=== PATIENT | female | born 1945 | race Caucasian/White ===

== ENCOUNTER 2020-07-31 14:07 | Outpatient (REF) | payer MEDICARE, SELFPAY ==
--- NOTE | ~2020-07-31 | MM_ITS ---
EXAMINATION: MM SCREENING DIGITAL BREAST TOMOSYNTHESIS, BILATERAL CLINICAL INFORMATION: Screening. Asymptomatic. Status post bilateral DCIS COMPARISON: Mammography: July 26, 2019 and studies dating back to March 09, 2012 TECHNIQUE: Digital breast tomosynthesis is performed in both the craniocaudal and mediolateral oblique views along with computer-aided detection (CAD). Synthesized 2D images are generated from the tomosynthesis. FINDINGS: There are scattered areas of fibroglandular density (ACR BI-RADS breast composition Category b). Patient status post bilateral lumpectomy and probable right breast radiation therapy with skin thickening noted. No new abnormal dominant mass or suspicious grouping of microcalcifications identified. MM/MM tomosynthesis screening BI IMPRESSION: There are no significant changes from prior study. ASSESSMENT: BI-RADS 2: Benign RECOMMENDATION: Routine annual mammography screening. This patient's information was entered into a reminder system with a target due date for their next mammogram.
== END 2020-07-31 14:08 | disposition home or self-care (01) ==
LOC: HO.MAMMO 14:07
PROVIDERS: PCP Internal Medicine Medical Oncology; Visit Provider Internal Medicine Medical Oncology
DX: Z12.31 Encounter for screening mammogram for malignant neoplasm of breast (principal)
CPT/HCPCS: 77063; 77067

== ENCOUNTER 2021-01-20 07:52 | Outpatient (REF) | payer MEDICARE, SELFPAY ==
[2021-01-20 08:29] LABS: MANUAL DIFF FLAG NO
[2021-01-20 08:34] LABS: Basophils Absolute Auto 0.1 X10*3/uL (0.0-0.2); Basophils Percent Auto 0.8 % (0-2); Eosinophils Absolute Auto 0.1 X10*3/uL (0.0-0.4); Eosinophils Percent Auto 1.5 % (0-4); Hematocrit 49.7 % (37-47); Hemoglobin 16.1 g/dl (12.0-16.0); Imm Gran Abs Auto 0.02 X10*3/uL (0.00-0.03); Imm Gran Pct Auto 0.3 % (0.0-0.4); Lymphocytes Absolute Auto 1.6 X10*3/uL (1.2-4.9); Lymphocytes Percent Auto 25.3 % (20-40); Mean Corpuscular HGB Conc 32.4 g/dl (31.0-35.0); Mean Corpuscular Hemoglobin 29.2 pg (27.0-33.0); Mean Corpuscular Volume 90.2 fL (80-98); Mean Platelet Volume 11.4 fL (9.4-12.3); Monocytes Absolute Auto 0.5 X10*3/uL (0.1-1.2); Monocytes Percent Auto 8.3 % (2-11); Neutrophils Absolute Auto 3.9 X10*3/uL (2.0-8.3); Neutrophils Percent Auto 63.8 % (45-73); Platelet Count 259 X10*3/uL (160-400); Red Blood Count 5.51 X10*6/uL (4.20-5.50); Red Cell Distribution Width 13.6 % (11.0-16.0); White Blood Count 6.2 X10*3/uL (4.8-10.8)
[2021-01-20 08:57] LABS: Alanine Aminotransferase 13 U/L (0-31); Albumin Level 4.1 g/dL (3.5-5.0); Alkaline Phosphatase 90 U/L (39-117); Anion Gap 12 (12-20); Aspartate Amino Transferase 17 U/L (5-31); Bilirubin Total 0.6 mg/dL (0.0-1.0); Blood Urea Nitrogen 12 mg/dL (9-16); Calcium 9.8 mg/dL (8.4-10.2); Carbon Dioxide 23 mmol/L (22-29); Chloride 110 mmol/L (96-108); Cholesterol 249 mg/dL; Estimated Glomerular Filt Rate > 60; Glucose Fasting 97 mg/dL (60-99); HDL Cholesterol 59 mg/dL; LDL Cholesterol Calculated 153 mg/dl; Potassium 4.7 mmol/L (3.3-5.1); Sodium 140 mmol/L (135-145); Total Protein 6.9 g/dL (6.5-8.0); Triglycerides 188 mg/dL
[2021-01-20 09:20] LABS: Vitamin D 25-OH Total 28.4 ng/mL (>30)
== END 2021-01-20 07:53 | disposition home or self-care (01) ==
LOC: HO.LAB 07:52
PROVIDERS: PCP Internal Medicine Medical Oncology; Visit Provider Internal Medicine Medical Oncology
DX: E78.5 Hyperlipidemia, unspecified (principal); E66.9 Obesity, unspecified
CPT/HCPCS: 36415; 80053; 80061; 82306; 85025

== ENCOUNTER 2021-02-12 12:57 | Outpatient (REF) | payer MEDICARE, SELFPAY ==
[2021-02-14 16:22] LABS: HPV mRNA E6/E7 rflx Not Detected (Not Detected)
== END 2021-02-12 12:58 | disposition home or self-care (01) ==
LOC: HO.LAB 12:57
PROVIDERS: PCP Internal Medicine Medical Oncology; Visit Provider Obstetrics & Gynecology
DX: Z01.419 Encounter for gynecological examination (general) (routine) without abnormal findings (principal); Z11.51 Encounter for screening for human papillomavirus (HPV); N89.0 Mild vaginal dysplasia; Z78.0 Asymptomatic menopausal state
CPT/HCPCS: 87624; 88142

== ENCOUNTER 2021-03-04 09:28 | Outpatient (REF) | payer MEDICARE, SELFPAY ==
--- NOTE | ~2021-03-04 | MM_ITS ---
EXAMINATION: BONE DENSITOMETRY CLINICAL INDICATION: Asymptomatic menopausal state. COMPARISON: Previous BD dated 05/05/2016 and baseline BD dated 01/18/2008. TECHNIQUE: Using a [employer] DXA System (software version: 13.1) manufactured by [employer], dual-energy x-ray absorptiometry was performed of the lumbar spine and left hip. The images are of good technical quality. Summary results are attached. FINDINGS: AP SPINE L1-L3 (excluding L4): The data of L1-L4 has been changed to exclude the L4 vertebral body, because degenerative changes at this level may cause overestimation of lumbar spine density. Current: BMD 0.985 g/cm2, Z-score -0.7, T-score -1.5, osteopenia, 3.4% increase from previous, 3.9% increase from baseline (<5% change is not significant). Prior: BMD 0.953 g/cm2. Baseline: BMD 0.948 g/cm2. LEFT FEMUR, NECK: Current: BMD 0.687 g/cm2, Z-score -1.2, T-score -2.5, osteoporosis. Prior: BMD 0.837 g/cm2. Baseline: BMD 0.916 g/cm2. LEFT FEMUR, TOTAL: Current: BMD 0.839 g/cm2, Z-score -0.3, T-score -1.3, osteopenia, 9.8% decrease from previous, 20.9% decrease from baseline (<5% change is not significant). Prior: BMD 0.930 g/cm2. Baseline: BMD 1.061 g/cm2. IDENTIFIED RISK FACTORS: Early menopause, secondary osteoporosis, hysterectomy, bilateral oophorectomy. HISTORY OF FRACTURE: None listed. MEDICATIONS: None listed. MM/XR DEXA axial skeleton IMPRESSION: 1. DIAGNOSIS: Osteoporosis based on the lowest T-score value of -2.5 in the femoral neck applying World Health Organization criteria. 2. 10-YEAR FRACTURE RISK PREDICTION, FRAX: Major osteoporotic fracture (clinical spine, forearm, hip or shoulder) 15.0%. Hip fracture 4.3%. 3. Treatment Recommendations: NOF guidelines recommend consideration for treatment in postmenopausal women and men age 50 and older presenting with the following: -A hip or vertebral (clinical or morphometric) fracture. -T-score less than or equal to -2.5 at the femoral neck or spine after appropriate evaluation to exclude secondary causes. -Low bone mass at the hip or spine and a 10-year fracture probability by FRAX of greater than or equal to 3% for hip fracture or greater than or equal to 20% for major osteoporotic fracture based on the [place] adapted WHO algorithm. 4. Other Recommendations: All treatment decisions require clinical judgment and consideration of individual patient factors, including patient preferences, comorbidities, previous drug use, risk factors not captured in the FRAX model (e.g. frailty, falls, vitamin D deficiency, increased bone turnover, interval significant decline in bone density) and possible under or overestimation of fracture risk by FRAX. Additional medical evaluation for secondary cause of low bone mineral density may be appropriate. FUTURE SCAN RECOMMENDATION: People with diagnosed cases of osteoporosis or at high risk for fracture should have regular bone mineral density tests. For patients eligible for Medicare, routine testing is allowed once every 2 years. The testing frequency can be increased to one year for patients who have rapidly progressing disease, those who are receiving or discontinuing medical therapy to restore bone mass, or have additional risk factors.
== END 2021-03-04 09:29 | disposition home or self-care (01) ==
LOC: HO.MAMMO 09:28
PROVIDERS: Visit Provider Obstetrics & Gynecology
DX: Z13.820 Encounter for screening for osteoporosis (principal); Z78.0 Asymptomatic menopausal state; Z90.722 Acquired absence of ovaries, bilateral; Z90.710 Acquired absence of both cervix and uterus
CPT/HCPCS: 77080

== ENCOUNTER → 2021-03-11 15:48 | Outpatient (BNVA) | payer MEDICARE, SELFPAY | PROVIDERS: PCP Internal Medicine Medical Oncology; Visit Provider Obstetrics & Gynecology | DX: M81.0 Age-related osteoporosis without current pathological fracture (principal) | CPT/HCPCS: 99212; Q3014 ==

== ENCOUNTER 2021-06-05 12:03 | Outpatient (REF) | payer MEDICARE, SELFPAY ==
[2021-06-05 12:22] LABS: MANUAL DIFF FLAG NO
[2021-06-05 12:29] LABS: Basophils Absolute Auto 0.1 X10*3/uL (0.0-0.2); Basophils Percent Auto 0.7 % (0-2); Eosinophils Absolute Auto 0.1 X10*3/uL (0.0-0.4); Eosinophils Percent Auto 1.2 % (0-4); Hematocrit 48.7 % (37.0-47.0); Hemoglobin 16.2 g/dl (12.0-16.0); Imm Gran Abs Auto 0.01 X10*3/uL (0.00-0.03); Imm Gran Pct Auto 0.1 % (0.0-0.4); Lymphocytes Absolute Auto 1.8 X10*3/uL (1.2-4.9); Lymphocytes Percent Auto 24.8 % (20-40); Mean Corpuscular HGB Conc 33.3 g/dl (31.0-35.0); Mean Corpuscular Hemoglobin 29.9 pg (27.0-33.0); Mean Corpuscular Volume 89.9 fL (80.0-98.0); Mean Platelet Volume 10.7 fL (9.4-12.3); Monocytes Absolute Auto 0.7 X10*3/uL (0.1-1.2); Monocytes Percent Auto 9.5 % (2-11); Neutrophils Absolute Auto 4.6 x10*3/uL (2.0-8.3); Neutrophils Percent Auto 63.7 % (45-73); Platelet Count 247 X10*3/uL (160-400); Red Blood Count 5.42 X10*6/uL (4.20-5.50); Red Cell Distribution Width 13.2 % (11.0-16.0); White Blood Count 7.3 X10*3/uL (4.8-10.8)
== END 2021-06-05 12:04 | disposition home or self-care (01) ==
LOC: HO.LAB 12:03
PROVIDERS: PCP Internal Medicine Medical Oncology; Visit Provider Internal Medicine Medical Oncology
DX: E78.5 Hyperlipidemia, unspecified (principal)
CPT/HCPCS: 36415; 85025

== ENCOUNTER 2021-08-15 07:21 | Outpatient (REF) | payer MEDICARE, SELFPAY ==
[2021-08-15 07:50] LABS: MANUAL DIFF FLAG NO
[2021-08-15 08:04] LABS: Basophils Percent Auto 0.8 % (0-2); Eosinophils Absolute Auto 0.1 X10*3/uL (0.0-0.4); Eosinophils Percent Auto 2.3 % (0-4); Hematocrit 44.5 % (37.0-47.0); Hemoglobin 14.6 g/dl (12.0-16.0); Imm Gran Abs Auto 0.01 X10*3/uL (0.00-0.03); Imm Gran Pct Auto 0.2 % (0.0-0.4); Lymphocytes Absolute Auto 1.4 X10*3/uL (1.2-4.9); Lymphocytes Percent Auto 29.1 % (20-40); Mean Corpuscular HGB Conc 32.8 g/dl (31.0-35.0); Mean Corpuscular Hemoglobin 29.2 pg (27.0-33.0); Mean Platelet Volume 11.4 fL (9.4-12.3); Monocytes Absolute Auto 0.5 X10*3/uL (0.1-1.2); Monocytes Percent Auto 10.5 % (2-11); Neutrophils Absolute Auto 2.7 x10*3/uL (2.0-8.3); Neutrophils Percent Auto 57.1 % (45-73); Platelet Count 233 X10*3/uL (160-400); Red Cell Distribution Width 13.8 % (11.0-16.0); White Blood Count 4.8 X10*3/uL (4.8-10.8)
[2021-08-15 08:36] LABS: Alanine Aminotransferase 10 U/L (0-31); Albumin Level 3.9 g/dL (3.5-5.0); Alkaline Phosphatase 64 U/L (39-117); Anion Gap 11 (12-20); Aspartate Amino Transferase 15 U/L (5-31); Bilirubin Total 0.8 mg/dL (0.0-1.0); Blood Urea Nitrogen 13 mg/dL (9-16); Calcium 9.7 mg/dL (8.4-10.2); Carbon Dioxide 25 mmol/L (22-29); Chloride 109 mmol/L (96-108); Cholesterol 231 mg/dL; Estimated Glomerular Filt Rate > 60; Glucose Random 90 mg/dL (60-115); HDL Cholesterol 54 mg/dL; LDL Cholesterol Calculated 152 mg/dl; Potassium 4.5 mmol/L (3.3-5.1); Sodium 140 mmol/L (135-145); Total Protein 6.5 g/dL (6.5-8.0); Triglycerides 126 mg/dL
== END 2021-08-15 07:22 | disposition home or self-care (01) ==
LOC: HO.LAB 07:21
PROVIDERS: PCP Internal Medicine Medical Oncology; Visit Provider Internal Medicine Medical Oncology
DX: E78.5 Hyperlipidemia, unspecified (principal); M19.90 Unspecified osteoarthritis, unspecified site; D72.819 Decreased white blood cell count, unspecified
CPT/HCPCS: 36415; 80053; 80061; 85025

== ENCOUNTER 2021-09-17 14:17 | Outpatient (REF) | payer MEDICARE, SELFPAY ==
--- NOTE | ~2021-09-17 | MM_ITS ---
EXAMINATION: MM SCREENING DIGITAL BREAST TOMOSYNTHESIS, BILATERAL CLINICAL INFORMATION: Screening. Asymptomatic. Status post bilateral lumpectomies. Pacemaker power pack in place within the left axilla. COMPARISON: Mammography: July 31, 2020 and studies dating back to March 09, 2012 TECHNIQUE: Digital breast tomosynthesis is performed in both the craniocaudal and mediolateral oblique views along with computer-aided detection (CAD). Synthesized 2D images are generated from the tomosynthesis. FINDINGS: The breasts are almost entirely fatty (ACR BI-RADS breast composition Category a). There are no new significant masses, abnormal calcifications, or other abnormalities. Bilateral postsurgical changes noted. MM/MM tomosynthesis screening BI IMPRESSION: There are no significant changes from prior study. ASSESSMENT: BI-RADS 2: Benign RECOMMENDATION: Routine annual mammography screening. This patient's information was entered into a reminder system with a target due date for their next mammogram.
== END 2021-09-17 14:18 | disposition home or self-care (01) ==
LOC: HO.MAMMO 14:17
PROVIDERS: PCP Internal Medicine Medical Oncology; Visit Provider Internal Medicine Medical Oncology
DX: Z12.31 Encounter for screening mammogram for malignant neoplasm of breast (principal)
CPT/HCPCS: 77063; 77067

== ENCOUNTER 2022-02-16 14:41 | Outpatient (REF) | payer MEDICARE, SELFPAY ==
[2022-02-20 07:27] LABS: HPV mRNA E6/E7 rflx Not Detected (Not Detected)
== END 2022-02-16 14:42 | disposition home or self-care (01) ==
LOC: HO.LAB 14:41
PROVIDERS: Visit Provider Obstetrics & Gynecology
DX: Z01.419 Encounter for gynecological examination (general) (routine) without abnormal findings (principal)
CPT/HCPCS: 87624; 88142

== ENCOUNTER → 2022-05-06 14:21 | Outpatient (BNVA) | payer MEDICARE, SELFPAY | PROVIDERS: PCP Internal Medicine Medical Oncology; Visit Provider Nurse Practitioner Family | DX: Z12.11 Encounter for screening for malignant neoplasm of colon (principal) | CPT/HCPCS: 99202 ==

== ENCOUNTER 2022-09-01 11:49 | Outpatient (REF) | payer MEDICARE, SELFPAY ==
--- NOTE | ~2022-09-01 | XR_ITS ---
EXAMINATION: XR HIP, LEFT CLINICAL INFORMATION: Left hip pain COMPARISON: None TECHNIQUE: Two views of the left hip. FINDINGS: No fracture or dislocation. The hip is well aligned. Superior joint space narrowing with subchondral sclerosis and osteophytes. The left hemipelvis is intact. Normal bowel gas pattern. XR/XR hip LT min 2V IMPRESSION: Moderate degenerative changes of the left hip.
== END 2022-09-01 11:50 | disposition home or self-care (01) ==
LOC: HO.XRAY 11:49
PROVIDERS: PCP Internal Medicine Medical Oncology; Visit Provider Internal Medicine Medical Oncology
DX: M25.552 Pain in left hip (principal); E66.9 Obesity, unspecified
CPT/HCPCS: 73502

== ENCOUNTER 2022-09-25 09:08 | Outpatient (REF) | payer MEDICARE, SELFPAY ==
[2022-09-25 09:23] LABS: MANUAL DIFF FLAG NO
[2022-09-25 09:56] LABS: Basophils Absolute Auto 0.1 X10*3/uL (0.0-0.2); Basophils Percent Auto 1.4 % (0-2); Eosinophils Absolute Auto 0.1 X10*3/uL (0.0-0.4); Eosinophils Percent Auto 2.5 % (0-4); Hematocrit 46.1 % (37.0-47.0); Hemoglobin 14.9 g/dl (12.0-16.0); Imm Gran Abs Auto 0.02 X10*3/uL (0.00-0.03); Imm Gran Pct Auto 0.4 % (0.0-0.4); Lymphocytes Absolute Auto 1.7 X10*3/uL (1.2-4.9); Lymphocytes Percent Auto 34.8 % (20-40); Mean Corpuscular HGB Conc 32.3 g/dl (31.0-35.0); Mean Corpuscular Hemoglobin 28.5 pg (27.0-33.0); Mean Corpuscular Volume 88.1 fL (80.0-98.0); Mean Platelet Volume 10.6 fL (9.4-12.3); Monocytes Absolute Auto 0.6 X10*3/uL (0.1-1.2); Monocytes Percent Auto 12.1 % (2-11); Neutrophils Absolute Auto 2.4 x10*3/uL (2.0-8.3); Neutrophils Percent Auto 48.8 % (45-73); Platelet Count 267 X10*3/uL (160-400); Red Blood Count 5.23 X10*6/uL (4.20-5.50); Red Cell Distribution Width 13.9 % (11.0-16.0); White Blood Count 4.9 X10*3/uL (4.8-10.8)
[2022-09-25 10:33] LABS: Alanine Aminotransferase 10 U/L (0-31); Albumin Level 4.1 g/dL (3.5-5.0); Alkaline Phosphatase 79 U/L (39-117); Anion Gap 13 (12-20); Aspartate Amino Transferase 16 U/L (5-31); Bilirubin Total 0.9 mg/dL (0.0-1.0); Blood Urea Nitrogen 10 mg/dL (9-16); Calcium 9.6 mg/dL (8.4-10.2); Carbon Dioxide 25 mmol/L (22-29); Chloride 110 mmol/L (96-108); Cholesterol 238 mg/dL; Estimated Glomerular Filt Rate > 60; Glucose Fasting 85 mg/dL (60-99); HDL Cholesterol 62 mg/dL; LDL Cholesterol Calculated 157 mg/dl; Potassium 4.6 mmol/L (3.3-5.1); Sodium 143 mmol/L (135-145); Total Protein 6.6 g/dL (6.5-8.0); Triglycerides 95 mg/dL
[2022-09-25 10:41] LABS: Thyroid Stimulating Hormone 1.56 uIU/mL (0.32-4.0)
== END 2022-09-25 09:09 | disposition home or self-care (01) ==
LOC: HO.LAB 09:08
PROVIDERS: PCP Internal Medicine Medical Oncology; Visit Provider Internal Medicine Medical Oncology
DX: Z00.00 Encounter for general adult medical examination without abnormal findings (principal); E66.9 Obesity, unspecified; E78.5 Hyperlipidemia, unspecified
CPT/HCPCS: 36415; 80053; 80061; 84443; 85025

== ENCOUNTER 2022-10-05 11:08 | Outpatient (REF) | payer MEDICARE, SELFPAY ==
--- NOTE | ~2022-10-05 | MM_ITS ---
EXAMINATION: MM SCREENING DIGITAL BREAST TOMOSYNTHESIS, BILATERAL CLINICAL INFORMATION: Due for yearly. Prior history left breast cancer, 2001; right breast cancer, 2006. COMPARISON: Prior mammography exams, most recent 09/17/2021. TECHNIQUE: Digital breast tomosynthesis is performed in both the craniocaudal and mediolateral oblique views along with computer-aided detection (CAD). Synthesized 2D images are generated from the tomosynthesis. FINDINGS: The breasts are almost entirely fatty (ACR BI-RADS breast composition Category a). Background stromal markings are stable and there is no developing density or interval mass or architectural abnormality. The axilla and skin contours are unremarkable. There is a pacemaker generator overlying the posterior left axilla on MLO view. Left breast has scattered benign round and vascular calcifications. There is a pacemaker generator overlying and partly obscuring the posterior left axilla on the MLO view. Left breast has scattered benign round and vascular calcifications. Right breast has scattered benign ductal secretory and benign dystrophic calcifications central and inner right breast. In addition, there are fine calcifications in a linear distribution posterior upper outer right breast representing change from prior studies. Patient will be recalled for additional imaging. MM/MM tomosynthesis screening BI IMPRESSION: Right: -Fine calcifications in linear distribution posterior upper outer right breast representing change from prior studies. Left: -No mammographic evidence of malignancy. ASSESSMENT: BI-RADS 0: Incomplete - Need Additional Imaging Evaluation RECOMMENDATION: 1. Additional views right breast (magnification CC, magnification ML). 2. Radiology department staff will contact the patient for additional imaging. This patient's information was entered into a reminder system with a target due date for their next mammogram.
== END 2022-10-05 11:09 | disposition home or self-care (01) ==
LOC: HO.MAMMO 11:08
PROVIDERS: PCP Internal Medicine Medical Oncology; Visit Provider Internal Medicine Medical Oncology
DX: Z12.31 Encounter for screening mammogram for malignant neoplasm of breast (principal)
CPT/HCPCS: 77063; 77067

== ENCOUNTER 2022-10-12 08:59 | Outpatient (REF) | payer MEDICARE, SELFPAY ==
--- NOTE | ~2022-10-12 | MM_ITS ---
EXAMINATION: MM DIAGNOSTIC DIGITAL MAMMOGRAPHY, RIGHT CLINICAL INFORMATION: Additional views of the right breast for calcifications in the upper outer quadrant. COMPARISON: Mammography: 10/05/2022 and studies dating back to 05/05/2016. TECHNIQUE: Digital mammography is performed in the following views: Spot magnification views of the right breast in craniocaudal and 90-degree mediolateral views. FINDINGS: There are scattered areas of fibroglandular density (ACR BI-RADS breast composition Category b). The calcifications may represent vascular calcifications and are more present to a large degree dating back to study of 07/26/2019. Low linear or branching forms are identified. Results are provided to the patient at time of visit by the technologist. MM/MM added views RT IMPRESSION: Right breast calcifications for 6-month followup examination to include spot magnification views in craniocaudal and 90-degree mediolateral views. ASSESSMENT: BI-RADS 3: Probably benign. RECOMMENDATION: Diagnostic mammography in 6 months. This patient's information was entered into a reminder system with a target due date for their next mammogram.
== END 2022-10-12 09:00 | disposition home or self-care (01) ==
LOC: HO.MAMMO 08:59
PROVIDERS: PCP Internal Medicine Medical Oncology; Visit Provider Internal Medicine Medical Oncology
DX: R92.1 Mammographic calcification found on diagnostic imaging of breast (principal)
CPT/HCPCS: 77065

== ENCOUNTER 2023-03-31 12:57 | Outpatient (AMB) | payer MEDICARE, SELFPAY ==
--- NOTE | 2023-03-31 12:58 | MHC.OFFVIS ---
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 No complaints. Last Pap/HPV was in 02/16 was negative, preceded by co testing on 02/15 was negative, the patient had VAUN 1 in 2015 Last Mammogram was BI-RADS 3 in 10/18, another mammogram scheduled in few weeks Last Colonoscopy was in 11/11, the recommendation was to repeat colonoscopy in 5 years, colonoscopy scheduled soon Last DEXA scan was 2 years ago, the patient had osteoporosis and was started on alendronate [facility] Medical History VAIN I (vaginal intraepithelial neoplasia grade I) History of bilateral breast cancer Heart problem Surgical History History of lumpectomy of both breasts Hx of abdominal hysterectomy H/O heart surgery Family History Mother Breast CA Social History (Updated 03/31/23 @ 13:10 by Carine Galeas CMA) Household Members: None Housing: House Alcohol intake: current Alcohol intake frequency: a few times a month Patient Tobacco Use Status: Never used Tobacco Sexual orientation: Straight/Heterosexual Gender identity: Female Female Reproductive History Menstrual Age of Menarche: 15 Total pregnancies: 1 Full term: 1 Number of Living Children: 1 Date of Mammogram: 10/12/22 Review of Systems Const All systems reviewed & are unremarkable except as noted in HPI and below Card Reports as per HPI and Reports no additional complaints Resp Reports as per HPI and Reports no additional complaints GI Reports as per HPI and Reports no additional complaints Reports as per HPI Physical Exam Vital Signs: BMI result Body Mass Index 33.5 Const General: cooperative, healthy appearing and comfortable General: Yes bladder normal to palpation External Female Exam: No lesion Speculum Exam - Vagina: normal appearance of the vagina, normal vaginal discharge and not erythematous Speculum Exam - Cervix: Cervix absent Bimanual exam- vagina & uterus: bladder normal to palpation and uterus absent Bimanual Exam- Adnexa, other: Other (No masses detected) Assessment & Plan Assessment & Plan (1) Well woman exam: Comment: History of VAIN 1 in 2015, last co testing in Code(s): Z01.419 - Encounter for gynecological examination (general) (routine) without abnormal findings Plan: No indication for vaginal Co testing this year. Counseled the patient about the recommended dietary allowance of 1200 mg of Calcium & 800 IU of vitamin D. Mammogram scheduled in 04/21. Referred for screening colonoscopy done. Will order DEXA scan . The patient was instructed to perform monthly self-breast exams and to schedule a 2 week DEXA scan follow-up appointment and an annual exam in a year; All questions answered and the patient verbalized understanding. Orders: Orders XR DEXA axial skeleton Today Z78.0 - Asymptomatic menopausal state Coding Level of Care Code Est Pt Prev Care >65y(73125) Diagnoses Well woman exam Z01.419
[2023-03-31 12:59] VITALS: BMI 33.5
== END 2023-03-31 13:38 | disposition home or self-care (01) ==
PROVIDERS: PCP Internal Medicine Medical Oncology; Visit Provider Obstetrics & Gynecology
DX: Z01.419 Encounter for gynecological examination (general) (routine) without abnormal findings (principal)
CPT/HCPCS: G0101

== ENCOUNTER → 2023-03-31 12:57 | Outpatient (BNVA) | payer MEDICARE, SELFPAY | PROVIDERS: Visit Provider Obstetrics & Gynecology | DX: Z01.419 Encounter for gynecological examination (general) (routine) without abnormal findings (principal) | CPT/HCPCS: G0101 ==

== ENCOUNTER 2023-04-12 08:46 | Outpatient (REF) | payer MEDICARE, SELFPAY ==
--- NOTE | ~2023-04-12 | MM_ITS ---
EXAMINATION: MM DIAGNOSTIC DIGITAL BREAST TOMOSYNTHESIS, RIGHT CLINICAL INFORMATION: Six-month follow-up right breast calcifications. COMPARISON: Mammography: 10/12/2022,, 10/05/2022 and studies dating back to 05/05/2016. TECHNIQUE: Digital breast tomosynthesis is performed in the following views: 2-D spot magnification right CC x2, right ML x1, full-field 3-D digital right CC x2, and full field 3-D digital right MLO x1. FINDINGS: There are scattered areas of fibroglandular density (ACR BI-RADS breast composition Category b). There is redemonstration of linear grouped calcifications in the upper outer right breast, mid to posterior depth, located in the lateral right breast, away from the medial surgical site. These are arranged in a linear distribution, have both somewhat coarse and fine linear forms, with one possible branching form. They are unchanged in morphology, distribution, and number when compared with 10/12/2022, and 09/17/2021. They are indeterminant. Otherwise, the upper slightly medial right breast, there are dystrophic calcifications from prior lumpectomy, as well as skin thickening. No developing masses or new foci of focal asymmetry identified. Otherwise, there are no additional suspicious abnormalities in the right breast. Discussion was held with the patient at length. There are both mildly suspicious characteristics and somewhat benign characteristics to these calcifications. The patient is anticoagulated on on a platelet inhibitor for atrial fibrillation, and it was felt the risks of stopping the anticoagulation for biopsy outweighed the risks of biopsy, which even if DCIS, would not change long-term prognosis with a 6 month interval observational period. It was thus decided to pursue a 6 month follow-up of these right breast calcifications, in lieu of stereotactic biopsy, which I felt was a reasonable course of action at this time. MM/MM tomosynthesis diagnostic RT IMPRESSION: Probably benign calcifications right breast upper outer and outer right breast as discussed above. Six-month interval follow-up mammography with standard magnification views was decided as the best course of action. ASSESSMENT: BI-RADS BI-RADS 3 - Probably benign finding(s) - 6 month follow-up suggested RECOMMENDATION: 6 Month F/U Results were discussed with the patient at time of visit. This patient's information was entered into a reminder system with a target due date for their next mammogram.
== END 2023-04-12 08:47 | disposition home or self-care (01) ==
LOC: HO.MAMMO 08:46
PROVIDERS: PCP Internal Medicine Medical Oncology; Visit Provider Internal Medicine Medical Oncology
DX: R92.1 Mammographic calcification found on diagnostic imaging of breast (principal)
CPT/HCPCS: 77061; 77065

== ENCOUNTER → 2023-04-12 09:00 | Outpatient (BNV) | payer MEDICARE, SELFPAY | PROVIDERS: PCP Internal Medicine Medical Oncology; Visit Provider Radiology Diagnostic Radiology | DX: R92.1 Mammographic calcification found on diagnostic imaging of breast (principal) | CPT/HCPCS: 77061; 77065; G0279 ==

== ENCOUNTER 2023-04-14 09:13 | Day surgery (SDC) | payer MEDICARE, SELFPAY ==
--- NOTE | 2023-04-12 15:02 | P.CONAN_ITS ---
Documented by User: Josefa Chong NP 04/13/23 08:14 HPI - Anesthesia Eval Consult details Narrative: 77yo F for Colonoscopy Eliquis for afib Pacer in situ, [address] Rajan at [facility] cardiology. Awaiting info. REPLACED BY [facility] Active Problems Active Problems: All Active Problems (Updated 03/31/23 @ 13:13 by Klever Christiansen MD) VAIN I (vaginal intraepithelial neoplasia grade I) (Acute) Osteoporosis (Acute) Menopause (Acute) Well woman exam (Acute) Past Medical History Medical History Age related osteoporosis Hx of myocardial infarction CHB (complete heart block) Pacemaker Afib VAIN I (vaginal intraepithelial neoplasia grade I) History of bilateral breast cancer Family History Family History Mother Breast CA Surgical History Surgical History History of cataract surgery S/P hip replacement History of lumpectomy of both breasts Hx of abdominal hysterectomy H/O heart surgery Social History Social History Household Members: None Housing: House Alcohol intake: current Alcohol intake frequency: a few times a month Patient Tobacco Use Status: Never used Tobacco Sexual orientation: Straight/Heterosexual Gender identity: Female Meds Allergies Allergy/AdvReac Type Severity Reaction Status Date / Time Sulfa (Sulfonamide Allergy Unknown HIVES,ITCH Verified 03/31/23 13:05 Antibiotics) marijuan AdvReac Unknown Uncoded 04/14/23 09:45 Home Medications Medication Instructions Recorded Confirmed Last Taken Type apixaban 5 mg (74 tabs) tablets in See Rx Instructions PO PER PKG DIR 02/12/21 04/09/23 History a dose pack (Eliquis DVT-PE Treat 30D Start) metoprolol succinate 25 mg 25 mg PO DAILY 02/12/21 Unknown History tablet,extended release 24 hr gabapentin 300 mg capsule 300 mg PO TID 03/31/23 Unknown History Exam Exam Date and Time: April 12, 2023 1502 Pertinent Lab Results Pertinent Lab Results: Laboratory Tests 09/25/22 09:22 WBC 4.9 Hgb 14.9 Hct 46.1 Plt Count 267 Sodium 143 Potassium 4.6 Chloride 110 H Carbon Dioxide 25 BUN 10 Creatinine 0.73 Narrative Narrative: Pacer Interr 02/2023 [facility] Nml lead and device function. Chronic AF Mode switched to VVIR Low rate 60, Upper rate 130 Assessment and Plan Assessment Anesthesia Assessment: Chart Reviewed Documented by User: Rosalia Wayne MD 04/14/23 13:18 HPI - Anesthesia Eval Consult details Narrative: 77yo F for Colonoscopy Eliquis for afib Pacer in situ, [address] Rajan at [facility] cardiology. Awaiting info. 04/14/23 Patient supposedly seen by cardiology in last couple of months. No information available. No EKG in system. Patient had hip surgery in November but done at [facility]. Will obtain 12 lead ekg for baseline. 12 lead ekg obtained. Reviewed by student here and noted to be abnormal but unable to comment any further as not patient's student. Suggested contacting patient's regular student. Unable to get student but office note finally sent from office with ekg report: Vent rate 66. Afib with frequent Ventricular-paced complexes ST &T wave abnormality, consider inferior ischemia, sonsider cece-lateral ischemia. Ekg today 04/14/23: Atrial fibrillation with frequent ventricular-paced complexes ST & Marked T wave abnormality, consider anterolateral ischemia Prolonged QT RSR' or QR pattern in V1 suggests right ventricular conduction delay Abnormal ECG No new changes. Will proceed with Colonoscopy REPLACED BY [facility] Active Problems Active Problems: All Active Problems (Updated 04/14/23 @ 10:13 by Rosalia Wayne MD) VAIN I (vaginal intraepithelial neoplasia grade I) (Acute) Osteoporosis (Acute) Menopause (Acute) Well woman exam (Acute) Hypertensive urgency, ? NC, Vtach, Torsades, Heart block 09/2018 - Transferred from [facility] ICU to [facility] for Pacemaker insertion Pacemaker last checked remotely in February. Patient states was ok Past Medical History Medical History Age related osteoporosis Hx of myocardial infarction CHB (complete heart block) Pacemaker Afib VAIN I (vaginal intraepithelial neoplasia grade I) History of bilateral breast cancer Family History Family History Mother Breast CA Family history of problems with anesthesia: No Surgical History Surgical History History of cataract surgery S/P hip replacement History of lumpectomy of both breasts Hx of abdominal hysterectomy H/O heart surgery History of Problems with Anesthesia: No Social History Social History Household Members: None Housing: House Alcohol intake: current Alcohol intake frequency: a few times a month Patient Tobacco Use Status: Never used Tobacco Sexual orientation: Straight/Heterosexual Gender identity: Female Meds Allergies Allergy/AdvReac Type Severity Reaction Status Date / Time Sulfa (Sulfonamide Allergy Unknown HIVES,ITCH Verified 03/31/23 13:05 Antibiotics) marijuan AdvReac Unknown Uncoded 04/14/23 09:45 Home Medications Medication Instructions Recorded Confirmed Last Taken Type apixaban 5 mg (74 tabs) tablets in See Rx Instructions PO PER PKG DIR 02/12/21 04/09/23 History a dose pack (MoveinBlue DVT-PE Treat 30D Start) metoprolol succinate 25 mg 25 mg PO DAILY 02/12/21 Unknown History tablet,extended release 24 hr gabapentin 300 mg capsule 300 mg PO TID 03/31/23 Unknown History Exam Height,Weight and Vital Signs: Height 5 ft 2 in Weight 81.647 kg Vital Signs Temp Pulse Resp BP Pulse Ox O2 Del Method 04/14/23 09:51 97.7 F 68 8 L 155/69 H 97 Room Air Airway Mallampati Class: II TM Dist: >3cm Neck ROM: Full Loose/Missing/Broken Teeth: No (Denies broken, loose, missing teeth) Heart: RRR Lungs: CTAB Assessment and Plan Assessment Anesthesia Assessment: Anesthesia Plan Discussed Final Anesthetic Review Family History of Problems with Anesthesia: No History of Problems with Anesthesia: No NPO: Yes ASA Class: IV Final Preanesthetic Review: No Changes in Pt Med Stat, Meds/Allgs Chart Reviewed, Consent Obtained/Reviewed and Anes Risks/Benef Reviewed Patient Risk: Intermediate Procedure Risk: Low Assessment/Block/Sedation in SS: Assess/Block/Sedation-SS Anesthetic Plan Anesthetic Plan: MAC: Disposition: Standard PACU
--- NOTE | 2023-04-14 | ECG_ITS ---
Test Reason : pacer, preop Blood Pressure : / mmHG Vent. Rate : 065 BPM Atrial Rate : 000 BPM P-R Int : 000 ms QRS Dur : 080 ms QT Int : 494 ms P-R-T Axes : 000 -16 -89 degrees QTc Int : 513 ms Atrial fibrillation with frequent ventricular-paced complexes ST & Marked T wave abnormality, consider anterolateral ischemia Prolonged QT RSR' or QR pattern in V1 suggests right ventricular conduction delay Abnormal ECG When compared with ECG of 22-OCT-2018 18:09, Electronic ventricular pacemaker has replaced Junctional rhythm Vent. rate has increased BY 23 BPM Referred By: Rosalia Wayne Electronically Signed By:TEE MCKEON MD
--- OUTSIDE RECORDS SUMMARY | 2023-04-14 09:16 | XMS_ITS | Continuity of Care Document ---
Author Name Unknown Organization [facility] Address [address] [place] [id number] Care Team Providers Care Byproducts Supervisor Name Role Phone Baldev Victoria MD Primary Care Physician Encounter [facility] ACCT R [id number] Date(s): 07/28/19 - 09/02/19 [facility] [address] [place] [id number]- [facility] Attending Physician: Linus Griffith Admitting Physician: Linus Griffith Referring Physician: Baldev Victoria MD Allergies, Adverse Reactions, Alerts Substance Reaction Severity Status sulfa drugs Active amLODIPine Active Medications amLODIPine 5 mg oral tablet 5 mg, By Mouth, Daily, # 30 tablet, Refills 3, Tot. Refills 3, Maintenance, 10/25/18 11:59:50 EDT, Route to Pharmacy Electronically, [id number], [facility] Start Date: 10/25/18 Status: Ordered Toprol XL 25 mg oral tablet, extended release 25 mg, 1, tablet, By Mouth, Daily, # 30 tablet, Refills 3, Tot. Refills 3, Maintenance, 12/09/18 12:50:58 EDT, Route to Pharmacy Electronically, [id number], [id number] - [place] Start Date: 12/09/18 Status: Ordered Xarelto 20 mg oral tablet 1 tablet = 20 mg, By Mouth, Daily at supper, # 30 tablet, 3 Refills, Maintenance, 07/28/19 11:54:00EST, Tablet, [facility] - [place], New onset Afib, 157, cm, 03/30/19 8:37:00 EDT, Height, 89.5, kg, 10/23/18 7:14:00 EDT, Dry Weight Start Date: 07/28/19 Status: Ordered Social History Social History Type Response Smoking Status Never (less than 100 in lifetime) entered on: 10/23/18 Sex Female
--- OUTSIDE RECORDS SUMMARY | 2023-04-14 09:16 | XMS_ITS | Continuity of Care Document ---
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 Name Role Phone Esme GREENFIELD, Baldev Vela Primary Care Physician Encounter [facility] Date(s): 11/23/22 - 11/24/[address] [address] Discharge Disposition: Disch/Trans to IP Rehab or unit w/in Hos Attending Physician: Francisco Javier Rioajs MD Admitting Physician: Francisco Javier Riojas MD Referring Physician: Francisco Javier Riojas MD Allergies, Adverse Reactions, Alerts Substance Reaction Severity Status sulfa drugs Active amLODIPine Active Medications acetaminophen 325 mg oral tablet 650 mg, By Mouth, Every 6 hours, May take OTC not to exceed 3000 mg/day, Refills 0, Maintenance, 11/21/22 8:41:00 EDT, Partial fill upon patient request if the prescription is for a schedule II opioid drug. Start Date: 11/21/22 Status: Ordered Acetaminophen Tablet 650 mg, Tablet, By Mouth, 11/24/22 9:00:00 EDT Start Date: 11/24/22 Stop Date: 11/24/22 Status: Completed calcium (as carbonate)-vitamin D 600 mg-800 intl units oral tablet, chewable 1 tablet, Chew, 2 times a day, # 60 tablet, 0 Refills, Maintenance, 11/19/22 11:44:00 EDT, Chew Tablet, Partial fill upon patient request if the prescription is for a schedule II opioid drug. Start Date: 11/19/22 Status: Ordered Colace Capsule 100 mg, 1, capsule, By Mouth, 2 times a day, Refills 0, Maintenance, 11/21/22 8:41:00 EDT, Partial fill upon patient request if the prescription is for a schedule II opioid drug. Start Date: 11/21/22 Status: Ordered Eliquis 5 mg oral tablet 1 tablet = 5 mg, By Mouth, 2 times a day, # 60 tablet, 0 Refills, Maintenance, 04/03/21 14:24:00 EDT, Tablet, Partial fill upon patient request if the prescription is for a schedule II opioid drug. Start Date: 04/03/21 Status: Ordered gabapentin 300 mg oral capsule 300 mg, Capsule, By Mouth, 11/24/22 8:00:00 EDT Start Date: 11/24/22 Stop Date: 11/24/22 Status: Completed gabapentin 300 mg oral capsule TAKE 1 CAPSULE BY MOUTH THREE TIMES DAILY Start Date: 11/11/22 Status: Ordered metoprolol 25 mg oral tablet, extended release 25 mg, XL Tablet, By Mouth, 11/24/22 8:00:00 EDT Start Date: 11/24/22 Stop Date: 11/24/22 Status: Completed MiraLax Powder 1 pack/packet = 17 Gm, By Mouth, Daily, PRN Constipation, 0 Refills, Maintenance, 11/21/22 8:41:00 EDT, Powder, Partial fill upon patient request if the prescription is for a schedule II opioid drug. Start Date: 11/21/22 Status: Ordered oxyCODONE 5 mg oral tablet See Instructions, PRN, Take 1-2 tablets every 4 hours as needed for moderate to severe pain., # 84 tablet, Refills 0, Tot. Refills 0, Acute 12/01/22 8:00:00 EDT, Pain , Mild, 11/24/22 9:23:00 EDT, Instructions Replace Required Details, Print Requisiti... Start Date: 11/24/22 Stop Date: 12/01/22 Status: Ordered senna 187 mg oral tablet 1 tablet = 8.6 mg, By Mouth, Daily at bedtime, PRN as needed for constipation, 0 Refills, Maintenance, 11/21/22 8:41:00 EDT, Tablet, Partial fill upon patient request if the prescription is for a schedule II opioid drug. Start Date: 11/21/22 Status: Ordered Toprol XL 25 mg oral tablet, extended release 25 mg, 1, tablet, By Mouth, Daily, # 30 tablet, Refills 3, Tot. Refills 3, Maintenance, 12/09/18 12:50:58 EDT, Route to Pharmacy Electronically, [id number], [id number] - [facility] Start Date: 12/09/18 Status: Ordered traMADol 50 mg oral tablet See Instructions, PRN Pain , Mild, Take 1-2 tablets every 6 hours as needed for mild pain. not to exceed 400 mg/day, # 56 tablet, 0 Refills, Acute 12/01/22 8:00:00 EDT, 11/24/22 9:24:00 EDT, Tablet, Partial fill upon patient request if the prescript... Start Date: 11/24/22 Stop Date: 12/01/22 Status: Ordered Problem List Condition Confirmation Course Effective Dates Status Health St atus Informant Afib Confirmed Active Pacemaker Confirmed Active CHB (complete heart block) Confirmed Active Breast CA Confirmed Active Obese class I Confirmed Active Results Radiology Reports * Exam Date Time Procedure Performing Provider Status 11/20/22 10:04 AM Pelvis 1 or 2 Views Yennifer Berg; Wu (Verified) Notes: (Pelvis 1 or 2 Views) Reason For Exam: Postop Prosthesis RESULT: Pelvis 1 or 2 Views Pelvis 1 or 2 Views Reason: Postop Prosthesis; Clinical Question(s): Status of Hip Prosthesis; Special Instructions: LEFT Hip - To be done in PACU COMPARISON: None. FINDINGS: Expected postoperative appearance following left hip arthroplasty without evidence of hardware complication. Small amount of adjacent subcutaneous emphysema is noted. Mild sacroiliac and pubic symphysis degenerative changes. Unremarkable right hip arthroplasty, with stent outside the [id number]. IMPRESSION: Expected appearance following left hip arthroplasty without evidence of complication. WSN: [id number] Ordering Physician: Adarsh Raymond Dictated By: Jan Moody MD Dictated Date/Time: 11/20/22 10:10 a Reviewed By: Jan Moody MD Signed By: Jan Moody MD Signed Date/Time: 11/20/22 10:10 am Transcribed By: JASMYN Transcribed Date/Time: 11/20/22 10:09 am Vital Signs Most recent to oldest [Reference Range]: 1 2 3 Height 158 cm (11/24/22 6:44 AM) 158 cm (11/23/22 3:01 PM) 158 cm (11/23/22 11:24 AM) Weight 85.4 kg (11/20/22 11:01 AM) Oxygen Saturation [94-100 %] 98 % (11/24/22 6:44 AM) 100 % (11/24/22 3:00 AM) 100 % (11/23/22 7:00 PM) Pulse Rate [55-90 bpm] 60 bpm (11/24/22 7:50 AM) 60 bpm (11/24/22 6:44 AM) 62 bpm (11/24/22 3:00 AM) Body Mass Index [18.5-24.99 kg/m2] 34.21 kg/m2 *>HHI* (11/20/22 11:01 AM) Blood Pressure [90-138/55-84 mm Hg] 129/59mm Hg (11/24/22 7:50 AM) 129/59mm Hg (11/24/22 6:44 AM) 109/58mm Hg (11/24/22 3:00 AM) Respiratory Rate [16-30 br/min] 18 br/min (11/24/22 8:50 AM) 18 br/min (11/24/22 8:50 AM) 18 br/min (11/24/22 7:50 AM) Temperature [96.8-100.4 DegF] 97.8 DegF (11/24/22 6:44 AM) 97.9 DegF (11/24/22 3:00 AM) 98.4 DegF (11/23/22 7:00 PM) Liters per Minute 3 L/min (11/20/22 9:30 AM) 3 L/min (11/20/22 9:15 AM) Mode of Delivery (Oxygen) Room air (11/24/22 6:44 AM) Room air (11/24/22 3:00 AM) Room air (11/23/22 7:00 PM) Blood pressure sites Arm, right (11/24/22 6:44 AM) Arm, right (11/24/22 3:00 AM) Arm, right (11/23/22 7:00 PM) Temperature Route Oral (11/24/22 6:44 AM) Oral (11/24/22 3:00 AM) Oral (11/23/22 7:00 PM) Dry Weight 85.4 kg (11/20/22 11:01 AM) 85.4 kg (11/20/22 5:38 AM) Weight Obtained Via Standing scale (11/20/22 11:01 AM) Dry Weight Obtained Via Standing scale (11/20/22 11:01 AM) Social History Social History Type Response Smoking Status Never (less than 100 in lifetime) entered on: 11/11/22 Sex Female Surgical pathology study * Event Display: Surgical Pathology Authored Date: Patient Name: MELISA ADAME Lab Patient : 1945 (Age: 77) Collection Date: 11/20/2022 Accession Date: 11/20/2022 Sign Out Date: 11/20/2022 Tissue Source: 1:LEFT FEMORAL HEAD Final Diagnosis: Femoral head, left, replacement: - Femoral head with degenerative changes of articular cartilaginous surface and eburnation consistent with severe osteoarthritis (gross examination). Primary Pathologist:Steve Salazar MD electronically signed out by: Steve Salazar MD / [facility] Clinical History: Osteoarthritis left hip Gross Description: Labeled left femoral head . Received in formalin is a 5.0 x 4.8 x 4.2 cm femoral head with up to 1.4 cm of attached femoral neck. The margin of transection is smooth. The articular surface ranges from pink-sherman, glistening to pink-red, granular. Eburnation and pitting are present. Osteophytes are i dentified. Sectioning reveals yellow-red, trabecular cut surfaces. No sections are submitted. Grossexamination only. (KM)* Phone #: [phone], On-Call Pathologist: [id number] History and physical note * Event Display: History and Physical Hospital Authored Date: Note * Yennifer Szymanski RN: PERFORM Event Display: Discharge/Transfer Note Hospital Authored Date: [id number] Nursing Discharge Note Entered On: 11/24/2022 12:58 EDT Performed On: 11/24/2022 12:57 EDT by Yennifer Szymanski RN Nursing Discharge Note 2 Discharge Time : 11/24/2022 12:57 EDT Discharge Level of Care at Discharge : Inpatient Rehab Facility/Unit Discharge Nursing Homes/Rehab Facilities : [facility] Patient Left Unit Via : Chair Van Patient Accompanied Off Unit with : Ambulance/Chair Van Personnel Handover Given to Transport Personnel : Yes DC Instructions Provided & Signed by Pt : Yes Patient Understands D/C Instructions : Yes Patient Instructions Discharge Signed : Yes Did Pt have Specialty Bed or Wound Vac : No Yennifer Szymanski RN - 11/24/2022 12:57 EDT * Piper Foley RN: PERFORM, SIGN, VERIFY Event Display: Case Management Discharge Plan Authored Date: [id number] Patient: MELISA ADAME Age: 77 years Sex: Female : 1945 Associated Diagnoses: None Author: Piper Foley RN Discharge Plan Case Management Discharge Plan : Case Management Discharge Plan Data 11/20/2022 12:29 EDT Discharge Level of Care at Discharge Inpatient Rehab Facility/Unit (Modified) Discharge Nursing Homes/Rehab Facilities [facility] Discharge Transportation Arranged [facility] [address] [place] [address] Discharge Arranged Transport Date/Time 11/24/2022 13:00 Mode of Transportation Arranged Chair Van Agency [employer] #1 adm[facility]isons Service Categories #1 Occupational Therapy, Physical Therapy, Fpc (Modified) Service Start Date and Time #1 11/24/2022 14:00 Service Comments #1 You are going to rehab today. (Modified) * Yennifer Szymanski RN: PERFORM Event Display: Patient Education/Instruction Authored Date: Inpatient Adult Discharge Instructions [address] [address] Name: MELISA ADAME : 1945 Visit: 11/23/2022 08:15:00 Current Date: 11/24/2022 11:25 Account: [id number] Inpatient Adult Discharge Instructions We would like to thank you for allowing us to assist you with your healthcare needs. The following includes patient education materials and information regarding your injury/illness. Our entire staffstrives to provide an excellent experience for our patients and their families. PLEASE ENSURE YOU FOLLOW-UP PER THE INSTRUCTIONS BELOW! ?? YOUR OPINION IS IMPORTANT TO US! Please complete the survey you may receive by mail or email. Your feedback will be used to make improvements to the healthcare experiences of our patients and their families. Surveys are administered by [employer] ?? If further treatment with your primary care physician or another doctor is recommended, it is important for you to keep the appointment. Call your primary care physician or return to the Emergency Department immediately if your condition worsens, fails to improve, or new symptoms develop. If you need to find a doctor, you can call [facility] [employer] for a referral at [phone] or toll free at [phone] or log in to [email or web address] ?? You can view and manage your care through the patient portal or by using a health care chito of your choosing. [employer] is a website that allows you to securely view your medical information including your hospital discharge summary, office visit summaries, medications and follow-up visits. You can also request appointments, renew medications, and request access to your medical information using a health care chito of your choosing, or just ask a question. You can enroll at [email or web address] or register during your next office visit. You have been discharged from [facility], Patient Care Unit: SW7. If you have any questions regarding these instructions after you leave, please call us and we will be happy to assist you. [facility] Your Care Team Attending Physician Shine GREENFIELD, Francisco Javier Israel Consulting Providers Francisco Javier Riojas MD Discharging Providers Valeria Kovacs NP Reason for Your Visit OA LEFT HIP RICKY Your Diagnosis Arthritis of hip Osteoarthritis of left hip Tests Performed Below is a partial list of the tests performed during your hospitalization. You may have had other tests and procedures not included in this list. Please discuss all test results with your provider. [id number] BUN CBC Creatinine Electrolytes XR Pelvis 1 or 2 Views Primary Care Provider Esme GREENFIELD, Baldev Vela Advance Directive . Discharge Vitals Temperature: 97.8 DegF Height: 158 cm Pulse Rate: 60 bpm Weight: 85.4 kg Respiratory Rate: 18 br/min Body Mass Index:??34.21 kg/m2??Critical Respiratory Rate: 18 br/min Body surface area: 1.94 Systolic Blood Pressure: 129 mm Hg ?? Diastolic Blood Pressure: 59 mm Hg ?? Oxygen Saturation: 98 % ?? Studies Pending All tests and labs ordered during this hospital stay have been completed unless listed below. Please discuss all pending results with your provider listed above in these instructions. ?? BUN CBC Creatinine Electrolytes What to do next Instructions From Your Doctor Discharge Orders You Need to Schedule the Following Appointments Follow Up with??[facility] When:??Within 1 to 2 weeks Where: [address] [place] [address] [address] [place] [address]- Discharge Medications MELISA ADAME :1945 Visit Date:11/23/2022 Medications: Please continue your medications until treatment is completed or stopped by your provider. Medications not listed below should be discontinued. Discuss any questions related to medications with your provider. What How Much When Instructions Next Dose Changed Oxycodone (oxyCODONE 5 mg oral tablet) See instructions Take 1-2 tablets every 4 hours as needed for moderate to severe pain., As needed for Pain , Mild ?? Printed Prescription ? Changed Tramadol (traMADol 50 mg oral tablet) See instructions Take 1-2 tablets every 6 hours as needed for mild pain. not to exceed 400 mg/ day, As needed for Pain , Mild ?? Printed Prescription Changed apixaban (Eliquis 5 mg oral tablet) 1 tab(s) Oral Twice a day Next dose due tonight at 8pm Unchanged Acetaminophen (acetaminophen 325 mg oral tablet) 650 Milligram Oral Every 6 hours May take OTC not to exceed 3000 mg/ day ?? You took this morning at 5:30am ? Unchanged Calcium And Vitamin D Combination (calcium (as carbonate)-vitamin D 600 mg-800 intl unitsoral tablet, chewable) 1 tab(s) Chew Twice a day Next dose due tonight at 8pm Unchanged Docusate (Colace Capsule) 100 Milligram Oral Twice a day Next dose due tonight 8pm Unchanged Gabapentin (gabapentin 300 mg oral capsule) TAKE 1 CAPSULE BY MOUTH THREE TIMES DAILY ?? Next dose due today at 2pm. Unchanged Metoprolol (Toprol XL 25 mg oral tablet, extended release) 1 tab(s) Oral Daily Next dose due tomorrow morning. Unchanged Polyethylene Glycol 3350 (MiraLax Powder) 17 gram Oral Daily as needed for Constipation As needed for constipation. Unchanged Senna (senna 187 mg oral tablet) 1 tab(s) Oral Daily at Bedtime as needed for as needed for constipation As needed for constipation.?? LBM 11/23 Test Results Below is a partial list of the most recent Laboratory test results done prior to this discharge. You may have had other tests and procedures not included in this list. Please discuss all test resultswith your provider. Est Creatinine Clearance - 64.68 mL/min (11/24/2022) [address] (11/20/2022) ? ?Surgical Pathology - Patient Name: MELISA ADAME
Lab
Patient : 1945 (Age: 77)
Collection Date: 11/20/2022
Accession Date: 11/20/2022
Sign Out Date: 11/20/2022

<br/& gt;Tissue Source:
1:LEFT FEMORAL HEAD

Final Diagnosis:< br/>Femoral head, left, replacement:
- Femoral head with degenerative changes of articular cartilaginous surface and eburnation consistent with severe osteoarthritis (gross examination).

Primary Pathologist:Steve Salazar MD
electronically signed out by: Steve Salazar MD / [facility]

Clinical History:
Osteoarthritis left hip

Gross Description:
Labeled left femoral head . Received in formalin is a 5.0 x 4.8 x 4.2 cm femoral head with up to 1.4 cm of attached femoral neck. Themargin of transection is smooth. The articular surface ranges from pink-sherman, glistening to pink-red, granular. Eburnation and pitting are present. Osteophytes are identified. Sectioning reveals yellow-red, trabecular cut surfaces. No sections are submitted. Gross examination only. (KM)*

<br/&g t;Phone #: [phone], On-Call Pathologist: [id number] BUN (11/24/2022) ???BUN - 10 mg/dL CBC (11/24/2022) ???WBC - 6.8 k/mm3???RBC - 4.26 m/mm3???Hgb - 12.1 Gm/dL???Hct - 37.6 %???MCV - 88.3 femtoliters???MCH - 28.4 pg???MCHC - 32.2 g/dL???Platelet Count - 221 k/mm3???RDW-SD - 43.9 femtoliters???MPV - 10.7 femtoliters???Nucleated RBC (Automated) - 0.0 #/100 WBC'S???Abs. NRBC - 0.0 k/mm3 Creatinine (11/24/2022) ???Creatinine-Blood - 0.6 mg/dL???Estimated GFR Creatinine - 96 ML/MIN/1.73 M2 Electrolytes (11/24/2022) ???Sodium - 140 mmol/L???Potassium - 4.0 mmol/L???Chloride - 105 mmol/L???Bicarbonate Level - 24 mmol/L???Anion Gap - 11 Allergies (NKA means No Known Allergies) amLODIPine sulfa drugs Problems Active Problems??(5) Afib?? Breast CA?? CHB (complete heart block)?? Obese class I?? Pacemaker?? Education Materials Below is the list of Educational Leaflet Providered with your Discharge Instructions. Hip Precautions?? Total Hip Replacement Discharge Instructions?? Valuables and Belongings I fully understand and agree that [facility] accepts no responsibility for all my personal property including clothing, toilet articles, radios, jewelry, dentures, hearing aids, rings, money, or any other property that is in my possession or is brought to me after admission. I understand certain valuables may be placed in a hospital safe for a short period of time. I understand that the hospital is not liable for loss or damage due to accident, fire, or other natural occurrence while said property is in the safe. I accept full responsibility for any personal property that I keep with me, and will not hold the hospital responsible in case of loss or disappearance. I acknowledge that i have been encouraged to send valuables and belongings home. ?? Review of Valuable and Belonging List: With patient Date for Pt to Sign Valuables/Belongings: 11/21/22 10:33:00 ?? Other Discharge Information ? Case Management Discharge Plan?? Discharge Plan?? Discharge Agency Information?? Discharge Level of Care at Discharge: Inpatient Rehab Facility/Unit Agency [employer] #1: adm[facility]isons Discharge Transportation Arranged: [facility] [address] ??[phone] Service Start Date and Time #1: 11/24/22 14:00:00 Mode of Transportation Arranged: Chair Van Service Categories #1: Occupational Therapy, Physical Therapy, Fpc Discharge Arranged Transport Date/Time: 11/24/22 13:00:00 Service Comments #1: You are going to rehab today. Discharge Nursing Homes/Rehab Facilities: [facility] ? Pulmonary Rehab Status?? Pulmonary Rehab Discharge Status?? Respiratory Rate: 18 br/min Respiratory Rate: 18 br/min ? Common Emergency Awareness Tips IS IT A STROKE? Act FAST and Check for these signs: FACE Does the face look uneven? ARM Does one arm drift down? SPEECH Does their speech sound strange? TIME Call at any sign of stroke ?? Heart Attack Signs Chest discomfort: Most heart attacks involve discomfort in the center of the chest and lasts more than a few minutes, or goes away and comes back. It can feel like uncomfortable pressure, squeezing, fullness or pain. Discomfort in upper body: Symptoms can include pain or discomfort in one or both arms, back, neck, jaw or stomach. Shortness of breath: With or without discomfort. Other signs: Breaking out in a cold sweat, nausea, or lightheaded. Remember, MINUTES DO MATTER. If you experience any of these heart attack warning signs, call to get immediate medical attention! ?? Smoking can increase your chances of developing chronic health problems and can cause harmful effects to other family members in your house. If you smoke, you are strongly encouraged to quit. Please call [facility] at [phone] or [phone] ([phone]) or log in to [email or web address] for referrals to smoking cessation programs. ?? 602 Suicide & Crisis Lifeline is available 18/01 if you or someone you know needs to find a reason to keep living. By calling 886 you'll be connected to a skilled, trained counselor at a crisis center in your area. INPATIENT DISCHARGE INSTRUCTIONS SIGNATURE PAGE MELISA ADAME Location:[facility] Registration Date and Time:11/23/2022 08:15 EDT Primary Care Physician: Esme GREENFIELD, Baldev Vela, Attending Physician: Shine GREENFIELD, Francisco Javier Israel, I MELISA ADAME, have received the above patient education materials/instructions and have verbalized understanding. If ambulance or transport services are being used I further acknowledge being given a choice of service. ?? If you need to contact me, please call me at this number: . Patient/Preschool Associate Teacher Name: Patient/Preschool Associate Teacher Signature: Relationship to Patient: Witness Name/Signature: Date: * Event Display: Adult Preadmission Health Questionnaire Authored Date: * Valeria Kovacs NP: MODIFY, SIGN [place] REST ROOM MATRON, Anabell: PERFORM, SIGN Jorge Alberto REST ROOM MATRON, Dannaulfnedya: SIGN, VERIFY [place] REST ROOM MATRON, Dannaulfnedya: VERIFY, SIGN [place] REST ROOM MATRON, Dannaulfiya: SIGN, MODIFY Jorge Alberto REST ROOM MATRON, Dannaulfiya: MODIFY, SIGN Jorge Alberto REST ROOM MATRON, Dannaulfiya: SIGN, MODIFY Jorge Alberto REST ROOM MATRON, Dannaulfiya: MODIFY Cés[place] PA, Emilie Muhammad: MODIFY, SIGN [place] PA, Emilie Sabina: SIGN, MODIFY Césarello PA, Emilie Sabina: MODIFY, SIGN [place] PA, Emilie Sabina: SIGN, MODIFY [place] PA, Emilie Sabina: MODIFY, SIGN Césarello PA, Emilie Sabina: SIGN Event Display: Discharge/Transfer Note Hospital Authored Date: [id number] Patient: MELISA ADAME Age: 77 years Sex: Female : 1945 Associated Diagnoses: None Author: Anabell Azul NP Discharge Summary Admission Date: 11/20/2022 Discharge Date: 11/24/2022 Admitting Diagnosis: Left hip osteoarthritis Discharge Diagnosis: Left hip osteoarthritis Final Diagnosis: Left hip osteoarthritis Procedure: Left total hip arthroplasty Surgeon: Dr. Francisco Javier Riojas Past Medical History: 1. Osteoarthritis of bilateral hips, status post right hip replacement, 2011. 2. Breast cancer treatment twice. She has been in remission now since 2001. 3. Complete heart block. She has some polymorphic ventricular tachycardia. She is now status post transvenous pacemaker placement. She has not had any issues since that time. She follows with Dr. Rajanregarding this. 4. Atrial fibrillation. She had a device interrogation in 07/2022. She had a battery longevity at that point of 6 years with RV pacing 83% and atrial fibrillation burden at 100%. She is on Eliquis for chronic anticoagulation for AFib. 5. Osteoporosis. She is on Fosamax for this. 6. Hypertension. Orthopedics: The patient is status post left hip arthroplasty. It is anticipated that she will be discharged to rehab today pending PT, OT clearance. The patient is doing well from a surgical standpoint. Her incision is healing well. Neurovascular status is intact. Calves are supple and nontender. The patient is weight bearing as tolerated. Making good progress with Physical Therapy and Occupational therapy. Supervision with ambulation walking 10 feet, ambulating with a walker. Pain is well controlled on her current regimen, Acetaminophen 650 mg every 6 hours, tramadol and oxycodone 5-10 mg every 4 hours as needed. Patient is tolerating this well. She will be sent to rehab with a prescription for this medication. Prescription: Tramadol 50 mg tablets, take 1 to 2 tablets every 6 hours as needed for mild pain, 7 days, #56 Oxycodone 5 mg tablet, 1-2 tablets every 4 hours as needed for severe pain, 7 days # 84 Hospital course: Relatively uneventful medically. Telemetry remained stable throughout the hospital stay. Patient isvoiding spontaneously. + bowel sounds. The patient was able to have a bowel movement. No other issues. No calf tenderness. Current Medication List: Acetaminophen (acetaminophen 325 mg oral tablet) 650 Milligram By Mouth Every 6 hours May take OTC not to exceed 3000 mg/day apixaban (Eliquis 5 mg oral tablet) 1 tab(s) 5 Milligram By Mouth 2 times a day Calcium And Vitamin D Combination (calcium (as carbonate)-vitamin D 600 mg-800 intl units oral tablet, chewable) 1 tab(s) Chew 2 times a day Docusate (Colace Capsule) 100 Milligram 1 capsule By Mouth 2 times a day Gabapentin (gabapentin 300 mg oral capsule) TAKE 1 CAPSULE BY MOUTH THREE TIMES DAILY Metoprolol (Toprol XL 25 mg oral tablet, extended release) 25 Milligram 1 tablet By Mouth Daily Oxycodone (oxyCODONE 5 mg oral capsule) See Instructions as needed as needed for pain 1-2 capsule By Mouth Every 4-6 hours for severe pain Polyethylene Glycol 3350 (MiraLax Powder) 1 pack/packet 17 gram By Mouth Daily as needed Constipation Senna (senna 187 mg oral tablet) 1 tab(s) 8.6 Milligram By Mouth Daily at bedtime as needed as needed for constipation Tramadol (traMADol 50 mg oral tablet) See Instructions as needed as needed for pain 1-2 tablet By Mouth Every 6 hours for moderate painnot to exceed 400 mg/day Allergies (Active and Proposed Allergies Only) amLODIPine (Severity: Unknown severity, Onset: Unknown) sulfa drugs (Severity: Unknown severity, Onset: Unknown) Current Labs: Last 24 Hours Basic Metabolic Panel: Hematology: Sodium: 140 mmol/L (11/24/22) Hgb: 12.1 Gm/dL (11/24/22) Potassium (POC): 4.0 mmol/L (11/24/22) Hemoglobin A1C (Monitoring): ------ Phosphorus: ------ WBC: 6.8 k/mm3 (11/24/22) Magnesium: ------ Platelets: 221 k/mm3 (11/24/22) BUN (POC) POC Cartridge: 10 mg/dL (11/24/22) INR Level: ------ Creatinine-Blood: 0.6 mg/dL (11/24/22) Creatinine Clearance: ------ Additional - Last 24 Hours Abs. NRBC: 0.0 k/mm3 (11/24/22) Anion Gap: 11 (11/24/22) Bicarbonate Level: 24 mmol/L (11/24/22) BUN: BUN (11/24/22) Chloride: 105 mmol/L (11/24/22) Creatinine, Blood: Creatinine, Blood (11/24/22) Est Creatinine Clearance: 64.68 (11/24/22) Estimated GFR Creatinine: 96 ML/MIN/1.73 M2 (11/24/22) Hct: 37.6 % (11/24/22) MCH: 28.4 pg (11/24/22) MCHC: 32.2 g/dL (11/24/22) MCV: 88.3 femtoliters (11/24/22) MPV: 10.7 femtoliters (11/24/22) Nucleated RBC (Automated): 0.0 #/100 WBC'S (11/24/22) RBC: 4.26 m/mm3 (11/24/22) RDW-SD: 43.9 femtoliters (11/24/22) DVT prophylaxis Apixaban 2.5 mg po bid x 7 days, then resume home dose Disposition: Anticipates being discharged today to rehab services due to struggles with PT. Follow up at [facility] in2 weeks, patient is aware of this. The patient has a Silverlon dressing in place. She may shower with it and the dressing can be discontinued on POD 14. Stay at rehab is anticipated to be less than 30 days. Discharge Information Principal Discharge Diagnosis Discharge Disposition [facility] facility. Discharge Plan Discharge Disposition Discharge: . * Demario FLORES, Suzi: PERFORM Event Display: Patient Education/Instruction Authored Date: [id number] Inpatient Adult Discharge Instructions [address] [address] Name: MELISA ADAME : 1945 Visit: 11/20/2022 12:49:00 Current Date: 11/21/2022 12:19 Account: [id number] Inpatient Adult Discharge Instructions We would like to thank you for allowing us to assist you with your healthcare needs. The following includes patient education materials and information regarding your injury/illness. Our entire staffstrives to provide an excellent experience for our patients and their families. PLEASE ENSURE YOU FOLLOW-UP PER THE INSTRUCTIONS BELOW! ?? YOUR OPINION IS IMPORTANT TO US! Please complete the survey you may receive by mail or email. Your feedback will be used to make improvements to the healthcare experiences of our patients and their families. Surveys are administered by [employer] ?? If further treatment with your primary care physician or another doctor is recommended, it is important for you to keep the appointment. Call your primary care physician or return to the Emergency Department immediately if your condition worsens, fails to improve, or new symptoms develop. If you need to find a doctor, you can call [facility] for a referral at [phone] or toll free at [phone] or log in to [email or web address].. ?? You can view and manage your care through the patient portal or by using a health care chito of your choosing. [employer] is a website that allows you to securely view your medical information including your hospital discharge summary, office visit summaries, medications and follow-up visits. You can also request appointments, renew medications, and request access to your medical information using a health care chito of your choosing, or just ask a question. You can enroll at [email or web address] or register during your next office visit. You have been discharged from [facility], Patient Care Unit: SW7. If you have any questions regarding these instructions after you leave, please call us and we will be happy to assist you. [facility] Your Care Team Attending Physician Shine GREENFIELD, Francisco Javier Israel Consulting Providers Shine GREENFIELD, Francisco Javier Israel Discharging Providers Jorge Alberto ANNE, Anabell Reason for Your Visit OA LEFT HIP RICKY Your Diagnosis Arthritis of hip Osteoarthritis of left hip Tests Performed Below is a partial list of the tests performed during your hospitalization. You may have had other tests and procedures not included in this list. Please discuss all test results with your provider. BUN CBC Creatinine Electrolytes XR Pelvis 1 or 2 Views Primary Care Provider Esme GREENFIELD, Baldev Vela Advance Directive . Discharge Vitals Temperature: 97.3 DegF Height: 158 cm Pulse Rate: 61 bpm Weight: 85.4 kg Respiratory Rate: 18 br/min Body Mass Index:??34.21 kg/m2??Critical Systolic Blood Pressure: 104 mm Hg Body surface area: 1.94 Diastolic Blood Pressure: 63 mm Hg ?? Oxygen Saturation: 99 % ?? Studies Pending All tests and labs ordered during this hospital stay have been completed unless listed below. Please discuss all pending results with your provider listed above in these instructions. ?? BUN CBC Creatinine Electrolytes What to do next Instructions From Your Doctor Discharge Orders Scheduled Follow-Up Appointments Wednesday. 2022 7:40 AM EDT ?? Where: [facility] [address] [place] [address]- Status: Pending You Need to Schedule the Following Appointments Follow Up with??[facility] When:??Within 1 to 2 weeks Where: [address] [place] [address] [address] [place] [id number]- Discharge Medications MELISA ADAME :1945 Visit Date:11/20/2022 Medications: Please continue your medications until treatment is completed or stopped by your provider. Medications not listed below should be discontinued. Discuss any questions related to medications with your provider. What How Much When Instructions Next Dose New Acetaminophen (acetaminophen 325 mg oral tablet) 650 Milligram Oral Every 6 hours May take OTC not to exceed 3000 mg/ day ?? New Docusate (Colace Capsule) 100 Milligram Oral Twice a day 8pm New Oxycodone (oxyCODONE 5 mg oral tablet) See instructions 1-2 tablet By Mouth Every 4 hours, As needed for Pain , Severe ?? Pickup at [place] [address] New Polyethylene Glycol 3350 (MiraLax Powder) 17 gram Oral Daily as needed for Constipation As needed New Senna (senna 187 mg oral tablet) 1 tab(s) Oral Daily at Bedtime as needed for as needed for constipation As needed New Tramadol (traMADol 50 mg oral tablet) See instructions 1-2 tablet By Mouth Every 6 hours not to exceed 400 mg/ day, As needed for Pain , Mild ?? Pickup at [place] [address] As needed, do not take while taking oxycodone Changed apixaban (apixaban 2.5 mg oral tablet) 1 tab(s) Oral Twice a day Duration: 7 Days take for the first 7 days post-op ?? Pickup at [place] [address] 8pm Changed apixaban (Eliquis 5 mg oral tablet) 1 tab(s) Oral Twice a day See instructions Unchanged Calcium And Vitamin D Combination (calcium (as carbonate)-vitamin D 600 mg-800 intl unitsoral tablet, chewable) 1 tab(s) Chew Twice a day 8pm Unchanged Gabapentin (gabapentin 300 mg oral capsule) TAKE 1 CAPSULE BY MOUTH THREE TIMES DAILY ?? 8pm Unchanged Metoprolol (Toprol XL 25 mg oral tablet, extended release) 1 tab(s) Oral Daily 8am 11/22 Pharmacy Information [facility] 3: [address] [place] [address] [phone] ?? What How Much When Comments Stop Taking Alendronate (alendronate 70 mg oral tablet) 1 tab(s) Oral pt stated she did not start med she wanted to see what Dr. Rajan thought. ?? Stop Taking Meloxicam (meloxicam 15 mg oral tablet) TAKE 1 TABLET BY MOUTH DAILY ?? Stop Taking Naproxen (naproxen 250 mg oral tablet) 1 tab(s) Oral Twice a day as needed for for pain Test Results Below is a partial list of the most recent Laboratory test results done prior to this discharge. You may have had other tests and procedures not included in this list. Please discuss all test resultswith your provider. Est Creatinine Clearance - 64.68 mL/min (11/21/2022) 82420 (11/20/2022) ? ?Surgical Pathology - Patient Name: MELISA ADAME
Lab
Patient : 1945 (Age: 77)
Collection Date: 11/20/2022
Accession Date: 11/20/2022
Sign Out Date: 11/20/2022

<br/& gt;Tissue Source:
1:LEFT FEMORAL HEAD

Final Diagnosis:< br/>Femoral head, left, replacement:
- Femoral head with degenerative changes of articular cartilaginous surface and eburnation consistent with severe osteoarthritis (gross examination).

Primary Pathologist:Steve Salazar MD
electronically signed out by: Steve Salazar MD / Pam

Clinical History:
Osteoarthritis left hip

Gross Description:
Labeled left femoral head . Received in formalin is a 5.0 x 4.8 x 4.2 cm femoral head with up to 1.4 cm of attached femoral neck. Themargin of transection is smooth. The articular surface ranges from pink-sherman, glistening to pink-red, granular. Eburnation and pitting are present. Osteophytes are identified. Sectioning reveals yellow-red, trabecular cut surfaces. No sections are submitted. Gross examination only. ()*

<br/&g t;Phone #: [phone], On-Call Pathologist: [id number] BUN (11/21/2022) ???BUN - 13 mg/dL CBC (11/21/2022) ???WBC - 13.2 k/mm3???RBC - 4.85 m/mm3???Hgb - 13.8 Gm/dL???Hct - 42.9 %???MCV - 88.5 femtoliters???MCH - 28.5 pg???MCHC - 32.2 g/dL???Platelet Count - 265 k/mm3???RDW-SD - 44.5 femtoliters???MPV - 11.5 femtoliters???Nucleated RBC (Automated) - 0.0 #/100 WBC'S???Abs. NRBC - 0.0 k/mm3 Creatinine (11/21/2022) ???Creatinine-Blood - 0.6 mg/dL???Estimated GFR Creatinine - 92 ML/MIN/1.73 M2 Electrolytes (11/21/2022) ???Sodium - 140 mmol/L???Potassium - 4.6 mmol/L???Chloride - 107 mmol/L???Bicarbonate Level - 21 mmol/L???Anion Gap - 12 Allergies (NKA means No Known Allergies) amLODIPine sulfa drugs Problems Active Problems??(5) Afib?? Breast CA?? CHB (complete heart block)?? Obese class I?? Pacemaker?? Education Materials Below is the list of Educational Leaflet Providered with your Discharge Instructions. Hip Precautions?? Total Hip Replacement Discharge Instructions?? Valuables and Belongings I fully understand and agree that [facility] accepts no responsibility for all my personal property including clothing, toilet articles, radios, jewelry, dentures, hearing aids, rings, money, or any other property that is in my possession or is brought to me after admission. I understand certain valuables may be placed in a hospital safe for a short period of time. I understand that the hospital is not liable for loss or damage due to accident, fire, or other natural occurrence while said property is in the safe. I accept full responsibility for any personal property that I keep with me, and will not hold the hospital responsible in case of loss or disappearance. I acknowledge that i have been encouraged to send valuables and belongings home. ?? Review of Valuable and Belonging List: With patient Date for Pt to Sign Valuables/Belongings: 11/21/22 10:33:00 ?? Other Discharge Information ? Case Management Discharge Plan?? Discharge Plan?? Discharge Agency Information?? Discharge Level of Care at Discharge: Homehealth/VNA [facility] [phone] Service Categories #1: Occupational Therapy, Physical Therapy ?? Service Comments #1: [facility] will call you to coordinate home PT and OT visit times ?? Pulmonary Rehab Status?? Pulmonary Rehab Discharge Status?? Respiratory Rate: 18 br/min ? Common Emergency Awareness Tips IS IT A STROKE? Act FAST and Check for these signs: FACE Does the face look uneven? ARM Does one arm drift down? SPEECH Does their speech sound strange? TIME Call at any sign of stroke ?? Heart Attack Signs Chest discomfort: Most heart attacks involve discomfort in the center of the chest and lasts more than a few minutes, or goes away and comes back. It can feel like uncomfortable pressure, squeezing, fullness or pain. Discomfort in upper body: Symptoms can include pain or discomfort in one or both arms, back, neck, jaw or stomach. Shortness of breath: With or without discomfort. Other signs: Breaking out in a cold sweat, nausea, or lightheaded. Remember, MINUTES DO MATTER. If you experience any of these heart attack warning signs, call to get immediate medical attention! ?? Smoking can increase your chances of developing chronic health problems and can cause harmful effects to other family members in your house. If you smoke, you are strongly encouraged to quit. Please call [facility] at [phone] or [phone] ([phone]) or log in to [email or web address] for referrals to smoking cessation programs. ?? 221 Suicide & Crisis Lifeline is available 18/01 if you or someone you know needs to find a reason to keep living. By calling 050 you'll be connected to a skilled, trained counselor at a crisis center in your area. INPATIENT DISCHARGE INSTRUCTIONS SIGNATURE PAGE DEEP MELISA Location:[facility] Registration Date and Time:11/20/2022 12:49 EDT Primary Care Physician: Esme GREENFIELD, Baldev Vela, Attending Physician: Shine GREENFIELD, Francisco Javier Israel, I MELISA ADAME, have received the above patient education materials/instructions and have verbalized understanding. If ambulance or transport services are being used I further acknowledge being given a choice of service. ?? If you need to contact me, please call me at this number: . Patient/Preschool Associate Teacher Name: Patient/Preschool Associate Teacher Signature: Relationship to Patient: Witness Name/Signature: Date: * Suzi Hanks RN: PERFORM Event Display: Patient Education Leaflets Authored Date: [id number] Hip Precautions ?? 41935 Hip Precautions Your new hip has a limited safe range of motion. This means it can???t bend and turn as much as a natural hip. So you???ll need to move differently now than you did before surgery. This will help prevent your new hip from popping out of place (dislocating). Precautions may vary depending on the surgical technique, your surgeon's preferences, and your specific needs. Ask your surgeon if these measures apply to you. Sitting safely Your new hip has a limited range of motion. Always sit with your knees lower than or level with your hips. To protect your new hip, you must sit with your knees lower than or level with your hips. To do this, sit in chairs with high seats, preferably chairs with armrests. Placing a firm pillow on the seatof a chair can also help. ?? Following precautions You must protect your new hip by avoiding certain positions and movements. This will let your hip heal. It will also help keep it from dislocating. You may also be told to limit how much weight you put on your operated leg. You will learn how to follow precautions when lying, sitting, and standing. Flexion precaution Don???t bend over at the waist. And don???t sit with your hips lower than your knees. Adduction precaution Don???t cross your operated leg over your other leg. ALWAYS keep your thighs apart. Internal rotation precaution Don't turn your operated leg inward (pigeon toe). rotor casting machine setup operator your feet when stepping around or turning. ?? Last Reviewed Date: 2021 ?? [id number] [employer]. All rights reserved. This information is not intended as a substitute for professional medical care. Always follow your healthcare professional's instructions. ?? * Suzi Hanks RN: PERFORM Event Display: Patient Education Leaflets Authored Date: [id number] Total Hip Replacement Discharge Instructions ?? 666 Total Hip Replacement Discharge Instructions ? Please read and review your Total Hip Replacement Book for detailed information ??? Your appetite may be decreased but try to maintain a good balanced diet Incision ?Your incision is closed with absorbable stitches and surgical glue. ?The dressing is waterproof. You may shower the next day. ??? Your dressing will stay on for 1-2 weeks ?You cannot go in a bath, pool, ocean, pond, brock or jacuzzi for 6 weeks. This is to reduce your risk of infection ? You may have some numbness around the incision. This is normal and will improve with time. Some patients have numbness that does not completely go away. ??? You may have skin discoloration (yellowish or bruising) around your incision which may develop. ??? Ice and elevation ? Ice is important to help keep swelling down. ?Keep your leg elevated as much as possible. ?Ice your hip 4 times a day for 20 minutes each time. Be sure not to put the ice/ice pack directly on your skin. Use a dishtowel or something similar between your skin and the ice. ??? Drs. Krause, Shine, and Elayne???Bazzi patients: The blue wedge is to be used between your knees when sleeping and sitting in a chair for the first few weeks. This keeps your hip in the proper position ? Moving ? Moving is especially important. This helps to prevent blood clots. Take short frequent walks. ? Exercises as per physical therapy ??? No driving until approved by your surgeon ??? Continue to move your foot up and down, these exercises help to prevent blood clots and help to decrease swelling in your hip. ?? When to call the Surgeon?CALL [phone] ? If you have shortness of breath or chestpain, call 911 or go to the nearest emergency department. ??? If you have drainage and/or redness around your wound. ??? If you have a fever greater than 101.5 (38.5 degrees Celsius). ??? If you havepersistent calf pain or swelling (This could be a blood clot). ??? If your pain is worsening. ? If you have any difficulty with urination or burning with urination. ?? Cardiology * Event Display: Cardiac Rhythm Strips Authored Date: Hospital Progress note * Yennifer Szymanski RN: VERIFY, PERFORM, SIGN Event Display: Progress Note Hospital Authored Date: Patient: MELISA ADAME Age: 77 years Sex: Female : 1945 Associated Diagnoses: None Author: Yennifer Szymanski RN Findings Problem Related to Alteration in Musculoskeletal : Alteration in Musculoskeletal Func/new 11/24/2022 8:00 EDT Alteration in Musculoskeletal Related to Mobility, Orthopedic Procedure, Total joint replacement, Other: L THR 11/20-POD #3 Goals & Outcomes, Musculoskeletal Affected extremity will maintain color/motion/sensation, Pt able to perform ADL's to best of ability, Pt demonstrates precautions/exercise/ transfers per protocol, Pt will ambulate safely with assistive device, Pt will be free from complications of immobility, Pt will report acceptable level of comfort/pain relief Interventions, Musculoskeletal Assist pt out of bed keeping legs abducted at all times, Avoid extreme internal and/or external rotation, Have pt view Total Hip Replacement video every day, Maintain hip in abduction/neutral/slight ext. rotation, [place] Pt/caregiver to Total Hip Replacement protocol Goals/Interventions, Musculoskeletal Yes Musculoskeletal, Problem Start 11/20/2022 10:49 Reviewed Plan with, Musculoskeletal Patient Patient Progression, Musculoskeletal Pt progressing according to plan . Evaluation P-as per musculoskeletal plan of care I-as per updated plan of care E-Patient is alert and oriented x4, POD #4 left hip replacement. Silverlon dressing is clean, dry and intact. She is motivated to get up and resume activities. She feels her pain is well controlled with scheduled APAP q 6hours. Trial tramadol yesterday, she prefers just taking Tylenol. She is remembering her hip precautions well, ambulating with a walker, steady slow gait noted. She has a hard time picking up her left leg she states it feels very heavy , but she is able to do so. She is voiding, has a BM this morning. Plan for [facility] today at 1pm, chairvan scheduled for transport. Vitlas stable. . * Valeria Kovacs NP: PERFORM, SIGN, VERIFY Event Display: Progress Note Hospital Authored Date: [id number] Patient: MELISA ADAME Age: 77 years Sex: Female : 1945 Associated Diagnoses: None Author: Valeria Kovacs NP Ortho POD 4 s/p left ALFONZO S: The patient denies any SOB/CP, N/V. Voiding spontaneously. Pain well controlled on current regimen. Rehab is recommended per physical therapy notes, Pt demo good tolerance to therex and transfers, fatigued this afternoon so ambulated < distance. Pt would benefit from continued PT to promote increased strength and increased tolerance to all functional activities including ambulation > distances. [facility] booked for 1 PM today. O: Vitals Temperature 97.8 (06:45) Systolic Blood Pressure 129 (06:45) Diastolic Blood Pressure 59 (06:45) Pulse 60 (06:45) SpO2 98 (06:45) Respiratory Rate 18 (06:45) Last 24 Hours Basic Metabolic Panel: Hematology: Sodium: 140 mmol/L (11/24/22) Hgb: 12.1 Gm/dL (11/24/22) Potassium (POC): 4.0 mmol/L (11/24/22) Hemoglobin A1C (Monitoring): ------ Phosphorus: ------ WBC: 6.8 k/mm3 (11/24/22) Magnesium: ------ Platelets: 221 k/mm3 (11/24/22) BUN (POC) POC Cartridge: 10 mg/dL (11/24/22) INR Level: ------ Creatinine-Blood: 0.6 mg/dL (11/24/22) Creatinine Clearance: ------ Additional - Last 24 Hours Abs. NRBC: 0.0 k/mm3 (11/24/22) Anion Gap: 11 (11/24/22) Bicarbonate Level: 24 mmol/L (11/24/22) BUN: BUN (11/24/22) Chloride: 105 mmol/L (11/24/22) Creatinine, Blood: Creatinine, Blood (11/24/22) Est Creatinine Clearance: 64.68 (11/24/22) Estimated GFR Creatinine: 96 ML/MIN/1.73 M2 (11/24/22) Hct: 37.6 % (11/24/22) MCH: 28.4 pg (11/24/22) MCHC: 32.2 g/dL (11/24/22) MCV: 88.3 femtoliters (11/24/22) MPV: 10.7 femtoliters (11/24/22) Nucleated RBC (Automated): 0.0 #/100 WBC'S (11/24/22) RBC: 4.26 m/mm3 (11/24/22) RDW-SD: 43.9 femtoliters (11/24/22) General: alert, lucid, in NAD Abdomen: soft NT BS active Neurovascular: calves soft NT, +DF/+PF Dressing: CDI A/P: 77 year old female with history of complete heart block status post pacemaker, A-fib, hypertension now s/p left ALFONZO POD 5 HTN: Currently well controlled, continue metoprolol. Complete heart block: Patient status post pacemaker. GERD: Continue pantoprazole Pain: Acetaminophen 650 mg every 6 hours, tramadol as needed for mild pain and oxycodone as needed for severe pain. DVT prophylaxis: Eliquis 2.5 mg twice a day for 7 days and then resume home dose of 5 mg twice a day WBAT/ PT/OT/HIP PRECAUTIONS Discharge today to rehab. Case discussed with Dr. Riojas * Earlene Elaine: PERFORM, SIGN, VERIFY Event Display: Progress Note Hospital Authored Date: [id number] Patient: MELISA ADAME Age: 77 years Sex: Female : 1945 Associated Diagnoses: None Author: Earlene Elaine Findings Problem Related to Alteration in Comfort : Alteration in Comfort/new 11/24/2022 2:00 EDT Alteration in Comfort Related to Surgery Goals & Outcomes: Comfort Pt will report acceptable level of comfort & pain control, Pt will state importance of adhering to pain strategy regime, Pt will demonstrate necessary skills to manage pain, Non-verbal indicators will indicate comfort/pain control Interventions Implemented: Comfort Assess pain using appropriate pain scale/tools, Assess aggravating factors & prevent them accordingly, Assess alleviating factors & promote them accordingly Goals/Interventions, Comfort Yes Comfort, Problem Start 11/21/2022 10:35 Reviewed plan with, Comfort Patient Patient Progression, Comfort Pt progressing according to plan Comfort, Problem Ongoing Yes . Alteration in Musculoskeletal : Alteration in Musculoskeletal Func/new 11/24/2022 2:00 EDT Alteration in Musculoskeletal Related to Mobility, Orthopedic Procedure, Total joint replacement, Other: L THR 11/20-POD #3 Goals & Outcomes, Musculoskeletal Affected extremity will maintain color/motion/sensation, Pt able to perform ADL's to best of ability, Pt demonstrates precautions/exercise/ transfers per protocol, Pt will ambulate safely with assistive device, Pt will be free from complications of immobility, Pt will report acceptable level of comfort/pain relief Interventions, Musculoskeletal Monitor patients ambulation status, monitor Color/Motion/Sensation, Assist with repositioning, Encourage deep breathing & coughing exercises, Notify MD immediately if tissue perfusion deteriorates, Obtain assistive devices as needed, Teach & Encourage use of Incentive spirometer, Teach Pt/caregiver on ADL's & adaptive equipment, Teach Pt/caregiver on exercises, Teach pt/caregiver on use of pain scale, Teach Pt/caregiver complications of immobility, Teach Pt/caregiver techniques to increase mobility, Teach Pt/caregiver on safety precautions Goals/Interventions, Musculoskeletal Yes Musculoskeletal, Problem Start 11/20/2022 10:49 Reviewed Plan with, Musculoskeletal Patient Patient Progression, Musculoskeletal Pt progressing according to plan . Nursing Data Vital Signs : VITAL SIGNS SECTION 11/23/2022 19:00 EDT Temperature 98.4 DegF Temperature Route Oral Pulse Rate 62 bpm Respiratory Rate 18 br/min Systolic Blood Pressure 127 mm Hg Diastolic Blood Pressure 56 mm Hg Blood pressure sites Arm, right Oxygen Saturation 100 % Mode of Delivery (Oxygen) Room air . Evaluation P: Alteration in musculoskeletal/comfort I:See listed interventions in care plan above E: A 77 year old female pt s/p L THR with on 11/20. Cooperative. A/O x3; denies cp, sob. LS cta; encouraged use of IS, reaching 1200 ml. Tolerating PO reg diet, no n/v. +bs, +flatus, abd soft/nontender.LBM on 11/23. Voiding CYU, walking with one assistance to BR. Unsteady, weak. Using walker. Silverlon to L hip c/d/i. +d/f, +p/f, +cms, +pp, sensation intact. Denies any pain at this time.Tylenol 650 mg given for comfort.Refused to get any other pain reliever meds. Patient resting in recliner chair at this time. C boots on.On Eliquis for DVT prophylaxis. Call hu in reach.Cont monitor for pain and mobility.. Discharge Information Case Management Discharge Plan : Case Management Discharge Plan Data 11/23/2022 12:14 EDT Discharge Level of Care at Discharge Not Done: Order Discontinued (Not Done) 11/20/2022 12:29 EDT Discharge Level of Care at Discharge Homehealth/VNA Discharge VNA/Hospice/Home Care [facility] [phone] [facility]ategories #1 Occupational Therapy, Physical Therapy Service Comments #1 [facility] will call you to coordinate home PT and OT visit times Rehabilitation Discharge : Rehab Discharge Index 11/23/2022 13:31 EDT Walker: distance 10-20 11/23/2022 8:28 EDT Walker: distance 20-50 11/22/2022 14:26 EDT Walker: distance 20-50 11/22/2022 8:33 EDT Walker: distance >50 11/21/2022 13:33 EDT Walker: distance >50 11/21/2022 8:56 EDT Walker: distance >50 11/20/2022 15:41 EDT Comments on treatment indicated functional mobility, safety, ADLs Full chart review completed Yes Hospital course 77 F s/p left total hip arthroplasty with Dr. Riojas on 11/20/2022. WBAT. THPs. 11/20/2022 14:21 EDT Comments on treatment indicated 77 yo F s/p L ALFONZO on 11/[address] Riojas. WBATL LE +THPs. Skilled PT for therex, transfers, amb c RW, stairs. Rec home with services. Distance pt will ambulate 100 ft with RW Full chart review completed Yes Hospital course Hospital course Other findings see comment Plan of care PT Gait training, Transfer training, Therapeutic exercise, Functional Activities, Balance training XR Pelvis 1 or 2 Views * SPowerscribe , AMY S: TRANSCRIJan Junior MD: VERIFY Event Display: Result: Authored Date: [id number] Pelvis 1 or 2 Views Reason: Postop Prosthesis; Clinical Question(s): Status of Hip Prosthesis; Special Instructions: LEFT Hip - To be done in PACU COMPARISON: None. FINDINGS: Expected postoperative appearance following left hip arthroplasty without evidence of hardware complication. Small amount of adjacent subcutaneous emphysema is noted. Mild sacroiliac and pubic symphysis degenerative changes. Unremarkable right hip arthroplasty, with stent outside the [id number]. IMPRESSION: Expected appearance following left hip arthroplasty without evidence of complication. WSN: [id number] Ordering Physician: Adarsh Raymond Dictated By: Jan Moody MD Dictated Date/Time: 11/20/22 10:10 a Reviewed By: Jan Moody MD Signed By: Jan Moody MD Signed Date/Time: 11/20/22 10:10 am Transcribed By: JASMYN Transcribed Date/Time: 11/20/22 10:09 am Patient Care team information Care Team Personnel Name: Baldev Victoria MD Position: [facility] Oncology MD Member Role: PCP Address: Address: [address] [place] [address] #[facility] Baldev Victoria III, [place], [place] [address] Name: Yennifer Szymanski RN Position: S RN Member Role: Primary Care Nurse Name: Mandy Ayon RN Position: S RN Member Role: Primary Care Nurse Name: Debora Medrano RN Position: [facility] SN RN Member Role: Primary Care Nurse Name: Ngoc Day RN Position: S RN Member Role: Primary Care Nurse Care Team Related Persons Name: DAPHNE ADAME Address: [facility]
--- OUTSIDE RECORDS SUMMARY | 2023-04-14 09:16 | XMS_ITS | Continuity of Care Document ---
Author Name Unknown Organization [facility] Address [address] [place] [address]- Care Team Providers Care Sports Official Name Role Phone Baldev Victoria MD Primary Care Physician En[place] [facility] [place] [id number] Date(s): 12/02/21 - 01/03/22 [facility] [address] [place] [address]- Attending Physician: Perez Rajan MD Admitting Physician: Perez Rajan MD Referring Physician: Baldev Victoria MD Allergies, Adverse Reactions, Alerts Substance Reaction Severity Status sulfa drugs Active amLODIPine Active Medications alendronate 70 mg oral tablet 1 tablet = 70 mg, By Mouth, pt stated she did not start med she wanted to see what Dr. Rajan thought., 0 Refills, Maintenance, 04/03/21 14:24:00 EDT, Partial fill upon patient request if the prescription is for a schedule II opioid drug. Start Date: 04/03/21 Status: Ordered amLODIPine 5 mg oral tablet 5 mg, By Mouth, Daily, # 30 tablet, Refills 3, Tot. Refills 3, Maintenance, 10/25/18 11:59:50 EDT, Route to Pharmacy Electronically, [id number], [facility] Start Date: 10/25/18 Status: Ordered Eliquis 5 mg oral tablet 1 tablet = 5 mg, By Mouth, 2 times a day, # 60 tablet, 0 Refills, Maintenance, 04/03/21 14:24:00 EDT, Tablet, Partial fill upon patient request if the prescription is for a schedule II opioid drug. Start Date: 04/03/21 Status: Ordered Toprol XL 25 mg oral tablet, extended release 25 mg, 1, tablet, By Mouth, Daily, # 30 tablet, Refills 3, Tot. Refills 3, Maintenance, 12/09/18 12:50:58 EDT, Route to Pharmacy Electronically, [id number], [facility] Start Date: 12/09/18 Status: Ordered Xarelto 20 mg oral tablet 1 tablet = 20 mg, By Mouth, Daily at supper, # 30 tablet, 3 Refills, Maintenance, 07/28/19 11:54:00EST, Tablet, [facility], New onset Afib, 157, cm, 03/30/19 8:37:00 EDT, Height, 89.5, kg, 10/23/18 7:14:00 EDT, Dry Weight Start Date: 07/28/19 Status: Ordered Social History Social History Type Response Smoking Status Never (less than 100 in lifetime) entered on: 10/23/18 Sex Female
--- OUTSIDE RECORDS SUMMARY | 2023-04-14 09:16 | XMS_ITS | Continuity of Care Document ---
Author Name Unknown Organization [facility] Address [address] [place] [address]- Care Team Providers Care Commercial Loan Collection Officer Name Role Phone Baldev Victoria MD Primary Care Physician Encounter [facility] [place] [place]CT R [id number] Date(s): 12/04/21 - 01/03/22 [facility] [address] [place] [address]- Attending Physician: Lacy Sotomayor Admitting Physician: Lacy Sotomayor Referring Physician: Lacy Sotomayor Allergies, Adverse Reactions, Alerts Substance Reaction Severity [...] 10/25/18 11:59:50 EDT, Route to Pharmacy Electronically, [id number], [facility] Start Date: 10/25/18 Status: Ordered [...] 12/09/18 12:50:58 EDT, Route to Pharmacy Electronically, [id number], [facility] [...]
--- OUTSIDE RECORDS SUMMARY | 2023-04-14 09:16 | XMS_ITS | Continuity of Care Document ---
Author Name Unknown Organization [facility] Address [address] [place] [address]- Care Team Providers Care Supervisor Pig Machine Name Role Phone Baldev Victoria MD Primary Care Physician En[place] [facility] [place] ACCT R [id number] Date(s): 07/28/19 - 10/04/19 [facility] [address] [place] [address]- [facility] Attending Physician: Linus Griffith Admitting Physician: Linus Griffith Referring Physician: Baldev Victoria MD Allergies, Adverse Reactions, Alerts Substance Reaction Severity Status sulfa drugs Active amLODIPine Active Medications amLODIPine 5 mg oral tablet 5 mg, By Mouth, Daily, # 30 tablet, Refills 3, Tot. Refills 3, Maintenance, 10/25/18 11:59:50 EDT, Route to Pharmacy Electronically, [id number], [facility] Start Date: 10/25/18 Status: Ordered Toprol XL 25 mg oral tablet, extended release 25 mg, 1, tablet, By Mouth, Daily, # 30 tablet, Refills 3, Tot. Refills 3, Maintenance, 12/09/18 12:50:58 EDT, Route to Pharmacy Electronically, [id number], [facility] Start Date: 12/09/18 Status: Ordered Xarelto 20 mg oral tablet 1 tablet = 20 mg, By Mouth, Daily at supper, # 30 tablet, 3 Refills, Maintenance, 07/28/19 11:54:00EST, Tablet, [facility], New onset Afib, 157, cm, 03/30/19 8:37:00 EDT, Height, 89.5, kg, 10/23/18 7:14:00 EDT, Dry Weight Start Date: 07/28/19 Status: Ordered Social History Social History Type Response Smoking Status Never (less than 100 in lifetime) entered on: 10/23/18 Sex Female
--- OUTSIDE RECORDS SUMMARY | 2023-04-14 09:16 | XMS_ITS | Continuity of Care Document ---
Author Name Unknown Organization [facility] Address [address] [place] [address]- Care Team Providers Care Notched Blade Loader Name Role Phone Baldev Victoria MD Primary Care Physician [phone] Encounter [facility] Date(s): 06/16/19 - 06/26/19 [facility] [address] [place] [address]- [facility] Attending Physician: Admtr, Agustín8 Admitting Physician: Admtr, Ar8 Referring Physician: Admtr, Ar8 Allergies, Adverse Reactions, Alerts Substance Reaction Severity Status sulfa drugs Active amLODIPine Active Medications amLODIPine 5 mg oral tablet 5 mg, By Mouth, Daily, # 30 tablet, Refills 3, Tot. Refills 3, Maintenance, 10/25/18 11:59:50 EDT, Route to Pharmacy Electronically, [id number], [facility] Start Date: 10/25/18 Status: Ordered Toprol XL 25 mg oral tablet, extended release 25 mg, 1, tablet, By Mouth, Daily, # 30 tablet, Refills 3, Tot. Refills 3, Maintenance, 12/09/18 12:50:58 EDT, Route to Pharmacy Electronically, [id number], [facility] Start Date: 12/09/18 Status: Ordered Social History Social History Type Response Smoking Status Never (less than 100 in lifetime) entered on: 10/23/18 Sex Female
--- OUTSIDE RECORDS SUMMARY | 2023-04-14 09:16 | XMS_ITS | Continuity of Care Document ---
Author Name Unknown Organization [facility] Address [address] [place] [address]- Care Team Providers Care Singer And Unloader Name Role Phone Baldev Victoria MD Primary Care Physician Encounter [facility] [place] Date(s): 03/27/20 - 04/26/20 [facility] [address] [place] [address]- [facility] Allergies, Adverse Reactions, Alerts Substance Reaction Severity Status sulfa drugs Active amLODIPine Active Medications amLODIPine 5 mg oral tablet 5 mg, By Mouth, Daily, # 30 tablet, Refills 3, Tot. Refills 3, Maintenance, 10/25/18 11:59:50 EDT, Route to Pharmacy Electronically, [id number], [facility] Start Date: 10/25/18 Status: Ordered Toprol XL 25 mg oral tablet, extended release 25 mg, 1, tablet, By Mouth, Daily, # 30 tablet, Refills 3, Tot. Refills 3, Maintenance, 12/09/18 12:50:58 EDT, Route to Pharmacy Electronically, [id number], [facility] Start Date: 12/09/18 Status: Ordered Xarelto 20 mg oral tablet 1 tablet = 20 mg, By Mouth, Daily at supper, # 30 tablet, 3 Refills, Maintenance, 07/28/19 11:54:00EST, Tablet, [facility], New onset Afib, 157, cm, 03/30/19 8:37:00 EDT, Height, 89.5, kg, 10/23/18 7:14:00 EDT, Dry Weight Start Date: 07/28/19 Status: Ordered Social History Social History Type Response Smoking Status Never (less than 100 in lifetime) entered on: 10/23/18 Sex Female
--- OUTSIDE RECORDS SUMMARY | 2023-04-14 09:16 | XMS_ITS | Continuity of Care Document ---
Author Name Unknown Organization [facility] Address [address] [place] [address]- Care Team Providers Care Revising Clerk Name Role Phone Baldev Victoria MD Primary Care Physician En[place] [facility] [place] [id number] Date(s): 04/03/21 - 05/03/21 [facility] [address] [place] [address]- Attending Physician: Lacy Sotomayor Admitting Physician: Lacy [...] 10/25/18 11:59:50 EDT, Route to Pharmacy Electronically, [id number], [facility] Start Date: 10/25/18 Status: [...] 12/09/18 12:50:58 EDT, Route to Pharmacy Electronically, [id number], [facility] [...]
--- OUTSIDE RECORDS SUMMARY | 2023-04-14 09:16 | XMS_ITS | Continuity of Care Document ---
Author Name Unknown Organization [facility] Address [address] [place] [address]- Care Team Providers Care Traffic Control Technician Name Role Phone Esme GREENFIELD, Baldev Vela Primary Care Physician Encounter [facility] Date(s): 11/18/22 - 12/18/[address] [address] Attending Physician: Lacy Sotomayor Admitting Physician: Admtr, Lacy Referring Physician: Admtr, Ar8 Allergies, Adverse Reactions, [...] opioid drug. Start Date: 11/21/22 Status: Ordered calcium (as carbonate)-vitamin D 600 mg-800 intl [...] Status: Ordered gabapentin 300 mg oral capsule TAKE 1 CAPSULE BY MOUTH THREE TIMES DAILY Start Date: 11/11/22 Status: Ordered MiraLax Powder 1 pack/packet = 17 Gm, By Mouth, Daily, PRN Constipation, 0 Refills, Maintenance, 11/21/22 8:41:00 EDT, Powder, Partial fill upon patient request if the prescription is for a schedule II opioid drug. Start Date: 11/21/22 Status: Ordered senna 187 mg oral tablet [...] 12/09/18 12:50:58 EDT, Route to Pharmacy Electronically, [id number], [facility] Start Date: 12/09/18 Status: Ordered Problem List Condition Confirmation Course Effective Dates Status Health St atus Informant Afib Confirmed Active Pacemaker Confirmed Active CHB (complete heart block) Confirmed Active Breast CA Confirmed Active Obese class I Confirmed Active Social History Social History Type Response Smoking Status Never (less than 100 in lifetime) entered on: 11/11/22 Sex Female Patient Care team information Care Team Personnel Name: Baldev Victoria MD Position: [facility] Physician - Oncology Member Role: PCP Address: Address: [address] [place] [address] [address] Baldev Victoria III, MD [place], [place] [address] Name: Yennifer Szymanski RN Position: [facility] RN Member Role: Primary Care Nurse Name: Mandy Ayon RN Position: [facility] RN Member Role: Primary Care Nurse Name: Debora Medrano RN Position: [facility] RN Member Role: Primary Care Nurse Name: Ngoc Dya RN Position: [facility] RN Member Role: Primary Care Nurse Care Team Related Persons Name: JOSEMELISSALEYLADAPHNE Address: [facility]
--- OUTSIDE RECORDS SUMMARY | 2023-04-14 09:16 | XMS_ITS | Patient Health Record ---
Author Name Unknown Organization Baldev Victoria III, MD Address [address] 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 Role Phone Baldev Victoria Primary Care Provider ALLERGIES Allergen (clinical drug ingredient) Drug/Non Drug Allergy documented on EMR Reaction Allergy Type Onset Date Status sulfacetamide Sulfacetamide Unknown Drug Allergy Active RESULTS Component Value Reference Range Notes XR hip LT min 2V Reviewed date:09/25/2022 10:00:44 AM Interpretation: Performing Lab: Notes/Report: [address] [address] XRay Report Signed Patient: Rosetta Adame MR#: [id number] : 1945 Acct:[id number] Age/Sex: 77 / F ADM Date: 09/01/22 Loc: HO.XRAY Attending Dr: Baldev Victoria MD Ordering Physician: Baldev Victoria MD Date of Service: 09/01/22 Procedure(s): XR hip LT min 2V Accession Number(s): [id number] cc: Baldev Victoria MD EXAMINATION: XR HIP, LEFT CLINICAL INFORMATION: Left hip pain COMPARISON: None TECHNIQUE: Two views of the left hip. FINDINGS: No fracture or dislocation. The hip is well aligned. Superior joint space narrowing with subchondral sclerosis and osteophytes. The left hemipelvis is intact. Normal bowel gas pattern. XR/XR hip LT min 2V IMPRESSION: Moderate degenerative changes of the left hip. Dictated By: Vamshi Rya MD Signed By: <Electronically signed by Vamshi Ray MD in OV> 09/01/22 1305 DD/ 1230 TD/TT: Junior Business Analyst: PAL URINE DIP STICK Reviewed date:09/23/2022 04:30:39 PM Interpretation: Performing Lab: Notes/Report: SG 1.020 1.005 - 1.025 pH 7.0 5.0 - 9.0 AYESHA Neg Negative - NIT Neg Negative - PRO 15 Negative - Trace GLU Neg Negative - KET Neg Negative - UBG 0.2 0.1 - 1.8 ROMARIO Neg 0.2 - 1.3 BLD Neg Negative - Menstrating No Complete Blood Count Auto Di ff Reviewed date:09/25/2022 10:00:44 AM Interpretation: Performing Lab:[facility], [address] [place] [phone] Notes/Report: White Blood Count 4.9 4.8-10.8 X10*3/uL Red Blood Count 5.23 4.20-5.50 X10*6/uL Hemoglobin 14.9 12.0-16.0 g/dl Hematocrit 46.1 37.0-47.0 % Mean Corpuscular Volume 88.1 80.0-98.0 fL Mean Corpuscular Hemoglobin 28.5 27.0-33.0 pg Mean Corpuscular HGB Conc 32.3 31.0-35.0 g/dl Red Cell Distribution Width 13.9 11.0-16.0 % Platelet Count 267 160-400 X10*3/uL Mean Platelet Volume 10.6 9.4-12.3 fL Neutrophils Percent Auto 48.8 45-73 % Imm Gran Pct Auto 0.4 0.0-0.4 % Lymphocytes Percent Auto 34.8 20-40 % Monocytes Percent Auto 12.1 2-11 % Eosinophils Percent Auto 2.5 0-4 % Basophils Percent Auto 1.4 0-2 % NRBC Pct Auto 0.0 0.0-0.2 /100WBC Neutrophils Absolute Auto 2.4 2.0-8.3 x10*3/u L Imm Gran Abs Auto 0.02 0.00-0.03 X10*3/uL Lymphocytes Absolute Auto 1.7 1.2-4.9 X10*3/u L Monocytes Absolute Auto 0.6 0.1-1.2 X10*3/uL Eosinophils Absolute Auto 0.1 0.0-0.4 X10*3/u L Basophils Absolute Auto 0.1 0.0-0.2 X10*3/uL NRBC Abs Auto 0.000 0.0-0.012 X10*3/uL Comprehensive [place]. Panel Fa st Reviewed date:10/08/2022 04:42:52 PM Interpretation: Performing Lab:[facility], [address] [place] [phone] Notes/Report: Sodium 143 135-145 mmol/L Potassium 4.6 3.3-5.1 mmol/L Chloride 110 96-108 mmol/L Carbon Dioxide 25 22-29 mmol/L Anion Gap 13 12-20 Blood Urea Nitrogen 10 9-16 mg/dL Creatinine 0.73 0.5-1.4 mg/dL Estimated Glomerular Filt Rate > 60 NOTE: For -Swiss individuals, multiply the result by 1.210. Chronic Kidney Disease: Estimated GFR < 60 mL/min/1.73m2 Severe Kidney Disease: Estimated GFR < 15 mL/min/1.73m2 Glucose Fasting 85 60-99 mg/dL Calcium 9.6 8.4-10.2 mg/dL Bilirubin Total 0.9 0.0-1.0 mg/dL Aspartate Amino Transferase 16 5-31 U/L Alanine Aminotransferase 10 0-31 U/L Total Protein 6.6 6.5-8.0 g/dL Albumin Level 4.1 3.5-5.0 g/dL Alkaline Phosphatase 79 39-117 U/L Lipid Panel Reviewed date:10/08/2022 04:42:52 PM Interpretation: Performing Lab:[facility], [address] [place] [phone] Notes/Report: Triglycerides 95 Desirable Triglyceride: less than 150 mg/dL Borderline High Triglyceride 150-199 mg/dL High Triglyceride: 200-499 mg/dL Very High Triglyceride: greater than or equal to 5OO mg/dL Cholesterol 238 Desirable Cholesterol: less than 200 mg/dL Borderline High Cholesterol: 200-239 mg/dL High Cholesterol: greater than 239 mg/dL LDL Cholesterol Calculated 157 Desirable LDL: less than 100 mg/dL Near Optimal/Above Optimal LDL: 110-129 mg/dL Borderline High LDL: 130-159 mg/dL High LDL: 160-189 mg/dL Very High LDL: greater than or equal to 190 mg/dL HDL Cholesterol 62 Desirable HDL: greater than 40 mg/dL Note: This HDL assay may give artificially low results in patients with liver disease. Thyroid Stimulating Hormone Reviewed date:10/08/2022 04:42:52 PM Interpretation: Performing Lab:[facility], [address] [place] [phone] Notes/Report: Thyroid Stimulating Hormone 1.56 0.32-4.0 uIU/ mL TSH 3rd Generation ([facility]) MM tomosynthesis screening B I Reviewed date:10/08/2022 04:42:52 PM Interpretation: Performing Lab: Notes/Report: [facility] [address] [place] [address] Mammography Report Signed Patient: Rosetta Adame MR#: [id number] : 1945 Acct:[id number] Age/Sex: 77 / F ADM Date: 10/05/22 Loc: HO.MAMMO Attending Dr: Baldev Victoria MD Ordering Physician: Baldev Victoria MD Results: 0Incompl ete: Needs Additional Imaging Evaluation Date of Service: 10/05/22 Follow Up: Additional Imagi ng Procedure(s): MM tomosynthesis screening BI Accession Number(s): [id number] cc: Baldev Victroia MD EXAMINATION: MM SCREENING DIGITAL BREAST TOMOSYNTHESIS, BILATERAL CLINICAL INFORMATION: Due for yearly. Prior history left breast cancer, 2001; right breast cancer, 2005. COMPARISON: Prior mammography exams, most recent 09/17/2021. TECHNIQUE: Digital breast tomosynthesis is performed in both the craniocaudal and mediolateral oblique views along with computer-aided detection (CAD). Synthesized 2D images are generated from the tomosynthesis. FINDINGS: The breasts are almost entirely fatty (ACR BI-RADS breast composition Category a). Background stromal markings are stable and there is no developing density or interval mass or architectural abnormality. The axilla and skin contours are unremarkable. There is a pacemaker generator overlying the posterior left axilla on MLO view. Left breast has scattered benign round and vascular calcifications. There is a pacemaker generator overlying and partly obscuring the posterior left axilla on the MLO view. Left breast has scattered benign round and vascular calcifications. Right breast has scattered benign ductal secretory and benign dystrophic calcifications central and inner right breast. In addition, there are fine calcifications in a linear distribution posterior upper outer right breast representing change from prior studies. Patient will be recalled for additional imaging. MM/MM tomosynthesis screening BI IMPRESSION: Right: -Fine calcifications in linear distribution posterior upper outer right breast representing change from prior studies. Left: -No mammographic evidence of malignancy. ASSESSMENT: BI-RADS 0: Incomplete - Need Additional Imaging Evaluation RECOMMENDATION: 1. Additional views right breast (magnification CC, magnification ML). 2. Radiology department staff will contact the patient for additional imaging. This patient's information was entered into a reminder system with a target due date for their next mammogram. Dictated By: Sami Arias MD Signed By: <Electronically signed by Sami Arias MD in OV> 10/06/22 1601 DD/ 1140 TD/TT: Junior Business Analyst: ASHLEY MM added views RT Reviewed date:10/13/2022 06:02:23 AM Interpretation: Performing Lab: Notes/Report: [facility] [address] [place] [address] Mammography Report Signed Patient: Rosetta Adame MR#: [id number] : 1945 Acct:[id number] Age/Sex: 77 / F ADM Date: 10/12/22 Loc: HO.MAMMO Attending Dr: Baldev Victoria MD Ordering Physician: Baldev Victoria MD Results: 3.6MProb ably Benign Finding - Short 6 M F/U Suggested Date of Service: 10/12/22 Follow Up: 6 Month F/U Procedure(s): MM added views RT Accession Number(s): [id number] cc: Baldev Victoria MD EXAMINATION: MM DIAGNOSTIC DIGITAL MAMMOGRAPHY, RIGHT CLINICAL INFORMATION: Additional views of the right breast for calcifications in the upper outer quadrant. COMPARISON: Mammography: 10/05/2022 and studies dating back to 05/05/2016. TECHNIQUE: Digital mammography is performed in the following views: Spot magnification views of the right breast in craniocaudal and 90-degree mediolateral views. FINDINGS: There are scattered areas of fibroglandular density (ACR BI-RADS breast composition Category b). The calcifications may represent vascular calcifications and are more present to a large degree dating back to study of 07/26/2019. Low linear or branching forms are identified. Results are provided to the patient at time of visit by the technologist. MM/MM added views RT IMPRESSION: Right breast calcifications for 6-month followup examination to include spot magnification views in craniocaudal and 90-degree mediolateral views. ASSESSMENT: BI-RADS 3: Probably benign. RECOMMENDATION: Diagnostic mammography in 6 months. This patient's information was entered into a reminder system with a target due date for their next mammogram. Dictated By: Wilbert Aranda MD Signed By: <Electronically signed by Wilbert Aranda MD in OV> 10/12/22 1021 DD/ 0950 TD/TT: Junior Business Analyst: TAY MM tomosynthesis diagnostic RT (Not yet reviewed by provider) Interpretation: Performing Lab: Notes/Report: [address] [place] [address] Mammography Report Signed Patient: Rosetta Adame MR#: [id number] : 1945 Acct:[id number] Age/Sex: 77 / F ADM Date: 04/12/23 Loc: HO.MAMMO Attending Dr: Baldev Victoria MD Ordering Physician: Baldev Victoria MD Results: 3.6MProb ably Benign Finding - Short 6 M F/U Suggested Date of Service: 04/12/23 Follow Up: 6 Month F/U Procedure(s): MM tomosynthesis diagnostic RT Accession Number(s): [id number] cc: Baldev Victoria MD EXAMINATION: MM DIAGNOSTIC DIGITAL BREAST TOMOSYNTHESIS, RIGHT CLINICAL INFORMATION: Six-month follow-up right breast calcifications. COMPARISON: Mammography: 10/12/2022,, 10/05/2022 and studies dating back to 05/05/2016. TECHNIQUE: Digital breast tomosynthesis is performed in the following views: 2-D spot magnification right CC x2, right ML x1, full-field 3-D digital right CC x2, and full field 3-D digital right MLO x1. FINDINGS: There are scattered areas of fibroglandular density (ACR BI-RADS breast composition Category b). There is redemonstration of linear grouped calcifications in the upper outer right breast, mid to posterior depth, located in the lateral right breast, away from the medial surgical site. These are arranged in a linear distribution, have both somewhat coarse and fine linear forms, with one possible branching form. They are unchanged in morphology, distribution, and number when compared with 10/12/2022, and 09/17/2021. They are indeterminant. Otherwise, the upper slightly medial right breast, there are dystrophic calcifications from prior lumpectomy, as well as skin thickening. No developing masses or new foci of focal asymmetry identified. Otherwise, there are no additional suspicious abnormalities in the right breast. Discussion was held with the patient at length. There are both mildly suspicious characteristics and somewhat benign characteristics to these calcifications. The patient is anticoagulated on on a platelet inhibitor for atrial fibrillation, and it was felt the risks of stopping the anticoagulation for biopsy outweighed the risks of biopsy, which even if DCIS, would not change long-term prognosis with a 6 month interval observational period. It was thus decided to pursue a 6 month follow-up of these right breast calcifications, in lieu of stereotactic biopsy, which I felt was a reasonable course of action at this time. MM/MM tomosynthesis diagnostic RT IMPRESSION: Probably benign calcifications right breast upper outer and outer right breast as discussed above. Six-month interval follow-up mammography with standard magnification views was decided as the best course of action. ASSESSMENT: BI-RADS BI-RADS 3 - Probably benign finding(s) - 6 month follow-up suggested RECOMMENDATION: 6 Month F/U Results were discussed with the patient at time of visit. This patient's information was entered into a reminder system with a target due date for their next mammogram. Dictated By: James Perez MD Signed By: <Electronically signed by James Perez MD in OV> 04/12/23 1522 DD/ 1032 TD/TT: Junior Business Analyst: REASON FOR REFERRAL Reason left hip pain Diagnosis 1 Obesity (E66.9) Diagnosis 2 Hip pain (M25.559) Referral Organization Baldev Victoria III, MD Referring Provider First Name Baldev Referring Provider Last Name Esme Referring Provider Speciality Internal M edicine Referred Provider Shreyas Woodard [facility] Referred Provider Specialty Orthopedic S urgery General Notes [facility],Cate [facility] 01/2023 09:30:00 AM EST > Called [facility] made patient appt with Leila Sanchez for 10/20/2022 at 10:15am arrival with appt at 10:30am pt called and mailed this appt information 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 left 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 x ray from and bring with her for this appt , Cate Austin BELT TENDER 09/11/2022 01:07:05 PM EDT > ref/demo/progress note and xrays faxed Referral Priority Routine Referral Appointment Date 10/20/2022 Reason screening colonoscop y Diagnosis 1 Obesity (E66.9) Diagnosis 2 Encounter for screen ing colonoscopy (Z12.11) Referral Organization Baldev Victoria III, MD Referring Provider First Name Baldev Referring Provider Last Name Esme Referring Provider Speciality Internal M edicine Referred Provider Baldev Hook Referred Provider Specialty Gastroentero logy General Notes Cate Austin BELT TENDER 12/2022 01:47:21 PM EST > appointment information mailed to patient , Cate Austin BELT TENDER 09/04/2022 02:20:05 PM EST > ref/demo progress note faxed Referral Priority Routine Referral Appointment Date 01/26/2023 MEDICATIONS Medication SIG (Take, Route, Frequency, Duration) Notes Start Date End Date Status Gabapentin 300 mg TAKE 1 CAPSULE BY MO [facility] THREE TIMES DAILY for 15 Active Alendronate Sodium 70 MG 1 tablet 30 min utes before the first food, beverage or medicine of the day with plain water Orally Active Metoprolol Succinate ER 25 mg TAKE 1 TABLET BY MOUTH ONCE DAILY for 90 Active Eliquis 5 mg TAKE 1 TABLET BY RUBÉN TWICE DAILY for 30 Active IMMUNIZATIONS Vaccine Route Administration Date Status Comme nts COVID PFIZER Unknown 04/16/2021 Administered COVID PFIZER Unknown 09/08/2020 Administered COVID PFIZER Unknown 09/30/2020 Administered SOCIAL HISTORY Tobacco Use: Social History Observation Description Date Details (start date - stop date) Never Smoker NA - NA Sex Assigned At : Social History Observation Description Sex Assigned At Female Tobacco Use/Smoking Question Answer Notes Patient is a nonsmoker Additional Findings: Tobacco Non-User Aggressive non-smoker Alcohol Screen Question Answer Notes Did you have a drink containing alcohol in the p ast year? No Points 0 Interpretation Negative PROBLEMS Problem Type ICD Code Onset Dates Problem Status W/U Status Risk SNOMED Code Notes Problem Hyperlipidemia (E78.5) Active confirmed 77339701 Her lipids in August 2022 showed mild elevation of cholesterol. The total cholesterol was 238. A repeat evaluation has been requested. I have recommended aggressive weight loss and a diet reduced in calories sodium and animal fat. Problem Obesity (E66.9) Active confirmed 723040 001 She has lost2 pounds during surgery since her last visit. We have discussed diet and nutrition in a weight loss strategy today. Her body mass index remains in the obese range. I have recommended aggressive weight loss. Problem Chronic anticoagulation (Z79.01) Active confirmed [id number] She is complia nt with the medication. Has had no bleeding. Problem Osteoarthritis (M19.90) Active confirmed 429826333 The left ankle and foot are now free of pain. She has had a left hip arthroplasty and is ambulating without difficulty. She continues to have mild discomfort in her hands and shoulders. Her knees are free of pain. Problem History of breast cancer (Z85.3) Active confirmed Personal histor y of primary malignant neoplasm of breast (860266910) Her most recent mammogram was benign and there is no sign of recurrent disease today. Observation will continue. Her mammograms will be done on schedule. She will continue breast self examination. There was no sign of a new primary or recurrent disease today. Problem Pedal edema (R60.0) Active confirmed 350564440 There is no peripheral edema noted today. Problem Atrial fibrillation, unspecified type (I48.91) Active confirmed 73388685 She is in a ve ry regular atrial fibrillation. No murmur was heard. She seems hemodynamically stable. Problem Leucopenia (D72.819) Active confirmed 31892644 A CBC has been ordered to evaluate the white blood cell count. She has had no infections. Problem Ankle bone spur (M77.9) Active confirmed [id number] Problem Third degree heart block (I44.2) Active confirmed 11944083 Her pacemaker appears to be functioning normally. A recent device check was unremarkable. Her vital signs were stable. Encounters Encounter Location Date Provider Diagnosis Baldev Victoria III, MD [address] [place] [address] DR [place]RAYA [phone] 09/23/2022 Baldev Victoria Obesity E66.9 ; Juliet al physical exam Z00.00 ; Encounter for screening mammogram for breast cancer Z12.31 ; Hyperlipidemia E78.5 ; History of breast cancer Z85.3 ; Third degree heart block I44.2 ; Atrial fibrillation, unspecified type I48.91 ; Chronic anticoagulation Z79.01 ; Leucopenia D72.819 and Pedal edema R60.0 Baldev Victoria III, MD [address] [place] [address] [address] [place] [address] 12/18/2022 Baldev Victoria Obesity E66.9 ; Osteoarthritis M19.90 ; Hyperlipidemia E78.5 ; History of breast cancer Z85.3 ; Atrial fibrillation, unspecified type I48.91 ; Chronic anticoagulation Z79.01 and Third degree heart block I44.2 Baldev Victoria III, MD [address] [place] [address] [place] [phone] 09/01/2022 Baldev Victoria Obesity E66.9 ; Hip pain M25.559 ; Hyperlipidemia E78.5 ; Leucopenia D72.819 ; Pedal edema R60.0 ; History of breast cancer Z85.3 ; Atrial fibrillation, unspecified type I48.91 ; Third degree heart block I44.2 and Chronic anticoagulation Z79.01 Bladev Victoria III, MD [address] [place] [address] [place] [address] 12/30/2022 Baldev Victoria III, MD [address] [place] [address] [place] [address] 01/13/2023 Baldev Victoria Osteoarthritis M19.9 0 ; Obesity E66.9 ; Hyperlipidemia E78.5 ; Leucopenia D72.819 ; History of breast cancer Z85.3 ; Third degree heart block I44.2 ; Atrial fibrillation, unspecified type I48.91 and Chronic anticoagulation Z79.01 Baldev Victoria III, MD [address] [place] [address] [place] [address] 04/14/2023 Baldev Victoria ASSESSMENTS Encounter Date Diagnosis Assessment Notes Treatment Notes Treatment Clinical Notes 09/23/2022 Obesity (ICD-10 - E66.9) She remains in the obese range and has gained several pounds. We reviewed her weight loss strategy and detail today. 09/23/2022 Annual physical exam (ICD-10 - Z00.00) She likely will have the recommendation for left hip replacement when she sees her orthopedist in the near future. 12/18/2022 Obesity (ICD-10 - E66.9) She has lost 7 pounds during surgery. Since her last visit. We have discussed diet and nutrition in a weight loss strategy today. 12/18/2022 Osteoarthritis (ICD-10 - M19.90) She continues to have pain in her ankle and foot but is able to conduct all of the activities of daily life without impairment. Her symptoms are stable. She recently had arthroplasty on the left hip because of arthritis which was successfully done. She is ambulating without difficulty. 09/01/2022 Obesity (ICD-10 - E66.9) She has lost 8 pounds voluntarily. Her body mass index is 33.8. We discussed her weight loss strategy at length. We discussed diet and nutrition. Learning About Obesity, Hip Pain: Care Instructions material was printed 09/01/2022 Hip pain (ICD-10 - M25.559) This appears to be osteoarthritis and degenerative changes of the left hip. She is referred to orthopedics. 01/13/2023 Obesity (ICD-10 - E66.9) She has lost2 pounds during surgery since her last visit. We have discussed diet and nutrition in a weight loss strategy today. Her body mass index remains in the obese range. I have recommended aggressive weight loss. 01/13/2023 Osteoarthritis (ICD-10 - M19.90) The left ankle and foot are now free of pain. She has had a left hip arthroplasty and is ambulating without difficulty. She continues to have mild discomfort in her hands and shoulders. Her knees are free of pain. 09/23/2022 Encounter for screening mammogram for breast cancer (ICD-10 - Z12.31) Her annual mammogram has been scheduled. She is conducting breast self-examinations with no findings. 12/18/2022 Hyperlipidemia (ICD-10 - E78.5) Her lipids in August 2022 showed mild elevation of cholesterol. A repeat evaluation has been requested. 09/01/2022 Hyperlipidemia (ICD-10 - E78.5) Comprehensive blood work with a fasting lipid profile will be done prior to her next visit. No change in her medications was made. 01/13/2023 Hyperlipidemia (ICD-10 - E78.5) Her lipids in August 2022 showed mild elevation of cholesterol. The total cholesterol was 238. A repeat evaluation has been requested. I have recommended aggressive weight loss and a diet reduced in calories sodium and animal fat. 09/23/2022 Hyperlipidemia (ICD-10 - E78.5) Comprehensive blood work with a fasting lipid profile has been ordered for the near future. 12/18/2022 History of breast cancer (ICD-10 - Z85.3) Her most recent mammogram was benign and there is no sign of recurrent disease today. Observation will continue. Her mammograms will be done on schedule. She will continue breast self examination. There was no sign of a new primary or recurrent disease today. 09/01/2022 Leucopenia (ICD-10 - D72.819) A CBC has been ordered to evaluate the white blood cell count. She has had no infections. 01/13/2023 Leucopenia (ICD-10 - D72.819) A CBC has been ordered to evaluate the white blood cell count. She has had no infections. 09/23/2022 History of breast cancer (ICD-10 - Z85.3) Her most recent mammogram was benign and there is no sign of recurrent disease today. Observation will continue. Her mammograms will be done on schedule. She will continue breast self examination. There was no sign of a new primary or recurrent disease today. 12/18/2022 Atrial fibrillation, unspecified type (ICD-10 - I48.91) She is in a very regular atrial fibrillation. No murmur was heard. She seems hemodynamically stable. 09/01/2022 Pedal edema (ICD-10 - R60.0) There is no peripheral edema noted today. 01/13/2023 History of breast cancer (ICD-10 - Z85.3) Her most recent mammogram was benign and there is no sign of recurrent disease today. Observation will continue. Her mammograms will be done on schedule. She will continue breast self examination. There was no sign of a new primary or recurrent disease today. 09/23/2022 Third degree heart block (ICD-10 - I44.2) Her pacemaker appears to be functioning normally. A recent device check was unremarkable. Her vital signs were stable. 12/18/2022 Chronic anticoagulation (ICD-10 - Z79.01) She is compliant with the medication. Has had no bleeding. 09/01/2022 History of breast cancer (ICD-10 - Z85.3) Her most recent mammogram was benign and there is no sign of recurrent disease today. Observation will continue. Her mammograms will be done on schedule. She will continue breast self examination. There was no sign of a new primary or recurrent disease today. 01/13/2023 Third degree heart block (ICD-10 - I44.2) Her pacemaker appears to be functioning normally. A recent device check was unremarkable. Her vital signs were stable. 09/23/2022 Atrial fibrillation, unspecified type (ICD-10 - I48.91) She is in a very regular atrial fibrillation. No murmur was heard. She seems hemodynamically stable. 12/18/2022 Third degree heart block (ICD-10 - I44.2) Her pacemaker appears to be functioning normally. A recent device check was unremarkable. Her vital signs were stable. 09/01/2022 Atrial fibrillation, unspecified type (ICD-10 - I48.91) She is in a very regular atrial fibrillation. No murmur was heard. She seems hemodynamically stable. 01/13/2023 Atrial fibrillation, unspecified type (ICD-10 - I48.91) She is in a very regular atrial fibrillation. No murmur was heard. She seems hemodynamically stable. 09/23/2022 Chronic anticoagulation (ICD-10 - Z79.01) She is compliant with the medication. Has had no bleeding. 09/01/2022 Third degree heart block (ICD-10 - I44.2) Her pacemaker appears to be functioning normally. A recent device check was unremarkable. Her vital signs were stable. 01/13/2023 Chronic anticoagulation (ICD-10 - Z79.01) She is compliant with the medication. Has had no bleeding. 09/23/2022 Leucopenia (ICD-10 - D72.819) A CBC has been ordered to evaluate the white blood cell count. She has had no infections. 09/01/2022 Chronic anticoagulation (ICD-10 - Z79.01) She is compliant with the medication. Has had no bleeding. 09/23/2022 Pedal edema (ICD-10 - R60.0) There is no peripheral edema noted today. PLAN OF TREATMENT Pending Test Test Name Order Date PROFILE, FASTING (COMPREHENSIVE METABOLI C) 03/25/2022 PROFILE, FASTING (COMPREHENSIVE METABOLI C) 05/18/2018 PROFILE, FASTING (COMPREHENSIVE METABOLI C) 07/24/2020 PROFILE, FASTING (COMPREHENSIVE METABOLI C) 02/03/2017 PROFILE, FASTING (COMPREHENSIVE METABOLI C) 02/16/2018 PROFILE, FASTING (COMPREHENSIVE METABOLI C) 09/23/2022 PROFILE, FASTING (COMPREHENSIVE METABOLI C) 11/17/2017 PROFILE, RANDOM (COMPREHENSIVE METABOLIC ) 08/30/2019 PROFILE, RANDOM (COMPREHENSIVE METABOLIC ) 05/14/2021 LIPID PANEL 09/23/2022 LIPID PANEL 11/17/2017 LIPID PANEL 05/14/2021 LIPID PANEL 03/25/2022 LIPID PANEL 05/18/2018 LIPID PANEL 07/24/2020 LIPID PANEL 02/03/2017 LIPID PANEL 08/30/2019 LIPID PANEL 02/16/2018 TSH (THYROID STIMULATING HORMONE) 2022 CBC w DIFF 11/17/2017 CBC w DIFF 05/14/2021 CBC w DIFF 09/23/2022 CBC w DIFF 03/25/2022 CBC w DIFF 05/18/2018 CBC w DIFF 06/04/2021 CBC w DIFF 07/24/2020 CBC w DIFF 02/03/2017 CBC w DIFF 08/30/2019 CBC w DIFF 02/16/2018 CA 27.29 11/17/2017 CA 27.29 05/18/2018 XR CHEST 2 VIEW PA & LAT 02/06/2019 XR HIP LT 09/01/2022 MAMMOGRAM DIGITAL BILATERAL SCREEN 03/06 MAMMOGRAM DIGITAL BILATERAL SCREEN 09/23 MAMMOGRAM DIGITAL BILATERAL SCREEN 08/20 MAMMOGRAM DIGITAL BILATERAL SCREEN 09/17 Echocardiogram 09/14/2018 VITAMIN D 25-OH TOTAL 07/24/2020 PFT with DLCO 09/14/2018 MM tomosynthesis diagnostic RT 3 Next Appt Details Provider Name:Baldev Victoria, 04/28/2023 03:00:00 PM, [address] [facility] [place] [place], [place], [phone], Provider Name:Baldev Victoria, 09/29/2023 02:30:00 PM, 10 [facility] [place] [place], [place], [phone], Insurance Providers Payer Name Payer Address Payer Phone Subscriber Number Group Number Insured Name Patient Relationship to Insured Coverage Start Date Coverage End Date MEDICARE NGS [address] [place] [address] [phone] [id number] Rosetta Adame Self - patient is the insured [employer] [address] [place], [place] [id number] [phone] [id number] Rosetta Adame Self - patient is the insured MEDICAID [address] [place], [place] [id number] [phone] [id number] Rosetta Adame Self - patient is the insured MEDICAL (GENERAL) HISTORY Medical History History ICD Code bone spurs both feet obesity [id number] mild anemia invasive right breast cancer 2005 osteoporosis hyperlipidemia last bilateral mammogram 02/2012 @ third-degree heart block Sep, septal infarct, pacemaker insertion, [facility], Dr. Rajan Persistent atrial fibrillation Chronic anticoagulation Dual-chamber [place] pacemaker September 2018, Dr. Rajan Early cognitive decline, November 2022 Surgical History Surgery Date(Month/Year) D&C 1992 laparotomy right hip replacement 07/2011 lumpectomy with sentinel nod e excision for invasive right breast cancer 2005 pacemaker insertion, Dr. Rajan, [facility] 09/2018 cataract surgery 05/2021 Left hip arthroplasty, [facility] 10/2022 Hospitalization History Reason Date(Month/Year) right hip replacement
--- OUTSIDE RECORDS SUMMARY | 2023-04-14 09:16 | XMS_ITS | Continuity of Care Document ---
Author Name Unknown Organization [facility] Address [address] [place] [address]- Care Team Providers Care Car Shifter Name Role Phone Baldev Victoria MD Primary Care Physician [phone] Encounter [facility] [place]CT R [id number] Date(s): 09/04/19 - 09/14/19 [facility] [address] [place] [address]- [facility] Attending Physician: Lacy Sotomayor Admitting Physician: AdmtrLacy Referring Physician: Admtr, Ar8 Allergies, Adverse Reactions, Alerts Substance Reaction Severity Status sulfa drugs Active amLODIPine Active Medications amLODIPine 5 mg oral tablet 5 mg, By Mouth, Daily, # 30 tablet, Refills 3, Tot. Refills 3, Maintenance, 10/25/18 11:59:50 EDT, Route to Pharmacy Electronically, [id number], [facility] Start Date: 10/25/18 Status: Ordered Toprol XL 25 mg oral tablet, extended release 25 mg, 1, tablet, By Mouth, Daily, # 30 tablet, Refills 3, Tot. Refills 3, Maintenance, 12/09/18 12:50:58 EDT, Route to Pharmacy Electronically, [id number], [facility] - [facility] Start Date: 12/09/18 Status: Ordered Xarelto 20 mg oral tablet 1 tablet = 20 mg, By Mouth, Daily at supper, # 30 tablet, 3 Refills, Maintenance, 07/28/19 11:54:00EST, Tablet, [facility] - [facility], New onset Afib, 157, cm, 03/30/19 8:37:00 EDT, Height, 89.5, kg, 10/23/18 7:14:00 EDT, Dry Weight Start Date: 07/28/19 Status: Ordered Social History Social History Type Response Smoking Status Never (less than 100 in lifetime) entered on: 10/23/18 Sex Female
--- OUTSIDE RECORDS SUMMARY | 2023-04-14 09:16 | XMS_ITS | Continuity of Care Document ---
Author Name Unknown Organization [facility] Address [address] [place] [address]- Care Team Providers Care Silk Spreader Name Role Phone Baldev Victoria MD Primary Care Physician Encounter [facility] ACCT R [id number] Date(s): 10/15/22 - 11/14/22 [facility] [address] [place] [address]- Attending Physician: Lacy Sotomayor Admitting Physician: Lacy [...] opioid drug. Start Date: 04/03/21 Status: Ordered Eliquis 5 mg oral tablet [...] TIMES DAILY Start Date: 11/11/22 Status: Ordered meloxicam 15 mg oral tablet TAKE 1 TABLET BY MOUTH DAILY Start Date: 11/11/22 Status: Ordered naproxen 250 mg oral tablet 250 mg, 1, tablet, By Mouth, 2 times a day, PRN, # 20 tablet, Refills 0, Maintenance, for pain, 11/11/22 13:37:00 EDT, Partial fill upon patient request if the prescription is for a schedule II opioid drug. Start Date: 11/11/22 Status: Ordered Toprol XL 25 mg oral tablet, extended release 25 mg, 1, tablet, By Mouth, Daily, # 30 tablet, Refills 3, Tot. Refills 3, Maintenance, 12/09/18 12:50:58 EDT, Route to Pharmacy Electronically, [id number], [facility] [...] Team Personnel Name: Baldev Victoria MD Position: [facility] Oncology MD Member Role: PCP Address: Address: [address] [place] [address] #[facility] Baldev Vela. Esme BARRON [place], [place] [address] Name: Mandy Ayon RN Position: S RN Member Role: Primary Care Nurse Name: Debora Medrano RN Position: [facility] RN Member Role: Primary Care Nurse Name: Ngoc Day RN Position: S RN Member Role: Primary Care Nurse Care Team Related Persons Name: DAPHNE ADAME
--- OUTSIDE RECORDS SUMMARY | 2023-04-14 09:16 | XMS_ITS | Continuity of Care Document ---
Author Name Unknown Organization [facility] Address [address] [place] [address]- Care Team Providers Care Export Freight Clerk Name Role Phone Baldev Victoria MD Primary Care Physician Encounter [facility] ACCT R [id number] Date(s): 08/26/22 - 12/24/22 [facility] [address] [place] [address]- Attending Physician: Perez Rajan MD Admitting Physician: [...] 12/09/18 12:50:58 EDT, Route to Pharmacy Electronically, [id number], [facility] - [place] Start [...] Team Personnel Name: Baldev Victoria MD Position: [facility] Physician - Oncology Member Role: PCP Address: Address: [address] [place] [address] [address] [place] [address] Name: Yennifer Szymanski RN Position: [facility] RN Member Role: Primary Care Nurse Name: Mandy Ayon RN Position: [facility] RN Member Role: Primary Care Nurse Name: Debora Medrano RN Position: [facility] RN Member Role: Primary Care Nurse Name: Ngoc Day RN Position: [facility] RN Member Role: Primary Care Nurse Care Team Related Persons Name: JOSEMELISSADAPHNE Address: [facility]
--- OUTSIDE RECORDS SUMMARY | 2023-04-14 09:16 | XMS_ITS | Continuity of Care Document ---
Author Name Unknown Organization [facility] Address [address] [place] [address]- Care Team Providers Care Cash Applications Manager Name Role Phone Baldev Victoria MD Primary Care Physician [phone] [place] [facility] [place] [id number] Date(s): 01/26/23 - 02/25/23 [facility] [address] [place] [address]- [place] Allergies, Adverse Reactions, Alerts Substance Reaction Severity [...] 12/09/18 12:50:58 EDT, Route to Pharmacy Electronically, [id number], [facility] [...] in lifetime) entered on: 11/11/22 Sex Female Cardiology Outpatient Note * Geetha Baum RN: PERFORM, SIGN, VERIFY Event Display: Cardiology Note Office Authored Date: Patient: MELISA ADAME Age: 77 years Sex: Female : 1945 Associated Diagnoses: None Author: Geetha Baum RN To Whom It May Concern, Melisa is under my cardiac care at [facility]. You can d/c the anticoagulation prior to procedure if necessary but there will be a slightly increased risk for stroke. I would restart as soon as possible afterwards. Thank You, Perez Rajan M.D. Patient Care team information Care Team Personnel Name: Baldev Victoria MD Position: S Physician - Oncology Member Role: PCP Address: Address: [address] [place] [address] [address] Baldev [place], [place] [id number] Name: Yennifer Szymanski RN Position: [facility] RN Member Role: Primary Care Nurse Name: Mandy Ayon RN Position: [facility] RN Member Role: Primary Care Nurse Name: Debora Medrano RN Position: [facility] RN Member Role: Primary Care Nurse Name: Ngoc Day RN Position: [facility] RN Member Role: Primary Care Nurse Care Team Related Persons Name: DAPHNE ADAME Address: home [place]
[2023-04-14 09:45] VITALS: BMI 32.9
[2023-04-14 09:51] VITALS: BP 155/69; PULSE 68; RESP 8; TEMP 36.5; O2SAT 97
[2023-04-14 10:10] VITALS: BMI 32.9
[2023-04-14] MEDS: Lactated Ringers 1,000 ML 100 ML IVCONT (10:11)
--- NOTE | 2023-04-14 11:56 | PC.NURSE ---
EKG ordered by Dr Dunn, awaiting Silk Screen Printer Machine reply. Pt asymptomatic
--- NOTE | 2023-04-14 13:17 | PM.OP ---
Brief Operative Note Date of Service: 04/14/23 Pre-op diagnosis: Screening Post-op diagnosis: other (Colon polyps) Procedure: Colonoscopy to the cecum and TI with bx removal of polyps, and hot snare polypectomy x 1 of rectal polyp with placement of 2 Resolution clips Surgeon: Baldev Hook MD Anesthesia: MAC Was an Cardiac Rehabilitation Program Director used for this Procedure?: No Estimated blood loss (mL): 2.00 Pathology: other (A. Ascending colon polyps B. Transverse colon polyp C. Rectal polyps) Condition: stable Disposition: PACU
[2023-04-14 13:22] VITALS: BP 91/36; PULSE 63; RESP 16; TEMP 36.1; O2SAT 97
[2023-04-14 13:37] VITALS: BP 128/62; PULSE 63; RESP 18; TEMP 36.3; O2SAT 97
--- NOTE | 2023-04-14 19:32 | OP_ITS ---
DATE OF SERVICE: 04/14/2023 SURGEON: Baldev Hook MD INDICATIONS: The patient presents for evaluation of colorectal cancer screening. Full consent has been obtained from her for this, including risks of bleeding and perforation. PREOPERATIVE DIAGNOSIS: Colorectal cancer screening. POSTOPERATIVE DIAGNOSIS: PROCEDURE PERFORMED: Colonoscopy to the cecum and terminal ileum with biopsy and removal of polyps, and hot snare polypectomy of rectal polyp with placement of 2 Resolution clips. ESTIMATED BLOOD LOSS: COMPLICATIONS: ANESTHESIA: Monitored anesthesia care. ASSISTANTS: SPECIMENS: POSTOPERATIVE DIAGNOSES: Colorectal cancer screening. Colon polyps, diverticulosis, and internal hemorrhoids. DESCRIPTION OF PROCEDURE: The patient was placed in the left lateral decubitus position. The digital rectal exam revealed no abnormalities. The Olympus video pediatric colonoscope was entered into the rectum and advanced easily to the cecum. Once in the cecum, I did identify normal-appearing cecal pouch with appendiceal orifice and a normal-appearing ileocecal valve. The terminal ileum was cannulated and appeared normal. Scope was withdrawn back in the colon. The entire cecum and ileocecal valve appeared normal. The scope was slowly withdrawn assessing all mucosal surfaces carefully. Preparation was excellent. In the ascending colon were 2 polyps. Both of these were less than 10 mm in size and were both biopsied and completely removed with cold biopsy forceps. In the transverse colon was a less than 10 mm polyp, which was biopsied and completely removed with cold biopsy forceps. In the rectum was an approximately 5 mm polyp, which was removed by cold snare polypectomy and then recovered by suction. The polypectomy site appeared clean, without any sign of residual polyp nor significant bleeding. Also in the rectum was approximately a 10 mm grossly adenomatous polyp, which was removed by hot snare polypectomy and recovered by suction. The polypectomy site appeared clean, without any sign of residual polyp nor bleeding. I did place 2 Resolution clips onto the polypectomy site with good deployment and good hemostasis. I did not visualize any other polyps, colitis, nor angiodysplasia. There was a mild amount of sigmoid diverticulosis. In the rectum, scope was retroflexed visualizing internal hemorrhoids, but no other pathology. The rectal mucosa appeared normal. Scope was straightened and withdrawn from the patient. She tolerated procedure well and was returned to recovery area in stable condition. IMPRESSION: 1. Colon polyps. 2. Diverticulosis. 3. Internal hemorrhoids. PLAN: The results of the pathology will be checked. Even if these are tubular adenomas, I do not think she would need any further screening colonoscopies given her age and today's relatively minimal findings. She was advised to resume her Eliquis in 48 hours and to continue to stay off all aspirin and NSAIDs on a long-term basis, while on Eliquis. She will otherwise see me as needed. MD JAZMINE Abdullahi/ANDER / [phone]
== END 2023-04-14 14:26 | disposition home or self-care (01) ==
PROVIDERS: PCP Internal Medicine Medical Oncology; Visit Provider Internal Medicine
PROC: 0DJD8ZZ Inspection of Lower Intestinal Tract, Via Natural or Artificial Opening Endoscopic (ICD-10-PCS; CPT 45378; principal; 2023-04-14 10:40)
DX: Z12.11 Encounter for screening for malignant neoplasm of colon (principal); D12.2 Benign neoplasm of ascending colon; D12.3 Benign neoplasm of transverse colon; D12.8 Benign neoplasm of rectum; K57.30 Diverticulosis of large intestine without perforation or abscess without bleeding; K64.8 Other hemorrhoids; E78.5 Hyperlipidemia, unspecified; Z85.3 Personal history of malignant neoplasm of breast; Z95.0 Presence of cardiac pacemaker; Z79.01 Long term (current) use of anticoagulants; Z79.899 Other long term (current) drug therapy
CPT/HCPCS: 45380; 45385; 88305; 93005

== ENCOUNTER 2023-04-16 14:39 | Outpatient (REF) | payer MEDICARE, SELFPAY ==
--- NOTE | ~2023-04-16 | MM_ITS ---
EXAMINATION: BONE DENSITOMETRY CLINICAL INDICATION: Asymptomatic menopausal state. COMPARISON: Previous BD dated 03/04/2021 and baseline BD dated 01/18/2008, spine. TECHNIQUE: Using a [employer] DXA System (software version: 13.1) manufactured by [employer], dual-energy x-ray absorptiometry was performed of the lumbar spine and left forearm radius 33%. Patient had bilateral hip replacements. The images are of good technical quality. Summary results are attached. FINDINGS: AP SPINE L1-L3 (excluding L4): The data of L1-L4 has been changed to exclude the L4 vertebral body, because degenerative sclerosis at this level may cause overestimation of lumbar spine density. Current: BMD 1.095 g/cm2, Z-score 0.3, T-score -0.6, normal, 11.2% increase from previous, 15.5% increase from baseline (<5% change is not significant). Prior: BMD 0.985 g/cm2. Baseline: BMD 0.948 g/cm2. LEFT FOREARM RADIUS 33%: BMD 0.811 g/cm2, Z-score 1.6, T-score -0.7, normal. IDENTIFIED RISK FACTORS: Menopause, bilateral oophorectomy, hysterectomy, anticonvulsant. HISTORY OF FRACTURE: None listed. MEDICATIONS: None listed. MM/XR DEXA axial skeleton IMPRESSION: 1. DIAGNOSIS: Normal bone density based on the lowest T-score value of -0.7 in the forearm radius 33% applying World Health Organization criteria. 2. 10-YEAR FRACTURE RISK PREDICTION, FRAX: Not performed in this patient without a femoral neck BMD measurement. 3. Treatment Recommendations: NOF guidelines recommend consideration for treatment in postmenopausal women and men age 50 and older presenting with the following: -A hip or vertebral (clinical or morphometric) fracture. -T-score less than or equal to -2.5 at the femoral neck or spine after appropriate evaluation to exclude secondary causes. -Low bone mass at the hip or spine and a 10-year fracture probability by FRAX of greater than or equal to 3% for hip fracture or greater than or equal to 20% for major osteoporotic fracture based on the [place] adapted WHO algorithm. 4. Other Recommendations: All treatment decisions require clinical judgment and consideration of individual patient factors, including patient preferences, comorbidities, previous drug use, risk factors not captured in the FRAX model (e.g. frailty, falls, vitamin D deficiency, increased bone turnover, interval significant decline in bone density) and possible under or overestimation of fracture risk by FRAX. FUTURE SCAN RECOMMENDATION: People with diagnosed cases of osteoporosis or at high risk for fracture should have regular bone mineral density tests. For patients eligible for Medicare, routine testing is allowed once every 2 years. The testing frequency can be increased to one year for patients who have rapidly progressing disease, those who are receiving or discontinuing medical therapy to restore bone mass, or have additional risk factors.
== END 2023-04-16 14:40 | disposition home or self-care (01) ==
LOC: HO.MAMMO 14:39
PROVIDERS: PCP Internal Medicine Medical Oncology; Visit Provider Obstetrics & Gynecology
DX: Z13.820 Encounter for screening for osteoporosis (principal); Z78.0 Asymptomatic menopausal state
CPT/HCPCS: 77080

== ENCOUNTER 2023-05-10 14:52 | Outpatient (AMB) | payer MEDICARE, SELFPAY ==
[2023-05-10 14:56] VITALS: BP 114/72; BMI 33.7
--- NOTE | 2023-05-10 14:56 | A.OFFVIS_ITS ---
Intake Vital Signs 05/10/23 14:56 Height 5 ft 2 in Weight 184 lb BMI 33.7 BP 114/72 Intake Visit Reasons: Dexa results Appliance Adjuster Required: No Information Interpreted: non-clinical & clinical Accompanied by: Self / Same As Patient Allergies Sulfa (Sulfonamide Antibiotics) Allergy (Unknown, Verified 05/10/23 14:57) HIVES,ITCH marijuan Adverse Reaction (Uncoded 05/10/23 14:57) Unknown Post menopausal: Yes HPI HPI Comments History of Present Illness Details The patient is presenting for follow up regarding DEXA scan results. T score @ spine was -0.6 and femoral Neck was not calculated since the patient had bilateral hip replacement and 10 year FRAX risk was not computed. Bone mineral density at the spine level increase by 11.2% since 2019 PFSH Medical History Age related osteoporosis Hx of myocardial infarction CHB (complete heart block) Pacemaker Afib VAIN I (vaginal intraepithelial neoplasia grade I) History of bilateral breast cancer Surgical History History of cataract surgery S/P hip replacement History of lumpectomy of both breasts Hx of abdominal hysterectomy H/O heart surgery Family History Mother Breast CA Social History Household Members: None Housing: House Alcohol intake: current Alcohol intake frequency: a few times a month Patient Tobacco Use Status: Never used Tobacco Sexual orientation: Straight/Heterosexual Gender identity: Female Female Reproductive History Menstrual Age of Menarche: 15 Review of Systems Const All systems reviewed & are unremarkable except as noted in HPI and below Reports as per HPI and Reports no additional complaints GI Reports no additional complaints Reports no additional complaints Physical Exam Vital Signs: Last Vital Signs BP 114/72 05/10/23 14:56 BMI result Body Mass Index 33.7 Assessment & Plan Assessment & Plan (1) Osteoporosis: Code(s): M81.0 - Age-related osteoporosis without current pathological fracture Plan: Discussed with the patient the results of her bone density, inability to calculate T-score at bilateral hip since her bilateral hip replacement, and no FRAX risk computer. BMD has increased significantly from previous exam in 2020 by 11.2 %, recommended to stay on alendronate 70 mg p.o. q.week with calcium/vitamin-D 1200 mg/800 international units p.o. q.d.. All questions answered, the patient verbalized understand Medications: Refilled alendronate 70 mg PO QWEEK 12 tabs 3RF Coding Level of Care Code Est Pt Level 3 (08835) Diagnoses Osteoporosis M81.0
== END 2023-05-10 15:20 | disposition home or self-care (01) ==
LOC: HO.HWS 14:52
PROVIDERS: PCP Internal Medicine Medical Oncology; Visit Provider Obstetrics & Gynecology
DX: M81.0 Age-related osteoporosis without current pathological fracture (principal)
CPT/HCPCS: 99213

== ENCOUNTER → 2023-05-10 14:52 | Outpatient (BNVA) | payer MEDICARE, SELFPAY | PROVIDERS: PCP Internal Medicine Medical Oncology; Visit Provider Obstetrics & Gynecology | DX: M81.0 Age-related osteoporosis without current pathological fracture (principal) | CPT/HCPCS: 99212 ==

== ENCOUNTER 2023-10-20 12:43 | Outpatient (REF) | payer MEDICARE, SELFPAY ==
--- NOTE | ~2023-10-20 | MM_ITS ---
EXAMINATION: MM DIAGNOSTIC DIGITAL BREAST TOMOSYNTHESIS, BILATERAL CLINICAL INFORMATION: 6 month follow-up for right breast calcifications. Patient due for bilateral screening. Prior history left breast cancer in 2001, right breast cancer in 2005, both status post conservation therapy. Patient has pacemaker. Previously, biopsy of calcifications was deferred due to anticoagulation issues, and the patient preferred a 6 month follow-up, which I felt was a reasonable given the appearance. This will result in a 1 year follow-up of right breast calcifications upper outer quadrant. COMPARISON: Mammography: 04/12/2023, 10/12/2022, 10/05/2022 (BI-RADS 0) and studies dating back to 05/05/2016. TECHNIQUE: Digital breast tomosynthesis is performed in both the craniocaudal and mediolateral oblique views along with computer-aided detection (CAD). Synthesized 2D images are generated from the tomosynthesis. In addition to standard views, 2-D spot magnification right CC and right ML views were also obtained. FINDINGS: There are scattered areas of fibroglandular density (ACR BI-RADS breast composition Category b). Diagnostic views demonstrate essentially stable and unchanged linearly oriented subtle calcifications in the upper outer right breast, relatively far from the surgery scar marker, with suggestion of some tram tracking noted on the CC magnification view. This would indicate a vascular etiology. Mild indistinctness of the right MLO view from motion precluded observing similar findings in this view. There are no definite no new calcifications, or aggressive changes identified. These again are most likely benign in etiology. Six-month follow-up again recommended given patient history. Otherwise, pacemaker obscures a portion of the left posterior axilla on the MLO projection. There are bilateral regions of scarring in the medial aspects of both breasts, with dystrophic calcifications on the right, bilateral vascular, and bilateral subtle secretory calcifications present. There is persistent and unchanged skin thickening of the right breast. No axillary abnormalities. Otherwise, no developing masses, developing regions of architectural distortion, or other developing suspicious calcifications. Parenchymal pattern is unchanged from prior exams. MM/MM tomosynthesis diagnostic BI IMPRESSION: -No mammographic evidence of malignancy. -Probably benign calcifications right breast upper outer quadrant as discussed above, most likely vascular given subtle findings of tram-tracking on the spot CC magnification view. Six-month interval follow-up mammography with standard magnification views is again recommended to assess for stability due to the patient's high risk history. -Otherwise, stable benign findings both breasts. ASSESSMENT: BI-RADS BI-RADS 3 - Probably benign finding(s) - 6 month follow-up suggested RECOMMENDATION: 6 Month F/U Results were provided to the patient at time of visit by the technologist. This patient's information was entered into a reminder system with a target due date for their next mammogram.
== END 2023-10-20 12:44 | disposition home or self-care (01) ==
LOC: HO.MAMMO 12:43
PROVIDERS: PCP Internal Medicine Medical Oncology; Visit Provider Internal Medicine Medical Oncology
DX: R92.1 Mammographic calcification found on diagnostic imaging of breast (principal)
CPT/HCPCS: 77062; 77066

== ENCOUNTER → 2023-10-20 13:00 | Outpatient (BNV) | payer MEDICARE, SELFPAY | PROVIDERS: PCP Internal Medicine Medical Oncology; Visit Provider Radiology Diagnostic Radiology | DX: R92.1 Mammographic calcification found on diagnostic imaging of breast (principal); Z85.3 Personal history of malignant neoplasm of breast | CPT/HCPCS: 77066; G0279 ==

== ENCOUNTER 2024-03-29 12:41 | Outpatient (REF) | payer MEDICARE, SELFPAY ==
[2024-03-29 13:11] LABS: MANUAL DIFF FLAG NO
[2024-03-29 14:02] LABS: Basophils Absolute Auto 0.1 X10*3/uL (0.0-0.2); Basophils Percent Auto 1.3 % (0-2); Eosinophils Absolute Auto 0.1 X10*3/uL (0.0-0.4); Eosinophils Percent Auto 2.2 % (0-4); Hematocrit 41.9 % (37.0-47.0); Hemoglobin 13.9 g/dl (12.0-16.0); Imm Gran Abs Auto 0.01 X10*3/uL (0.00-0.03); Imm Gran Pct Auto 0.2 % (0.0-0.4); Lymphocytes Absolute Auto 1.4 X10*3/uL (1.2-4.9); Lymphocytes Percent Auto 30.3 % (20-40); Mean Corpuscular HGB Conc 33.2 g/dl (31.0-35.0); Mean Corpuscular Hemoglobin 29.1 pg (27.0-33.0); Mean Corpuscular Volume 87.8 fL (80.0-98.0); Mean Platelet Volume 11.1 fL (9.4-12.3); Monocytes Absolute Auto 0.4 X10*3/uL (0.1-1.2); Monocytes Percent Auto 8.9 % (2-11); Neutrophils Absolute Auto 2.6 x10*3/uL (2.0-8.3); Neutrophils Percent Auto 57.1 % (45-73); Platelet Count 220 X10*3/uL (160-400); Red Blood Count 4.77 X10*6/uL (4.20-5.50); Red Cell Distribution Width 13.3 % (11.0-16.0); White Blood Count 4.6 X10*3/uL (4.8-10.8)
[2024-03-29 14:33] LABS: Alanine Aminotransferase 9 U/L (0-31); Albumin Level 3.8 g/dL (3.5-5.0); Alkaline Phosphatase 66 U/L (39-117); Anion Gap 12 (12-20); Aspartate Amino Transferase 14 U/L (5-31); Blood Urea Nitrogen 10 mg/dL (9-16); Calcium 9.6 mg/dL (8.4-10.2); Carbon Dioxide 23 mmol/L (22-29); Chloride 110 mmol/L (96-108); Cholesterol 199 mg/dL (<200); Estimated Glomerular Filt Rate > 60; Glucose Fasting 87 mg/dL (60-99); HDL Cholesterol 51 mg/dL (>40); LDL Cholesterol Calculated 131 mg/dL (<100); Potassium 4.1 mmol/L (3.3-5.1); Sodium 141 mmol/L (135-145); Total Protein 6.5 g/dL (6.5-8.0); Triglycerides 89 mg/dL (<150)
== END 2024-03-29 12:42 | disposition home or self-care (01) ==
LOC: HO.LAB 12:41
PROVIDERS: PCP Internal Medicine Medical Oncology; Visit Provider Internal Medicine Medical Oncology
DX: E66.9 Obesity, unspecified (principal); E78.5 Hyperlipidemia, unspecified
CPT/HCPCS: 36415; 80053; 80061; 85025

== ENCOUNTER 2024-04-03 12:49 | Outpatient (AMB) | payer MEDICARE, SELFPAY ==
[2024-04-03 12:50] VITALS: BP 120/70; BMI 32.4
--- NOTE | 2024-04-03 12:50 | A.OFFVIS_ITS ---
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 No complaints. Last Pap/HPV was negative in 02/16 Last Mammogram was BI-RADS 2 in 10/19, the recommendation was to repeat in six- months, scheduled on 04/26/2024 Last Colonoscopy was done in 04/19 Last DEXA scan was in 04/19 [facility] Medical History Age related osteoporosis Hx of myocardial infarction CHB (complete heart block) Pacemaker Afib VAIN I (vaginal intraepithelial neoplasia grade I) History of bilateral breast cancer Surgical History History of cataract surgery S/P hip replacement History of lumpectomy of both breasts Hx of abdominal hysterectomy H/O heart surgery Family History Mother Breast CA Social History Household Members: None Housing: House Alcohol intake: current Alcohol intake frequency: a few times a month Patient Tobacco Use Status: Never used Tobacco Sexual orientation: Straight/Heterosexual Gender identity: Female Female Reproductive History Menstrual Age of Menarche: 15 Menopause type: surgical Date of Mammogram: 10/20/23 Review of Systems Const All systems reviewed & are unremarkable except as noted in HPI and below Card Reports as per HPI Resp Reports as per HPI GI Reports as per HPI and Reports no additional complaints Reports as per HPI Physical Exam Vital Signs: Last Vital Signs BP 120/70 04/03/24 12:50 BMI result Body Mass Index 32.4 Const General: cooperative, healthy appearing and comfortable Chest Chest palpation & inspection: normal inspection of the chest and normal palpation of entire chest wall Breast/axilla inspection: normal inspection of the breasts and normal inspection of the axillae Breast/axilla palpation: normal palpation of the breasts, normal palpation of the axillae and no axillary lymphadenopathy Resp Effort & Inspection: normal respiratory effort Auscultation: clear to auscultation bilaterally Percussion: percussion normal Cardio Palpation: normal PMI Rate: regular rate Rhythm: regular rhythm Heart sounds: no murmurs and no rubs Peripheral pulses: Peripheral pulses 2+ throughout GI Inspection: Yes normal to inspection Palpation (GI): Soft to palpation, nontender, no guarding, not rigid and No hepatosplenomegaly present Percussion: Yes normal to percussion Auscultation: normal bowel sounds Rectal Exam - Female: deferred General: Yes bladder normal to palpation External Female Exam: No lesion Speculum Exam - Vagina: normal appearance of the vagina, normal palpation, normal vaginal discharge and not erythematous Bimanual exam- vagina & uterus: normal bimanual exam, normal palpation, bladder normal to palpation and uterus absent Bimanual Exam- Adnexa, other: Other (No masses identified) Assessment & Plan Assessment & Plan (1) Well woman exam: Comment: History of VAIN 1 in 2015, last co testing in Code(s): Z01.419 - Encounter for gynecological examination (general) (routine) without abnormal findings Category: Medical Plan: Vaginal Co testing not indicated since the patient 's age had 2 consecutive negative co testing annually for 2 years Counseled the patient about the recommended dietary allowance of 1200 mg of Calcium & 800 IU of vitamin D. Mammogram scheduled in 04/26/2024 The patient was instructed to perform monthly self-breast exams and to schedule an annual exam in a year; All questions answered and the patient verbalized understanding. Coding Level of Care Code Est Pt Prev Care >65y(18229) Diagnoses Well woman exam Z01.419
--- OUTSIDE RECORDS SUMMARY | 2024-04-03 12:50 | XMS_ITS | Continuity of Care Document ---
Author Organization [facility] Address [address] [place] [phone]- Care Team Providers Care Supervisor Covering And Lining Name Role Phone Baldev Victoria MD Primary Care Physician Encounter [facility] [place] Date(s): 04/12/23 - 05/12/23 [facility] [address] [place] [id number]- [place] Allergies, Adverse Reactions, Alerts Substance Reaction [...] 12/09/18 12:50:58 EDT, Route to Pharmacy Electronically, [id number], [facility] - Jose Daniel [...] Team Personnel Name: Baldev Victoria MD Position: [facility] Physician - Oncology Member Role: PCP Address: Address: [address] [place] [address] [address] Baldev Victoria III, [place], [place] [address] Name: Yennifer Szymanski RN Position: S RN Member Role: Primary Care Nurse Name: Mandy Ayon RN Position: S RN Member Role: Primary Care Nurse Name: Debora Medrano RN Position: [facility] RN Member Role: Primary Care Nurse Name: Ngoc Day RN Position: [facility] RN Member Role: Primary Care Nurse Care Team Related Persons Name: DAPHNE ADAME Address: [facility]
--- OUTSIDE RECORDS SUMMARY | 2024-04-03 12:51 | XMS_ITS | Continuity of Care Document ---
Author Organization [facility] Address [address] [place] [id number]- Care Team Providers Care Aviation Safety Technician Name Role Phone Baldev Victoria MD Primary Care Physician [facility] [facility] [place] [facility] [place] [id number] Date(s): 01/10/24 - 02/09/24 [facility] [address] [place] [phone]- Attending Physician: Lacy Sotomayor Admitting Physician: Lacy [...] 12/09/18 12:50:58 EDT, Route to Pharmacy Electronically, [id number], [facility] - Jose Daniel [...] Team Personnel Name: Baldev Victoria MD Position: [facility] Physician - Oncology Member Role: PCP Address: Address: [address] [place] [address] [address] Baldev Victoria III, [place], [place] [address] Name: Yennifer Szymanski RN Position: [facility] RN Member Role: Primary Care Nurse Name: Mandy Ayon RN Position: [facility] RN Member Role: Primary Care Nurse Name: Debora Medrano RN Position: [facility] RN Member Role: Primary Care Nurse Name: Ngoc Day RN Position: [facility] RN Member Role: Primary Care Nurse Care Team Related Persons Name: DAPHNE ADAME Address: [facility]
--- OUTSIDE RECORDS SUMMARY | 2024-04-03 12:51 | XMS_ITS ---
Author Organization Baldev Victoria III, MD Address [address] [place] [address] Care Team Providers Care Movie Stunt Performer Name Role Phone Baldev Victoria Primary Care Provider Allergies Allergen (clinical drug ingredient) Drug/Non Drug Allergy documented on EMR Reaction Allergy Type Onset Date Status sulfacetamide Sulfacetamide Unknown Drug Allergy Active Results Component Value Reference Range Notes URINE DIP STICK Reviewed date:09/29/2023 03:04:50 PM Interpretation: Performing Lab: Notes/Report: SG 1.015 1.005 - 1.025 pH 6.0 5.0 - 9.0 AYESHA Negative Negative - NIT Negative Negative - PRO 15 Negative - Trace GLU Negative Negative - KET Negative Negative - UBG 0.2 0.1 - 1.8 ROMARIO Negative 0.2 - 1.3 BLD Negative Negative - REASON FOR VISIT Annual Exam Medications Medication SIG (Take, Route, Frequency, Duration) Notes Start Date End Date Status Alendronate Sodium 70 MG 1 tablet 30 min utes before the first food, beverage or medicine of the day with plain water Orally Active Gabapentin 300 mg 1 capsule Orally thr ee times a day Active Eliquis 5 mg TAKE 1 TABLET BY TWICE DAILY Active Metoprolol Succinate ER 25 mg TAKE 1 TABLET BY MOUTH ONCE DAILY Active Social History Tobacco Use: Social History Observation Description Date [...] ast year? No Points 0 Interpretation Negative Vital Signs Temperature 98.0 degrees Fahrenheit 09/29/19 24 Blood pressure systolic 138 mm Hg 09/29/19 24 Blood pressure diastolic 82 mm Hg 024 Heart Rate 60 /min 09/29/2023 Height 62 in 09/29/2023 Weight 188 lbs 09/29/2023 BMI 34.38 kg/m2 09/29/2023 Encounters Encounter Location Date Provider Diagnosis Baldev Victoria III, MD [address] [place] [address] [place], [place] [id number] 09/29/2023 Baldev Victoria Osteoarthritis M19.9 0 ; Obesity E66.9 ; Hyperlipidemia E78.5 and Leucopenia D72.819 Assessments Encounter Date Diagnosis (ICD Code) Assessment Notes Treat ment Notes Treatment Clinical Notes 09/29/2023 Osteoarthritis (ICD-10 - M19.90) The left ankle and foot are now free of pain. She has had a left hip arthroplasty and is ambulating without difficulty. She continues to have mild discomfort in her hands and shoulders. Her knees are free of pain. 09/29/2023 Obesity (ICD-10 - E66.9) She has lost 1 pound. We discussed her diet and nutrition today. We discussed weight loss strategies. We made a plan to lose weight at a rate of one half of a pound per week to a diet restricted in fat calories and sodium combined with regular physical activity. 09/29/2023 Hyperlipidemia (ICD-10 - E78.5) She is currently declining to have blood work done. I will revisit this issue at her next visit. 09/29/2023 Leucopenia (ICD-10 - D72.819) A CBC has been ordered to evaluate the white blood cell count. She has had no infections. Plan Of Treatment Medication Medication Name Sig Start Date Stop Date Notes Alendronate Sodium 70 MG 1 tablet 30 min utes before the first food, beverage or medicine of the day with plain water Orally Gabapentin 300 mg 1 capsule Orally thr ee times a day Eliquis 5 mg TAKE 1 TABLET BY TWICE DAILY Metoprolol Succinate ER 25 mg TAKE 1 TAB LET BY MOUTH ONCE DAILY Pending Test Test Name Order Date PROFILE, FASTING (COMPREHENSIVE METABOLI C) 09/29/2023 CBC WITH AUTO DIFF 09/29/2023 Lipid Panel 09/29/2023 Next Appt Details Follow Up: 6 Months, Reason: OV Provider Name:Baldev Victoria, 04/05/2024 02:00:00 PM, [address], [place], [address], Provider Name:Baldev Victoria, 09/29/2024 02:30:00 PM, [address], [place], [address], Progress Notes * Rosetta ADAMEDOB: [birth year] (78 yo F)Acc No.[id number]:09/29/2023 Progress Notes Patient:?Rosetta Adame Provider:?Baldev Victoria MD :1945???Age:78 Y???Sex:Female D ate:09/29/2023 [facility] [place] [place] [id number] Subjective: * Chief Complaints: * ???Annual Exam * HPI: ???Depression Screening:? She returns to the office at the age of 78 for her annual physical examination. She did not have blood work done. She declines to have blood work done. She says this is because they have to take her arms with a needle so many timmes to gett blood. Since her last visit she has been well. She was in a slow atrial fibrillation today. She has been compliant with all of her medications. She has no new complaints. She denies any recent peripheral edema. She has had no chest pain or shortness of breath. She denies any tachycardia. She is anticoagulated and has had no bleeding. She continues her efforts at weight loss. ?PHQ-9?Little interest or pleasure in doing things?Not at all ?Feeling down, depressed, or hopeless?Several days ?Trouble falling or staying asleep, or sleeping too much?Several days ?Feeling tired or having little energy?Not at all ?Poor appetite or overeating?Not at all ?Feeling bad about yourself or that you are a failure, or have let yourself or your family down?Not at all ?Trouble concentrating on things, such as reading the newspaper or watching television?Not at all ?Moving or speaking so slowly that other people could have noticed; or the opposite, being so fidgety or restless that you have been moving around a lot more than usual?Not at all ?Thoughts that you would be better off or of hurting yourself in some way?Not at all ?Total Score?2 ?Interpretation?Minimal Depression ???COVID-19 Screening:?Questions?Have you experienced fever, chills, cough, sore throat, shortness of breath, difficulty breathing, muscle aches, loss of taste or smell??No ?Have you been exposed to the virus within the last 10 days??No ?Have you travelled internationally in the last 10 days??No ?Have you been exposed to COVID-19 in the past??No ???SDOH Questions:?SDOH Questions?In the past year have you been worried about losing your housing??No ?In the past year have you or any family members you live with been unable to get any of the following when it was really needed? Check all that apply:?None * ROS:?General/Constitutional:?pain?only normal aches and pains.?Chills?denies.?Fatigue?admits.?Fever?denies.?ENT:?Decreased hearing?mild.?Respiratory:?Cough?denies.?Cardiovascular:?Chest pain with exertion?denies.?Dyspnea on exertion?denies.?Shortness of breath?denies.?Gastrointestinal:?Constipation?occasional.?Decreased appetite?denies.?Diarrhea?denies.?Heartburn?denies.?Nausea?denies.?Rectal bleeding?denies.?Vomiting?denies.?Hematology:?bruising?denies.?petechiae?denies.?Swollen glands?none have been noted.?Genitourinary:?Frequent urination?at night.?Musculoskeletal:?Muscle aches?denies.?Painful joints?denies.?Sciatica?denies.?Weakness?denies.?Skin:?Itching?denies.?Rash?denies.?Skin lesion(s)?denies.?Neurologic:?Difficulty speaking?denies.?Dizziness?denies.?Headache?denies.?Low back pain?denies.?Psychiatric:?Depressed mood?denies.? * Medical History:? * Surgical History:?D&C 1992la parotomy right hip replacement 07/2011lumpectomy with sentinel node excision for invasive right breast cancer 2006pacemaker insertion, Dr. Rajan, [facility] 09/2018cataract surgery eft hip arthroplasty, [facility] 10/2022 * Hospitalization/Major Diagno stic Procedure:?right hip replacement * Family History:?Father: dece ased, unkown.?Mother: 88 yrs, spinal stenosis, hip repalcement, pacemaker, artial fibrillation, breast cancer currently in remission 20 years,, diagnosed with Cancer. Maternal Grand Mother: , cancer.?2 brother(s) . 1 son(s) - healthy. .? A brother diagnosed with bladder cancer. * Social History:?Tobacco Use:?Tobacco Use/Smoking?Patient is a?nonsmoker ?Additional Findings: Tobacco Non-User?Aggressive non-smoker ???Drugs/Alcohol:?Drugs?Have you used drugs other than those for medical reasons in the past 12 months??No ?Alcohol Screen?Did you have a drink containing alcohol in the past year??No ?Points?0 ?Interpretation?Negative ???She is not working now. 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 She was born in [place]. She has been for 37 years. A son Daphne, aged 43, is working for [employer]. * Medications:?TakingAlendrona te Sodium 70 MG Tablet 1 tablet 30 minutes before the first food, beverage or medicine of the day with plain water Orally Gabapentin 300 mg Capsule 1 capsule Orally three times a dayEliquis 5 mg Tablet TAKE 1 TABLET BY MOUTH TWICE DAILY Metoprolol Succinate ER 25 mg Tablet Extended Release 24 Hour TAKE 1 TABLET BY MOUTH ONCE DAILY Medication List reviewed and reconciled with the patientTaking Alendronate Sodium 70 MG Tablet 1 tablet 30 minutes before the first food, beverage or medicine of the day with plain water Orally Taking Gabapentin 300 mg Capsule 1 capsule Orally three times a dayTaking Eliquis 5 mg Tablet TAKE 1 TABLET BY MOUTH TWICE DAILY Taking Metoprolol Succinate ER 25 mg Tablet Extended Release 24 Hour TAKE 1 TABLET BY MOUTH ONCE DAILY Medication List reviewed and reconciled with the patient * Allergies:?Sulfacetamideno[A llergies Verified] Objective: * Vitals:?Ht: 62, Wt:188, BMI: 34.38, BP:138/82, HR:60, Temp:98.0, Wt-k.28. * Examination: ???General Examination: ?GENERAL APPEARANCE:?pleasant, well nourished, well developed, in no acute distress, calm and relaxed , obese , woman.?HEAD:?atraumatic, normocephalic.?EYES:?eomi, perrla, anicteric, conjugate.?EARS:?normal.?NOSE:?septum intact.?ORAL CAVITY:?normal, unremarkable.?NECK/THYROID:?no jugular venous distention, no carotid bruit, thyroid normal.?LYMPH NODES:?no enlarged lymph nodes,spleen normal.?SKIN:?no suspicious lesions, anicteric.?HEART:?no clicks, gallops, murmurs, or rubs, regular rhythm, S1, S2 normal, no s3, or vascular bruits.?LUNGS:?clear to auscultation .?BREASTS:?no masses palpable bilaterally , no dimpling , no discharge , no drainage , symmetrical.?ABDOMEN:?bowel sounds normal, no ascites, no organomegaly, no mass.?RECTAL EXAM:?Declined.?MUSCULOSKELETAL:?extremities unremarkable, no clubbing, cyanosis or edema.?PERIPHERAL PULSES:?normal.?NEUROLOGIC:?alert and oriented, cranial nerves 2-12 grossly intact, deep tendon reflexes 2+ symmetrical, motor strength normal upper and lower extremities, sensory exam intact.?PSYCH:?alert, oriented , speech clear , good eye contact , cooperative with exam , cognitive function intact.? Assessment: * Assessment: 1.?Osteoarthritis - M19.90 ( Primary), The left ankle and foot are now free of pain. She has had a left hip arthroplasty and is ambulating without difficulty. She continues to have mild discomfort in her hands and shoulders. Her knees are free of pain.?2.?Obesity - E66.9, She has lost 1 pound. We discussed her diet and nutrition today. We discussed weight loss strategies. We made a plan to lose weight at a rate of one half of a pound per week to a diet restricted in fat calories and sodium combined with regular physical activity.?3.?Hyperlipidemia - E78.5, She is currently declining to have blood work done. I will revisit this issue at her next visit.?4.?Leucopenia - D72.819, A CBC has been ordered to evaluate the white blood cell count. She has had no infections.? Plan: * Treatment: 2.?Obesity?LAB: PROFILE, FASTING (COMPREHENSIVE METABOLIC) ?LAB: CBC WITH AUTO DIFF ?LAB: Lipid Panel 3.?Hyperlipidemia?LAB: PROFILE, FASTING (COMPREHENSIVE METABOLIC) ?LAB: CBC WITH AUTO DIFF ?LAB: Lipid Panel 4.?Others? Continue Gabapentin Capsule, 300 mg, 1 capsule, Orally, three times a day;?Continue Eliquis Tablet, 5 mg, TAKE 1 TABLET BY MOUTH TWICE DAILY;?Continue Metoprolol Succinate ER Tablet Extended Release 24 Hour, 25 mg, TAKE 1 TABLET BY MOUTH ONCE DAILY.?? * Labs:? * ?Lab: URINE DIP STICK ? Value Reference Range ?SG 1.015 1.005 - 1.025 * ?pH 6.0 5.0 - 9.0 * ?AYESHA Negative Negative - * ?NIT Negative Negative - * ?PRO 15 Negative - Trac e * ?GLU Negative Negative - * ?KET Negative Negative - * ?UBG 0.2 0.1 - 1.8 * ?ROAMRIO Negative 0.2 - 1.3 * ?BLD Negative Negative - * Procedure Codes:?96379 URINE -NO MICRO * Preventive Medicine:? ??Counseling:?Care goal follow-up plan:?Counseling for abnormal BMI given?Yes ?Above Normal BMI Follow-up?Dietary management education, guidance, and counseling, Dietary needs education, Exercise promotion: strength training, Exercise promotion: stretching, Feeding regime, Giving encouragement to exercise, Lifestyle education regarding diet, Nutrition / feeding management, Nutrition therapy, Prescribed activity/exercise education, Prescribed diet education, Prescribed dietary intake, Special diet education, Weight monitoring , Intervention, Order not done: Medical or Other reason not done * Follow Up:?6 Months (Reason: OV) * Images: * Sign off status: Completed true * Provider:?Baldev Victoria MD Date:?08/2023 Generated for Margiei amber/Mayra/eTcandissmitting on:?04/03/2024 12:51 PM EDT History and Physical Notes * HPI (History of Present Illness) Category Sub-Category Detail Notes Depression Screening PHQ-9 Little inte rest or pleasure in doing things: Not at all Feeling down, depressed, or hopeless: Se veral days Trouble falling or staying asleep, or sl eeping too much: Several days Feeling tired or having little energy: N ot at all Poor appetite or overeating: Not at all Feeling bad about yourself o r that you are a failure, or have let yourself or your family down: Not at all Trouble concentrating on thi ngs, such as reading the newspaper or watching television: Not at all Moving or speaking so slowly that other people could have noticed; or the opposite, being so fidgety or restless that you have been moving around a lot more than usual: Not at all Thoughts that you would be b thalia off or of hurting yourself in some way: Not at all Total Score: 2 Interpretation: Minimal Depression COVID-19 Screening Questions Have you expe rienced fever, chills, cough, sore throat, shortness of breath, difficulty breathing, muscle aches, loss of taste or smell?: No Have you been exposed to the virus withi n the last 10 days?: No Have you travelled internationally in [facility] last 10 days?: No Have you been exposed to COVID-19 in the past?: No SDOH Questions SDOH Questions In the past year have you been worried about losing your housing?: No In the past year have you or any family members you live with been unable to get any of the following when it was really needed? Check all that apply:: None Examination Category Sub-Category Detail Notes General Examination GENERAL APPEARANCE: pleasant , well nourished, well developed, in no acute distress, calm and relaxed , obese , woman HEAD: atraumatic, normocep halic EYES: eomi, perrla, anicte manuel, conjugate EARS: normal NOSE: septum intact NECK/THYROID: no jugular venous di stention, no carotid bruit, thyroid normal HEART: no clicks, gallops, murmurs, or rubs, regular rhythm, S1, S2 normal, no s3, or vascular bruits LUNGS: clear to auscultatio n ABDOMEN: bowel sounds normal, no ascites, no organomegaly, no mass NEUROLOGIC: alert and oriented, cranial nerves 2-12 grossly intact, deep tendon reflexes 2+ symmetrical, motor strength normal upper and lower extremities, sensory exam intact SKIN: no suspicious lesion s, anicteric PERIPHERAL PULSES: normal BREASTS: no masses palpable b ilaterally , no dimpling , no discharge , no drainage , symmetrical MUSCULOSKELETAL: extremities unremark able, no clubbing, cyanosis or edema LYMPH NODES: no enlarged lymph no kodi,spleen normal RECTAL EXAM: Declined PSYCH: alert, oriented , sp eech clear , good eye contact , cooperative with exam , cognitive function intact ORAL CAVITY: normal, unremarkable
--- OUTSIDE RECORDS SUMMARY | 2024-04-03 12:51 | XMS_ITS | Continuity of Care Document ---
Author Organization [facility] Address [address] [place] [address]- Care Team Providers Care Freelance Translator Name Role Phone Baldev Victoria MD Primary Care Physician [phone] Encounter [facility] Date(s): 03/18/23 - 04/17/23 [facility] [address] [place] [id number] [place] Allergies, Adverse Reactions, Alerts Substance Reaction [...] 12/09/18 12:50:58 EDT, Route to Pharmacy Electronically, [id number], [facility] - Jose Daniel Start [...] Team Personnel Name: Baldev Victoria MD Position: [facility] Physician - Oncology Member Role: PCP Address: Address: [address] [place] [address] [address] Baldev Victoria III, [place], [place] [address] Name: Yennifer Szymanski RN Position: S RN Member Role: Primary Care Nurse Name: Mandy Ayon RN Position: S RN Member Role: Primary Care Nurse Name: Debora Medrano RN Position: [facility] RN Member Role: Primary Care Nurse Name: Ngoc Day RN Position: [facility] RN Member Role: Primary Care Nurse Care Team Related Persons Name: DAPHNE ADAME Address: [facility]
--- OUTSIDE RECORDS SUMMARY | 2024-04-03 12:52 | XMS_ITS ---
Author Organization Baldev Victoria III, MD Address [address] [place] [address] Care Team Providers Care Keyboard Action Assembler Name Role Phone Baldev Victoria Primary Care Provider Allergies Allergen (clinical drug ingredient) Drug/Non Drug Allergy documented on EMR Reaction Allergy Type Onset Date Status sulfacetamide Sulfacetamide Unknown Drug Allergy Active REASON FOR VISIT follow up Medications Medication SIG (Take, Route, Frequency, Duration) Notes Start Date End Date Status Metoprolol Succinate ER 25 mg TAKE 1 TABLET BY MOUTH ONCE DAILY Active Alendronate Sodium 70 MG 1 tablet 30 min utes before the first food, beverage or medicine of the day with plain water Orally Active Eliquis 5 mg TAKE 1 TABLET BY RUBÉN TWICE DAILY Active Gabapentin 300 mg 1 capsule Orally thr ee times a day for 90 days Active Social History Tobacco Use: Social History Observation Description Date Details (start date - stop date) Never Smoker NA - NA Sex Assigned At : Social History Observation Description Sex Assigned At Female Tobacco Use/Smoking Question Answer Notes Patient is a nonsmoker Additional Findings: Tobacco Non-User Aggressive non-smoker Vital Signs Temperature 98.6 degrees Fahrenheit 04/28/20 23 Blood pressure systolic 140 mm Hg 04/28/20 23 Blood pressure diastolic 80 mm Hg 023 Heart Rate 92 /min 04/28/2023 Height 62 in 04/28/2023 Weight 189 lbs 04/28/2023 BMI 34.56 kg/m2 04/28/2023 Encounters Encounter Location Date Provider Diagnosis Baldev Victoria III, MD [address] [place] [address] [place] [address] 04/28/2023 Baldev Victoria Osteoarthritis M19.9 0 ; Obesity E66.9 ; Hyperlipidemia E78.5 ; History of breast cancer Z85.3 ; Third degree heart block I44.2 ; Atrial fibrillation, unspecified type I48.91 and Chronic anticoagulation Z79.01 Assessments Encounter Date Diagnosis (ICD Code) Assessment Notes Treat ment Notes Treatment Clinical Notes 04/28/2023 Osteoarthritis (ICD-10 - M19.90) The left ankle and foot are now free of pain. She has had a left hip arthroplasty and is ambulating without difficulty. She continues to have mild discomfort in her hands and shoulders. Her knees are free of pain. 04/28/2023 Obesity (ICD-10 - E66.9) She has gained 7 pounds and now weighs 189. Her body mass index is 34.56. We discussed her diet and nutrition today. We discussed weight loss strategies. We made a plan to lose weight at a rate of one half of a pound per week to a diet restricted in fat calories and sodium combined with regular physical activity. 04/28/2023 Hyperlipidemia (ICD-10 - E78.5) Comprehensive fasting lipids will be done periodically. No change in her regimen was made today. 04/28/2023 History of breast cancer (ICD-10 - Z85.3) Her most recent mammogram was benign and there is no sign of recurrent disease today. Observation will continue. Her mammograms will be done on schedule. She will continue breast self examination. There was no sign of a new primary or recurrent disease today. 04/28/2023 Third degree heart block (ICD-10 - I44.2) Her pacemaker appears to be functioning normally. A recent device check was unremarkable. Her vital signs were stable. 04/28/2023 Atrial fibrillation, unspecified type (ICD-10 - I48.91) She was in a normal sinus rhythm today with a controlled rate. No change in her therapy was needed. 04/28/2023 Chronic anticoagulation (ICD-10 - Z79.01) She is compliant with the medication. Has had no bleeding. Plan Of Treatment Medication Medication Name Sig Start Date Stop Date Notes Metoprolol Succinate ER 25 mg TAKE 1 TAB LET BY MOUTH ONCE DAILY Alendronate Sodium 70 MG 1 tablet 30 min utes before the first food, beverage or medicine of the day with plain water Orally Eliquis 5 mg TAKE 1 TABLET BY TWICE DAILY Gabapentin 300 mg 1 capsule Orally thr ee times a day for 90 days Pending Test Test Name Order Date PROFILE, FASTING (COMPREHENSIVE METABOLI C) 04/28/2023 CBC WITH AUTO DIFF 04/28/2023 Lipid Panel 04/28/2023 Next Appt Details Follow Up: 2 Months, Reason: OV Provider Name:Baldev Catalanne, 04/05/2024 02:00:00 PM, [address] [place] [address] [address], [place], [address], Provider Name:Baldev Neelyrne, 09/29/2024 02:30:00 PM, [address] [place] [address] [address], [place], [phone], Progress Notes * JOSEBeatriz TORRESalvertoDOB: [birth year] (77 yo F)Acc No.[id number]:04/28/2023 Progress Notes Patient:?Rosetta Adame Provider:?Baldev Victoria MD :1945???Age:77 Y???Sex:Female D ate:04/28/2023 Address: [address] [place] [place], [id number] Subjective: * Chief Complaints: * ???Follow up * HPI: ???COVID-19 Screening:?Questions?Have you experienced fever, chills, cough, sore throat, shortness of breath, difficulty breathing, muscle aches, loss of taste or smell??No ?Have you been exposed to the virus within the last 10 days??No ?Have you travelled internationally in the last 10 days??No ?Have you been exposed to COVID-19 in the past??No ? She returns for a scheduled visit to manage numerous medical issues. She had a colonoscopy April 14, 2023 that showed several tubular adenomas. She had a hip arthroplasty in October of this year. She was in normal sinus rhythm today. She has had some diarrhea lately, but is able toConduct activities of daily living. She has had cataract surgery. * ROS:?General/Constitutional:?pain?Hips.?Chills?denies.?Fatigue?admits.?Fever?denies.?ENT:?Decreased hearing?denies.?Respiratory:?Cough?denies.?Cardiovascular:?Chest pain with exertion?denies.?Dyspnea on exertion?denies.?Shortness of breath?denies.?Gastrointestinal:?Constipation?occasional.?Decreased appetite?denies.?Diarrhea?denies.?Heartburn?occasional.?Nausea?denies.?Rectal bleeding?denies.?Vomiting?denies.?Hematology:?bruising?denies.?petechiae?denies.?Swollen glands?none have been noted.?Genitourinary:?Frequent urination?a small amount.?Musculoskeletal:?Muscle aches?denies.?Painful joints?denies.?Sciatica?denies.?Weakness?denies.?Skin:?Itching?denies.?Rash?denies.?Skin lesion(s)?denies.?Neurologic:?Difficulty speaking?denies.?Dizziness?denies.?Headache?denies.?Low back pain?denies.?Psychiatric:?Depressed mood?denies.? * Medical History:? * Surgical History:?D&C 1992la parotomy right hip replacement 07/2011lumpectomy with sentinel node excision for invasive right breast cancer [address] Dr. Satinder anderson, [facility] 09/2018cataract surgery eft hip arthroplasty, [facility] 10/2022 * Hospitalization/Major Diagno stic Procedure:?right hip replacement * Family History:?Father: dece ased, unkown.?Mother: 88 yrs, spinal stenosis, hip repalcement, pacemaker, artial fibrillation, breast cancer currently in remission 20 years,, diagnosed with Cancer. Maternal Grand Mother: , cancer.?2 brother(s) . 1 son(s) - healthy. .? A brother diagnosed with bladder cancer. * Social History:?Tobacco Use:?Tobacco Use/Smoking?Patient is a?nonsmoker ?Additional Findings: Tobacco Non-User?Aggressive non-smoker ???She is not working now. 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 She was born in [place]. She has been for 37 years. A son Daphne, aged 43, is working for [employer]. * Medications:?TakingAlendrona te Sodium 70 MG Tablet 1 tablet 30 minutes before the first food, beverage or medicine of the day with plain water Orally Gabapentin 300 mg Capsule TAKE 1 CAPSULE BY MOUTH THREE TIMES DAILY Eliquis 5 mg Tablet TAKE 1 TABLET BY MOUTH TWICE DAILY Metoprolol Succinate ER 25 mg Tablet Extended Release 24 Hour TAKE 1 TABLET BY MOUTH ONCE DAILY Taking Alendronate Sodium 70 MG Tablet 1 tablet 30 minutes before the first food, beverage or medicine of the day with plain water Orally Taking Gabapentin 300 mg Capsule TAKE 1 CAPSULE BY MOUTH THREE TIMES DAILY Taking Eliquis 5 mg Tablet TAKE 1 TABLET BY MOUTH TWICE DAILY Taking Metoprolol Succinate ER 25 mg Tablet Extended Release 24 Hour TAKE 1 TABLET BY MOUTH ONCE DAILY DiscontinuedGabapentin 300 MG Capsule Oral Medication List reviewed and reconciled with the patientDiscontinued Gabapentin 300 MG Capsule Oral Medication List reviewed and reconciled with the patient * Allergies:?Sulfacetamideno[A llergies Verified] Objective: * Vitals:?Ht: 62, Wt:189, BMI: 34.56, BP:140/80, HR:92, Temp:98.6, Wt-k.73. * ???Past Orders: ???Lab:Pathology (Order Date - 04/14/2023) (Collection Date - 04/14/2023) * Examination: ???General Examination: ?GENERAL APPEARANCE:?pleasant, well nourished, well developed, in no acute distress, calm and relaxed , obese , woman.?HEAD:?atraumatic, normocephalic.?EYES:?eomi, perrla, anicteric, conjugate.?EARS:?normal.?NOSE:?septum intact.?ORAL CAVITY:?normal, unremarkable.?NECK/THYROID:?no jugular venous distention, no carotid bruit, thyroid normal.?LYMPH NODES:?no enlarged lymph nodes,spleen normal.?SKIN:?no suspicious lesions, anicteric.?HEART:?no clicks, gallops, murmurs, or rubs, regular rhythm, S1, S2 normal, no s3, or vascular bruits.?LUNGS:?clear to auscultation .?BREASTS:?not examined.?ABDOMEN:?bowel sounds normal, no ascites, no organomegaly, no mass , centripital obesity.?RECTAL EXAM:?not examined.?MUSCULOSKELETAL:?extremities unremarkable, no clubbing, cyanosis or edema.?PERIPHERAL PULSES:?normal.?NEUROLOGIC:?alert and oriented, cranial nerves 2-12 grossly intact, deep tendon reflexes 2+ symmetrical, motor strength normal upper and lower extremities, sensory exam intact.?PSYCH:?alert, oriented , good eye contact , cooperative with exam , cognitive function intact , mood/affect full range , speech clear.? Assessment: * Assessment: 1.?Osteoarthritis - M19.90 ( Primary), The left ankle and foot are now free of pain. She has had a left hip arthroplasty and is ambulating without difficulty. She continues to have mild discomfort in her hands and shoulders. Her knees are free of pain.?2.?Obesity - E66.9, She has gained 7 pounds and now weighs 189. Her body mass index is 34.56. We discussed her diet and nutrition today. We discussed weight loss strategies. We made a plan to lose weight at a rate of one half of a pound per week to a diet restricted in fat calories and sodium combined with regular physical activity.?3.?Hyperlipidemia - E78.5, Comprehensive fasting lipids will be done periodically. No change in her regimen was made today.?4.?History of breast cancer - Z85.3, Her most recent mammogram was benign and there is no sign of recurrent disease today. Observation will continue. Her mammograms will be done on schedule. She will continue breast self examination. There was no sign of a new primary or recurrent disease today.?5.?Third degree heart block - I44.2, Her pacemaker appears to be functioning normally. A recent device check was unremarkable. Her vital signs were stable.?6.?Atrial fibrillation, unspecified type - I48.91, She was in a normal sinus rhythm today with a controlled rate. No change in her therapy was needed.?7.?Chronic anticoagulation - Z79.01, She is compliant with the medication. Has had no bleeding.? Plan: * Treatment: 2.?Obesity?LAB: PROFILE, FASTING (COMPREHENSIVE METABOLIC) ?LAB: CBC WITH AUTO DIFF ?LAB: Lipid Panel 3.?Hyperlipidemia?LAB: PROFILE, FASTING (COMPREHENSIVE METABOLIC) ?LAB: CBC WITH AUTO DIFF ?LAB: Lipid Panel 4.?Others? Continue Gabapentin Capsule, 300 mg, 1 capsule, Orally, three times a day, 90 days, 270 Capsule, Refills 3;?Continue Eliquis Tablet, 5 mg, TAKE 1 TABLET BY MOUTH TWICE DAILY;?Continue Metoprolol Succinate ER Tablet Extended Release 24 Hour, 25 mg, TAKE 1 TABLET BY MOUTH ONCE DAILY.?? * Procedure Codes:? * Preventive Medicine:? ??Counseling:?Care goal follow-up plan:?Counseling for abnormal BMI given?Yes ?Above Normal BMI Follow-up?Dietary management education, guidance, and counseling * Follow Up:?2 Months (Reason: OV) * Images: * Sign off status: Completed true * Provider:?Baldev Victoria MD Date:?06/2022 Generated for Printi ng/Faxing/eTransmitting on:?04/03/2024 12:51 PM EDT History and Physical Notes * HPI (History of Present Illness) Category Sub-Category Detail Notes COVID-19 Screening Questions Have you expe rienced fever, chills, cough, sore throat, shortness of breath, difficulty breathing, muscle aches, loss of taste or smell?: No Have you been exposed to the virus withi n the last 10 days?: No Have you travelled internationally in [facility] last 10 days?: No Have you been exposed to COVID-19 in the past?: No Examination Category Sub-Category Detail Notes General Examination [...] normal, no ascites, no organomegaly, no mass , centripital obesity NEUROLOGIC: alert and oriented, cranial nerves 2-12 grossly intact, deep tendon reflexes 2+ symmetrical, motor strength normal upper and lower extremities, sensory exam intact SKIN: no suspicious lesion s, anicteric PERIPHERAL PULSES: normal BREASTS: not examined MUSCULOSKELETAL: extremities unremark able, no clubbing, cyanosis or edema LYMPH NODES: no enlarged lymph no kodi,spleen normal RECTAL EXAM: not examined PSYCH: alert, oriented , go od eye contact , cooperative with exam , cognitive function intact , mood/affect full range , speech clear ORAL CAVITY: normal, unremarkable
--- OUTSIDE RECORDS SUMMARY | 2024-04-03 12:52 | XMS_ITS ---
Author Organization Baldev Victoria III, MD Address [address] [place] [address] [place] [address] Care Team Providers Care Spring Inspector Name Role Phone Baldev Victoria Primary Care Provider [phone] Allergies Allergen (clinical drug ingredient) Drug/Non Drug [...] 1 TABLET BY MOUTH ONCE DAILY Active Gabapentin 300 mg 1 capsule Orally thr ee times a day Active Eliquis 5 mg TAKE 1 TABLET BY RUBÉN TH TWICE DAILY Active Social History Tobacco Use: Social History Observation Description Date Details (start date - stop date) Never Smoker NA - NA Sex Assigned At : Social History Observation Description Sex Assigned At Female Tobacco Use/Smoking Question Answer Notes Patient is a nonsmoker Additional Findings: Tobacco Non-User Aggressive non-smoker Encounters Encounter Location Date Provider Diagnosis Baldev Victoria III, MD [address] [place] [address] [place] [address] 07/28/2023 Baldev Victoria Osteoarthritis M19.9 0 Assessments Encounter Date Diagnosis (ICD Code) Assessment Notes Treat ment Notes Treatment Clinical Notes 07/28/2023 Osteoarthritis (ICD-10 - M19.90) The left ankle and foot are now free of pain. She has had a left hip arthroplasty and is ambulating without difficulty. She continues to have mild discomfort in her hands and shoulders. Her knees are free of pain. Plan Of Treatment Medication Medication Name Sig Start Date Stop Date Notes Alendronate Sodium 70 MG 1 tablet 30 min utes before the first food, beverage or medicine of the day with plain water Orally Metoprolol Succinate ER 25 mg TAKE 1 TAB LET BY MOUTH ONCE DAILY Gabapentin 300 mg 1 capsule Orally thr ee times a day Eliquis 5 mg TAKE 1 TABLET BY RUBÉN TH TWICE DAILY Next Appt Details Provider Name:Baldev Catalanne, 04/05/2024 02:00:00 PM, [address] [place] [address] [address], [place], [address], Provider Name:Baldev Victoria, 09/29/2024 02:30:00 PM, [address] [place] [address] [address], [place], [address], Progress Notes * Rosetta ADAMEDOB: [birth year] (78 yo F)Acc No.[id number]:07/28/2023 Progress Notes Patient:?DEEP Rosetta Provider:?Baldev Victoria MD :1945???Age:77 Y???Sex:Female D ate:07/28/2023 Address: [address], [id number] Subjective: * Chief Complaints: * ???1. Follow up. * HPI: ???COVID-19 Screening:?Questions?Have you experienced fever, chills, cough, sore throat, shortness of breath, difficulty breathing, muscle aches, loss of taste or smell??No ?Have you been exposed to the virus within the last 10 days??No ?Have you travelled internationally in the last 10 days??No ?Have you been exposed to COVID-19 in the past??No * ROS:?General/Constitutional:?pain?only normal aches and pains.?Chills?denies.?Fatigue?admits.?Fever?denies.?ENT:?Decreased hearing?denies.?Respiratory:?Cough?denies.?Cardiovascular:?Chest pain with exertion?denies.?Dyspnea on exertion?denies.?Shortness of breath?denies.?Gastrointestinal:?Constipation?denies.?Decreased appetite?denies.?Diarrhea?denies.?Heartburn?denies.?Nausea?denies.?Rectal bleeding?denies.?Vomiting?denies.?Hematology:?bruising?denies.?petechiae?denies.?Swollen glands?none have been noted.?Genitourinary:?Frequent urination?denies.?Musculoskeletal:?Muscle aches?denies.?Painful joints?denies.?Sciatica?denies.?Weakness?denies.?Skin:?Itching?denies.?Rash?denies.?Skin lesion(s)?denies.?Neurologic:?Difficulty speaking?denies.?Dizziness?denies.?Headache?denies.?Low back pain?denies.?Psychiatric:?Depressed mood?denies.? * Medical History:?Bone spurs both feet, Obesity, [id number], Mild anemia, Invasive right breast cancer 2005, Osteoporosis, Hyperlipidemia, last bilateral mammogram 02/2012 @ [facility], third-degree heart block September 2018, septal infarct, pacemaker insertion, [facility], Dr. Rajan, Persistent atrial fibrillation, Chronic anticoagulation, Dual-chamber [place] [employer] pacemaker September 2018, Dr. Rajan, Early cognitive decline, November 2022. * Surgical History:?D&C 1992, laparotomy , right hip replacement 07/2011, lumpectomy with sentinel node excision for invasive right breast cancer 2005, pacemaker insertion, Dr. Rajan, [facility] 09/2018, cataract surgery 05/2021, Left hip arthroplasty, [facility] 10/2022. * Hospitalization/Major Diagno stic Procedure:?right hip replacement . * Family History:?Father: dece ased, unkown.?Mother: 88 [...] longer climb stairs. She was born in [place]. She has been for 37 years. A son Daphne, aged 43, is working for [employer]. * Medications:?Taking Alendron ate Sodium 70 MG Tablet 1 tablet 30 minutes before the first food, beverage or medicine of the day with plain water Orally , Taking Gabapentin 300 mg Capsule 1 capsule Orally three times a day , Taking Eliquis 5 mg Tablet TAKE 1 TABLET BY MOUTH TWICE DAILY , Taking Metoprolol Succinate ER 25 mg Tablet Extended Release 24 Hour TAKE 1 TABLET BY MOUTH ONCE DAILY , Medication List reviewed and reconciled with the patient * Allergies:?Sulfacetamide. Objective: * Vitals:? * Examination: ???General Examination: ?GENERAL APPEARANCE:?pleasant, well nourished, well developed, in no acute distress, calm and relaxed.?HEAD:?atraumatic, normocephalic.?EYES:?eomi, perrla, anicteric, conjugate.?EARS:?normal.?NOSE:?septum intact.?ORAL CAVITY:?normal, unremarkable.?NECK/THYROID:?no jugular venous distention, no carotid bruit, thyroid normal.?LYMPH NODES:?no enlarged lymph nodes,spleen normal.?SKIN:?no suspicious lesions, anicteric.?HEART:?no clicks, gallops, murmurs, or rubs, regular rhythm, S1, S2 normal, no s3, or vascular bruits.?LUNGS:?clear to auscultation .?BREASTS:??no masses palpable bilaterally.?ABDOMEN:?bowel sounds normal, no ascites, no organomegaly, no mass.?RECTAL EXAM:?not examined.?MUSCULOSKELETAL:?extremities unremarkable, no clubbing, cyanosis or edema.?PERIPHERAL PULSES:?normal.?NEUROLOGIC:?alert and oriented, cranial nerves 2-12 grossly intact, deep tendon reflexes 2+ symmetrical, motor strength normal upper and lower extremities, sensory exam intact.?PSYCH:?alert, oriented.? Assessment: * Assessment: 1.?Osteoarthritis - M19.90?? ?Notes :The left ankle and foot are now free of pain. She has had a left hip arthroplasty and is ambulating without difficulty. She continues to have mild discomfort in her hands and shoulders. Her knees are free of pain.??? Plan: * Treatment: 2.?Others? Continue Gabapentin Capsule, 300 mg, 1 capsule, Orally, three times a day;?Continue Eliquis Tablet, 5 mg, TAKE 1 TABLET BY MOUTH TWICE DAILY;?Continue Metoprolol Succinate ER Tablet Extended Release 24 Hour, 25 mg, TAKE 1 TABLET BY MOUTH ONCE DAILY.?? * Images: * The named appointment provid er may or may not be the originator of this progress note, and it is not deemed complete until electronically signed by the appointment provider. Sign off status: Pending * Provider:?Baldev Victoria MD Date:?06/30 Generated for Ronald clark/Mayra/Bria on:?04/03/2024 12:51 PM EDT History and Physical Notes * HPI (History of Present Illness) Category Sub-Category Detail Notes COVID-19 Screening Questions Have you expe rienced fever, chills, cough, sore throat, shortness of breath, difficulty breathing, muscle aches, loss of taste or smell?: No Have you been exposed to the virus withi n the last 10 days?: No Have you travelled internationally in [facility] last 10 days?: No Have you been exposed to COVID-19 in the past?: No Examination Category Sub-Category Detail Notes General Examination GENERAL APPEARANCE: pleasant , well nourished, well developed, in no acute distress, calm and relaxed HEAD: atraumatic, normocep halic EYES: eomi, perrla, [...] normal BREASTS: no masses palpable b ilaterally MUSCULOSKELETAL: extremities unremark able, no clubbing, cyanosis or edema LYMPH NODES: no enlarged lymph no kodi,spleen normal RECTAL EXAM: not examined PSYCH: alert, oriented ORAL CAVITY: normal, unremarkable
== END 2024-04-03 13:27 | disposition home or self-care (01) ==
LOC: HO.HWS 12:49
PROVIDERS: PCP Internal Medicine Medical Oncology; Visit Provider Obstetrics & Gynecology
DX: Z01.419 Encounter for gynecological examination (general) (routine) without abnormal findings (principal)
CPT/HCPCS: G0101

== ENCOUNTER → 2024-04-03 12:49 | Outpatient (BNVA) | payer MEDICARE, SELFPAY | PROVIDERS: PCP Internal Medicine Medical Oncology; Visit Provider Obstetrics & Gynecology | DX: Z01.419 Encounter for gynecological examination (general) (routine) without abnormal findings (principal); M81.0 Age-related osteoporosis without current pathological fracture | CPT/HCPCS: G0101 ==

== ENCOUNTER 2024-04-26 09:47 | Outpatient (REF) | payer MEDICARE, SELFPAY ==
--- NOTE | ~2024-04-26 | MM_ITS ---
EXAMINATION: MM DIAGNOSTIC DIGITAL MAMMOGRAPHY, right breast CLINICAL INFORMATION: Follow-up for grouped calcifications in the upper outer right breast. History of bilateral breast cancer. COMPARISON: Mammography: Comparison is made with available prior exams. TECHNIQUE: Digital mammography is performed in craniocaudal and mediolateral oblique views along with computer-aided detection (CAD). FINDINGS: There are scattered areas of fibroglandular density (ACR BI-RADS breast composition Category b). Right: There are grouped linear and amorphous calcifications in the upper outer quadrant posterior depth which may be slightly increased from prior. No suspicious masses or other abnormal findings. Results are provided to the patient at time of visit by the technologist. MM/MM diagnostic mammo unilat RT IMPRESSION: Grouped linear amorphous calcifications in the upper outer quadrant posterior depth. Given patient's history of prior breast cancer recommend stereotactic core needle biopsy at this time. The findings and recommendations were discussed with the patient the patient prefers biopsy over follow-up at this time. The procedure will be scheduled. ASSESSMENT: BI-RADS BI-RADS 4 - Suspicious finding RECOMMENDATION: Biopsy recommended This patient's information was entered into a reminder system with a target due date for their next mammogram. Electronically signed by: Alcira Pearson DO 04/26/2024 10:51 AM EDT
== END 2024-04-26 09:48 | disposition home or self-care (01) ==
LOC: HO.MAMMO 09:47
PROVIDERS: PCP Internal Medicine Medical Oncology; Visit Provider Internal Medicine Medical Oncology
DX: R92.1 Mammographic calcification found on diagnostic imaging of breast (principal)
CPT/HCPCS: 77062; 77065

== ENCOUNTER → 2024-04-26 10:00 | Outpatient (BNV) | payer MEDICARE, SELFPAY | PROVIDERS: PCP Internal Medicine Medical Oncology; Visit Provider Internal Medicine | DX: R92.1 Mammographic calcification found on diagnostic imaging of breast (principal) | CPT/HCPCS: 77065 ==

== ENCOUNTER 2024-05-02 08:28 | Outpatient (AMB) | payer MEDICARE, SELFPAY ==
[2024-05-02 08:39] VITALS: BMI 32.0
--- NOTE | 2024-05-02 08:39 | A.OFFVIS_ITS ---
Vital Signs 3 05/02/24 08:39 Height 5 ft 2 in Weight 175 lb BMI 32.0 Intake Visit Reasons: Stereotactic Biopsy Rt breast calcification Intake Note: Patient is seen in office for stereotactic biopsy consult, right breast calcifications. Pt c/o: reports no breast complaints. 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 Accompanied by: Self / Same As Patient Allergies Sulfa (Sulfonamide Antibiotics) Allergy (Unknown, Verified 05/02/24 08:46) HIVES,ITCH marijuan Adverse Reaction (Uncoded 05/02/24 08:46) Unknown Medication List - Last Reconciled 05/02/24 by Sammy Samano MD alendronate 70 mg PO QWEEK apixaban (Eliquis DVT-PE Treat 30D Start) PO PER PKG DIR bisacodyl (Dulcolax (bisacodyl)) 10 mg (2 x 5 mg) PO ONCE 1 day gabapentin 300 mg PO TID metoprolol succinate ER 25 mg PO DAILY polyethylene glycol 3350 (Miralax) 238 grams PO ONCE HPI Comments Details: 78-year-old female patient presenting with a recent mammogram which revealed a cluster of calcifications in the right breast at the upper outer quadrant posterior depth. This was felt to be suspicious for malignancy in biopsy recommended. She is scheduled for a stereotactic guided core biopsy later today at the [facility] (05/02/2024). 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 Leon. 0 of 1 sentinel lymph nodes were positive for metastatic disease. She later underwent a right breast lumpectomy on 10/15/2005 for DCIS. There was evidence of a possible venous invasion therefore she was subsequently underwent a wider excision and axillary sentinel node biopsy on 12/01/2005. The surgery was also performed by Dr. Leon. She denies any current breast symptoms in either breast. She is G 1 P 1, with 1 son living. She did not breastfeed. 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 ? [facility] Medical History Age related osteoporosis Hx of myocardial infarction CHB (complete heart block) Pacemaker Afib VAIN I (vaginal intraepithelial neoplasia grade I) History of bilateral breast cancer Surgical History History of cataract surgery S/P hip replacement History of lumpectomy of both breasts Hx of abdominal hysterectomy H/O heart surgery Family History Mother Breast CA Social History Household Members: None Housing: House Alcohol intake: current Alcohol intake frequency: a few times a month Patient Tobacco Use Status: Never used Tobacco Sexual orientation: Straight/Heterosexual Gender identity: Female Female Reproductive History Menstrual Age of Menarche: 15 Total pregnancies: 1 Full term: 1 Review of Systems Const All systems reviewed & are unremarkable except as noted in HPI and below Denies chills, Denies fever(s), Denies headache(s), Denies poor appetite and Denies weakness ENT Denies headache(s) Card Denies chest pain, Denies irregular heart rhythm, Denies palpitations and Denies dyspnea Resp Denies cough, Denies excessive phlegm production and Denies dyspnea GI Denies abdominal pain, Denies bloating, Denies change in bowel habits, Denies constipation, Denies heartburn, Denies diarrhea, Denies nausea and Denies vomiting Denies urinary frequency Musc Denies back pain, Denies muscle weakness and Denies numbness Skin/Breast Denies changing lesions and Denies unusual bruising Neuro Denies headache(s), Denies numbness, Denies paresthesias and Denies weakness Psych Denies anxiety and Denies depression Endo Denies palpitations Aubrey/Lymph Denies lymphadenopathy Physical Exam Const General: cooperative and no acute distress Nutritional Appearance: well nourished Orientation/consciousness: patient oriented x3 Limitations: no limitations HEENT Head: Yes normocephalic and Yes atraumatic Ears: hearing grossly normal bilaterally Chest Other: Left breast: No skin change, no nipple retraction, no nipple discharge, no palpable mass, no enlarged lymph nodes. Pacemaker left chest. Right breast: No skin change, no nipple retraction, no nipple discharge, no palpable mass, no enlarged lymph nodes, radial scar upper inner quadrant Chest/axillae images: 2 1. 2. Resp Effort & Inspection: normal respiratory effort, no audible wheezes, no cough and no respiratory distress Cardio Jugular venous distension: no JVD GI Inspection: Yes normal to inspection Skin Other: Warm, dry, no rash Neuro General: patient oriented x3 Extrem General: Yes no clubbing, cyanosis or edema Assessment & Plan Assessment & Plan (1) Abnormal mammogram of right breast: Code(s): R92.8 - Other abnormal and inconclusive findings on diagnostic imaging of breast Category: Medical Plan 78-year-old female patient with a prior history of bilateral breast cancer now returning with a new area of calcification in the right breast, upper outer quadrant posterior depth felt to be suspicious for malignancy. She is scheduled for a stereotactic guided core biopsy later today at the [facility]. On examination there are no suspicious findings in either breast. I recommended a follow-up appointment in 1 week to review the pathology results and discuss treatment options. She expressed understanding and agrees with the plan. Orders: Orders 2 MM stereotactic biopsy RT Today R92.8 - Other abnormal and inconclusive findings on diagnostic imaging of breast Coding Level of Care Code New Pt Level 4 (02781) Diagnoses Abnormal mammogram of right breast R92.8
== END 2024-05-02 09:14 | disposition home or self-care (01) ==
LOC: HO.HGS 08:28
PROVIDERS: PCP Internal Medicine Medical Oncology; Visit Provider Surgery
DX: R92.8 Other abnormal and inconclusive findings on diagnostic imaging of breast (principal)
CPT/HCPCS: 99204

== ENCOUNTER 2024-05-02 09:22 | Outpatient (REF) | payer MEDICARE, SELFPAY ==
--- NOTE | ~2024-05-02 | MM_ITS ---
EXAMINATION: STEREOTACTIC TOMOSYNTHESIS-GUIDED VACUUM-ASSISTED BREAST BIOPSY, RIGHT CLINICAL INFORMATION: Biopsy of evolving suspicious upper outer quadrant right breast. Prior history left breast cancer in 2001, right breast cancer in 2005, both status post conservation therapy. Patient has pacemaker. Previously, biopsy of calcifications was deferred due to anticoagulation issues, and the patient preferred a 6 month follow-up, which I felt was a reasonable given the appearance at that time. At the 1.5 years surveillance, recommendation was made for sampling of these calcifications. COMPARISON: Mammography: 10/20/2023, 04/12/2023, 10/12/2022, 10/05/2022 (BI-RADS 0) and studies dating back to 05/05/2016. TECHNIQUE/PROCEDURE: Informed consent was obtained from the patient after discussion of the benefits, risks, and alternatives to biopsy today. Patient appeared to understand. Gave opportunity for questions. Patient signed consent form. Patient right breast was positioned lateral to medial approach, and 3-D tomographic view was obtained of the calcifications. The appearance of the calcifications is consistent with a vascular etiology, as is my review of the recent older imaging. A vessel can be clearly seen tracking to the calcifications, which have tram trak appearance. Due to the risk of bleeding, and benignity of the appearance, stereotactic biopsy was deferred at this time. The patient also had extreme difficulty with the prone positioning required for the procedure. Discussion was held with the patient, who is in understanding and agreement with the above findings. We will continue following these calcifications in 6 months in order to exercise extreme caution, and complete a two-year surveillance. MM/MM stereotactic biopsy RT IMPRESSION: -Digital tomosynthesis-guided core biopsy right breast was deferred, index calcifications in question are almost certainly vascular given appearance, contraindicating biopsy. Review of prior imaging suggested the same. -Recommend final six-month interval follow-up diagnostic magnification views right breast when the patient is due for bilateral screening in September 2024. BI-RADS 3; Probably Benign, short interval follow-up recommended. Electronically signed by: James Perez MD 05/02/2024 10:54 AM [facility]
== END 2024-05-02 09:23 | disposition home or self-care (01) ==
LOC: HO.MAMMO 09:22
PROVIDERS: PCP Internal Medicine Medical Oncology; Visit Provider Surgery
DX: R92.1 Mammographic calcification found on diagnostic imaging of breast (principal); Z53.09 Procedure and treatment not carried out because of other contraindication
CPT/HCPCS: 19081; 99202

== ENCOUNTER → 2024-05-02 10:00 | Outpatient (BNV) | payer MEDICARE, SELFPAY | PROVIDERS: PCP Internal Medicine Medical Oncology; Visit Provider Radiology Diagnostic Radiology | DX: R92.1 Mammographic calcification found on diagnostic imaging of breast (principal) | CPT/HCPCS: 19081 ==

== ENCOUNTER 2024-06-01 09:37 | Outpatient (REF) | payer MEDICARE, SELFPAY ==
--- NOTE | ~2024-06-01 | MM_ITS ---
EXAMINATION: STEREOTACTICALLY-GUIDED RIGHT BREAST BIOPSY CLINICAL INFORMATION: History of bilateral breast cancer status post conservation therapy. Calcifications in the upper outer right breast posterior depth recommended for biopsy. COMPARISON: Comparison is made with available prior examinations. INFORMED CONSENT: After the details of the procedure, as well as the risks (including, but not limited to, bleeding, hematoma formation, and infection), benefits and alternatives (including doing nothing, short-interval follow up, and surgery) to the procedure were explained to the patient in detail and all of her questions were answered, informed written consent was obtained. TECHNIQUE/FINDINGS: A timeout was performed. The lesion intended for biopsy was identified stereotactically and targeted. The skin of the right breast was then cleansed with sterile solution. Using stereotactic guidance, aseptic technique, and 1% lidocaine with and without epinephrine for local anesthesia, a total of 9 cores were obtained through the targeted area with a 9-gauge vacuum-assisted Eviva core biopsy device from a superior approach. Specimen radiography reveals the targeted calcifications in the sampled tissue. At the completion of tissue sampling, a single top hat-shaped metallic clip was deposited at the biopsy site. Specimen radiograph demonstrates multiple calcifications within the specimen. Adequate sampling was achieved. The postprocedure 2-view direct digital mammogram reveals satisfactory positioning of the biopsy clip. The patient tolerated the procedure well and, after assuring adequate hemostasis, was discharged in good condition after reviewing postbiopsy breast care instructions. Final pathology results are pending. MM/MM stereotactic biopsy RT IMPRESSION: 1. Uncomplicated stereotactically-guided core biopsy of the right breast. The 2-view direct digital postprocedure mammogram reveals satisfactory positioning of the biopsy clip. 2. Final pathology results are pending. A separate report with final recommendations will be issued once these results are made available. Electronically signed by: Alcira Pearson DO 06/01/2024 12:12 PM [facility] [place]
[2024-06-01] MEDS: Lidocaine HCl 1 % 20 ML VIAL 4 ML SUBCUT (11:38)
[2024-06-01] MEDS: Lidocaine HCl 1%/Epi 1:100,000 10 ML VIAL 11 ML SUBCUT (11:40)
[2024-06-01] MEDS: Sodium Bicarbonate 8.4% 50 MEQ/50 ML VIAL SUBCUT (11:41)
== END 2024-06-01 09:38 | disposition home or self-care (01) ==
LOC: HO.MAMMO 09:37
PROVIDERS: PCP Internal Medicine Medical Oncology; Visit Provider Surgery
DX: C50.411 Malignant neoplasm of upper-outer quadrant of right female breast (principal); Z17.0 Estrogen receptor positive status [ER+]
CPT/HCPCS: 19081; 88305; 88341; 88342; 88360; A4648; J2003; J2004

== ENCOUNTER → 2024-06-01 10:00 | Outpatient (BNV) | payer MEDICARE, SELFPAY | PROVIDERS: PCP Internal Medicine Medical Oncology; Visit Provider Internal Medicine | DX: R92.1 Mammographic calcification found on diagnostic imaging of breast (principal) | CPT/HCPCS: 19081 ==

== ENCOUNTER 2024-06-08 12:34 | Outpatient (AMB) | payer MEDICARE, SELFPAY ==
--- NOTE | 2024-06-08 12:43 | A.OFFVIS_ITS ---
Vital Signs 06/08/24 12:51 Height 5 ft 2 in Weight 174 lb BMI 31.8 BP 133/61 Blood Pressure Location Lt brachial Position Sitting Pulse 68 Intake Visit Reasons: biopsy results Intake Note: Patient is seen in office for stereotactic biopsy results, right breast calcifications. 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 Required: No Accompanied by: Self / Same As Patient Allergies Sulfa (Sulfonamide Antibiotics) Allergy (Unknown, Verified 06/08/24 12:51) HIVES,ITCH marijuan Adverse Reaction (Uncoded 06/08/24 12:51) Unknown Medication List - Last Reconciled 06/08/24 by Sammy Samano MD alendronate 70 mg PO QWEEK apixaban (Eliquis DVT-PE Treat 30D Start) PO PER PKG DIR bisacodyl (Dulcolax (bisacodyl)) 10 mg (2 x 5 mg) PO ONCE 1 day gabapentin 300 mg PO TID metoprolol succinate ER 25 mg PO DAILY polyethylene glycol 3350 (Miralax) 238 grams PO ONCE HPI Comments Details: 78-year-old female patient presenting with a recent mammogram which revealed a cluster of calcifications in the right breast at the upper outer quadrant posterior depth. This was felt to be suspicious for malignancy in biopsy recommended. She underwent a stereotactic guided core biopsy at the [facility] on 05/02/2024. She returns today to review the pathology results. 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 Leon. 0 of 1 sentinel lymph nodes were positive for metastatic disease. She later underwent a right breast lumpectomy on 10/15/2005 for DCIS. There was evidence of a possible venous invasion therefore she was subsequently underwent a wider excision and axillary sentinel node biopsy on 12/01/2005. The surgery was also performed by Dr. Leon. She denies any current breast symptoms in either breast. She is G 1 P 1, with 1 son living. She did not breastfeed. 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 ? Pathology results: Breast, right, biopsy: - Invasive ductal carcinoma, MSBR grade 3. - Ductal carcinoma in situ, nuclear grade 3. See description. Estrogen receptor: Positive (95% of tumor cells; strong intensity) - DCIS only Progesterone receptor: Low (5% of tumor cells; weak intensity) HER2: Indeterminate (see comment) Proliferation index: Low (5-10% by Ki-67 immunostaining) Comment: A small focus of tumor has increased HER2 immunoreactivity; however, it is uncertain whether this focus is in-situ or invasive carcinoma. Additionally, the invasive component is not definitively identified on the slide used for the ER immunostain. Recommend repeat testing for both ER and HER2 on the excision specimen [facility] Medical History Age related osteoporosis Hx of myocardial infarction CHB (complete heart block) Pacemaker Afib VAIN I (vaginal intraepithelial neoplasia grade I) History of bilateral breast cancer Surgical History History of cataract surgery S/P hip replacement History of lumpectomy of both breasts Hx of abdominal hysterectomy H/O heart surgery Family History Mother Breast CA Social History Household Members: None Housing: House Alcohol intake: current Alcohol intake frequency: a few times a month Patient Tobacco Use Status: Never used Tobacco Sexual orientation: Straight/Heterosexual Gender identity: Female Female Reproductive History Menstrual Age of Menarche: 15 Review of Systems Const All systems reviewed & are unremarkable except as noted in HPI and below Denies chills, Denies fever(s), Denies headache(s), Denies poor appetite and Denies weakness ENT Denies headache(s) Card Denies chest pain, Denies irregular heart rhythm, Denies palpitations and Denies dyspnea Resp Denies cough, Denies excessive phlegm production and Denies dyspnea GI Denies abdominal pain, Denies bloating, Denies change in bowel habits, Denies constipation, Denies heartburn, Denies diarrhea, Denies nausea and Denies vomiting Denies urinary frequency Musc Denies back pain, Denies muscle weakness and Denies numbness Skin/Breast Denies changing lesions and Denies unusual bruising Neuro Denies headache(s), Denies numbness, Denies paresthesias and Denies weakness Psych Denies anxiety and Denies depression Endo Denies palpitations Aubrey/Lymph Denies lymphadenopathy Physical Exam Vital Signs: Last Vital Signs Pulse 68 06/08/24 12:51 BP 133/61 06/08/24 12:51 BMI result Body Mass Index 31.8 Const General: cooperative and no acute distress Nutritional Appearance: well nourished Orientation/consciousness: patient oriented x3 Limitations: no limitations Chest Other: Exam deferred Resp Effort & Inspection: normal respiratory effort, no audible wheezes, no cough and no respiratory distress Skin Other: Warm, dry, no rash Neuro General: patient oriented x3 Extrem General: Yes no clubbing, cyanosis or edema Assessment & Plan Assessment & Plan (1) Recurrent infiltrating ductal carcinoma of right breast: Code(s): C50.911 - Malignant neoplasm of unspecified site of right female breast Category: Medical Plan 78-year-old female patient with a history of bilateral breast cancer now returning following a right breast stereotactic core biopsy performed at the [facility] on 06/01/2024. Pathology revealed an invasive ductal carcinoma with DCIS ER positive, WI low and HER2 indeterminate. The patient had previously undergone lumpectomy, sentinel node biopsy and radiation therapy for right breast DCIS with possible venous invasion. I reviewed the findings in detail with the patient and discussed possible treatment options. As she has previously undergone radiation therapy to the right breast, lumpectomy with radiation therapy for a 2nd cancer is not recommended. We discussed the best option being mastectomy with sentinel node biopsy. I recommended that she discuss the new pathology findings with Dr. Victoria. I informed Dr. Victoria and he was scheduled a follow-up appointment for next week. Further management will be based on her discussion with Dr. Victoria. Coding Level of Care Code Est Pt Level 4 (01047) Diagnoses Recurrent infiltrating ductal carcinoma of right breast C50.911
[2024-06-08 12:51] VITALS: BP 133/61; PULSE 68; BMI 31.8
== END 2024-06-08 13:20 | disposition home or self-care (01) ==
PROVIDERS: PCP Internal Medicine Medical Oncology; Visit Provider Surgery
DX: C50.911 Malignant neoplasm of unspecified site of right female breast (principal)
CPT/HCPCS: 99214

== ENCOUNTER → 2024-06-08 12:34 | Outpatient (BNVA) | payer MEDICARE, SELFPAY | PROVIDERS: PCP Internal Medicine Medical Oncology; Visit Provider Surgery | DX: C50.911 Malignant neoplasm of unspecified site of right female breast (principal) | CPT/HCPCS: 99212 ==

== ENCOUNTER 2024-07-19 09:24 | Outpatient (AMB) | payer MEDICARE, MEDICAID, SELFPAY ==
--- NOTE | 2024-07-19 09:25 | MHC.OFFVIS ---
Vital Signs 07/19/24 09:33 Height 5 ft 2 in Weight 171 lb 15.369 oz BMI 31.4 Pulse 62 Intake Visit Reasons: discuss bilateral mastectomy Intake Note: Patient is seen in office to discuss bilateral mastectomy. Pt c/o: denies any pain in the breast, does have a pacemaker, here to discuss surgery Senior Officer Required: No Accompanied by: Family/Other Allergies Sulfa (Sulfonamide Antibiotics) Allergy (Unknown, Verified 07/19/24 09:31) HIVES,ITCH marijuan Adverse Reaction (Uncoded 07/19/24 09:31) Unknown Medication List - Last Reconciled 07/19/24 by Sammy Samano MD alendronate 70 mg PO QWEEK apixaban (Eliquis DVT-PE Treat 30D Start) PO PER PKG DIR gabapentin 300 mg PO TID metoprolol succinate ER 25 mg PO DAILY HPI Comments Details: 78-year-old female patient presenting with a recent mammogram which revealed a cluster of calcifications in the right breast at the upper outer quadrant posterior depth. This was felt to be suspicious for malignancy in biopsy recommended. She underwent a stereotactic guided core biopsy at the [facility] on 05/02/2024. Pathology reveals a right breast invasive ductal carcinoma, grade 3, with ductal carcinoma in-situ, grade 3, estrogen receptor positive (95%) progesterone receptor low (5%), HER2 Domingo indeterminate, Ki-67 low (5-10%). 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 Leon. 0 of 1 sentinel lymph nodes were positive for metastatic disease. She later underwent a right breast lumpectomy on 10/15/2005 for DCIS. There was evidence of a possible venous invasion therefore she was subsequently underwent a wider excision and axillary sentinel node biopsy on 12/01/2005. The surgery was also performed by Dr. Leon. She underwent radiation therapy to both breasts. She is G 1 P 1, with 1 son living and did not breastfeed. 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 She discussed the pathology findings further with Dr. Victoria earlier this week. She and her daughter have decided she wishes to proceed with a bilateral mastectomy and presents today to discuss the surgery. [facility] Medical History Age related osteoporosis Hx of myocardial infarction CHB (complete heart block) Pacemaker Afib VAIN I (vaginal intraepithelial neoplasia grade I) History of bilateral breast cancer Surgical History History of cataract surgery S/P hip replacement History of lumpectomy of both breasts Hx of abdominal hysterectomy H/O heart surgery Family History Mother Breast CA Social History Household Members: None Housing: House Alcohol intake: current Alcohol intake frequency: a few times a month Patient Tobacco Use Status: Never used Tobacco Sexual orientation: Straight/Heterosexual Gender identity: Female Female Reproductive History Menstrual Age of Menarche: 15 Review of Systems Const All systems reviewed & are unremarkable except as noted in HPI and below Denies chills, Denies fever(s), Denies headache(s), Denies poor appetite and Denies weakness ENT Denies headache(s) Card Denies chest pain, Denies irregular heart rhythm, Denies palpitations and Denies dyspnea Resp Denies cough, Denies excessive phlegm production and Denies dyspnea GI Denies abdominal pain, Denies bloating, Denies change in bowel habits, Denies constipation, Denies heartburn, Denies diarrhea, Denies nausea and Denies vomiting Denies urinary frequency Musc Denies back pain, Denies muscle weakness and Denies numbness Skin/Breast Denies changing lesions and Denies unusual bruising Neuro Denies headache(s), Denies numbness, Denies paresthesias and Denies weakness Psych Denies anxiety and Denies depression Endo Denies palpitations Aubrey/Lymph Denies lymphadenopathy Physical Exam Vital Signs: Last Vital Signs Pulse 62 07/19/24 09:33 BMI result Body Mass Index 31.4 Const General: cooperative and no acute distress Nutritional Appearance: well nourished Orientation/consciousness: patient oriented x3 Limitations: no limitations Chest Other: Exam deferred Resp Effort & Inspection: normal respiratory effort, no audible wheezes, no cough and no respiratory distress Skin Other: Warm, dry, no rash Neuro General: patient oriented x3 Extrem General: Yes no clubbing, cyanosis or edema Assessment & Plan Assessment & Plan (1) Recurrent infiltrating ductal carcinoma of right breast: Code(s): C50.911 - Malignant neoplasm of unspecified site of right female breast Category: Medical Plan 78-year-old female patient with a history of bilateral breast cancer now with a newly diagnosed invasive ductal carcinoma of the right breast found on stereotactic guided core biopsy performed at the [facility] on 06/01/2024. The patient had previously undergone lumpectomy, sentinel node biopsy and radiation therapy for right breast DCIS with possible venous invasion. I previously had reviewed the pathologic findings and she further discuss this with Dr. Victoria on Wednesday. She is now requesting bilateral mastectomies. I reviewed the procedure, risks and alternatives in detail and recommended bilateral simple mastectomies with right axillary sentinel node biopsy. After discussion of the procedure, risks, and alternatives, she consents to the surgery. She will be scheduled as a short-stay admit. Coding Level of Care Code Est Pt Level 4 (37542) Complex EM visit Add On G2211 Diagnoses Recurrent infiltrating ductal carcinoma of right breast C50.911
[2024-07-19 09:33] VITALS: PULSE 62; BMI 31.4
== END 2024-07-19 10:57 | disposition home or self-care (01) ==
PROVIDERS: PCP Internal Medicine Medical Oncology; Visit Provider Surgery
DX: C50.911 Malignant neoplasm of unspecified site of right female breast (principal)
CPT/HCPCS: 99214; G2211

== ENCOUNTER → 2024-07-19 09:24 | Outpatient (BNVA) | payer MEDICARE, SELFPAY | PROVIDERS: PCP Internal Medicine Medical Oncology; Visit Provider Surgery | DX: C50.911 Malignant neoplasm of unspecified site of right female breast (principal) | CPT/HCPCS: 99212 ==

== ENCOUNTER → 2024-07-26 14:37 | Outpatient (BNV) | payer MEDICARE, MEDICAID, SELFPAY | PROVIDERS: Admitting Provider Surgery; PCP Internal Medicine Medical Oncology; Visit Provider Internal Medicine | DX: I48.91 Unspecified atrial fibrillation (principal); Z95.0 Presence of cardiac pacemaker | CPT/HCPCS: 93010 ==

== ENCOUNTER 2024-08-09 07:03 | Outpatient (BNV) | payer MEDICARE, MEDICAID, SELFPAY | END 2024-08-09 07:50 | PROVIDERS: Admitting Provider Surgery; PCP Internal Medicine Medical Oncology; Visit Provider Radiology Diagnostic Radiology | DX: C50.911 Malignant neoplasm of unspecified site of right female breast (principal) | CPT/HCPCS: 78195 ==

== ENCOUNTER 2024-08-09 07:03 | Inpatient (IN) | payer MEDICARE, MEDICAID, SELFPAY ==
--- NOTE | 2024-07-26 | ECG_ITS ---
Test Reason : preop Blood Pressure : */* mmHG Vent. Rate : 67 BPM Atrial Rate : 67 BPM P-R Int : * ms QRS Dur : 144 ms QT Int : 456 ms P-R-T Axes : * -64 134 degrees QTcB Int : 481 ms Ventricular-paced rhythm underlying atrial fibrillation Abnormal ECG When compared with ECG of 14-Apr-2023 10:58, Vent. rate has increased by 2 bpm Referred By: Josefa Chong Electronically Signed By: KATHYA KING
[2024-07-26 12:49] VITALS: BP 168/79; PULSE 60; RESP 16; O2SAT 97; BMI 32.0
--- NOTE | 2024-07-26 13:12 | HO.ANESPROP2 ---
Documented by User: Josefa Chong NP 08/08/24 10:19 HPI - Anesthesia Eval Consult details Narrative: 78yo F for Bilateral Mastectomy Simple, Right Axillary [place] Node Biopsy, 08/09/24 - [facility] protocol Cardiac optimized. 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 (Acute) Abnormal mammogram of right breast (Acute) Osteoporosis (Acute) Menopause (Acute) Well woman exam (Acute) VAIN I (vaginal intraepithelial neoplasia grade I) (Acute) Past Medical History Medical History Hx of radiation therapy Cognitive decline HLD (hyperlipidemia) Osteoporosis Cardiac pacemaker (~2019) Age related osteoporosis Hx of myocardial infarction CHB (complete heart block) Pacemaker Afib VAIN I (vaginal intraepithelial neoplasia grade I) History of bilateral breast cancer Family History Family History Mother Breast CA Family history of problems with anesthesia: No Surgical History Surgical History Hx of colonoscopy History of right hip replacement History of cataract surgery S/P hip replacement History of lumpectomy of both breasts Hx of abdominal hysterectomy H/O heart surgery History of Problems with Anesthesia: No (Wakes up tearful, upset) Social History Social History Household Members: None Housing: House Housing Other:: mobile home Are you a primary health care social worker to a significant other at home: No Do you presently have visiting nurse or other home services: No Alcohol intake: current Alcohol intake frequency: a few times a month Patient Tobacco Use Status: Never used Tobacco Use of substances other than those prescribed or required for medical reasons: No Have you been hit, kicked, punched, or otherwise hurt by someone within the past year? If so, by whom?: No Are you DNR?: No Advance Directives: No Advance Directives Information Provided: Yes Advance Directives on File: No Recently lost weight without trying: No Nutrition Risks: Surgical patient >75years Sexual orientation: Straight/Heterosexual Gender identity: Female Meds Allergies Allergy/AdvReac Type Severity Reaction Status Date / Time marijuana (cannabis) Allergy Intermediate Nausea and Verified 07/26/24 13:06 Vomiting Sulfa (Sulfonamide Allergy Intermediate HIVES,ITCH Verified 07/26/24 13:06 Antibiotics) Home Medications ?Medication ?Instructions ?Recorded ?Confirmed ?Last Taken ?Type metoprolol succinate 25 mg 25 mg PO DAILY 02/12/21 07/25/24 08/08/24 History tablet,extended release 24 hr gabapentin 300 mg capsule 300 mg PO TID 03/31/23 07/25/24 08/08/24 History apixaban 5 mg tablet (Eliquis) 5 mg PO BID 07/25/24 07/25/24 08/04/24 History Exam Height,Weight and Vital Signs: Height 5 ft 2 in Weight 79.379 kg Last Vital Signs Pulse 60 07/26/24 12:49 Resp 16 07/26/24 12:49 BP 168/79 H 07/26/24 12:49 Pulse Ox 97 07/26/24 12:49 O2 Del Method Room Air 07/26/24 12:49 Pertinent Lab Results Pertinent Lab Results: Lab Results 07/26/24 07/26/24 Range/Units 14:12 14:25 WBC 5.5 (4.8-10.8) X10*3/uL RBC 4.97 (4.20-5.50) X10*6/uL Hgb 14.4 (12.0-16.0) g/dl Hct 42.6 (37.0-47.0) % MCV 85.7 (80.0-98.0) fL MCH 29.0 (27.0-33.0) pg MCHC 33.8 (31.0-35.0) g/dl RDW 13.8 (11.0-16.0) % Plt Count 214 (160-400) X10*3/uL MPV 11.3 (9.4-12.3) fL Immature Gran % (Auto) 0.4 (0.0-0.4) % Neut % (Auto) 55.1 (45-73) % Lymph % (Auto) 34.8 (20-40) % [place] % (Auto) 7.0 (2-11) % Eos % (Auto) 1.8 (0-4) % Baso % (Auto) 0.9 (0-2) % Lymph # (Auto) 1.9 (1.2-4.9) X10*3/uL [place] # (Auto) 0.4 (0.1-1.2) X10*3/uL Eos # (Auto) 0.1 (0.0-0.4) X10*3/uL Baso # (Auto) 0.1 (0.0-0.2) X10*3/uL Abs Immat Gran (auto) 0.02 (0.00-0.03) X10*3/uL Absolute Neuts (auto) 3.0 (2.0-8.3) x10*3/uL Absolute Nucleated RBC 0.000 (0.0-0.012) X10*3/uL Nucleated RBC % (auto) 0.0 (0.0-0.2) /100WBC Sodium 141 (135-145) mmol/L Potassium 4.3 (3.3-5.1) mmol/L Chloride 110 H (96-108) mmol/L Carbon Dioxide 24 (22-29) mmol/L Anion Gap 11 L (12-20) BUN 9 (9-16) mg/dL Creatinine 0.68 (0.5-1.4) mg/dL Estim Creat Clear Calc 68.6 Estimated GFR > 60 Random Glucose 82 (60-115) mg/dL Calcium 9.9 (8.4-10.2) mg/dL Magnesium 2.1 (1.6-2.6) mg/dL Total Bilirubin 0.7 (0.0-1.0) mg/dL AST 25 (5-31) U/L ALT 15 (0-31) U/L Alkaline Phosphatase 73 (39-117) U/L B-Natriuretic Peptide 281 H (<100) pg/mL Total Protein 7.2 (6.5-8.0) g/dL Albumin 4.0 (3.5-5.0) g/dL Vitamin B12 215 (200-900) pg/mL TSH 1.04 (0.32-4.0) uIU/mL Blood Type O Negative Antibody Screen NEGATIVE Narrative Narrative: EKG 06/2024 Vent. Rate : 67 BPM Atrial Rate : 67 BPM P-R Int : * ms QRS Dur : 144 ms QT Int : 456 ms P-R-T Axes : * -64 134 degrees QTcB Int : 481 ms Ventricular-paced rhythm underlying atrial fibrillation Abnormal ECG When compared with ECG of 14-Apr-2023 10:58, Vent. rate has increased by 2 bpm EKG 07/2024 Ventricular Rate: 65 BPM Atrial Rate: 357 BPM QRS Duration: 80 ms Q-T Interval: 420 ms QTC Calculation(Bazett): 436 ms R [place]: -7 degrees T [place]: -63 degrees Atrial fibrillation with ventricular-paced complexes ST and T wave abnormality, consider inferior ischemia ST and T wave abnormality, consider anterolateral ischemia Abnormal ECG When compared with ECG of 15-Oct-2022 11:46, No significant change was found Confirmed by Francisco Javier Quezada ([id number]) on 08/03/2024 2:15:26 PM Airway Loose/Missing/Broken Teeth: No (permanent bridge right lower side) Assessment and Plan Assessment Anesthesia Assessment: Anesthesia Plan Discussed and PAT Visit Final Anesthetic Review Family History of Problems with Anesthesia: No History of Problems with Anesthesia: No (Wakes up tearful, upset) Documented by User: Lauryn Petit MD 08/09/24 10:23 [facility] Past Medical History Medical History Hx of radiation therapy Cognitive decline HLD (hyperlipidemia) Osteoporosis Cardiac pacemaker (~2019) Age related osteoporosis Hx of myocardial infarction CHB (complete heart block) Pacemaker Afib VAIN I (vaginal intraepithelial neoplasia grade I) History of bilateral breast cancer Family History Family History Mother Breast CA Surgical History Surgical History Hx of colonoscopy History of right hip replacement History of cataract surgery S/P hip replacement History of lumpectomy of both breasts Hx of abdominal hysterectomy H/O heart surgery Social History Social History Household Members: None Housing: House Housing Other:: mobile home Are you a primary health care social worker to a significant other at home: No Do you presently have visiting nurse or other home services: No Alcohol intake: current Alcohol intake frequency: a few times a month Patient Tobacco Use Status: Never used Tobacco Use of substances other than those prescribed or required for medical reasons: No Have you been hit, kicked, punched, or otherwise hurt by someone within the past year? If so, by whom?: No Are you DNR?: No Advance Directives: No Advance Directives Information Provided: Yes Advance Directives on File: No Recently lost weight without trying: No Nutrition Risks: Surgical patient >75years Sexual orientation: Straight/Heterosexual Gender identity: Female Meds Allergies Allergy/AdvReac Type Severity Reaction Status Date / Time marijuana (cannabis) Allergy Intermediate Nausea and Verified 07/26/24 13:06 Vomiting Sulfa (Sulfonamide Allergy Intermediate HIVES,ITCH Verified 07/26/24 13:06 Antibiotics) Home Medications ?Medication ?Instructions ?Recorded ?Confirmed ?Last Taken ?Type metoprolol succinate 25 mg 25 mg PO DAILY 02/12/21 07/25/24 08/08/24 History tablet,extended release 24 hr gabapentin 300 mg capsule 300 mg PO TID 03/31/23 07/25/24 08/08/24 History apixaban 5 mg tablet (Eliquis) 5 mg PO BID 07/25/24 07/25/24 08/04/24 History Exam Airway Mallampati Class: II TM Dist: >3cm Neck ROM: Limited Heart: paced Lungs: cta Assessment and Plan Assessment Anesthesia Assessment: Chart Reviewed Final Anesthetic Review ASA Class: III Final Preanesthetic Review: No Changes in Pt Med Stat, Meds/Allgs Chart Reviewed, Consent Obtained/Reviewed and Anes Risks/Benef Reviewed Patient Risk: Intermediate Procedure Risk: Intermediate Anesthetic Plan Anesthetic Plan: GA, Regional Block and Agree w/ Assess. and Plan Disposition: Standard PACU
[2024-07-26 14:27] LABS: MANUAL DIFF FLAG NO
[2024-07-26 15:16] LABS: Basophils Absolute Auto 0.1 X10*3/uL (0.0-0.2); Basophils Percent Auto 0.9 % (0-2); Eosinophils Absolute Auto 0.1 X10*3/uL (0.0-0.4); Eosinophils Percent Auto 1.8 % (0-4); Hematocrit 42.6 % (37.0-47.0); Hemoglobin 14.4 g/dl (12.0-16.0); Imm Gran Abs Auto 0.02 X10*3/uL (0.00-0.03); Imm Gran Pct Auto 0.4 % (0.0-0.4); Lymphocytes Absolute Auto 1.9 X10*3/uL (1.2-4.9); Lymphocytes Percent Auto 34.8 % (20-40); Mean Corpuscular HGB Conc 33.8 g/dl (31.0-35.0); Mean Corpuscular Volume 85.7 fL (80.0-98.0); Mean Platelet Volume 11.3 fL (9.4-12.3); Monocytes Absolute Auto 0.4 X10*3/uL (0.1-1.2); Neutrophils Percent Auto 55.1 % (45-73); Platelet Count 214 X10*3/uL (160-400); Red Blood Count 4.97 X10*6/uL (4.20-5.50); Red Cell Distribution Width 13.8 % (11.0-16.0); White Blood Count 5.5 X10*3/uL (4.8-10.8)
[2024-07-26 15:39] LABS: Alanine Aminotransferase 15 U/L (0-31); Anion Gap 11 (12-20); Aspartate Amino Transferase 25 U/L (5-31); Bilirubin Total 0.7 mg/dL (0.0-1.0); Blood Urea Nitrogen 9 mg/dL (9-16); Calcium 9.9 mg/dL (8.4-10.2); Carbon Dioxide 24 mmol/L (22-29); Chloride 110 mmol/L (96-108); Creatinine Clr Calc Pharmacy 68.6; Estimated Glomerular Filt Rate > 60; Glucose Random 82 mg/dL (60-115); Magnesium 2.1 mg/dL (1.6-2.6); Potassium 4.3 mmol/L (3.3-5.1); Sodium 141 mmol/L (135-145); Total Protein 7.2 g/dL (6.5-8.0)
[2024-07-26 15:42] LABS: B Type Natriuretic Peptide 281 pg/mL (<100)
[2024-07-26 16:01] LABS: TSH reflex Free T4 1.04 uIU/mL (0.32-4.0)
[2024-07-26 16:05] LABS: Vitamin B12 215 pg/mL (200-900)
[2024-07-26 16:06] LABS: Alkaline Phosphatase 73 U/L (39-117)
[2024-08-09] VITALS (11 sets, daily range): BP systolic 123–162; BP diastolic 50–99; PULSE 61–75; RESP 15–20; TEMP 36.1–37; O2SAT 94–100; BMI 32.0
--- NOTE | ~2024-08-09 | NM_ITS ---
EXAMINATION: Nuclear medicine sentinel node imaging. CLINICAL INDICATION: Right breast invasive ductal cancer. COMPARISON: Right breast biopsy 06/01/2024. TECHNIQUE: Following explaining right breast sentinel node procedure, benefits and risk, a written consent was obtained. 4% lidocaine was applied on the right breast areola 30 minutes. The area was then cleaned and draped in usual sterile manner. 0.5 mCi of technetium tilmanocept In 4 equal doses was injected in 4 quadrants around the right breast Hoff and imaging obtained 30 minutes later. Patient tolerated procedure extremely well. FINDINGS/ NM/NM sentinel node w imaging IMPRESSION: There is isotope activity seen in the 4 quadrants around the right breast areola. At 30 minutes no extension of activity seen in the right axilla or the intramammary lymph nodes. Electronically signed by: Sukhwinder Molina MD 08/09/2024 02:15 PM ELISEO
--- NOTE | 2024-08-09 07:37 | MHC.SHP ---
Pre-Procedural Eval Section A - 24 Hr Update-Section A only Date of Service: 08/09/24 The patient is an INPATIENT: No Changes since office visit: Yes Patient answered all questions; No Cold of Flu in the past 2 weeks, No New Medical Problems and No Changes in Medication The patient has been examined within 24 hours of the surgical procedure. The History & Physical has been completed within 30 days and I have reviewed it.: Yes Section B - Complete if H&P > 30 days Chief Complaint: S/P Bilateral Mastectomy Allergies: Allergies Allergy/AdvReac Type Severity Reaction Status Date / Time marijuana (cannabis) Allergy Intermediate Nausea and Verified 07/26/24 13:06 Vomiting Sulfa (Sulfonamide Allergy Intermediate HIVES,ITCH Verified 07/26/24 13:06 Antibiotics) Plan Diagnosis/Plan: Unchanged I have reviewed the history and physical and performed a pertinent physical examination on my patient. No changes have occurred unless specified. Time Spent With Patient Time: Total time managing care of this patient today ____ minutes.
--- OUTSIDE RECORDS SUMMARY | 2024-08-09 07:39 | XMS_ITS ---
Author Organization Baldev Victoria III, MD Address [address] [place] [address] [place] [address] Care Team Providers Care Farmworker Rice Name Role Phone Baldev Victoria Primary Care Provider [phone] Allergies Allergen (clinical drug ingredient) Drug/Non Drug Allergy documented on EMR Reaction Allergy Type Onset Date Status sulfacetamide Sulfacetamide Unknown Drug Allergy Active REASON FOR VISIT Invasive carcinoma of the right breast, BRCA testing done, History of bilateral breast cancer, Pacemaker in place, Obesity, Atrial fibrillation, Anticoagulation, Mild dementia Medications Medication SIG (Take, Route, Frequency, Duration) Notes Start Date End Date Status Alendronate Sodium 70 MG 1 tablet 30 min utes before the first food, beverage or medicine of the day with plain water Orally Active Metoprolol Succinate ER 25 mg TAKE 1 TABLET BY MOUTH ONCE DAILY Active Eliquis 5 mg TAKE 1 TABLET BY RUBÉN TH TWICE DAILY Active Gabapentin 300 mg TAKE 1 CAPSULE BY MO UTH THREE TIMES DAILY Active Gabapentin 300 MG 1 capsule Orally Onc e a day Active Social History Tobacco Use: Social History Observation Description Date Details (start date - stop date) Never Smoker NA - NA Sex Assigned At : Social History Observation Description Sex Assigned At Female Tobacco Control (Standard) Question Answer Notes Tobacco use: Nonsmoker Additional Findings: Tobacco non-user Aggressive nonsmoker Vital Signs Temperature 97.5 degrees Fahrenheit 07/17/19 25 Blood pressure systolic 136 mm Hg 07/17/19 25 Blood pressure diastolic 80 mm Hg 025 Heart Rate 66 /min 07/17/2024 Height 62 in 07/17/2024 Weight 179 lbs 07/17/2024 BMI 32.74 kg/m2 07/17/2024 Encounters Encounter Location Date Provider Diagnosis Baldev Victoria III, MD [address] [place] [address] [address] [place], [place] [id number] 07/17/2024 Baldev Victoria History of breast ca ncer Z85.3 ; Obesity E66.9 ; Hyperlipidemia E78.5 ; Leucopenia D72.819 ; Third degree heart block I44.2 ; Atrial fibrillation, unspecified type I48.91 and Pedal edema R60.0 Assessments Encounter Date Diagnosis (ICD Code) Assessment Notes Treat ment Notes Treatment Clinical Notes 07/17/2024 History of breast cancer (ICD-10 - Z85.3) A recent mammogram showed an abnormality in the right breast. A biopsy showed Invasivve breast cancer. After a discussion of the issues she has chosen to have bilateral mastectomies. This wiill go forward. 07/17/2024 Obesity (ICD-10 - E66.9) She has lost 10 pounds through diet and exercise. Her body mass index is 31.46. She weighs 172 pounds. We reviewed her weight loss strategy. She will continue to lose weight at a rate of one half of a pound per week through a diet restricted in calories. 07/17/2024 Hyperlipidemia (ICD-10 - E78.5) Her lipids are currently stable with a cholesterol of 199. Was continued on current therapy and encouraged to continue her weight loss. 07/17/2024 Leucopenia (ICD-10 - D72.819) Her white blood cell count today is slightly low at 4600 with a normal differential. She has had no infections. No change in her regimen was made. 07/17/2024 Third degree heart block (ICD-10 - I44.2) Her pacemaker appears to be functioning normally. A recent device check was unremarkable. Her vital signs were stable. 07/17/2024 Atrial fibrillation, unspecified type (ICD-10 - I48.91) She was in a slightly irregular control rhythm today with no symptoms. No change in her medication was made. 07/17/2024 Pedal edema (ICD-10 - R60.0) There is no peripheral edema noted today. Plan Of Treatment Medication Medication Name Sig Start Date Stop Date Notes Alendronate Sodium 70 MG 1 tablet 30 min utes before the first food, beverage or medicine of the day with plain water Orally Metoprolol Succinate ER 25 mg TAKE 1 TAB LET BY MOUTH ONCE DAILY Eliquis 5 mg TAKE 1 TABLET BY RUBÉN TH TWICE DAILY Gabapentin 300 mg TAKE [address] [facility] THREE TIMES DAILY Gabapentin 300 MG 1 capsule Orally Once a day Pending Test Test Name Order Date PROFILE, FASTING (COMPREHENSIVE METABOLI C) 07/17/2024 TSH (THYROID STIMULATING HORMONE) 2024 BRAIN NATRIURETIC PEPTIDE (BNP) 07/17/19 25 CBC WITH AUTO DIFF 07/17/2024 Magnesium 07/17/2024 Lipid Panel 07/17/2024 Vitamin B12 07/17/2024 Free T4 (Free Thyroxine) 07/17/2024 Next Appt Details Follow Up: 4 Weeks, Reason: OV Provider Name:Baldev Victoria, 08/18/2024 03:00:00 PM, [address] [place] [address] [address]AN, [place], [id number], Provider Name:Baldev Victoria, 09/29/2024 02:30:00 PM, [address] [place] [address] SUKHDEV CAPELLAN, [place], [id number], Progress Notes * Rosetta ADAMEDOB: [birth year] (78 yo F)Acc No.[id number]:07/17/2024 Progress Notes Patient:?Rosetta ADAME Provider:?Baldev Victoria MD :[id number]???Age:78 Y???Sex:Female D ate:07/17/2024 [facility] [id number] Subjective: * Chief Complaints: * ???Invasive carcinoma of the right breastBRCA testing doneHistory of bilateral breast cancerPacemaker in placeObesityAtrial fibrillationAnticoagulationMild dementia * HPI: ???COVID-19 Screening:?Questions?Have you had any new onset fever, chills, cough, congestion, sore throat, shortness of breath, muscle aches??No ???:?The patient, a 78-year-old female, presented with a history of breast cancer. She had a lumpectomy in 2005 and received radiation therapy for the right breast. Recently, she was diagnosed with a second breast cancer in the previously irradiated breast. She reported no pain or discomfort in the breast area. The patient also mentioned a weight loss of 15-20 lbs. She has a pacemaker implanted for an unspecified heart condition. The patient also reported some cognitive memory trouble, occasionally struggling to find the right words during conversations. However, she lives alone and is able to drive without any issues. In 2001 she was found to have an invasive ductal carcinoma of the left breast treated with lumpectomy and sentinel node excision followed by radiation therapy.? In 2005 she was found to have invasive ductal carcinoma of the right breast treated with lumpectomy and sentinel node excision and radiation.? She has now been found to have an invasive ductal and lobular carcinoma of the right breast.? Further radiation is not an option.? She and I discussed her options.? I strongly recommended that she undergo a right mastectomy.? She agreed with this but also wants to undergo a left mastectomy that is a bilateral procedure.? A recent BRCA 1 and 2 analysis was negative for mutations.? She is aware of the significance of this.? Nonetheless she wishes to have bilateral mastectomy.? I have referred her back to Dr. Monica berkowitz with whom I spoke today To give him this information.? Her family was present at this discussion today. * ROS:?General/Constitutional:?Denies?pain,?right breast incision.?Chills?denies.?Fatigue?admits.?Fever?denies.?ENT:?Decreased hearing?mild.?Respiratory:?Cough?denies.?Cardiovascular:?Chest pain with exertion?denies.?Dyspnea on exertion?denies.?Shortness of breath?denies.?Gastrointestinal:?Constipation?occasional.?Decreased appetite?denies.?Diarrhea?denies.?Heartburn?denies.?Nausea?denies.?Rectal bleeding?denies.?Vomiting?denies.?Hematology:?bruising?denies.?petechiae?denies.?Swollen glands?none have been noted.?Genitourinary:?Frequent urination?denies.?Musculoskeletal:?Muscle aches?denies.?Painful joints?denies.?Sciatica?denies.?Weakness?denies.?Skin:?Itching?denies.?Rash?denies.?Skin lesion(s)?denies.?Neurologic:?Difficulty speaking?denies.?Dizziness?denies.?Headache?denies.?Low back pain?denies.?Psychiatric:?Depressed mood?denies.? * Medical History:? * Surgical History:?D&C 1992la parotomy right hip replacement 07/2011lumpectomy with sentinel node excision for invasive right breast cancer, RT 2005pacemaker insertion, Dr. Rajan, [facility] 09/2018cataract surgery eft hip arthroplasty, [facility] 10/2022Hip replacements Lumpectomy left breast positive for infiltrating ductal and lobular carcinoma, RT 2001invasive ductal carcinoma right breast, lumpectomy 2024Lumpectomy in 2005 2005 * Hospitalization/Major Diagno stic Procedure:?right hip replacement No history * Family History:?Father: dece ased, unkown.?Mother: 88 yrs, spinal stenosis, hip repalcement, pacemaker, artial fibrillation, breast cancer currently in remission 20 years,, diagnosed with Cancer. Maternal Grand Mother: , cancer.?2 brother(s) . 1 son(s) - healthy. .? A brother diagnosed with bladder cancer. Mother had breast cancer. * Social History:?Tobacco Use:?Tobacco Control (Standard)?Tobacco use:?Nonsmoker ?Additional Findings: Tobacco non-user?Aggressive nonsmoker ???She is not working now. 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 She was born in [place]. She has been for 37 years. A son Daphne, aged 43, is working for [employer]. * Medications:?TakingGabapenti n 300 MG Capsule 1 capsule Orally Once a day Metoprolol Succinate ER 25 mg Tablet Extended Release 24 Hour TAKE 1 TABLET BY MOUTH ONCE DAILY Eliquis 5 mg Tablet TAKE 1 TABLET BY MOUTH TWICE DAILY Alendronate Sodium 70 MG Tablet 1 tablet 30 minutes before the first food, beverage or medicine of the day with plain water Orally Medication List reviewed and reconciled with the patientTaking Gabapentin 300 MG Capsule 1 capsule Orally Once a day Taking Metoprolol Succinate ER 25 mg Tablet Extended Release 24 Hour TAKE 1 TABLET BY MOUTH ONCE DAILY Taking Eliquis 5 mg Tablet TAKE 1 TABLET BY MOUTH TWICE DAILY Taking Alendronate Sodium 70 MG Tablet 1 tablet 30 minutes before the first food, beverage or medicine of the day with plain water Orally Medication List reviewed and reconciled with the patient * Allergies:?Sulfacetamideno[A llergies Verified] Objective: * Vitals:?Ht: 62, Wt:179, BMI: 32.74, BP:136/80, HR:66, Temp:97.5, Wt-k.19. * Examination: ???General Examination: ?GENERAL APPEARANCE:?pleasant, well nourished, well developed, in no acute distress, calm and relaxed, obese, woman.?HEAD:?atraumatic, normocephalic.?EYES:?eomi, perrla, anicteric, conjugate.?EARS:?normal.?NOSE:?septum intact.?ORAL CAVITY:?normal, unremarkable.?NECK/THYROID:?no jugular venous distention, no carotid bruit, thyroid normal.?LYMPH NODES:?no enlarged lymph nodes,spleen normal.?SKIN:?no suspicious lesions, anicteric.?HEART:?no clicks, gallops, murmurs, or rubs, regular rhythm, S1, S2 normal, no s3, or vascular bruits.?LUNGS:?clear to auscultation .?BREASTS:??no masses palpable bilaterally, right wound healing.?ABDOMEN:?bowel sounds normal, no ascites, no organomegaly, no mass.?RECTAL EXAM:?not examined.?MUSCULOSKELETAL:?extremities unremarkable, no clubbing, cyanosis or edema.?PERIPHERAL PULSES:?normal.?NEUROLOGIC:?alert and oriented, cranial nerves 2-12 grossly intact, deep tendon reflexes 2+ symmetrical, motor strength normal upper and lower extremities, sensory exam intact.?PSYCH:?alert, oriented to person and place.? Assessment: * Assessment: 1.?History of breast cancer - Z85.3 (Primary)???Notes :A recent mammogram showed an abnormality in the right breast. A biopsy showed Invasivve breast cancer.? After a discussion of the issues she has chosen to have bilateral mastectomies.? This wiill go forward.???2.?Obesity - E66.9???Notes :She has lost 10 pounds through diet and exercise. Her body mass index is 31.46. She weighs 172 pounds. We reviewed her weight loss strategy. She will continue to lose weight at a rate of one half of a pound per week through a diet restricted in calories.???3.?Hyperlipidemia - E78.5???Notes :Her lipids are currently stable with a cholesterol of 199. Was continued on current therapy and encouraged to continue her weight loss.???4.?Leucopenia - D72.819???Notes :Her white blood cell count today is slightly low at 4600 with a normal differential. She has had no infections. No change in her regimen was made.???5.?Third degree heart block - I44.2???Notes :Her pacemaker appears to be functioning normally. A recent device check was unremarkable. Her vital signs were stable.???6.?Atrial fibrillation, unspecified type - I48.91???Notes :She was in a slightly irregular control rhythm today with no symptoms. No change in her medication was made.???7.?Pedal edema - R60.0???Notes :There is no peripheral edema noted today.??? Plan: * Treatment: 2.?Obesity?LAB: PROFILE, FASTING (COMPREHENSIVE METABOLIC) ?LAB: TSH (THYROID STIMULATING HORMONE) ?LAB: BRAIN NATRIURETIC PEPTIDE (BNP) ?LAB: CBC WITH AUTO DIFF ?LAB: Magnesium ?LAB: Lipid Panel ?LAB: Vitamin B12 ?LAB: Free T4 (Free Thyroxine) 3.?Hyperlipidemia?LAB: PROFILE, FASTING (COMPREHENSIVE METABOLIC) ?LAB: TSH (THYROID STIMULATING HORMONE) ?LAB: BRAIN NATRIURETIC PEPTIDE (BNP) ?LAB: CBC WITH AUTO DIFF ?LAB: Magnesium ?LAB: Lipid Panel ?LAB: Vitamin B12 ?LAB: Free T4 (Free Thyroxine) 4.?Leucopenia?LAB: PROFILE, FASTING (COMPREHENSIVE METABOLIC) ?LAB: TSH (THYROID STIMULATING HORMONE) ?LAB: BRAIN NATRIURETIC PEPTIDE (BNP) ?LAB: CBC WITH AUTO DIFF ?LAB: Magnesium ?LAB: Lipid Panel ?LAB: Vitamin B12 ?LAB: Free T4 (Free Thyroxine) 5.?Pedal edema?LAB: PROFILE, FASTING (COMPREHENSIVE METABOLIC) ?LAB: TSH (THYROID STIMULATING HORMONE) ?LAB: BRAIN NATRIURETIC PEPTIDE (BNP) ?LAB: CBC WITH AUTO DIFF ?LAB: Magnesium ?LAB: Lipid Panel ?LAB: Vitamin B12 ?LAB: Free T4 (Free Thyroxine) * Procedure Codes:? * Preventive Medicine:? ??Counseling:?Care goal follow-up plan:?Counseling for abnormal BMI given?Yes ?Above Normal BMI Follow-up?Dietary management education, guidance, and counseling, Dietary needs education * Follow Up:?4 Weeks (Reason: OV) * Images: * Sign off status: Completed Addendum: * ? true * Provider:?Baldev Victoria MD Date:?06/29 Generated for Ronald clark/Mayra/Bernardoitting on:?08/09/2024 07:39 AM EST History and Physical Notes * HPI (History of Present Illness) Category Sub-Category Detail Notes COVID-19 Screening Questions Have you had any new onset fever, chills, cough, congestion, sore throat, shortness of breath, muscle aches?: No Examination Category Sub-Category Detail Notes General Examination GENERAL APPEARANCE: pleasant , well nourished, well developed, in no acute distress, calm and relaxed, obese, woman HEAD: atraumatic, normocep halic EYES: eomi, [...] PULSES: normal BREASTS: no masses palpable b ilaterally, right wound healing MUSCULOSKELETAL: extremities unremark able, no clubbing, cyanosis or edema LYMPH NODES: no enlarged lymph no kodi,spleen normal RECTAL EXAM: not examined PSYCH: alert, oriented to p erson and place ORAL CAVITY: normal, unremarkable
--- OUTSIDE RECORDS SUMMARY | 2024-08-09 07:39 | XMS_ITS ---
Author Organization Baldev Victoria III, MD Address [address] [address] Care Team Providers Care Stonemason Name Role Phone Baldev Victoria Primary Care Provider REASON FOR VISIT Progress note / Elquis Instructions Social History Sex Assigned At : Social History Observation Description Sex Assigned At Female Encounters Encounter Location Date Provider Diagnosis Baldev Victoria III, MD [address] [place] [address] [place] [address] 07/19/2024 Baldev Victoria Plan Of Treatment Next Appt Details Provider Name:Baldev Victoria, 08/18/2024 03:00:00 PM, [address] [place] [address] [place], [address], Provider Name:Baldev Victoria, 09/29/2024 02:30:00 PM, [address] [place] [address] [place], [address], Progress Notes * Rosetta ADAMEDOB: [birth year] (78 yo F)Acc No.[id number]:07/19/2024 Patient:?Rosetta ADAME :1945???Age:78 Y???Sex:Female Address:[address] [place] [address] * * Date:?
--- OUTSIDE RECORDS SUMMARY | 2024-08-09 07:40 | XMS_ITS ---
Author Organization Baldev Victoria III, MD Address [address] [place] [address] Care Team Providers Care Science Analyst Name Role Phone Baldev Victoria Primary Care Provider REASON FOR VISIT Follow up Social History Sex Assigned At : Social History Observation Description Sex Assigned At Female Encounters Encounter Location Date Provider Diagnosis Baldev Victoria III, MD [address] [place] [address] [place] [address] 07/14/2024 Baldev Victoria Plan Of Treatment Next Appt Details Provider Name:Baldev Victoria, 08/18/2024 03:00:00 PM, [address] [place] [address] [place], [address], Provider Name:Baldev Victoria, 09/29/2024 02:30:00 PM, [address] [place] [address] [place], [address], Progress Notes * Rosetta ADAMEDOB: [birth year] (78 yo F)Acc No.[id number]:07/14/2024 Progress Notes Patient:?DEEP Rosetta Provider:?Baldev Victoria MD :1945???Age:78 Y???Sex:Female D ate:07/14/2024 Address:[address], [id number] Subjective: * Chief Complaints: * ???1. Follow up. * Medical History:? Objective: * Vitals:? Assessment: Plan: * Treatment: * Images: * The named appointment provid er may or may not be the originator of this progress note, and it is not deemed complete until electronically signed by the appointment provider. Sign off status: Pending * Provider:?Baldev Victoria MD Date:?06/28 Generated for Ronald clark/Mayra/Bernardoitting on:?08/09/2024 07:39 AM EST
--- OUTSIDE RECORDS SUMMARY | 2024-08-09 07:40 | XMS_ITS ---
Author Organization [facility] Address [address] [place] [address] Care Team Providers Care Rolling Down Machine Operator Name Role Phone Baldev Victoria MD Primary Care Provider Unavailab Baldev Souza Unavailable [phone] REASON FOR VISIT screening PROBLEMS Problem Type ICD Code Onset Dates Problem Status W/U Status Risk SNOMED Code Notes Problem Diverticulosis of large intestine without perforation or abscess without bleeding (K57.30) Active confirmed Diverticul ar disease of colon (408765446) Encounters Encounter Location Date Provider Diagnosis [facility] [address] [id number] 04/14/2023 Baldev Hook Encounter for scre ening colonoscopy Z12.11 ; Colon polyp K63.5 ; Rectal polyp K62.1 ; Diverticulosis of large intestine without perforation or abscess without bleeding K57.30 and Other hemorrhoids K64.8 ASSESSMENTS Encounter Date Diagnosis Assessment Notes Treatment Notes Treatment Clinical Notes 04/14/2023 Encounter for screening colonoscopy (ICD-10 - Z12.11) 04/14/2023 Colon polyp (ICD-10 - K63.5) 04/14/2023 Rectal polyp (ICD-10 - K62.1) 04/14/2023 Diverticulosis of large intestine without perforation or abscess without bleeding (ICD-10 - K57.30) 04/14/2023 Other hemorrhoids (ICD-10 - K64.8) PLAN OF TREATMENT No Information
--- OUTSIDE RECORDS SUMMARY | 2024-08-09 07:40 | XMS_ITS | Patient Health Record ---
Author Organization [facility] Address [address] [place] [address] Care Team Providers Care Automotive Starter Repairer Name Role Phone Baldev Victoria MD Primary Care Provider Unavailab Baldev Souza Unavailable [phone] REASON FOR REFERRAL No Information MEDICATIONS Medication SIG (Take, Route, Frequency, Duration) Notes Start Date End Date Status Gabapentin 300 MG TAKE 1 CAPSULE BY MO [facility] THREE TIMES DAILY Diagnosis Unavailable Oral for 15 Active Alendronate Sodium 70 MG Oral for 84 Active Eliquis 5 MG Oral for 30 Activ e traMADol HCl 50 MG TAKE 1 TABLET BY RUBÉN TH every 4 hours NEEDED FOR PAIN (scale 1-10) Oral for 4 Not-Taking Calcium 600 + D 600-5 MG-MCG 1 tablet with a meal Orally Once a day for 30 day(s) Not-Taking Metoprolol Succinate ER 25 MG Oral for 90 Active Aleve 220 MG 1 tablet with food o r milk as needed Orally pm Not-Federico ing Meloxicam 15 MG 1 tablet Orally Once a day for 30 day(s) Not-Taking SOCIAL HISTORY Sex Assigned At : Social History Observation Description Sex Assigned At Unknown PROBLEMS Problem Type ICD Code Onset Dates Problem Status W/U Status Risk SNOMED Code Notes Problem Colon cancer screening (Z12.11) Active confirmed 541131351 Problem Preprocedural examination (Z01.818) Active confirmed 014022617513557 Problem Anticoagulant long-term use (Z79.01) Active confirmed 047654793 Problem Diverticulosis of large intestine without perforation or abscess without bleeding (K57.30) Active confirmed Diverticul ar disease of colon (561437608) PLAN OF TREATMENT Pending Test Test Name Order Date Pathology 04/14/2023 Future Test Test Name Order Date COLONOSCOPY 01/26/2023 Insurance Providers Payer Name Payer Address Payer Phone Subscriber Number Group Number Insured Name Patient Relationship to Insured Coverage Start Date Coverage End Date MEDICARE OF [place] [address] [place] [id number] MELISA ADAME Self - patient is the insured MED[employer] ATTN CLAIMS [address] [place] [address] [id number] MELISA ADAME Self - patient is the insured MEDICAL (GENERAL) HISTORY Medical History History ICD Code Invasive right breast cancer 2005 Osteoporosis Hyperlipidemia Pacemaker insertion for comp lete heart block in 2019. This was associated with a NV Atrial fibrillation Denies DM,CVA,Lung disease,renal disease Surgical History Surgery Date(Month/Year) Exploratory laparotomy D&C 1991 Right hip replacement Lumpectomy with sentinel nod e excision for invasive right breast cancer 2005 Pacemaker insertion, Dr. Rajan, at [facility] e Cataract surgery 05/2021 Left hip replacement 11/2022
--- NOTE | 2024-08-09 07:57 | PHA.MEDREC ---
Pharmacy Consult ? Medication Reconciliation Pharmacy has reviewed the medication reconciliation completed by nursing. Doubled checked, nursing states she is no longer on her alendronate.
[2024-08-09] MEDS: Lactated Ringers 1,000 ML 50 ML IVCONT ×2 (08:04→17:31)
--- NOTE | 2024-08-09 13:38 | HO.ANESPROP2 ---
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 (Acute) Abnormal mammogram of right breast (Acute) Osteoporosis (Acute) Menopause (Acute) Well woman exam (Acute) VAIN I (vaginal intraepithelial neoplasia grade I) (Acute) Past Medical History Medical History Hx of radiation therapy Cognitive decline HLD (hyperlipidemia) Osteoporosis Cardiac pacemaker (~2019) Age related osteoporosis Hx of myocardial infarction CHB (complete heart block) Pacemaker Afib VAIN I (vaginal intraepithelial neoplasia grade I) History of bilateral breast cancer Family History Family History Mother Breast CA Family history of problems with anesthesia: No Surgical History Surgical History Hx of colonoscopy History of right hip replacement History of cataract surgery S/P hip replacement History of lumpectomy of both breasts Hx of abdominal hysterectomy H/O heart surgery History of Problems with Anesthesia: No (Wakes up tearful, upset) Social History Social History Household Members: None Housing: House Housing Other:: mobile home Are you a primary specialist wound care to a significant other at home: No Do you presently have visiting nurse or other home services: No Alcohol intake: current Alcohol intake frequency: a few times a month Patient Tobacco Use Status: Never used Tobacco Use of substances other than those prescribed or required for medical reasons: No Have you been hit, kicked, punched, or otherwise hurt by someone within the past year? If so, by whom?: No Are you DNR?: No Advance Directives: No Advance Directives Information Provided: Yes Advance Directives on File: No Recently lost weight without trying: No Nutrition Risks: Surgical patient >75years Sexual orientation: Straight/Heterosexual Gender identity: Female Meds Allergies Allergy/AdvReac Type Severity Reaction Status Date / Time marijuana (cannabis) Allergy Intermediate Nausea and Verified 07/26/24 13:06 Vomiting Sulfa (Sulfonamide Allergy Intermediate HIVES,ITCH Verified 07/26/24 13:06 Antibiotics) Active Medications: Current Medications Lactated Ringer's (Lr) 1,000 mls @ 50 mls/hr IVCONT .Q20H MOON Last Admin: 08/09/24 08:04 Dose: 50 mls/hr Home Medications ?Medication ?Instructions ?Recorded ?Confirmed ?Last Taken ?Type metoprolol succinate 25 mg 25 mg PO DAILY 02/12/21 07/25/24 08/08/24 History tablet,extended release 24 hr gabapentin 300 mg capsule 300 mg PO TID 03/31/23 07/25/24 08/08/24 History apixaban 5 mg tablet (Eliquis) 5 mg PO BID 07/25/24 07/25/24 08/04/24 History Exam Height,Weight and Vital Signs: Height 5 ft 2 in Weight 79.379 kg Last Vital Signs Temp 98.1 F 08/09/24 07:49 Pulse 62 08/09/24 07:49 Resp 16 08/09/24 07:49 BP 133/50 L 08/09/24 07:49 Pulse Ox 99 08/09/24 07:49 O2 Del Method Room Air 08/09/24 07:49 Pertinent Lab Results Pertinent Lab Results: Laboratory Tests 07/26/24 07/26/24 14:12 14:25 WBC 5.5 RBC 4.97 Hgb 14.4 Hct 42.6 MCV 85.7 MCH 29.0 MCHC 33.8 RDW 13.8 Plt Count 214 MPV 11.3 Immature Gran % (Auto) 0.4 Neut % (Auto) 55.1 Lymph % (Auto) 34.8 Blaine % (Auto) 7.0 Eos % (Auto) 1.8 Baso % (Auto) 0.9 Lymph # (Auto) 1.9 Blaine # (Auto) 0.4 Eos # (Auto) 0.1 Baso # (Auto) 0.1 Abs Immat Gran (auto) 0.02 Absolute Neuts (auto) 3.0 Absolute Nucleated RBC 0.000 Nucleated RBC % (auto) 0.0 Sodium 141 Potassium 4.3 Chloride 110 H Carbon Dioxide 24 Anion Gap 11 L BUN 9 Creatinine 0.68 Estim Creat Clear Calc 68.6 Estimated GFR > 60 Random Glucose 82 Calcium 9.9 Magnesium 2.1 Total Bilirubin 0.7 AST 25 ALT 15 Alkaline Phosphatase 73 B-Natriuretic Peptide 281 H Total Protein 7.2 Albumin 4.0 Vitamin B12 215 TSH 1.04 Blood Type O Negative Antibody Screen NEGATIVE Assessment and Plan Final Anesthetic Review Family History of Problems with Anesthesia: No History of Problems with Anesthesia: No (Wakes up tearful, upset) NPO: Yes Anesthetic Plan Anesthetic Plan: GA
--- NOTE | 2024-08-09 15:08 | W.PM.OPN ---
Operative Note Operative Note Date of Service: 08/09/24 Narrative: Preoperative diagnosis: Recurrent infiltrating ductal carcinoma right breast Postoperative diagnosis: Same Procedure: Bilateral simple mastectomy, right axillary sentinel node biopsy Surgeon: Sammy Samano MD Oil Well Directional Surveyor: Yennifer Muhammad PA-C Anesthesia: General plus pectoralis block Indications for procedure: 78-year-old female patient with a prior history of infiltrating ductal carcinoma of the right breast with previous radiation therapy now presenting with a new infiltrating ductal carcinoma of the right breast. After discussion of options with the patient she wishes for a mastectomy with sentinel node biopsy on the right side as well as a prophylactic left simple mastectomy. Operative findings: No sentinel node could be identified although a palpable node was removed from the right axilla. Specimen: Bilateral simple mastectomy, axillary fat pad, palpable enlarged right axillary lymph node Estimated blood loss: 20 mL Complications: None Procedure details: Patient was brought to the OR and placed in a supine position. After administering general anesthesia a bilateral pectoralis block was performed by anesthesia. Patient's bilateral breasts were prepped with ChloraPrep and draped in a sterile fashion. A surgical time-out was called the consent confirmed. Patient received preoperative antibiotics and Venodyne boots were placed. Beginning in the right breast a elliptical incision was created to encompass the nipple-areolar complex extending from the lateral edge of the sternum to the lower edge of the axilla. Electrocautery was then used to dissect the breast tissue off of the skin and subcutaneous tissue beginning with the upper flap. This was dissected up to the lower margin of the clavicle and down to chest wall. The lower flap was then dissected in a similar fashion down to the lower costal margin down to chest wall. The breast was then dissected off the chest wall from medial to lateral superior to inferior. Hemostasis was assured at all times using electrocautery and free ties of 3-0 Polysorb. The breast was removed and sent to pathology for further examination. Gamma probe was then used to examine the axilla. No radio activity could be identified in the right axilla. The clavipectoral fascia was entered and palpation of the axilla did reveal several palpable enlarged nodes which were excised. One exceptionally large node was removed and a 2nd collection of the axillary fat pad was removed as well. These were sent as separate specimens. No other palpable nodes or radioactive nodes could be identified. Attention was then directed to the left breast where again a elliptical incision was created to include the nipple-areolar complex extending from the lateral edge of the sternum up to the lower margin of the axilla. Superior skin flaps were then created using electrocautery. Care was taken to avoid contact with the pacemaker in the left chest. Dissection was continued below the skin and subcutaneous tissue up to the lower edge of the clavicle medially. Next the inferior flap was dissected again using electrocautery along the skin and subcutaneous tissue over the breast tissue down to lower chest wall. Breast was then dissected off of the chest wall from medial to lateral superior to inferior. No axillary nodes were taken with the specimen. The specimen was then removed and sent to pathology for further examination. Both left and right sides were irrigated with saline solution and suctioned dry. Wounds were again checked for hemostasis. Hemostasis was assured using electrocautery and free ties of 3-0 Polysorb. Two drains were placed in the right breast 1 in the axilla and a 2nd in the lower skin flap. A 3rd drain was placed in the left lower skin flap. All were secured using a 3-0 nylon suture. Drains were connected to a small bulb suctioned. Wounds were again checked for hemostasis. Dermis was then reapproximated using interrupted 3-0 Polysorb sutures. Skin was then closed on both sides using a running 4-0 Polysorb suture. Steri-Strips, 4 x 4 gauze and paper tape were then applied. The patient tolerated the procedure well. Sponge, instrument, and needle counts reported as correct. The patient was transferred to PACU in stable condition. Breast [place] Node Biopsy Substrate(s) used for sentinel node biopsy in the non-neoadjuvant setting: Radiotracer Substrate(s) used for sentinel node biopsy in the neoadjuvant setting: N/A All colored nodes or non-colored nodes present at the end of a dye filled lymphatic channel were removed, if dye was used as the substrate for localization: N/A All significantly radioactive nodes were removed, if radionuclide was used as the substrate for localization: Yes All palpably suspicious nodes were removed, if present: Yes If clips were placed in pathology-involved nodes, those nodes were identified and removed: N/A Procedure performed with curative intent?: Yes General Surg. - Synoptic Notes Breast [place] Node Biopsy Substrate(s) used for sentinel node biopsy in the non-neoadjuvant setting: Radiotracer Substrate(s) used for sentinel node biopsy in the neoadjuvant setting: N/A All colored nodes or non-colored nodes present at the end of a dye filled lymphatic channel were removed, if dye was used as the substrate for localization: N/A All significantly radioactive nodes were removed, if radionuclide was used as the substrate for localization: Yes All palpably suspicious nodes were removed, if present: Yes If clips were placed in pathology-involved nodes, those nodes were identified and removed: N/A Procedure performed with curative intent?: Yes
--- NOTE | 2024-08-09 16:16 | PM.EVENT ---
Event Note Date of Service: 08/09/24 Event Note: I was requested by the anesthesia team to reprogrammed her pacemaker during surgery. Briefly patient has what appears to be chronic atrial fibrillation. She has a [place] pacemaker which was programmed in VVIR at 60 beats per minute prior to surgery. This was reprogrammed during surgery to VOO at 75 beats per minute. Patient tolerated the pacemaker change will during the surgery and had no complications. Postoperatively I reprogrammed her pacemaker to her original setting at VVIR at 60 beats per minute Time Spent With Patient Time: Total time managing care of this patient today ____ minutes.
[2024-08-09] MEDS: Acetaminophen 1,000 MG/100 ML PIGGYBACK 400 MG IV ×2 (17:35→21:49)
--- NOTE | 2024-08-09 18:11 | PC.NURSE ---
Bilateral breast dressings clean dry and intact breast binder in use . right MILAN's A&B to self suction draining sangenous B draining more then A . Left Milan's C to self suction draining sangenous
[2024-08-10] MEDS: Acetaminophen 1,000 MG/100 ML PIGGYBACK 400 MG IV ×4 (03:02→22:55)
[2024-08-10 03:20] VITALS: BP 150/68; PULSE 60; RESP 18; TEMP 36.6; O2SAT 97
[2024-08-10 06:18] LABS: MANUAL DIFF FLAG NO
[2024-08-10 06:28] LABS: Basophils Percent Auto 0.1 % (0-2); Eosinophils Percent Auto 0.1 % (0-4); Hematocrit 34.7 % (37.0-47.0); Hemoglobin 11.8 g/dl (12.0-16.0); Imm Gran Abs Auto 0.05 X10*3/uL (0.00-0.03); Imm Gran Pct Auto 0.4 % (0.0-0.4); Lymphocytes Absolute Auto 0.7 X10*3/uL (1.2-4.9); Lymphocytes Percent Auto 6.4 % (20-40); Mean Corpuscular Hemoglobin 29.2 pg (27.0-33.0); Mean Corpuscular Volume 85.9 fL (80.0-98.0); Mean Platelet Volume 11.3 fL (9.4-12.3); Monocytes Absolute Auto 0.6 X10*3/uL (0.1-1.2); Monocytes Percent Auto 5.3 % (2-11); Neutrophils Absolute Auto 9.8 x10*3/uL (2.0-8.3); Neutrophils Percent Auto 87.7 % (45-73); Platelet Count 224 X10*3/uL (160-400); Red Blood Count 4.04 X10*6/uL (4.20-5.50); Red Cell Distribution Width 13.9 % (11.0-16.0); White Blood Count 11.2 X10*3/uL (4.8-10.8)
[2024-08-10 06:43] LABS: Anion Gap 12 (12-20); Blood Urea Nitrogen 17 mg/dL (9-16); Calcium 8.9 mg/dL (8.4-10.2); Carbon Dioxide 20 mmol/L (22-29); Chloride 111 mmol/L (96-108); Creatinine Clr Calc Pharmacy 67.6; Estimated Glomerular Filt Rate > 60; Glucose Random 125 mg/dL (60-115); Potassium 4.3 mmol/L (3.3-5.1); Sodium 139 mmol/L (135-145)
--- NOTE | 2024-08-10 06:47 | P.PNGS_ITS ---
Subjective Subjective Date of Service: 08/10/24 <[facility] - Last Filed: 08/10/24 07:02> 08/10/24 <Yennifer Muhammad PA-C - Last Filed: 08/10/24 09:03> 08/10/24 <Sammy Samano MD - Last Filed: 08/10/24 14:34> Interval history: Patient seen and examined this morning. States she is not in any pain currently. Has been only eating crackers due to low appetite. OOB to commode only. Urinating without difficulty. No flatus or Bowel movement yet. Denies shortness of breath, abdominal pain, nausea or diarrhea. <[facility] - Last Filed: 08/10/24 07:02> Physical Exam 2 Vital Signs: Vital Signs: Last Vital Signs Temp 98 F 08/10/24 03:20 Pulse 60 08/10/24 03:20 Resp 18 08/10/24 03:20 BP 150/68 H 08/10/24 03:20 Pulse Ox 97 08/10/24 03:20 O2 Del Method Room Air 08/10/24 03:20 O2 Flow Rate 2 08/09/24 20:00 BMI result Body Mass Index 32.0 <[facility] - Last Filed: 08/10/24 07:02> Const: Other: Laying in bed awake, calm, in no acute distress, orientated x3 <[facility] Last Filed: 08/10/24 07:02> Chest: Other: Dressings intact, All MILAN drains with sanguineous fluid intact, no tenderness. Chest binder in place. <[facility] - Last Filed: 08/10/24 07:02> Resp: Effort & Inspection: normal respiratory effort and able to speak in complete sentences <[facility] Last Filed: 08/10/24 07:02> Cardio: Other: Regular rate and rhythm <[facility] Last Filed: 08/10/24 07:02> GI: Other: Abdomen is soft and non tender, bowel sounds appreciated <[facility] - Last Filed: 08/10/24 07:02> Skin: Other: no lesions or rashes noted <[facility] - Last Filed: 08/10/24 07:02> Extrem: Other: Moving all extremities normally. No lower extremity edema noted. Slight tenderness to palpation noted popliteal fossa. No erythema or warmth noted in area. <[facility] - Last Filed: 08/10/24 07:02> Objective Data Active Medications Apixaban (Apixaban 5 Mg Tablet) 5 mg PO BID [facility] Calcium Carbonate (Calcium Carbonate 750 Mg Tab.Chew) 750 mg PO Q4H PRN PRN Reason: Heartburn Gabapentin (Gabapentin 300 Mg Capsule) 300 mg PO TID [facility] Hydromorphone HCl (Hydromorphone Hcl 0.5 Mg/0.5 Ml Syringe) 0.5 mg IVPUSH Q3H PRN; Protocol PRN Reason: Pain, Severe (Pain Scale 7-10) Lactated Ringer's (Lr) 1,000 mls @ 50 mls/hr IVCONT .Q20H [facility] Last Admin: 08/09/24 17:31 Dose: 50 mls/hr Documented By: TEDDY Acetaminophen (Ofirmev) 1,000 mg in 100 mls @ 400 mls/hr IV Q6H [facility] Last Infusion: 08/10/24 03:18 Dose: Infused Documented By: HALLE Magnesium Hydroxide (Milk Of Magnesia 30 Ml Oral.Susp) 30 ml PO DAILY PRN PRN Reason: Constipation Metoprolol Succinate (Metoprolol Succinate Er 25 Mg Tab.Er.24h) 25 mg PO DAILY [facility]; Protocol Ondansetron HCl (Ondansetron Hcl 4 Mg/2 Ml Vial) 4 mg IVPUSH QID PRN PRN Reason: Nausea Oxycodone HCl (Oxycodone Hcl Immed Release 5 Mg Tablet) 5 mg PO Q6H PRN PRN Reason: Pain, Moderate(Pain Scale 4-6) Sodium Chloride (0.9 % Sodium Chloride Flush 3 Ml Syringe) 3 ml IVFLUSH QSHIFT [facility] Last Admin: 08/09/24 22:00 Dose: Not Given Documented By: HALLE Non-Admin Reason: IV Running Zolpidem Tartrate (Zolpidem Tartrate 5 Mg Tablet) 5 mg PO BEDTIME PRN PRN Reason: Insomnia <[facility] - Last Filed: 08/10/24 07:02> Labs CBC & Chem 7: 08/10/24 05:28 08/10/24 05:28 <[facility] - Last Filed: 08/10/24 07:02> Labs: Laboratory Results - last 24 hr 08/10/24 05:28 MCV 85.9 MCH 29.2 MCHC 34.0 RDW 13.9 Plt Count 224 MPV 11.3 Immature Gran % (Auto) 0.4 Neut % (Auto) 87.7 H Lymph % (Auto) 6.4 L [place] % (Auto) 5.3 Eos % (Auto) 0.1 Baso % (Auto) 0.1 Lymph # (Auto) 0.7 L [place] # (Auto) 0.6 Eos # (Auto) 0.0 Baso # (Auto) 0.0 Abs Immat Gran (auto) 0.05 H Absolute Neuts (auto) 9.8 H Absolute Nucleated RBC 0.000 Nucleated RBC % (auto) 0.0 Anion Gap 12 Estim Creat Clear Calc 67.6 Estimated GFR > 60 Random Glucose 125 H Calcium 8.9 D <[facility] - Last Filed: 08/10/24 07:02> Procedures Date of Service Date of Service: 08/10/24 <[facility] - Last Filed: 08/10/24 07:02> 08/10/24 <Yennifer Muhammad PA-C - Last Filed: 08/10/24 09:03> 08/10/24 <Sammy Samano MD - Last Filed: 08/10/24 14:34> Progress Note: A&P Assessment and plan (1) 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 Pain is well controlled, chest exam benign, dressings intact, all MILAN drains with sanguineous fluid intact. Vitals wnl. Labs reviewed. wbc high at 11.2. Most likely reactive, will continue to monitor. Continue current pain regimen. Continue IVF for now. Increase OOB/ambulation. IS encourage. <[facility] - Last Filed: 08/10/24 07:02> Patient is POD #1 s/p bilateral simple mastectomies with sentinel node biopsy of the right. Pain is well controlled, chest exam benign, dressings intact, all MILAN drains with sanguineous fluid intact. Vitals wnl. Labs reviewed. wbc high at 11.2. Most likely reactive, will continue to monitor. Continue current pain regimen. Continue IVF for now. Increase OOB/ambulation. IS encourage. Agree with above assessment and plan. Patient is POD #1 s/p Bilateral simple mastectomy, right axillary sentinel node biopsy for recurrent right breast CA, prophylactic left mastectomy. Overall patient doing well. VSS. MILAN drain A on right with moderate to high sanguineous output, some fullness of right upper flap/axilla. Slight drift in H/H. Will continue to monitor. Repeat labs in AM. Cont to increase activity, OOB/IS use and pain control. <Yennifer Muhammad PA-C - Last Filed: 08/10/24 09:03> Patient is POD #1 s/p bilateral simple mastectomies with sentinel node biopsy of the right. Pain is well controlled, chest exam benign, dressings intact, all MILAN drains with sanguineous fluid intact. Vitals wnl. Labs reviewed. wbc high at 11.2. Most likely reactive, will continue to monitor. Continue current pain regimen. Continue IVF for now. Increase OOB/ambulation. IS encourage. Agree with above assessment and plan. Patient is POD #1 s/p Bilateral simple mastectomy, right axillary sentinel node biopsy for recurrent right breast CA, prophylactic left mastectomy. Overall patient doing well. VSS. MILAN drain A on right with moderate to high sanguineous output, some fullness of right upper flap/axilla. Slight drift in H/H. Will continue to monitor. Repeat labs in AM. Cont to increase activity, OOB/IS use and pain control. Patient seen and examined independently and I concur with the above assessment and plan. <Sammy Samano MD - Last Filed: 08/10/24 14:34> Time Spent With Patient Time: Total time managing care of this patient today ____ minutes. <[facility] - Last Filed: 08/10/24 07:02> Quality Stroke Does the patient have a stroke diagnosis?: No <Yennifer Muhammad PA-C - Last Filed: 08/10/24 09:03> VTE Prior VTE?: No <Yennifer Muhammad PA-C - Last Filed: 08/10/24 09:03> VTE Risk Level:: Surgical - moderate <[facility] - Last Filed: 08/10/24 07:02> VTE Device Contraindication: N/A - Device Ordered <[facility] - Last Filed: 08/10/24 07:02> VTE Drug Contraindication: N/A - Med Ordered <[facility] - Last Filed: 08/10/24 07:02>
[2024-08-10 07:15] VITALS: BP 144/65; PULSE 63; RESP 18; TEMP 36.7; O2SAT 97
[2024-08-10 08:20] VITALS: BP 144/65
[2024-08-10] MEDS: Gabapentin 300 MG CAPSULE PO ×3 (08:20→20:56)
[2024-08-10] MEDS: Metoprolol Succinate ER 25 MG TAB.ER.24H PO (08:20)
--- NOTE | 2024-08-10 08:30 | PC.NURSE ---
Todd A draining moderate amount . Marcelino Muhammad aware and at bedside
--- NOTE | 2024-08-10 10:28 | HO.POSTANES ---
Post Anesthesia Evaluation Post Anesthesia Evaluation Date of Service: 08/10/24 Vital Signs: Vital Signs Temp Pulse Resp BP Pulse Ox O2 Del Method 08/10/24 08:20 144/65 H 08/10/24 07:15 98.1 F 63 18 144/65 H 97 Room Air 08/10/24 03:20 98 F 60 18 150/68 H 97 Room Air Anesthesia: Nerve Block (left Pec 1 and Pec 2) and General Endotracheal-GETA Mental Status: Awake Pain Control: Satisfactory Nausea/Vomiting: None Hydration: Adequate Anesthesia-Related Issues: No Anes. Related Issues
--- NOTE | 2024-08-10 10:46 | MHC.CM.PN ---
IMM DELIVERED PT LIVES ALONE AND IS FUNCTIONALLY INDEPENDENT AT BASELINE. +DRIVES. PT STATES SHE HAS A COPY OF HER HCP WITH HER SON, WILL HAVE HIM BRING THE COPY, DECLINES TO COMPLETE A NEW ONE. PCP DR. BARBOSA. DP: HOME WITH [facility] FOR NURSING, PT DOES NOT HAVE A PREFERENCE BUT WILL ASK HER DIL WHO SHE USED IN THE PAST. CM WILL REAPPROACH FOR CHOICE OF [facility]. FAMILY WILL TRANSPORT HOME. CM WILL CONTINUE TO FOLLOW FOR ANY CHANGE TO DC PLAN/NEEDS
--- NOTE | 2024-08-10 11:22 | P.CONHOSP_ITS ---
History of Present Illness Data of Consult Service Date: 08/10/24 Primary Care Provider: Baldev Victoria MD [facility] Reason for consult: Medical management Pt is a 78-year-old female with a PMH significant for chronic AFib on Eliquis, complete heart block s/p pacemaker in place, hx of breast cancer, and neuropathy who is admitted to the hospital under general surgery services for elective bilateral simple mastectomies with right axillary sentinel node biopsy for recurrent infiltrating ductal carcinoma of right breast. POD1. Hospitalist consult for medical management. During patient's procedure anesthesia noted pt went into AFib and contacted Cardiology who temporarily reprogrammed pt's [place] pacemaker during surgery. Pacemaker was then postoperatively programmed back to baseline. Pt seen and evaluated her room where she is sitting comfortably in the recliner pt reports she was ?emotional? last night and had a difficult time sleeping, otherwise has no acute medical complaints. Pain well- controlled on current analgesic regimen. Denies shortness or breath or difficulty breathing. No chest pain/pressure, palpitations. Denies nausea, vomiting, abdominal pain. No headache, lightheadedness, or dizziness. Pt has not started passing gas or had a bowel movement. Has been up and out of bed ambulating with a walker to the bathroom. Review of Systems 2 Review of Systems: Negative except for that stated in the HPI [facility] Medical History Hx of radiation therapy Cognitive decline HLD (hyperlipidemia) Osteoporosis Cardiac pacemaker (~2019) Age related osteoporosis Hx of myocardial infarction CHB (complete heart block) Pacemaker Afib VAIN I (vaginal intraepithelial neoplasia grade I) History of bilateral breast cancer Family History Mother Breast CA Surgical History Hx of colonoscopy History of right hip replacement History of cataract surgery S/P hip replacement History of lumpectomy of both breasts Hx of abdominal hysterectomy H/O heart surgery Social History Household Members: None Housing: House Housing Other:: mobile home Are you a primary resident care associate to a significant other at home: No Do you presently have visiting nurse or other home services: Yes Alcohol intake: current Alcohol intake frequency: a few times a month Patient Tobacco Use Status: Never used Tobacco Smoked in Last 30 Days: No Patient Interested in Nicotine Replacement: No Patient Given Instructions on How to Stop Smoking: No Second Hand Smoke Exposure: No Use of substances other than those prescribed or required for medical reasons: No Currently Displaying Signs/Symptoms of Drug Intoxication Withdrawal: No Any prior treatment program specific to substance use: No Have you been hit, kicked, punched, or otherwise hurt by someone within the past year? If so, by whom?: No Do you feel safe in your current relationship?: No Current Relationship Is there a partner from a previous relationship who is making you feel unsafe now?: No Are you made to feel afraid or neglected: No Are you DNR?: No Advance Directives: No Advance Directives Information Provided: Yes Advance Directives on File: No Do you have a plan to hurt others: No Plan Recently lost weight without trying: No Eating poorly because of decreased appetite: No Nutrition Risks: No Nutritional Risk Patient : No : No Poor oral hygiene: No service: No Sexual orientation: Straight/Heterosexual Gender identity: Female Meds Allergies Allergy/AdvReac Type Severity Reaction Status Date / Time marijuana (cannabis) Allergy Intermediate Nausea and Verified 07/26/24 13:06 Vomiting Sulfa (Sulfonamide Allergy Intermediate HIVES,ITCH Verified 07/26/24 13:06 Antibiotics) Active Medications: Current Medications Apixaban (Apixaban 5 Mg Tablet) 5 mg PO BID [facility] Calcium Carbonate (Calcium Carbonate 750 Mg Tab.Chew) 750 mg PO Q4H PRN PRN Reason: Heartburn Gabapentin (Gabapentin 300 Mg Capsule) 300 mg PO TID [facility] Last Admin: 08/10/24 08:20 Dose: 300 mg Hydromorphone HCl (Hydromorphone Hcl 0.5 Mg/0.5 Ml Syringe) 0.5 mg IVPUSH Q3H PRN; Protocol PRN Reason: Pain, Severe (Pain Scale 7-10) Lactated Ringer's (Lr) 1,000 mls @ 50 mls/hr IVCONT .Q20H [facility] Last Admin: 08/09/24 17:31 Dose: 50 mls/hr Acetaminophen (Ofirmev) 1,000 mg in 100 mls @ 400 mls/hr IV Q6H [facility] Last Infusion: 08/10/24 03:18 Dose: Infused Magnesium Hydroxide (Milk Of Magnesia 30 Ml Oral.Susp) 30 ml PO DAILY PRN PRN Reason: Constipation Metoprolol Succinate (Metoprolol Succinate Er 25 Mg Tab.Er.24h) 25 mg PO DAILY [facility]; Protocol Last Admin: 08/10/24 08:20 Dose: 25 mg Ondansetron HCl (Ondansetron Hcl 4 Mg/2 Ml Vial) 4 mg IVPUSH QID PRN PRN Reason: Nausea Oxycodone HCl (Oxycodone Hcl Immed Release 5 Mg Tablet) 5 mg PO Q6H PRN PRN Reason: Pain, Moderate(Pain Scale 4-6) Sodium Chloride (0.9 % Sodium Chloride Flush 3 Ml Syringe) 3 ml IVFLUSH QSHIFT [facility] Last Admin: 08/10/24 07:37 Dose: Not Given Zolpidem Tartrate (Zolpidem Tartrate 5 Mg Tablet) 5 mg PO BEDTIME PRN PRN Reason: Insomnia Home Medications ?Medication ?Instructions ?Recorded ?Confirmed ?Last Taken ?Type metoprolol succinate 25 mg 25 mg PO DAILY 02/12/21 07/25/24 08/08/24 History tablet,extended release 24 hr gabapentin 300 mg capsule 300 mg PO TID 03/31/23 07/25/24 08/08/24 History apixaban 5 mg tablet (Eliquis) 5 mg PO BID 07/25/24 07/25/24 08/04/24 History Physical Exam 2 Vital Signs and Narrative: Vital Signs: Last Vital Signs Temp 98.1 F 08/10/24 07:15 Pulse 63 08/10/24 07:15 Resp 18 08/10/24 07:15 BP 144/65 H 08/10/24 08:20 Pulse Ox 97 08/10/24 07:15 O2 Del Method Room Air 08/10/24 07:15 O2 Flow Rate 2 08/09/24 20:00 BMI result Body Mass Index 32.0 General: AOx3, no acute distress Resp: CTA bilaterally CVS: S1, S2, RRR GI: +BS, NT, no distention Chest: Appropriate tenderness at surgical sites. MILAN drains in place with serosanguineous drainage Skin: Warm, dry Neuro: Cranial nerves II-XII grossly intact bilaterally. Motor grossly intact bilaterally Extremities: No edema Psych: Appropriate affect Results Labs 08/10/24 05:28 08/10/24 05:28 Labs: Laboratory Results - last 24 hr 08/10/24 05:28 MCV 85.9 MCH 29.2 MCHC 34.0 RDW 13.9 Plt Count 224 MPV 11.3 Immature Gran % (Auto) 0.4 Neut % (Auto) 87.7 H Lymph % (Auto) 6.4 L [place] % (Auto) 5.3 Eos % (Auto) 0.1 Baso % (Auto) 0.1 Lymph # (Auto) 0.7 L [place] # (Auto) 0.6 Eos # (Auto) 0.0 Baso # (Auto) 0.0 Abs Immat Gran (auto) 0.05 H Absolute Neuts (auto) 9.8 H Absolute Nucleated RBC 0.000 Nucleated RBC % (auto) 0.0 Anion Gap 12 Estim Creat Clear Calc 67.6 Estimated GFR > 60 Random Glucose 125 H Calcium 8.9 D Imaging Radiologist's Impressions: Impressions [facility] 08/09/24 07:50 IMPRESSION: There is isotope activity seen in the 4 quadrants around the right breast areola. At 30 minutes no extension of activity seen in the right axilla or the intramammary lymph nodes. 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 POD1. Hospitalist consult for medical management. Bilateral mastectomies Plan as per General surgery AFib Continue metoprolol Resume Eliquis as per General surgery Hypertension Patient's BP has been elevated postop as high as 168/79 currently 144/65 Likely secondary to pain Continue metoprolol Peripheral neuropathy Continue gabapentin Pt is otherwise clinically stable and without acute medical complaints. Will sign off for now. Thank you for allowing us to participate in the care of this pt. Please re-consult if any acute complaints or issues arise.
[2024-08-10] MEDS: Apixaban 5 MG TABLET PO ×2 (11:43→20:56)
[2024-08-10] MEDS: Lactated Ringers 1,000 ML 50 ML IVCONT (11:58)
[2024-08-10 16:00] VITALS: BP 125/58; PULSE 75; RESP 16; TEMP 36.3; O2SAT 95
[2024-08-10 19:32] VITALS: BP 121/57; PULSE 62; RESP 20; TEMP 37.1; O2SAT 97
[2024-08-10] MEDS: HYDROmorphone HCl 0.5 MG/0.5 ML SYRINGE IVPUSH (20:56)
[2024-08-11 04:00] VITALS: BP 137/60; PULSE 63; RESP 16; TEMP 36.8; O2SAT 100
[2024-08-11] MEDS: Acetaminophen 1,000 MG/100 ML PIGGYBACK 400 MG IV ×3 (05:15→17:41)
[2024-08-11] MEDS: Lactated Ringers 1,000 ML 50 ML IVCONT (06:09)
--- NOTE | 2024-08-11 06:41 | P.PNGS_ITS ---
Subjective Subjective Date of Service: 08/11/24 <[facility] - Last Filed: 08/11/24 06:56> 08/11/24 <Yennifer Muhammad PA-C - Last Filed: 08/11/24 07:55> 08/11/24 <Sammy Samano MD - Last Filed: 08/11/24 08:36> Interval history: Patient seen and examined this morning. Patient states she has a stretching sensation in her armpit region upon moving her arm. States her appetite is still low, but she is tolerating what she has eaten. Urinating without difficulty. Had a bowel movement overnight. Has been OOB to bathroom with walker. Denies chest pain, shortness of breath, abdominal pain, nausea or vomiting. <Ioherw-OZ-Yqyxhix-Ah Esa - Last Filed: 08/11/24 06:56> Patient seen and examined this morning. Patient states she has a stretching sensation in her armpit region upon moving her arm. States her appetite is still low, but she is tolerating what she has eating. Urinating without difficulty. Had a bowel movement overnight. Has been OOB to bathroom with walker. Denies chest pain, shortness of breath, abdominal pain, nausea or vomiting. <Sammy Samano MD - Last Filed: 08/11/24 08:36> Physical Exam 2 Vital Signs: Vital Signs: Last Vital Signs Temp 98.2 F 08/11/24 04:00 Pulse 63 08/11/24 04:00 Resp 16 08/11/24 04:00 BP 137/60 08/11/24 04:00 Pulse Ox 100 08/11/24 04:00 O2 Del Method Room Air 08/11/24 04:00 O2 Flow Rate 2 08/09/24 20:00 BMI result Body Mass Index 32.0 <[facility] - Last Filed: 08/11/24 06:56> Const: Other: Laying in bed, awake, calm but crying. <[facility]qn[facility] - Last Filed: 08/11/24 06:56> Orientation/consciousness: patient oriented x3 <Yennifer Muhammad PA-C - Last Filed: 08/11/24 07:55> Chest: Other: Chest is non tender to palpation, small bruise noted above incision on right side of chest. No erythema or warmth noted. Dressings intact, all MILAN drains with sanguineous fluid intact. <Gxagvo-RS-Fqadrzq-Ah Esa - Last Filed: 08/11/24 06:56> Other: Chest is non tender to palpation, small ecchymosis and fullness noted above incision on right side of chest. No erythema or warmth noted. Dressings intact, all MILAN drains with sanguineous fluid intact. <Yennifer Muhammad PA-C - Last Filed: 08/11/24 07:55> Resp: Effort & Inspection: normal respiratory effort and able to speak in complete sentences <[facility] - Last Filed: 08/11/24 06:56> Cardio: Rate: regular rate <[facility] - Last Filed: 08/11/24 06:56> Rhythm: regular rhythm <[facility] - Last Filed: 08/11/24 06:56> GI: Other: Abdomen is soft and non tender, non distended. <[facility] - Last Filed: 08/11/24 06:56> Skin: Other: No lesions or rashes noted. <[facility] - Last Filed: 08/11/24 06:56> Neuro: General: patient oriented x3 and moves all extremities <Yennifer Muhammad PA-C - Last Filed: 08/11/24 07:55> Extrem: Other: Moving all extremities normally, no lower extremity edema noted <[facility] - Last Filed: 08/11/24 06:56> Objective Data Active Medications Apixaban (Apixaban 5 Mg Tablet) 5 mg PO BID [facility] Last Admin: 08/10/24 20:56 Dose: 5 mg Documented By: HALLE Calcium Carbonate (Calcium Carbonate 750 Mg Tab.Chew) 750 mg PO Q4H PRN PRN Reason: Heartburn Gabapentin (Gabapentin 300 Mg Capsule) 300 mg PO TID [facility] Last Admin: 08/10/24 20:56 Dose: 300 mg Documented By: HALLE Hydromorphone HCl (Hydromorphone Hcl 0.5 Mg/0.5 Ml Syringe) 0.5 mg IVPUSH Q3H PRN; Protocol PRN Reason: Pain, Severe (Pain Scale 7-10) Last Admin: 08/10/24 20:56 Dose: 0.5 mg Documented By: HALLE Lactated Ringer's (Lr) 1,000 mls @ 50 mls/hr IVCONT .Q20H [facility] Last Admin: 08/11/24 06:09 Dose: 50 mls/hr Documented By: HALLE Acetaminophen (Ofirmev) 1,000 mg in 100 mls @ 400 mls/hr IV Q6H [facility] Last Infusion: 08/11/24 06:26 Dose: Infused Documented By: HALLE Magnesium Hydroxide (Milk Of Magnesia 30 Ml Oral.Susp) 30 ml PO DAILY PRN PRN Reason: Constipation Metoprolol Succinate (Metoprolol Succinate Er 25 Mg Tab.Er.24h) 25 mg PO DAILY [facility]; Protocol Last Admin: 08/10/24 08:20 Dose: 25 mg Documented By: TEDDY Ondansetron HCl (Ondansetron Hcl 4 Mg/2 Ml Vial) 4 mg IVPUSH QID PRN PRN Reason: Nausea Oxycodone HCl (Oxycodone Hcl Immed Release 5 Mg Tablet) 5 mg PO Q6H PRN PRN Reason: Pain, Moderate(Pain Scale 4-6) Sodium Chloride (0.9 % Sodium Chloride Flush 3 Ml Syringe) 3 ml IVFLUSH QSHIFT [facility] Last Admin: 08/11/24 02:02 Dose: Not Given Documented By: HALLE Non-Admin Reason: IV Running Zolpidem Tartrate (Zolpidem Tartrate 5 Mg Tablet) 5 mg PO BEDTIME PRN PRN Reason: Insomnia <[facility] Last Filed: 08/11/24 06:56> Labs CBC & Chem 7: 08/11/24 05:33 08/10/24 05:28 <[facility] - Last Filed: 08/11/24 06:56> Labs: Laboratory Results - last 24 hr 08/10/24 05:28 Anion Gap 12 Estim Creat Clear Calc 67.6 Estimated GFR > 60 Random Glucose 125 H Calcium 8.9 D <Hadley Kent - Last Filed: 08/11/24 06:56> Procedures Date of Service Date of Service: 08/11/24 <Hadley Donte - Last Filed: 08/11/24 06:56> 08/11/24 <Yennifer Muhammad PA-C - Last Filed: 08/11/24 07:55> 08/11/24 <Sammy Samano MD - Last Filed: 08/11/24 08:36> Progress Note: A&P Assessment and plan (1) S/P mastectomy, bilateral: Status: Acute <Hadley Kent - Last Filed: 08/11/24 06:56> (2) 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 Patient doing well. Patient required IV diluated last night, otherwise pain is well managed. Chest exam benign with small bruise noted above incision on right side of chest, dressings intact, all MILAN drains with sanguineous fluid intact. Vitals wnl. continue current pain regimen. continue IVF for now. Continue to increase activity, OOB/IS use encouraged. <Hadley Kent - Last Filed: 08/11/24 06:56> Patient is POD #2 s/p Bilateral simple mastectomy, right axillary sentinel node biopsy for recurrent right breast CA, prophylactic left mastectomy. Patient doing well. Patient required IV diluated last night, otherwise pain is well managed. Chest exam benign with small bruise noted above incision on right side of chest, dressings intact, all MILAN drains with sanguineous fluid intact. Vitals wnl. continue current pain regimen. continue IVF for now. Continue to increase activity, OOB/IS use encouraged. Agree with above assessment and plan. Patient doing well post op. Pain remains minimal and only at R axilla. Some fullness of right axilla, MILAN drains with decreasing sanguineous output. H/H stable. Will return later today for dressing change. Increase activity. PT consult. Possibly home later today or tomorrow if continues to do well. Will need VNA services. Dc IVF. <Yennifer Muhammad PA-C - Last Filed: 08/11/24 07:55> Patient is POD #2 s/p Bilateral simple mastectomy, right axillary sentinel node biopsy for recurrent right breast CA, prophylactic left mastectomy. Patient doing well. Patient required IV Dilaudid last night, otherwise pain is well managed. Chest exam benign with small bruise noted above incision on right side of chest, dressings intact, all MILAN drains with sanguineous fluid intact. Vitals wnl. continue current pain regimen. continue IVF for now. Continue to increase activity, OOB/IS use encouraged. Agree with above assessment and plan. Patient doing well post op. Pain remains minimal and only at R axilla. Some fullness of right axilla, MILAN drains with decreasing sanguineous output. H/H stable. Will return later today for dressing change. Increase activity. PT consult. Possibly home later today or tomorrow if continues to do well. Will need VNA services. Dc IVF. Patient seen and examined independently and agree with the above assessment and plan. Output remained serosanguineous but is decreased from yesterday. Agree with PT consultation. Pain in right axilla more related to MILAN drain and waning of the pectoralis block. Patient not ready for discharge to home today. <Sammy Samano MD - Last Filed: 08/11/24 08:36> Time Spent With Patient Time: Total time managing care of this patient today ____ minutes. <Hadley Donte - Last Filed: 08/11/24 06:56> Quality Stroke Does the patient have a stroke diagnosis?: No <Berna-Melinda Donte - Last Filed: 08/11/24 06:56> VTE Prior VTE?: No <Berna-Melinda Donte - Last Filed: 08/11/24 06:56> VTE Risk Level:: Surgical - moderate <Berna-Melinda Donte - Last Filed: 08/11/24 06:56> VTE Device Contraindication: N/A - Device Ordered <Uzymab-KR-Xqdnxzu-Ah Donte - Last Filed: 08/11/24 06:56> VTE Drug Contraindication: N/A - Med Ordered <Ouovsk-PL-Ssjrfxb-Ah Donte - Last Filed: 08/11/24 06:56>
[2024-08-11 07:02] LABS: MANUAL DIFF FLAG NO
[2024-08-11 07:11] LABS: Basophils Absolute Auto 0.1 X10*3/uL (0.0-0.2); Basophils Percent Auto 0.5 % (0-2); Eosinophils Absolute Auto 0.1 X10*3/uL (0.0-0.4); Eosinophils Percent Auto 0.5 % (0-4); Hematocrit 33.4 % (37.0-47.0); Hemoglobin 10.8 g/dl (12.0-16.0); Imm Gran Abs Auto 0.04 X10*3/uL (0.00-0.03); Imm Gran Pct Auto 0.4 % (0.0-0.4); Lymphocytes Absolute Auto 2.3 X10*3/uL (1.2-4.9); Lymphocytes Percent Auto 25.6 % (20-40); Mean Corpuscular HGB Conc 32.3 g/dl (31.0-35.0); Mean Corpuscular Hemoglobin 28.7 pg (27.0-33.0); Mean Corpuscular Volume 88.8 fL (80.0-98.0); Mean Platelet Volume 11.8 fL (9.4-12.3); Monocytes Absolute Auto 0.7 X10*3/uL (0.1-1.2); Monocytes Percent Auto 7.9 % (2-11); Neutrophils Absolute Auto 5.9 x10*3/uL (2.0-8.3); Neutrophils Percent Auto 65.1 % (45-73); Platelet Count 186 X10*3/uL (160-400); Red Blood Count 3.76 X10*6/uL (4.20-5.50); Red Cell Distribution Width 14.4 % (11.0-16.0); White Blood Count 9.1 X10*3/uL (4.8-10.8)
[2024-08-11 07:15] VITALS: BP 123/61; PULSE 71; RESP 16; TEMP 36.2; O2SAT 97
[2024-08-11] MEDS: Metoprolol Succinate ER 25 MG TAB.ER.24H PO (08:50)
[2024-08-11] MEDS: Apixaban 5 MG TABLET PO ×2 (08:50→21:15)
[2024-08-11] MEDS: Gabapentin 300 MG CAPSULE PO ×3 (08:51→21:15)
[2024-08-11 10:54] VITALS: BP 123/61; PULSE 71; O2SAT 97
--- NOTE | 2024-08-11 13:47 | MHC.CM.PN ---
EMR reviewed, pt is not medically cleared for discharge due to management of post-op care.
[2024-08-11 16:00] VITALS: BP 153/70; PULSE 64; RESP 18; TEMP 37.1; O2SAT 98
[2024-08-11] MEDS: 0.9 % Sodium Chloride Flush 3 ML SYRINGE IVFLUSH ×2 (17:40→21:19)
[2024-08-11 20:00] VITALS: BP 124/60; PULSE 62; RESP 18; TEMP 37.1; O2SAT 98
[2024-08-12 03:12] VITALS: BP 124/61; PULSE 63; RESP 16; TEMP 36.1; O2SAT 97
[2024-08-12] MEDS: Acetaminophen 1,000 MG/100 ML PIGGYBACK 400 MG IV (04:54)
[2024-08-12 06:49] VITALS: BP 132/65; PULSE 65; RESP 17; TEMP 36.6; O2SAT 96
[2024-08-12] MEDS: Gabapentin 300 MG CAPSULE PO ×2 (08:17→14:29)
[2024-08-12] MEDS: Apixaban 5 MG TABLET PO (08:17)
[2024-08-12] MEDS: Metoprolol Succinate ER 25 MG TAB.ER.24H PO (08:17)
[2024-08-12] MEDS: Docusate Sodium 100 MG CAPSULE PO (08:18)
[2024-08-12] MEDS: Acetaminophen 325 MG TABLET 650 MG PO (11:13)
--- NOTE | 2024-08-12 14:59 | P.F2F_ITS ---
Service Date Service Date: 08/12/24 Encounter Date of encounter: 08/12/24 Encounter: Status post bilateral mastectomy. VNA services regarding MILAN drain care until seen in follow-up in surgeon's office. Reasons for Services Signs and symptoms assessed: Status post bilateral mastectomy. MILAN drain care. Currently stable. Homebound: Leaving the home is medically contraindicated at this time without the asist of a device and/or another person due th the listed conditions above and below. Reason homebound: poor balance / fall risk and weakness related to hospital stay Certification: Based on the above findings, I certify that this patient is confined to the home and needs intermittent long term care, physical therapy and/or speech therapy, or continues to need occupational therapy. The patient is under my care, and I have initiated the establishment of the plan of care. The patient will be followed by a physician who will periodically review the plan of care. Time Spent With Patient Time: Total time managing care of this patient today ____ minutes.
[2024-08-12 16:00] VITALS: BP 120/64; PULSE 65; RESP 16; TEMP 37.1; O2SAT 99
--- NOTE | 2024-08-12 17:26 | PM.DS ---
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 After discussion of options with the patient she wishes for a mastectomy with sentinel node biopsy on the right side as well as a prophylactic left simple mastectomy. Preoperatively, patient was seen by cardiology at the request of anesthesia for her chronic atrial fibrillation with pacemaker. She has a [place] pacemaker which was programmed in [facility] at 60 beats per minute prior to surgery. This was reprogrammed during surgery to VOO at 75 beats per minute by Dr. Flores. Patient tolerated the pacemaker change well during the surgery and had no complications. Postoperatively she was reprogrammed her pacemaker to her original setting at [facility] at 60 beats per minute by Dr. Flores. HOSPITAL COURSE: On 08/09/24, bilateral simple mastectomy, right axillary sentinel node biopsy was performed by Dr. Samano without immediate complication. The patient tolerated the procedure well and was admitted post operatively for observation. Hospitalist consult was obtained for management of her medical comorbidities. Her eliquis was resumed. She had an uncomplicated recovery course and did well post operatively and remained inpatient for 3 days post operatively for pain control, increasing activity and to monitor MILAN drain output. Her MILAN drain output became less sanguineous and the output was decreasing. H/H remained stable. On the day of discharge, she was tolerating a solid diet without nausea or vomiting, had good pain control on oral analgesics. She was ambulating without difficulty. She was hemodynamically stable. Her incision sites were clean and MILAN output was improving. She was discharged to home with VNA services on 08/12/24 in stable condition. She is to follow up in the office in 1 week. She was discharged on a stool softener as she had not had a BM post operatively. Status at Discharge Functional status at discharge: uses cane/walker Overall status at discharge: patient is progressing back to baseline Time Attestation Discharge Coordination Time (in mins): 40 Quality: Safe Use of Opioids Does Pt have an Active Cancer Diagnosis on the Problem List?: Yes Opioid Measure Date for [facility] Report: 07/16/24 Opioid Measure Time for [facility] Report: 13:42 Quality: Stroke Does the patient have a stroke diagnosis?: No Physical Exam Vital Signs: Vital Signs: Last Vital Signs Temp 98.8 F 08/12/24 16:00 Pulse 65 08/12/24 16:00 Resp 16 08/12/24 16:00 BP 120/64 08/12/24 16:00 Pulse Ox 99 08/12/24 16:00 O2 Del Method Room Air 08/12/24 16:00 O2 Flow Rate 2 08/09/24 20:00 BMI result Body Mass Index 32.0 Const: General: comfortable, no acute distress and alert Orientation/consciousness: patient oriented x3 Chest: Other: mastectomy incision sites clean, steris intact, MILAN drain becoming less sanguineous appropriate post op tenderness b/l flaps viable appearing, ecchymosis of right upper flap Resp: Effort & Inspection: normal respiratory effort Skin: General skin exam: no rashes or lesions noted Neuro: General: patient oriented x3 and moves all extremities DS: Data Data Completed and Pending Pending studies at discharge: Pending at discharge 08/09/24 14:36 Surgical [PTH] Routine Discharge Plan Discharge Anticipated Discharge Date/Time: 08/12/24 12:10 Patient Disposition: Home Health Service Discharge Diagnosis: S/p bilateral mastectomy Referrals: [facility]ns [Other] - 1 Week Baldev Victoria MD [Primary Care Provider] - 1 Week Sammy Samano MD [Physician] - 1 Week Discharge Medications: New docusate sodium [Colace] 100 mg capsule 100 mg PO BID Qty: 30 0RF Rx Instructions: Take twice a day until you have a normal bowel movement. hydrocodone-acetaminophen 5-325 mg tablet 1 tab PO Q4-6H PRN (Reason: pain) Qty: 30 0RF Rx Instructions: Partial Fill upon patient request. Continued Eliquis 5 mg tablet 5 mg PO BID metoprolol succinate 25 mg tablet extended release 24 hr 25 mg PO DAILY gabapentin 300 mg capsule 300 mg PO TID Discharge Orders: Discharge Order (Routine); Ordered 08/12/24 Ordered By: Zachary Warner Diet: Advance to usual diet Activity on Discharge: No heavy lifting Stand Alone Forms: Patient Portal Discharge page Print Language: [place] Activity Restrictions/Additional Instructions: If the incision area is tender, you may apply an ice pack for short intervals (No more than 20 minutes on, followed by at least 20 minutes off). Do not apply heat. Do not use creams, lotions, or topical antibiotics. These can cause infection or allergic reaction. Ok to shower. You have steri strips on your incisions and these will fall off ~1 week. NO HEAVY LIFTING (>10lbs). MILAN drain care- empty drain BID and as needed. Record output. Bring record to follow up appointment. Follow up in office. ([phone]) Call Your Doctor If: ? ? -Your temperature exceeds 101.5? F? ? ? -You experience excessive pain or swelling ? ? -You have an unexpected reaction to medication ? ? -You have excessive bleeding ? ? -You experience continued vomiting/nausea ? ? -Your incision begins to separate ?? ? -Your incision shows signs of infection such as increased redness, swelling, excessive pain, drainage (light blood or clear fluid is normal) or heat Care Plan Goals: Return to baseline health and resume normal activities following recovery period. Health Concerns: recurrent right breast CA pacemaker in place Plan of Treatment: s/p bilateral mastectomy with right axillary sentinel lymph node biopsy home with VNA services for MILAN drain care follow up in office Assessment: Doing well post op. Patient Instructions: [place]-Way Drain Care (DC), Lymphedema (DC), Mastectomy (DC) Discharge Date/Time: 08/12/24 16:54
== END 2024-08-12 16:54 | disposition home health service (06) | DRG 580 ==
LOC: HO.SSSA 11:57 → HO.S3 15:27
PROVIDERS: Nurse Practitioner; Physician Assistant Surgical; Admitting Provider Surgery; PCP Internal Medicine Medical Oncology; Visit Provider Surgery
PROC: 07B50ZX Excision of Right Axillary Lymphatic, Open Approach, Diagnostic (ICD-10-PCS; CPT 19303; principal; 2024-08-09 11:30)
PROC: 07B50ZX Excision of Right Axillary Lymphatic, Open Approach, Diagnostic (ICD-10-PCS; 2024-08-09 11:30)
DX: C50.911 Malignant neoplasm of unspecified site of right female breast (principal); I44.2 Atrioventricular block, complete; I48.20 Chronic atrial fibrillation, unspecified; I10 Essential (primary) hypertension; G62.9 Polyneuropathy, unspecified; Z45.018 Encounter for adjustment and management of other part of cardiac pacemaker; Z79.01 Long term (current) use of anticoagulants; Z79.899 Other long term (current) drug therapy
CPT/HCPCS: 36415; 78195; 80048; 80053; 82607; 83735; 83880; 84443; 85025; 86850; 86900; 86901; 88304; 88305; 88307; 88341; 88342; 93005; 97162; A9520; J0131; J0665; J0690; J1100; J1171; J2003; J2371; J2405; J2704; J2795; J3010; J7120

== ENCOUNTER → 2024-08-09 07:03 | Outpatient (BNV) | payer MEDICARE, MEDICAID, SELFPAY | PROVIDERS: Admitting Provider Surgery; PCP Internal Medicine Medical Oncology; Visit Provider Surgery | DX: Z90.13 Acquired absence of bilateral breasts and nipples (principal); C50.911 Malignant neoplasm of unspecified site of right female breast | CPT/HCPCS: 19303; 38525; 38900; 99024; G0180 ==

== ENCOUNTER → 2024-08-09 07:03 | Outpatient (BNV) | payer MEDICARE, MEDICAID, SELFPAY | PROVIDERS: Admitting Provider Surgery; PCP Internal Medicine Medical Oncology; Visit Provider Student in an Organized Health Care Education/Training Program | DX: Z90.13 Acquired absence of bilateral breasts and nipples (principal); C50.911 Malignant neoplasm of unspecified site of right female breast | CPT/HCPCS: 99222 ==

== ENCOUNTER 2024-08-18 09:56 | Outpatient (AMB) | payer MEDICARE, MEDICAID, SELFPAY ==
--- NOTE | 2024-08-18 10:04 | A.OFFVIS_ITS ---
Vital Signs 08/18/24 10:09 Height 5 ft 2 in Weight 174 lb 9.698 oz BMI 31.9 Respiration 16 Pulse 62 Intake Visit Reasons: S/P bilat. MX w/Rt. SN bx Intake Note: Patient is seen in office for post op assessment post Bilateral simple mastectomy, right axillary sentinel node biopsy. Pt c/o: drain output about 15 to 22 ml, denies any signs of infection surgery:08/09/24 Radio Script Writer Required: No Allergies marijuana (cannabis) Allergy (Intermediate, Verified 07/26/24 13:06) Nausea and Vomiting Sulfa (Sulfonamide Antibiotics) Allergy (Intermediate, Verified 07/26/24 13:06) HIVES,ITCH HPI Comments Details: 78-year-old female patient presenting with a recent mammogram which revealed a cluster of calcifications in the right breast at the upper outer quadrant posterior depth. This was felt to be suspicious for malignancy in biopsy recommended. She underwent a stereotactic guided core biopsy at the [facility] on 05/02/2024. Pathology reveals a right breast invasive ductal carcino ma, grade 3, with ductal carcinoma in-situ, grade 3, estrogen receptor positive (95%) progesterone receptor low (5%), HER2 Domingo indeterminate, Ki-67 low (5-10%). She has a prior history of bilateral breast cancer including left breast infiltrating mammary carcinoma with both ductal and lobular features and DCIS, ER/MD positive, HER2 Domingo negative status post left breast lumpectomy with left axillary sentinel node biopsy on 05/03/[address] Leon. 0 of 1 sentinel lymph nodes were positive for metastatic disease. She later underwent a right breast lumpectomy on 10/15/2005 for DCIS. There was evidence of a possible venous invasion therefore she was subsequently underwent a wider excision and axillary sentinel node biopsy on 12/01/2005. The surgery was also performed by Dr. Leon. She underwent radiation therapy to both breasts. She is G 1 P 1, with 1 son living and did not breastfeed. 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 She discussed the pathology findings further with Dr. Victoria; She and her daughter have decided to proceed with a bilateral mastectomy which was subsequently performed on 08/09/2024. She tolerated the procedure well and was subsequently discharged to home on 08/12/2024 in stable condition. She returns today for a postop visit. Drainage from her JPs have been between 30 and 40 mL per day from each drain. In general she has no pain but does have some itchiness possibly from the drain site. She is due to see her oncologist later today. The final pathology report is not complete but conversation with Dr. Jesus this morning does reveal negative margins in the right breast and negative lymph nodes. Left breast was found to have no cancer. [facility] Medical History Hx of radiation therapy Cognitive decline HLD (hyperlipidemia) Osteoporosis Cardiac pacemaker (~2019) Age related osteoporosis Hx of myocardial infarction CHB (complete heart block) Pacemaker Afib VAIN I (vaginal intraepithelial neoplasia grade I) History of bilateral breast cancer Surgical History History of bilateral mastectomy (08/09/24) Hx of colonoscopy History of right hip replacement History of cataract surgery S/P hip replacement History of lumpectomy of both breasts Hx of abdominal hysterectomy H/O heart surgery Family History Mother Breast CA Social History Household Members: None Housing: House Housing Other:: mobile home Are you a primary spiritual care coordinator to a significant other at home: No Do you presently have visiting nurse or other home services: Yes Alcohol intake: current Alcohol intake frequency: a few times a month Patient Tobacco Use Status: Never used Tobacco Second Hand Smoke Exposure: No service: No Sexual orientation: Straight/Heterosexual Gender identity: Female Female Reproductive History Menstrual Age of Menarche: 15 Physical Exam Vital Signs: Last Vital Signs Pulse 62 08/18/24 10:09 Resp 16 08/18/24 10:09 BMI result Body Mass Index 31.9 Const General: comfortable Nutritional Appearance: well nourished Orientation/consciousness: patient oriented x3 Limitations: no limitations Chest Other: Intact bilateral mastectomy incisions with intact drains with serous and serosanguineous output. No wound infection, hematoma/seroma or skin necrosis is identified. 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 The patient had previously undergone lumpectomy, sentinel node biopsy and radiation therapy for right breast DCIS with possible venous invasion. She returns following bilateral simple mastectomy with right axillary sentinel node biopsy. She tolerated the procedure very well and returns for wound check today. Her MILAN drainage is still too high to consider removal therefore she will return in 1 week for drain removal. She is due to follow-up with her oncologist later today. Preliminary pathology report reveals some residual cancer in the right breast with negative margins and negative sentinel nodes. No cancer noted in the left breast. Final pathology should be completed later today per Dr. Jesus. 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
[2024-08-18 10:09] VITALS: PULSE 62; RESP 16; BMI 31.9
--- OUTSIDE RECORDS SUMMARY | 2024-08-18 10:37 | XMS_ITS ---
Author Organization Baldev Victoria III, MD Address [address] [place] [address] Care Team Providers Care Director Of Payroll Name Role Phone Baldev Victoria Primary Care Provider REASON FOR VISIT Message Social History Sex Assigned At : Social History Observation Description Sex Assigned At Female Encounters Encounter Location Date Provider Diagnosis Baldev Victoria III, MD [address] [place] [address] [place] [id number] 08/17/2024 Baldev Victoria Plan Of Treatment Next Appt Details Provider Name:Baldev Victoria, 08/18/2024 03:00:00 PM, [address] [place] [address] [place], [phone], Provider Name:Baldev Victoria, 09/29/2024 02:30:00 PM, [address] [place] [address] [place], [address], Progress Notes * Rosetta ADAMEDOB: [birth year] (78 yo F)Acc No.[id number]:08/17/2024 Patient:?Rosetta ADAME :1945???Age:78 Y???Sex:Female Address:[address] [place] [address] * true * Date:? Generated for Printi amber/Faaleciag/eTransmitting on:?08/18/2024 10:36 AM EST
--- OUTSIDE RECORDS SUMMARY | 2024-08-18 10:37 | XMS_ITS | Patient Health Record ---
Author Organization [facility] Address [address] [place] [address] Care Team Providers Care Gas Operations Analyst Name Role Phone Baldev Victoria MD Primary Care Provider Unavailab Baldev Souza Unavailable [phone] REASON FOR REFERRAL No Information MEDICATIONS Medication SIG (Take, Route, Frequency, Duration) Notes Start Date End Date Status Gabapentin 300 MG TAKE 1 CAPSULE BY MO [facility] THREE TIMES DAILY Diagnosis Unavailable Oral [...] Problem Colon cancer screening (Z12.11) Active confirmed 247633824 Problem Preprocedural examination (Z01.818) Active confirmed [id number] Problem Anticoagulant long-term use (Z79.01) Active confirmed 716406356 Problem Diverticulosis of large intestine without perforation or abscess without bleeding (K57.30) Active confirmed Diverticul ar disease of colon (230734910) PLAN OF TREATMENT Pending Test Test Name Order Date Pathology 04/14/2023 Future Test Test Name Order Date COLONOSCOPY 01/26/2023 Insurance Providers Payer Name Payer Address Payer Phone Subscriber Number Group Number Insured Name Patient Relationship to Insured Coverage Start Date Coverage End Date MEDICARE OF [place] [address] [place] [id number] MELSIA ADAME Self - patient is the insured MEDEX ATTN CLAIMS [address] [place] [address] [id number] MELISA ADAME Self - patient is the insured MEDICAL (GENERAL) HISTORY Medical History History ICD Code Invasive right breast cancer 2005 Osteoporosis Hyperlipidemia Pacemaker insertion for comp lete heart block in 2019. This was associated with a PA Atrial fibrillation Denies DM,CVA,Lung disease,renal disease Surgical History Surgery Date(Month/Year) Exploratory laparotomy D&C 1991 Right hip replacement Lumpectomy with sentinel nod e excision for invasive right breast cancer 2005 Pacemaker insertion, Dr. Rajan, at [facility] e Cataract surgery 05/2021 Left hip replacement 11/2022
--- OUTSIDE RECORDS SUMMARY | 2024-08-18 10:37 | XMS_ITS ---
Author Organization Baldev Victoria III, MD Address [address] [place] [address] Care Team Providers Care Uptwister Tender Name Role Phone Baldev Victoria Primary Care Provider [phone] Allergies Allergen (clinical drug ingredient) Drug/Non Drug Allergy documented on EMR Reaction Allergy Type Onset Date Status sulfacetamide Sulfacetamide Unknown Drug Allergy Active REASON FOR VISIT Follow up Medications Medication SIG (Take, Route, Frequency, Duration) Notes Start Date End Date Status Eliquis 5 mg TAKE 1 TABLET BY RUBÉN TH TWICE DAILY Active Alendronate Sodium 70 MG 1 tablet 30 min utes before the first food, beverage or medicine of the day with plain water Orally Active Gabapentin 300 MG 1 capsule Orally Onc e a day Active Gabapentin 300 mg TAKE 1 CAPSULE BY MO [facility] THREE TIMES DAILY Active Metoprolol Succinate ER 25 mg TAKE 1 TABLET BY MOUTH ONCE DAILY Active Social History Tobacco Use: Social History Observation Description Date Details (start date - stop date) Never Smoker NA - NA Sex Assigned At : Social History Observation Description Sex Assigned At Female Tobacco Control (Standard) Question Answer Notes Tobacco use: Nonsmoker Additional Findings: Tobacco non-user Aggressive nonsmoker Encounters Encounter Location Date Provider Diagnosis Baldev Victoria III, MD [address] [place] [address] [place] [address] 08/18/2024 Baldev Victoria History of breast cancer Z85.3 Assessments Encounter Date Diagnosis (ICD Code) Assessment Notes Treatment Notes Treatment Clinical Notes 08/18/2024 History of breast cancer (ICD-10 - Z85.3) A recent mammogram showed an abnormality in the right breast. A biopsy showed Invasivve breast cancer. After a discussion of the issues she has chosen to have bilateral mastectomies. This wiill go forward. Plan Of Treatment Medication Medication Name Sig Start Date Stop Date Notes Eliquis 5 mg TAKE 1 TABLET BY RUBÉN TH TWICE DAILY Alendronate Sodium 70 MG 1 tablet 30 min utes before the first food, beverage or medicine of the day with plain water Orally Gabapentin 300 MG 1 capsule Orally Once a day Gabapentin 300 mg TAKE 1 CAPSULE BY MO [facility] THREE TIMES DAILY Metoprolol Succinate ER 25 mg TAKE 1 TAB LET BY MOUTH ONCE DAILY Next Appt Details Provider Name:Baldev Victoria, 08/18/2024 03:00:00 PM, [address] [place] [address] SU[address], [place], [address], Provider Name:Baldev Victoria, 09/29/2024 02:30:00 PM, [address] [place] [address] SUKH[address] CAPELLAN, [place], [address], Progress Notes * Roestta ADAMEDOB: [birth year] (78 yo F)Acc No.[id number]:08/18/2024 Progress Notes Patient:?Rosetta ADAME Provider:?Baldev Victoria MD :1945???Age:78 Y???Sex:Female D ate:08/18/2024 Address: [place], [id number] Subjective: * Chief Complaints: * ???1. Follow up. * HPI: ???COVID-19 Screening:?Questions?Have you had any new onset fever, chills, cough, congestion, sore throat, shortness of breath, muscle aches??No * ROS:?General/Constitutional:?pain?only normal aches and pains.?Chills?denies.?Fatigue?admits.?Fever?denies.?ENT:?Decreased hearing?denies.?Respiratory:?Cough?denies.?Cardiovascular:?Chest pain with exertion?denies.?Dyspnea on exertion?denies.?Shortness of breath?denies.?Gastrointestinal:?Constipation?denies.?Decreased appetite?denies.?Diarrhea?denies.?Heartburn?denies.?Nausea?denies.?Rectal bleeding?denies.?Vomiting?denies.?Hematology:?bruising?denies.?petechiae?denies.?Swollen glands?none have been noted.?Genitourinary:?Frequent urination?denies.?Musculoskeletal:?Muscle aches?denies.?Painful joints?denies.?Sciatica?denies.?Weakness?denies.?Skin:?Itching?denies.?Rash?denies.?Skin lesion(s)?denies.?Neurologic:?Difficulty speaking?denies.?Dizziness?denies.?Headache?denies.?Low back pain?denies.?Psychiatric:?Depressed mood?denies.? * Medical History:?Bone spurs both feet, Obesity, [id number], Mild anemia, invasive right breast cancer 2006: lumpectomy, SN then RT, Osteoporosis, Hyperlipidemia, last bilateral mammogram 02/2012 @ [facility], third-degree heart block September 2018, septal infarct, pacemaker insertion, [facility], Dr. Rajan, Persistent atrial fibrillation, Chronic anticoagulation, Dual-chamber [place] pacemaker September 2018, Dr. Rajan, Early cognitive decline, November 2022. * Surgical History:?D&C 1991, laparotomy , right hip replacement 07/2011, lumpectomy with sentinel node excision for invasive right breast cancer, RT 2005, pacemaker insertion, Dr. Rajan, [facility] 09/2018, cataract surgery 05/2021, Left hip arthroplasty, [facility] 10/2022, Hip replacements , Lumpectomy left breast positive for infiltrating ductal and lobular carcinoma, RT 2001, invasive ductal carcinoma right breast, lumpectomy 2024, Lumpectomy in 2005 2005. * Hospitalization/Major Diagno stic Procedure:?right hip replacement , No history . * Family History:?Father: dece ased, unkown.?Mother: [...] longer climb stairs. She was born in [place]. She has been for 37 years. A son Daphne, aged 43, is working for [employer]. * Medications:?Taking Gabapent in 300 mg Capsule TAKE 1 CAPSULE BY MOUTH THREE TIMES DAILY , Taking Metoprolol Succinate ER 25 mg Tablet Extended Release 24 Hour TAKE 1 TABLET BY MOUTH ONCE DAILY , Taking Eliquis 5 mg Tablet TAKE 1 TABLET BY MOUTH TWICE DAILY , Taking Alendronate Sodium 70 MG Tablet 1 tablet 30 minutes before the first food, beverage or medicine of the day with plain water Orally , Discontinued Gabapentin 300 MG Capsule 1 capsule Orally Once a day , Medication List reviewed and reconciled with [...] sensory exam intact.?PSYCH:?alert, oriented.? Assessment: * Assessment: 1.?History of breast cancer - Z85.3???Notes :A recent mammogram showed an abnormality in the right breast. A biopsy showed Invasivve breast cancer. After a discussion of the issues she has chosen to have bilateral mastectomies. This wiill go forward.??? Plan: * Treatment: * Images: * The named appointment provid er may or may not be the originator of this progress note, and it is not deemed complete until electronically signed by the appointment provider. Sign off status: Pending * Provider:?Baldev Victoria MD Date:?07/30 Generated for Ronald clark/Mayra/eTransmitting on:?08/18/2024 10:36 AM EST History and Physical Notes * [...]
--- OUTSIDE RECORDS SUMMARY | 2024-08-18 10:37 | XMS_ITS ---
Author Organization [facility] Address [address] [place] [address] Care Team Providers Care Machine Operator Hop Worker Name Role Phone Baldev Victoria MD Primary Care Provider Unavailab Baldev Souza Unavailable [phone] REASON FOR VISIT screening PROBLEMS Problem Type ICD Code Onset Dates Problem Status W/U Status Risk SNOMED Code Notes Problem Diverticulosis of large intestine without perforation or abscess without bleeding (K57.30) Active confirmed Diverticul ar disease of colon (654237052) Encounters Encounter Location Date Provider Diagnosis [facility] [address] [place], [place] [id number] 04/14/2023 Baldev Hook Encounter for scre ening [...]
--- OUTSIDE RECORDS SUMMARY | 2024-08-18 10:37 | XMS_ITS ---
Author Organization Baldev Victoria III, MD Address [address] [address] Care Team Providers Care Contract Negotiation Manager Name Role Phone Baldev Victoria Primary Care Provider [phone] REASON FOR VISIT Message Social History Sex Assigned At : Social History Observation Description Sex Assigned At Female Encounters Encounter Location Date Provider Diagnosis Baldev Victoria III, MD [address] [place] [address] [place] [address] 08/16/2024 Baldev Victoria Plan Of Treatment Next Appt Details Provider Name:Baldev Victoria, 08/18/2024 03:00:00 PM, [address] [place] [address] [place], [address], Provider Name:Baldev Victoria, 09/29/2024 02:30:00 PM, [address] [place] [address] [place], [address], Progress Notes * Rosetta ADAMEDOB: [birth year] (78 yo F)Acc No.[id number]:08/16/2024 Patient:?Rosetta ADAME :1945???Age:78 Y???Sex:Female Address:[address] [place] [address] * true * Date:? Generated for Printi amber/Faaleciag/eTransmitting on:?08/18/2024 10:36 AM EST
== END 2024-08-18 10:23 | disposition home or self-care (01) ==
PROVIDERS: PCP Internal Medicine Medical Oncology; Visit Provider Surgery
DX: C50.911 Malignant neoplasm of unspecified site of right female breast (principal); Z90.13 Acquired absence of bilateral breasts and nipples
CPT/HCPCS: 99024

== ENCOUNTER → 2024-08-18 09:56 | Outpatient (BNVA) | payer MEDICARE, MEDICAID, SELFPAY | PROVIDERS: PCP Internal Medicine Medical Oncology; Visit Provider Surgery | DX: C50.911 Malignant neoplasm of unspecified site of right female breast (principal); Z90.13 Acquired absence of bilateral breasts and nipples | CPT/HCPCS: 99212 ==

== ENCOUNTER 2024-08-25 09:16 | Outpatient (AMB) | payer MEDICARE, MEDICAID, SELFPAY ==
--- NOTE | 2024-08-25 09:20 | A.OFFVIS_ITS ---
Intake Visit Reasons: one wk S/P bilat. MX w/Rt. SN bx Intake Note: Patient is seen in office for one week follow up, post Bilateral simple mastectomy, right axillary sentinel node biopsy. Pt c/o: reports minimal drain from sites A and C. About 20mm a day. Site B about 50mm. Patient not feeling too well stomach has been bothersome. Audio Visual Facilities Engineer Required: No Accompanied by: daughter in law Pat Allergies marijuana (cannabis) Allergy (Intermediate, Verified 08/25/24 09:38) Nausea and Vomiting Sulfa (Sulfonamide Antibiotics) Allergy (Intermediate, Verified 08/25/24 09:38) HIVES,ITCH HPI Comments Details: 78-year-old female patient presenting with a recent mammogram which revealed a cluster of calcifications in the right breast at the upper outer quadrant posterior depth. This was felt to be suspicious for malignancy in biopsy recommended. She underwent a stereotactic guided core biopsy at the [facility] on 05/02/2024. Pathology reveals a right breast invasive ductal carcinoma, grade 3, with ductal carcinoma in-situ, grade 3, estrogen receptor positive (95%) progesterone receptor low (5%), HER2 Domingo indeterminate, Ki-67 low (5-10%). She has a prior history of bilateral breast cancer including left breast infiltrating mammary carcinoma with both ductal and lobular features and DCIS, ER/NY positive, HER2 Domingo negative status post left breast lumpectomy with left axillary sentinel node biopsy on 05/03/[address] Leon. 0 of 1 sentinel lymph nodes were positive for metastatic disease. She later underwent a right breast lumpectomy on 10/15/2005 for DCIS. There was evidence of a possible venous invasion therefore she was subsequently underwent a wider excision and axillary sentinel node biopsy on 12/01/2005. The surgery was also performed by Dr. Leon. She underwent radiation therapy to both breasts. She is G 1 P 1, with 1 son living and did not breastfeed. 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 She discussed the pathology findings further with Dr. Victoria; She and her daughter have decided to proceed with a bilateral mastectomy which was subsequently performed on 08/09/2024. She tolerated the procedure well and was subsequently discharged to home on 08/12/2024 in stable condition. She returns today for a postop visit. Drainage from the drains continues to decrease. She denies any pain from the incision or drain sites. [facility] Medical History Hx of radiation therapy Cognitive decline HLD (hyperlipidemia) Osteoporosis Cardiac pacemaker (~2019) Age related osteoporosis Hx of myocardial infarction CHB (complete heart block) Pacemaker Afib VAIN I (vaginal intraepithelial neoplasia grade I) History of bilateral breast cancer Surgical History History of bilateral mastectomy (08/09/24) Hx of colonoscopy History of right hip replacement History of cataract surgery S/P hip replacement History of lumpectomy of both breasts Hx of abdominal hysterectomy H/O heart surgery Family History Mother Breast CA Social History Household Members: None Housing: House Housing Other:: mobile home Are you a primary care process manager to a significant other at home: No Do you presently have visiting nurse or other home services: Yes Alcohol intake: current Alcohol intake frequency: a few times a month Patient Tobacco Use Status: Never used Tobacco Second Hand Smoke Exposure: No service: No Sexual orientation: Straight/Heterosexual Gender identity: Female Female Reproductive History Menstrual Age of Menarche: 15 Physical Exam Const General: comfortable Nutritional Appearance: well nourished Orientation/consciousness: patient oriented x3 Limitations: no limitations Chest Other: Intact bilateral mastectomy incisions with intact drains with serous and serosanguineous output. No wound infection, hematoma/seroma or skin necrosis is identified. The 1 MILAN drain in the left side and 2 drains on the right side were removed today in the entry site covered with dry sterile dressings. The patient tolerated this very well. Skin Other: Warm, dry, no rash Neuro General: patient oriented x3 Extrem General: Yes no pedal edema Assessment & Plan Assessment & Plan (1) Recurrent infiltrating ductal carcinoma of right breast: Code(s): C50.911 - Malignant neoplasm of unspecified site of right female breast Category: Medical (2) S/P mastectomy, bilateral: Code(s): Z90.13 - Acquired absence of bilateral breasts and nipples Category: Surgical Plan 78-year-old female patient with a history of bilateral breast cancer now with a newly diagnosed invasive ductal carcinoma of the right breast found on stereotactic guided core biopsy performed at the [facility] on 06/01/2024. The patient had previously undergone lumpectomy, sentinel node biopsy and radiation therapy for right breast DCIS with possible venous invasion. She returns following bilateral simple mastectomy with right axillary sentinel node biopsy. She tolerated the procedure very well and returns for wound check today. All 3 of the bilateral MILAN drains were removed and the wounds covered with dry sterile dressings. I recommended follow-up examination in 2 weeks, sooner p.r.n.. Coding Level of Care Code Global (52040) Diagnoses Recurrent infiltrating ductal carcinoma of right breast C50.911 S/P mastectomy, bilateral Z90.13
--- OUTSIDE RECORDS SUMMARY | 2024-08-25 09:52 | XMS_ITS ---
Author Organization Baldev Victoria III, MD Address [address] [address] Care Team Providers Care Air Launch Weapons Technician Name Role Phone Baldev Victoria Primary Care Provider REASON FOR VISIT Message Social History Sex Assigned At : Social History Observation Description Sex Assigned At Female Encounters Encounter Location Date Provider Diagnosis Baldev Victoria III, MD [address] [place] [address] [place] [address] 08/16/2024 Baldev Victoria Plan Of Treatment Next Appt Details Provider Name:Baldev Victoria, 09/29/2024 02:30:00 PM, [address] [place] [address] [address] [place] [facility] [place], [address], Progress Notes * Rosetta ADAMEDOB: [birth year] (78 yo F)Acc No.[id number]:08/16/2024 Patient:?Rosetta ADAME :1945???Age:78 Y???Sex:Female Address:[address] [place] [address] * true * Date:? Generated for Printi ng/Faaleciag/eTransmitting on:?08/25/2024 09:52 AM EST
--- OUTSIDE RECORDS SUMMARY | 2024-08-25 09:53 | XMS_ITS ---
Author Organization Baldev Victoria III, MD Address [address] [place] [address] Care Team Providers Care Cast Iron Drain Pipe Layer Name Role Phone Baldev Victoria Primary Care Provider [phone] Allergies Allergen (clinical drug ingredient) Drug/Non Drug Allergy documented on EMR Reaction Allergy Type Onset Date Status sulfacetamide Sulfacetamide Unknown Drug Allergy Active REASON FOR VISIT Breast cancer, Recent bilateral mastectomy, Obesity, Atrial fibrillation, Heart block Medications Medication SIG (Take, Route, Frequency, Duration) [...] Nonsmoker Additional Findings: Tobacco non-user Aggressive nonsmoker Problems Problem Type SNOMED Code ICD Code Onset Dates Problem Status W/U Status Risk Notes Problem 144900083 Status post bilateral mastectomy (Z90.13) Active confirmed Her wounds are healing well. Pain is minimal. All of the lymph nodes were negative.Mar gins were clear. She has a left breast cancer in 2005. This was a right breast cancer. She is doing well. Problem 731003721 Malignant neoplasm of unspecified site of right female breast (C50.911) Active confirmed This was a ductal carcinoma which is node negative. She is receptor positive. The referred to Medical oncology. 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 Vital Signs Temperature 98.3 degrees Fahrenheit 08/18/19 25 Blood pressure systolic 137 mm Hg 08/18/19 25 Blood pressure diastolic 77 mm Hg 025 Heart Rate 60 /min 08/18/2024 Height 62 in 08/18/2024 Weight 167 lbs 08/18/2024 BMI 30.54 kg/m2 08/18/2024 Encounters Encounter Location Date Provider Diagnosis Baldev Victoria III, MD [address] [place] [address] [address] [place], [place] [address] 08/18/2024 Baldev Victoria Status post bilatera l mastectomy Z90.13 ; Obesity E66.9 ; Hyperlipidemia E78.5 ; Atrial fibrillation, unspecified type I48.91 ; Chronic anticoagulation Z79.01 ; Other obesity due to excess calories E66.09 ; Malignant neoplasm of unspecified site of right female breast C50.911 and Estrogen receptor positive status [ER+] Z17.0 Assessments Encounter Date Diagnosis (ICD Code) Assessment Notes Treat ment Notes Treatment Clinical Notes 08/18/2024 Status post bilatera l mastectomy (ICD-10 - Z90.13) Her wounds are healing well. Pain is minimal. All of the lymph nodes were negative.Margins were clear. She has a left breast cancer in 2005. This was a right breast cancer. She is doing well. 08/18/2024 Obesity (ICD-10 - E66.9) She has lost 4 pounds withh the surgery. Her body mass index is 30.. We reviewed her weight loss strategy. She will continue to lose weight at a rate of one half of a pound per week through a diet restricted in calories. 08/18/2024 Hyperlipidemia (ICD- 10 - E78.5) Her lipids are currently stable with a cholesterol of 199. Was continued on current therapy and encouraged to continue her weight loss. 08/18/2024 Atrial fibrillation, unspecified type (ICD-10 - I48.91) She was in a slightly irregular control rhythm today with no symptoms. No change in her medication was made. 08/18/2024 Chronic anticoagulation (ICD-10 - Z79.01) She is compliant with the medication. Has had no bleeding. 08/18/2024 Other obesity due to excess calories (ICD-10 - E66.09) Her body mass index is 31. We discussed her diet and nutrition and made a plan to lose weight at a rate of one half of a pound per week. 08/18/2024 Malignant neoplasm o f unspecified site of right female breast (ICD-10 - C50.911) This was a ductal carcinoma which is node negative. She is receptor positive. The referred to Medical oncology. 08/18/2024 Estrogen receptor positive status [ER+] (ICD-10 - Z17.0) She is a candidate for adjuvant endocrine therapy. Plan Of Treatment Medication Medication Name Sig [...] BY MOUTH ONCE DAILY Next Appt Details Follow Up: 4 Weeks, Reason: ov Provider Name:Baldev Victoria, 09/29/2024 02:30:00 PM, [address] [place] [address] [address] [place] [address], [place], [address], Progress Notes * Rosetta ADAMEDOB: [birth year] (78 yo F)Acc No.[id number]:08/18/2024 Progress Notes Patient:?Rosetta ADAME Provider:?Baldev Victoria MD :1945???Age:78 Y???Sex:Female D ate:08/18/2024 Address: [address], [id number] Subjective: * Chief Complaints: * ???Breast cancerRecent bilat eral mastectomyObesityAtrial fibrillationHeart block * HPI: ???COVID-19 Screening:?Questions?Have you had any new onset fever, chills, cough, congestion, sore throat, shortness of breath, muscle aches??No ???:?The patient, a 78-year-old female, recently underwent surgery. Prior to the surgery, she had already started losing weight for an unknown reason. Since her last visit to the doctor on July 17, she has lost 12 lbs. She reports that her clothes are now too big for her. She has no pain and her drains are still in the breast incisions. She is in regular rhythm and not in Nitro fibrillation. She is back on her anticoagulants, including Eliquis, which she takes twice a day. She also takes Alendronate and Gabapentin. She has some bruising, which is typical of recent surgery, and her steri strips are still on. Pain Scale is 0.She was discharged from [facility] August 12, 2024.? She saw her surgeon this morning.? She still has to surgical drains in place and the wounds are covered with Steri- Strips.? She has very little pain and no fever. The mastectomy specimen showed a small focus of residual disease and 2 negative lymph nodes.? The left breast was unremarkable. * ROS:?General/Constitutional:?Denies?pain,?Mild bilateral mastectomy incision discomfort.?Chills?denies.?Fatigue?admits.?Fever?denies.?ENT:?Decreased hearing?denies.?Respiratory:?Cough?denies.?Cardiovascular:?Chest pain with exertion?denies.?Dyspnea on exertion?denies.?Shortness of breath?denies.?Gastrointestinal:?Constipation?occasional.?Decreased appetite?denies.?Diarrhea?denies.?Heartburn?denies.?Nausea?denies.?Rectal bleeding?denies.?Vomiting?denies.?Hematology:?bruising?denies.?petechiae?denies.?Swollen glands?none have been noted.?Genitourinary:?Frequent urination?a small amount.?Musculoskeletal:?Muscle aches?denies.?Painful joints?denies.?Sciatica?denies.?Weakness?denies.?Skin:?Itching?denies.?Rash?denies.?Skin lesion(s)?denies.?Neurologic:?Difficulty speaking?denies.?Dizziness?denies.?Headache?denies.?Low back pain?denies.?Psychiatric:?Depressed mood?denies.? * Medical History:? * Surgical History:?D&C 1991la parotomy right hip replacement 07/2011lumpectomy with sentinel node excision for invasive right breast cancer, RT 2005pacemaker insertion, Dr. Rajan, [facility] 09/2018cataract surgery eft hip arthroplasty, [facility] 10/2022Hip replacements Lumpectomy left breast positive for infiltrating ductal and lobular carcinoma, RT 2001invasive ductal carcinoma right breast, lumpectomy, Bilateral mastectomy 2024Lumpectomy 2005 * Hospitalization/Major Diagno stic Procedure:?right hip [...] longer climb stairs. She was born in [place]. She has been for 37 years. A son Daphne, aged 43, is working for [employer]. * Medications:?TakingGabapenti n 300 mg Capsule TAKE 1 CAPSULE BY MOUTH THREE TIMES DAILY Metoprolol Succinate ER 25 mg Tablet [...] CAPSULE BY MOUTH THREE TIMES DAILY Taking Metoprolol Succinate ER 25 mg Tablet Extended Release 24 Hour TAKE 1 TABLET BY MOUTH ONCE DAILY Taking Eliquis 5 mg Tablet TAKE 1 TABLET BY MOUTH TWICE DAILY Taking Alendronate Sodium 70 MG Tablet 1 tablet 30 minutes before the first food, beverage or medicine of the day with plain water Orally DiscontinuedGabapentin 300 MG Capsule 1 capsule Orally Once a day Medication List reviewed and reconciled with the patientDiscontinued Gabapentin 300 MG Capsule 1 capsule Orally Once a day Medication List reviewed and reconciled with the patient * Allergies:?Sulfacetamideno[A llergies Verified] Objective: * Vitals:?Ht: 62, Wt:167, BMI: 30.54, BP:137/77, HR:60, Temp:98.3, Wt-k.75. * Examination: ???General Examination: ?GENERAL APPEARANCE:?pleasant, well nourished, well developed, in no acute distress, calm and relaxed, obese, woman.?HEAD:?atraumatic, normocephalic.?EYES:?eomi, perrla, anicteric, conjugate.?EARS:?normal.?NOSE:?septum intact.?ORAL CAVITY:?normal, unremarkable.?NECK/THYROID:?no jugular venous distention, no carotid bruit, thyroid normal.?LYMPH NODES:?no enlarged lymph nodes,spleen normal.?SKIN:?no suspicious lesions, anicteric.?HEART:?no clicks, gallops, murmurs, or rubs, regular rhythm, S1, S2 normal, no s3, or vascular bruits.?LUNGS:?clear to auscultation .?BREASTS:?Recent bilateral mastectomies with 3 drains and Steri-Strips in place.?ABDOMEN:?bowel sounds normal, no ascites, no organomegaly, no mass, centripital obesity.?RECTAL EXAM:?not examined.?MUSCULOSKELETAL:?extremities unremarkable, no clubbing, cyanosis or edema.?PERIPHERAL PULSES:?normal.?NEUROLOGIC:?alert and oriented, cranial nerves 2-12 grossly intact, deep tendon reflexes 2+ symmetrical, motor strength normal upper and lower extremities, sensory exam intact.?PSYCH:?alert, oriented, Mild memory defects.? Assessment: * Assessment: 1.?Status post bilateral mas tectomy - Z90.13 (Primary)???Notes :Her wounds are healing well.? Pain is minimal.? All of the lymph nodes were negative.Margins were clear.? She has a left breast cancer in 2005.? This was a right breast cancer. She is doing well.???2.?Obesity - E66.9???Notes :She has lost 4 pounds withh the surgery. Her body mass index is 30.. We reviewed her weight loss strategy. She will continue to lose weight at a rate of one half of a pound per week through a diet restricted in calories.???3.?Hyperlipidemia - E78.5???Notes :Her lipids are currently stable with a cholesterol of 199. Was continued on current therapy and encouraged to continue her weight loss.???4.?Atrial fibrillation, unspecified type - I48.91???Notes :She was in a slightly irregular control rhythm today with no symptoms. No change in her medication was made.???5.?Chronic anticoagulation - Z79.01???Notes :She is compliant with the medication. Has had no bleeding.???6.?Other obesity due to excess calories - E66.09???Notes :Her body mass index is 31. We discussed her diet and nutrition and made a plan to lose weight at a rate of one half of a pound per week.???7.?Malignant neoplasm of unspecified site of right female breast - C50.911???Notes :This was a ductal carcinoma which is node negative.? She is receptor positive.? The referred to Medical oncology.???8.?Estrogen receptor positive status [ER+] - Z17.0???Notes :She is a candidate for adjuvant endocrine therapy.??? Plan: * Treatment: * Procedure Codes:?51365 TRANS CARE MGMT 7 DAY DISCH * Preventive Medicine:? ??Counseling:?Care goal follow-up plan:?Counseling [...] or Other reason not done * Follow Up:?4 Weeks (Reason: ov) * Images: * Sign off status: Completed true * Provider:?Baldev Victoria MD Date:?07/30 Generated for Ronald clark/Mayra/Bernardoitting on:?08/25/2024 09:52 AM EST History and Physical Notes * [...] sounds normal, no ascites, no organomegaly, no mass, centripital obesity NEUROLOGIC: alert and oriented, cranial nerves 2-12 grossly intact, deep tendon reflexes 2+ symmetrical, motor strength normal upper and lower extremities, sensory exam intact SKIN: no suspicious lesion s, anicteric PERIPHERAL PULSES: normal BREASTS: Recent bilateral mas tectomies with 3 drains and Steri-Strips in place MUSCULOSKELETAL: extremities unremark able, no clubbing, cyanosis or edema LYMPH NODES: no enlarged lymph no kodi,spleen normal RECTAL EXAM: not examined PSYCH: alert, oriented, Mil d memory defects ORAL CAVITY: normal, unremarkable
--- OUTSIDE RECORDS SUMMARY | 2024-08-25 09:53 | XMS_ITS ---
Author Organization Baldev Victoria III, MD Address [address] [address] Care Team Providers Care Independent Insurance Adjuster Name Role Phone Baldev Victoria Primary Care Provider [phone] REASON FOR VISIT Message Social History Sex Assigned At : Social History Observation Description Sex Assigned At Female Encounters Encounter Location Date Provider Diagnosis Baldev Victoria III, MD [address] [place] [address] [place] [address] 08/17/2024 Baldev Victoria Plan Of Treatment Next Appt Details Provider Name:Baldev Victoria, 09/29/2024 02:30:00 PM, [address] [place] [address] [address] [place] [place], [address], Progress Notes * Rosetta ADAMEDOB: [birth year] (78 yo F)Acc No.[id number]:08/17/2024 Patient:?Rosetta ADAME :1945???Age:78 Y???Sex:Female Address:[address] [place] [address] * true * Date:? Generated for Printi ng/Faaleciag/eTransmitting on:?08/25/2024 09:52 AM EST
== END 2024-08-25 09:58 | disposition home or self-care (01) ==
PROVIDERS: PCP Internal Medicine Medical Oncology; Visit Provider Surgery
DX: C50.911 Malignant neoplasm of unspecified site of right female breast (principal); Z90.13 Acquired absence of bilateral breasts and nipples
CPT/HCPCS: 99024

== ENCOUNTER → 2024-08-25 09:16 | Outpatient (BNVA) | payer MEDICARE, MEDICAID, SELFPAY | PROVIDERS: PCP Internal Medicine Medical Oncology; Visit Provider Surgery | DX: C50.911 Malignant neoplasm of unspecified site of right female breast (principal); Z90.13 Acquired absence of bilateral breasts and nipples | CPT/HCPCS: 99212 ==

== ENCOUNTER 2024-08-31 09:46 | Outpatient (AMB) | payer MEDICARE, MEDICAID, SELFPAY ==
--- NOTE | 2024-08-31 09:57 | MHC.OFFVIS ---
Vital Signs 08/31/24 10:05 Height 5 ft 2 in Weight 174 lb 9.698 oz BMI 31.9 BP 122/62 Blood Pressure Location Lt brachial Position Sitting Intake Visit Reasons: breast drainage (tubes removed) Intake Note: Patient is seen in office for wound check post bilateral simple mastectomy. Pt c/o: admits to swelling, near the axilla fluid on both sides, left side is worse Mover Helper Required: No River Transportation Worker: River Transportation Worker Present Accompanied by: Self / Same As Patient Allergies marijuana (cannabis) Allergy (Intermediate, Verified 08/31/24 10:05) Nausea and Vomiting Sulfa (Sulfonamide Antibiotics) Allergy (Intermediate, Verified 08/31/24 10:05) HIVES,ITCH HPI Comments Details: Patient returns complaining of bilateral swelling in her mastectomy incisions. She feels fluid is accumulated. PFSH Medical History Hx of radiation therapy Cognitive decline HLD (hyperlipidemia) Osteoporosis Cardiac pacemaker (~2018) Age related osteoporosis Hx of myocardial infarction CHB (complete heart block) Pacemaker Afib VAIN I (vaginal intraepithelial neoplasia grade I) History of bilateral breast cancer Surgical History History of bilateral mastectomy (08/09/24) Hx of colonoscopy History of right hip replacement History of cataract surgery S/P hip replacement History of lumpectomy of both breasts Hx of abdominal hysterectomy H/O heart surgery Family History Mother Breast CA Social History Household Members: None Housing: House Housing Other:: mobile home Are you a primary physician assistant primary care to a significant other at home: No Do you presently have visiting nurse or other home services: Yes Alcohol intake: current Alcohol intake frequency: a few times a month Patient Tobacco Use Status: Never used Tobacco Second Hand Smoke Exposure: No service: No Sexual orientation: Straight/Heterosexual Gender identity: Female Female Reproductive History Menstrual Age of Menarche: 15 Physical Exam Vital Signs: Last Vital Signs BP 122/62 08/31/24 10:05 BMI result Body Mass Index 31.9 Const General: no acute distress Nutritional Appearance: well nourished Orientation/consciousness: patient oriented x3 Chest Other: Bilateral mastectomy incisions are clean and intact. There is definitely fluid accumulation bilaterally right greater than left. A needle aspiration was performed on both sides after assuring informed consent. Skin was prepped with Betadine and local anesthesia anesthetized the skin using lidocaine 1%. Approximately 200 mL of serosanguineous fluid was aspirated from the right chest wall and 120 mL aspirated from the left side. The patient tolerated the procedure very well. Neuro General: patient oriented x3 Assessment & Plan Assessment & Plan (1) S/P mastectomy, bilateral: Code(s): Z90.13 - Acquired absence of bilateral breasts and nipples Category: Surgical (2) Seroma of breast: Code(s): N64.89 - Other specified disorders of breast Category: Medical Plan Patient tolerated seroma aspiration of bilateral chest wall with no difficulties. She will return in 1 week for probable repeat seroma aspiration. Coding Level of Care Code Global (04331) Diagnoses S/P mastectomy, bilateral Z90.13 Seroma of breast N64.89
[2024-08-31 10:05] VITALS: BP 122/62; BMI 31.9
--- OUTSIDE RECORDS SUMMARY | 2024-08-31 11:11 | XMS_ITS ---
Author Organization Baldev Victoria III, MD Address [address] [place] [address] Care Team Providers Care Enterostomal Therapy Nurse Name Role Phone Baldev Victoria Primary Care Provider [phone] REASON FOR VISIT Message Social History Sex Assigned At : Social History Observation Description Sex Assigned At Female Encounters Encounter Location Date Provider Diagnosis Baldev Victoria III, MD [address] [place] [address] [facility] [place] [address] 08/17/2024 Baldev Victoria Plan Of Treatment Next Appt Details Provider Name:Baldev Victoria, 09/29/2024 02:30:00 PM, [address] [place] [address] [place], [address], Progress Notes * Rosetta ADAMEDOB: [birth year] (78 yo F)Acc No.[id number]:08/17/2024 Patient:?Rosetta ADAME :1945???Age:78 Y???Sex:Female Address:[address] [place] [address] * true * Date:? Generated for Printi amber/Mayra/eTransmitting on:?08/31/2024 11:11 AM EST
--- OUTSIDE RECORDS SUMMARY | 2024-08-31 11:11 | XMS_ITS | Continuity of Care Document ---
Author Organization [facility] Address [address] [place] [address]- Care Team Providers Care Special Warfare Operator Name Role Phone Baldev Victoria MD Primary Care Physician Encounter [facility] Date(s): 07/22/24 - 08/21/24 [facility] [address] [place] [address]- Attending Physician: Lacy Sotomayor Admitting Physician: Lacy Sotomayor Referring Physician: Lacy Sotomayor Encounter Type: Triage Allergies, Adverse Reactions, Alerts Substance Criticality Severity Reaction Reaction Severity Status sulfa drugs Active amLODIPine Active Medications acetaminophen 325 mg oral tablet 650 mg, By Mouth, Every 6 hours, May take OTC not to exceed 3000 mg/day, Refills 0, Maintenance, 11/21/22 8:41:00 AM EDT, Partial fill upon patient request if the prescription is for a schedule II opioid drug. Start Date: 11/21/22 Status: Ordered Repeat number: 1 calcium (as carbonate)-vitamin D 600 mg-800 intl units oral tablet, chewable 1 tablet, Chew, 2 times a day, # 60 tablet, 0 Refills, Maintenance, 11/19/22 11:44:00 AM EDT, Chew Tablet, Partial fill upon patient request if the prescription is for a schedule II opioid drug. Start Date: 11/19/22 Status: Ordered Quantity: 60.0 Unit: tablet Repeat number: 1 Colace Capsule 100 mg, 1, capsule, By Mouth, 2 times a day, Refills 0, Maintenance, 11/21/22 8:41:00 AM EDT, Partial fill upon patient request if the prescription is for a schedule II opioid drug. Start Date: 11/21/22 Status: Ordered Repeat number: 1 Eliquis 5 mg oral tablet 1 tablet = 5 mg, By Mouth, 2 times a day, # 60 tablet, 0 Refills, Maintenance, 04/03/21 2:24:00 PM EDT, Tablet, Partial fill upon patient request if the prescription is for a schedule II opioid drug. Start Date: 04/03/21 Status: Ordered Quantity: 60.0 Unit: tablet Repeat number: 1 gabapentin 300 mg oral capsule TAKE 1 CAPSULE BY MOUTH THREE TIMES DAILY Start Date: 11/11/22 Status: Ordered Repeat number: 1 MiraLax Powder 1 pack/packet = 17 Gm, By Mouth, Daily, PRN Constipation, 0 Refills, Maintenance, 11/21/22 8:41:00 AM EDT, Powder, Partial fill upon patient request if the prescription is for a schedule II opioid drug. Start Date: 11/21/22 Status: Ordered Repeat number: 1 senna 187 mg oral tablet 1 tablet = 8.6 mg, By Mouth, Daily at bedtime, PRN as needed for constipation, 0 Refills, Maintenance, 11/21/22 8:41:00 AM EDT, Tablet, Partial fill upon patient request if the prescription is for a schedule II opioid drug. Start Date: 11/21/22 Status: Ordered Repeat number: 1 Toprol XL 25 mg oral tablet, extended release 25 mg, 1, tablet, By Mouth, Daily, # 30 tablet, Refills 3, Tot. Refills 3, Maintenance, 12/09/18 12:50:58 PM EDT, Route to Pharmacy Electronically, [facility] - [place] Start Date: 12/09/18 Status: Ordered Quantity: 30.0 Unit: tablet Repeat number: 4 Problem List Condition Confirmation Course Effective Dates Status Health St atus Informant Afib Confirmed Active Pacemaker Confirmed Active CHB (complete heart block) Confirmed Active Breast CA Confirmed Active Obese class I Confirmed Active Social History Social History Type Response Smoking Status Never (less than 100 in lifetime) entered on: 11/11/22 Sex Female Sex Representation Female (finding) Patient Care team information Care Team Personnel Name: Baldev Victoria MD Position: [facility] Physician - Oncology Member Role: PCP Address: [address] [place] [address] [address] [place] [address]- Telecom: Name: Yennifer Szymanski RN Position: S RN Member Role: Primary Care Nurse Name: Mandy Ayon RN Position: S RN Member Role: Primary Care Nurse Name: Debora Medrano RN Position: [facility] RN Member Role: Primary Care Nurse Name: Ngoc Day RN Position: [facility] RN Member Role: Primary Care Nurse Care Team Related Persons Name: DAPHNE ADAME Insurance Providers Guarantor name: OMARI Health Plan Information #: 1 Payer: MEDICARE PART B OUTPT Member Number: NA Policy Number: NA Group Number: OMARI Health Plan Information #: 2 Payer: MEDEX Member Number: NA Policy Number: NA Group Number: NA Health Plan Information #: 3 Payer: I10 MEDICARE SUPPL 2NDRY Member Number: NA Policy Number: NA Group Number: NA
--- OUTSIDE RECORDS SUMMARY | 2024-08-31 11:11 | XMS_ITS ---
Author Organization Baldev Victoria III, MD Address [address] [place] [address] Care Team Providers Care Dry Wall Installer Name Role Phone Baldev Victoria Primary Care Provider REASON FOR VISIT Message Social History Sex Assigned At : Social History Observation Description Sex Assigned At Female Encounters Encounter Location Date Provider Diagnosis Baldev Victoria III, MD [address] [place] [address] [place] [address] 08/16/2024 Baldev Victoria Plan Of Treatment Next Appt Details Provider Name:Baldev Victoria, 09/29/2024 02:30:00 PM, [address] [place] [address] [place], [address], Progress Notes * Rosetta ADAMEDOB: [birth year] (78 yo F)Acc No.[id number]:08/16/2024 Patient:?Rosetta ADAME :1945???Age:78 Y???Sex:Female Address:[address] [place] [address] * true * Date:? Generated for Printi amber/Mayra/eTransmitting on:?08/31/2024 11:11 AM EST
--- OUTSIDE RECORDS SUMMARY | 2024-08-31 11:11 | XMS_ITS | Continuity of Care Document ---
Author Organization [facility] Address [address] [place] [address]- Care Team Providers Care Livestock Trader Name Role Phone Baldev Victoria MD Primary Care Physician [phone] Encounter [facility] Date(s): 04/22/24 - 08/20/24 [facility] [address] [place] [address]- Attending Physician: Perez Rajan MD Admitting Physician: Perez Rajan MD Referring Physician: Baldev Victoria MD Encounter Type: Pre-OutPatient One Time Allergies, Adverse Reactions, Alerts Substance Criticality Severity [...] 12:50:58 PM EDT, Route to Pharmacy Electronically, [facility] - [place] [...] Team Personnel Name: Baldev Victoria MD Position: [facility] Physician - Oncology Member Role: PCP Address: [address] [place] [address] [address] [place] [address]- Telecom: Name: Yennifer Szymanski RN Position: S RN Member Role: Primary Care Nurse Name: Mandy Ayon RN Position: [facility] RN Member Role: Primary Care Nurse Name: Debora Medrano RN Position: [facility] RN Member Role: Primary Care Nurse Name: Ngoc Day RN Position: JOSE RN Member Role: Primary Care Nurse Care Team Related Persons Name: DAPHNE ADAME Insurance Providers Guarantor name: OMARI Health Plan Information #: 2 Payer: MEDEX Member Number: [id number] Policy Number: NA Group Number: Health Plan Information #: 1 Payer: MEDICARE PART B OUTPT Member Number: [id number] Policy Number: NA Group Number: OMARI Health Plan Information #: 3 Payer: I10 MEDICARE SUPPL [id number] Member Number: [id number] Policy Number: Group Number: NA
--- OUTSIDE RECORDS SUMMARY | 2024-08-31 11:12 | XMS_ITS ---
Author Organization Baldev Victoria III, MD Address [address] [place] [address] Care Team Providers Care Window Unit Air Conditioning Mechanic Name Role Phone Baldev Victoria Primary Care Provider [phone] Allergies Allergen (clinical drug ingredient) Drug/Non Drug [...] Problem Status W/U Status Risk Notes Problem 400604923 Status post bilateral mastectomy (Z90.13) Active confirmed Her wounds are healing well. Pain is minimal. All of the lymph nodes were negative.Mar gins were clear. She has a left breast cancer in 2005. This was a right breast cancer. She is doing well. Problem 293905419 Malignant neoplasm of unspecified site of right female breast (C50.911) Active confirmed This was a ductal carcinoma which is node negative. She is receptor positive. The referred to Medical oncology. Problem 415389750 Estrogen receptor positive status [ER+] (Z17.0) Active [...] Date Provider Diagnosis Baldev Victoria III, MD [address] [place] [address] [address] [place], [place] [address] 08/18/2024 Baldev Victoria Status post bilatera l [...] ov Provider Name:Baldev Victoria, 09/29/2024 02:30:00 PM, [address] [place] [address] [address] [address] [address], [place], [address], Progress Notes * Rosetta ADAMEDOB: [birth year] (78 yo F)Acc No.[id number]:08/18/2024 Progress Notes Patient:?Rosetta ADAME Provider:?Baldev Victoria MD :1945???Age:78 Y???Sex:Female D ate:08/18/2024 Address: [address], [id number] Subjective: * Chief Complaints: * ???Breast cancerRecent [...] Pain Scale is 0.She was discharged from [facility] August 12, 2024.? She saw her [...] breast cancer, RT 2005pacemaker insertion, Dr. Rajan, [facility] 09/2018cataract surgery eft hip arthroplasty, [facility] 10/2022Hip replacements Lumpectomy left breast positive [...] longer climb stairs. She was born in [place]. She has been for 37 years. A son Daphne, aged 43, is working for [employer]. * Medications:?TakingGabapenti n 300 mg Capsule TAKE [...] endocrine therapy.??? Plan: * Treatment: * Procedure Codes:?36445 TRANS CARE MGMT 7 DAY DISCH * [...] Victoria MD Date:?07/30 Generated for Ronald clark/Mayra/Bernardoitting on:?08/31/2024 11:11 AM EST History and Physical Notes * [...]
--- OUTSIDE RECORDS SUMMARY | 2024-08-31 11:12 | XMS_ITS | Patient Health Record ---
Author Organization [facility] Address [address] [place] [address] Care Team Providers Care Folder Taper Operator Name Role Phone Baldev Victoria MD Primary Care Provider Unavailab Baldev Souza Unavailable [phone] Reason For Referral No Information Medications Medication SIG (Take, Route, Frequency, Duration) Notes Start Date End Date Status Gabapentin 300 MG TAKE 1 CAPSULE BY MO [facility] THREE TIMES DAILY Diagnosis Unavailable Oral for [...] Once a day for 30 day(s) Not-Taking Problems Problem Type SNOMED Code ICD Code Onset Dates Problem Status W/U Status Risk Notes Problem 789666190 Colon cancer screening (Z12.11) Active confirmed Problem Diverticular disease of colon (615182111) Diverticulosis of large intestine without perforation or abscess without bleeding (K57.30) Active confirmed Problem 701359923681145 Preprocedural examination (Z01.818) Active confirmed Problem 540586979 Anticoagulant long-term use (Z79.01) Active confirmed Plan Of Treatment Pending Test Test Name Order Date Pathology 04/14/2023 Future Test Test Name Order Date COLONOSCOPY 01/26/2023 Insurance Providers Payer Name Payer Address Payer Phone Subscriber Number Group Number Insured Name Patient Relationship to Insured Coverage Start Date Coverage End Date MEDICARE OF [place] [address] [place] [id number] MELISA ADAME Self - patient is the insured MEDEX ATTN CLAIMS [address] [place] [address] [phone] [id number] 1 MELISA ADAME Self - patient is the insured Medical (General) History Medical History History ICD Code Invasive right breast cancer 2005 Osteoporosis Hyperlipidemia Pacemaker insertion for comp lete heart block in 2019. This was associated with a [place] Atrial fibrillation Denies DM,CVA,Lung disease,renal disease Surgical History Surgery Date(Month/Year) Exploratory laparotomy D&C 1991 Right hip replacement Lumpectomy with sentinel nod e excision for invasive right breast cancer 2005 Pacemaker insertion, Dr. Rajan, at [facility] Cataract surgery 05/2021 Left hip replacement 11/2022
--- OUTSIDE RECORDS SUMMARY | 2024-08-31 11:12 | XMS_ITS ---
Author Organization [facility] Address [address] [place] [address] Care Team Providers Care Technology Sales Representative Name Role Phone Baldev Victoria MD Primary Care Provider Unavailab Baldev Souza Unavailable [phone] REASON FOR VISIT screening Problems Problem Type SNOMED Code ICD Code Onset Dates Problem Status W/U Status Risk Notes Problem Diverticular disease of colon (050344020) Diverticulosis of large intestine without perforation or abscess without bleeding (K57.30) Active confirmed Encounters Encounter Location Date Provider Diagnosis [facility] [place] [address] [place] [phone] 04/14/2023 Baldev Hook Encounter for scre ening colonoscopy Z12.11 ; Colon polyp K63.5 ; Rectal polyp K62.1 ; Diverticulosis of large intestine without perforation or abscess without bleeding K57.30 and Other hemorrhoids K64.8 Assessments Encounter Date Diagnosis (ICD Code) Assessment Notes Treatment Notes Treatment Clinical Notes Section Notes 04/14/2023 Encounter for screening colonoscopy (ICD-10 - Z12.11) 04/14/2023 Colon polyp (ICD-10 - K63.5) 04/14/2023 Rectal polyp (ICD-10 - K62.1) 04/14/2023 Diverticulosis of large intestine without perforation or abscess without bleeding (ICD-10 - K57.30) 04/14/2023 Other hemorrhoids (ICD-10 - K64.8) Plan Of Treatment No Information Progress Notes * MELISA ADAMEDOB: [birth year] (79 yo F)Acc No.[id number]:04/14/2023 COLON WITH MAC Patient:?MELISA ADAME Provider:?Baldev Hook MD :1945???Age:77 Y???Sex:Female D ate:04/14/2023 Address:[address] [place] [address] , [facility] Pcp:Baldev Victoria MD Subjective: * Chief Complaints: * ???1. Screening. * Medical History:? Objective: * Vitals:? Assessment: * Assessment: 1.?Encounter for screening c olonoscopy - Z12.11 (Primary)???2.?Colon polyp - K63.5???3.?Rectal polyp - K62.1???4.?Diverticulosis of large intestine without perforation or abscess without bleeding - K57.30???5.?Other hemorrhoids - K64.8??? Plan: * Treatment: * Procedure Codes:?83177 LESIO N REMOVAL COLONOSCOPY, Modifiers: [place] , [address] COLONOSCOPY AND BIOPSY, Modifiers: 59 , PT, 0529F INTRVL 3+YRS PTS CLNSCP DOCD, 0528F RCMND FLW-UP 10 YRS DOCD, Modifiers: 1P * * The named appointment provid er may or may not be the originator of this progress note, and it is not deemed complete until electronically signed by the appointment provider. Sign off status: Pending * Provider:?Baldev Hook MD Date:? 023 Generated for Ronald clark/Mayra/Victor Manuelsmitting on:?08/31/2024 11:12 AM EST
== END 2024-08-31 10:32 | disposition home or self-care (01) ==
PROVIDERS: PCP Internal Medicine Medical Oncology; Visit Provider Surgery
DX: Z90.13 Acquired absence of bilateral breasts and nipples (principal); N64.89 Other specified disorders of breast
CPT/HCPCS: 99024

== ENCOUNTER → 2024-08-31 09:46 | Outpatient (BNVA) | payer MEDICARE, MEDICAID, SELFPAY | PROVIDERS: PCP Internal Medicine Medical Oncology; Visit Provider Surgery | DX: N64.89 Other specified disorders of breast (principal); Z90.13 Acquired absence of bilateral breasts and nipples | CPT/HCPCS: 99212 ==

== ENCOUNTER 2024-09-12 08:58 | Outpatient (AMB) | payer MEDICARE, MEDICAID, SELFPAY ==
--- NOTE | 2024-09-12 09:04 | A.OFFVIS_ITS ---
Vital Signs 09/12/24 09:17 Height 5 ft 2 in Weight 174 lb 2.643 oz BMI 31.9 Respiration 18 Pulse 64 Intake Visit Reasons: 2 wk S/P bilat. MX w/Rt. SN bx Intake Note: Patient is seen in office for wound check post bilateral simple mastectomy. Pt c/o: states both side have filled up with fluid, right side is worse and hot to the touch Printing Press Machine Operator Required: No Cardiology Technologist: Cardiology Technologist Present Accompanied by: Self / Same As Patient Allergies marijuana (cannabis) Allergy (Intermediate, Verified 09/12/24 09:17) Nausea and Vomiting Sulfa (Sulfonamide Antibiotics) Allergy (Intermediate, Verified 09/12/24 09:17) HIVES,ITCH HPI Comments Details: Patient returns with some swelling in both mastectomy sites, right greater than left. She feels some burning in the right side as well. [facility] Medical History Hx of radiation therapy Cognitive decline HLD (hyperlipidemia) Osteoporosis Cardiac pacemaker (~2018) Age related osteoporosis Hx of myocardial infarction CHB (complete heart block) Pacemaker Afib VAIN I (vaginal intraepithelial neoplasia grade I) History of bilateral breast cancer Surgical History History of bilateral mastectomy (08/09/24) Hx of colonoscopy History of right hip replacement History of cataract surgery S/P hip replacement History of lumpectomy of both breasts Hx of abdominal hysterectomy H/O heart surgery Family History Mother Breast CA Social History Household Members: None Housing: House Housing Other:: mobile home Are you a primary animal daycare provider to a significant other at home: No Do you presently have visiting nurse or other home services: Yes Alcohol intake: current Alcohol intake frequency: a few times a month Patient Tobacco Use Status: Never used Tobacco Second Hand Smoke Exposure: No service: No Sexual orientation: Straight/Heterosexual Gender identity: Female Female Reproductive History Menstrual Age of Menarche: 15 Physical Exam Vital Signs: Last Vital Signs Pulse 64 09/12/24 09:17 Resp 18 09/12/24 09:17 BMI result Body Mass Index 31.9 Chest Other: Bilateral fluid collections following bilateral mastectomy. Minimal erythema noted in the right breast skin thickening. Assessment & Plan Assessment & Plan (1) S/P mastectomy, bilateral: Code(s): Z90.13 - Acquired absence of bilateral breasts and nipples Category: Surgical Plan Bilateral chest aspirations performed today in the office. Approximately 200 mL aspirated from the right side and 120 mL from the left side. The patient tolerated this well. She will return in 2 weeks for repeat examination. We will start on doxycycline for 1 week for the slight redness in the right chest. Patient should call sooner for any new concerns. Medications: New doxycycline hyclate 100 mg PO BID 14 tabs 0RF Coding Level of Care Code Global (08685) Diagnoses S/P mastectomy, bilateral Z90.13
[2024-09-12 09:17] VITALS: PULSE 64; RESP 18; BMI 31.9
--- OUTSIDE RECORDS SUMMARY | 2024-09-12 09:31 | XMS_ITS ---
Author Organization Baldev Victoria III, MD Address [address] [place] [address] Care Team Providers Care Career Placement Services Counselor Name Role Phone Baldev Victoria Primary Care Provider [phone] REASON FOR VISIT Message Social History Sex Assigned At : Social History Observation Description Sex Assigned At Female Encounters Encounter Location Date Provider Diagnosis Baldev Victoria III, MD [address] [place] [address] [place] [address] 08/16/2024 Baldev Victoria Plan Of Treatment Next Appt Details Provider Name:Baldev iVctoria, 09/29/2024 02:30:00 PM, [address] [place] [address] SU[place] [facility] [place], [address], Progress Notes * Rosetta ADAMEDOB: [birth year] (78 yo F)Acc No.[id number]:08/16/2024 Patient:?Rosetta ADAME :1945???Age:78 Y???Sex:Female Address:[address] [place] [address] * true * Date:? Generated for Printi ng/Faaleciag/eTransmitting on:?09/12/2024 09:31 AM EDT
--- OUTSIDE RECORDS SUMMARY | 2024-09-12 09:32 | XMS_ITS ---
Author Organization [facility] Address [address] [place] [address] Care Team Providers Care Residential Builder Name Role Phone Baldev Victoria MD Primary Care Provider Unavailab Baldev Souza Unavailable [phone] REASON FOR VISIT screening Problems Problem Type SNOMED Code ICD Code Onset Dates Problem Status W/U Status Risk Notes Problem Diverticular disease of colon (129733660) Diverticulosis of large intestine without perforation or abscess without bleeding (K57.30) Active confirmed Encounters Encounter Location Date Provider Diagnosis [facility] [place] [address] [place] [phone] 04/14/2023 Baldev Hook Encounter for scre ening [...] * MELISA ADAMEDOB: [birth year] (79 yo F)Acc No.[id number]:04/14/2023 COLON WITH MAC Patient:?MELISA ADAME Provider:?Baldev Hook MD :1945???Age:77 Y???Sex:Female D ate:04/14/2023 Address:[address] [place] [address] , [facility] Pcp:Baldev Victoria MD Subjective: * Chief Complaints: * ???1. Screening. * Medical History:? Objective: * Vitals:? Assessment: * Assessment: 1.?Encounter for screening c olonoscopy - Z12.11 (Primary)???2.?Colon polyp - K63.5???3.?Rectal polyp - K62.1???4.?Diverticulosis of large intestine without perforation or abscess without bleeding - K57.30???5.?Other hemorrhoids - K64.8??? Plan: * Treatment: * Procedure Codes:?91706 LESIO N REMOVAL COLONOSCOPY, Modifiers: [place] , [address] COLONOSCOPY AND BIOPSY, Modifiers: 59 , PT, [...] Date:? 023 Generated for Ronald clark/Mayra/[place] Manuelsmitting on:?09/12/2024 09:31 AM EDT
--- OUTSIDE RECORDS SUMMARY | 2024-09-12 09:32 | XMS_ITS | Continuity of Care Document ---
Author Organization [facility] Address [address] [place] [address]- Care Team Providers Care Bruise Trimmer Name Role Phone Esme GREENFIELD, Baldev Vela Primary Care Physician [phone] [place] [facility] - 09/02/24 [facility] [address] [place] [address]- Attending Physician: Lacy Sotomayor Admitting Physician: Lacy Sotomayor Referring Physician: Admtr Ar8 Encounter Type: Triage Allergies, Adverse Reactions, Alerts [...] 12:50:58 PM EDT, Route to Pharmacy Electronically, [facility] - Jose Daniel Start [...] Team Personnel Name: Baldev Victoria MD Position: [facility] Physician - Oncology Member Role: PCP Address: [address] [place] [address] [address] [place] [address]- Telecom: Name: Yennifer Szymanski RN Position: S RN Member Role: Primary Care Nurse Name: Mandy Ayon RN Position: [facility] RN Member Role: Primary Care Nurse Name: Debora Medrano RN Position: [facility] RN Member Role: Primary Care Nurse Name: Ngoc Day RN Position: [facility] RN Member Role: Primary Care Nurse Care Team Related Persons Name: DAPHNE DAAME Insurance Providers Guarantor name: OMARI Health Plan Information #: 1 Payer: MEDICARE PART B OUTPT Member Number: NA Policy Number: NA Group Number: NA Health Plan Information #: 2 Payer: MEDEX Member Number: NA Policy Number: NA Group Number: NA Health Plan Information #: 3 Payer: I10 MEDICARE SUPPL 2NDRY Member Number: NA Policy Number: NA Group Number: NA
--- OUTSIDE RECORDS SUMMARY | 2024-09-12 09:32 | XMS_ITS ---
Author Organization Baldev Victoria III, MD Address [address] [place] [address] Care Team Providers Care Airline Security Representative Name Role Phone Baldev Victoria Primary Care [...] Problem Status W/U Status Risk Notes Problem 519660204 Status post bilateral mastectomy (Z90.13) Active confirmed Her wounds are healing well. Pain is minimal. All of the lymph nodes were negative.Mar gins were clear. She has a left breast cancer in 2005. This was a right breast cancer. She is doing well. Problem 531637809 Malignant neoplasm of unspecified site of right female breast (C50.911) Active confirmed This was a ductal carcinoma which is node negative. She is receptor positive. The referred to Medical oncology. Problem 737225404 Estrogen receptor positive status [ER+] (Z17.0) Active [...] Date Provider Diagnosis Baldev Victoria III, MD [address] [place] [address] [address] [place], [place] [address] 08/18/2024 Baldev Victoria Status post bilatera l [...] ov Provider Name:Baldev Victoria, 09/29/2024 02:30:00 PM, [address] [place] [address] [address] [address], [place], [address], Progress Notes * Rosetta ADAMEDOB: [birth year] (78 yo F)Acc No.[id number]:08/18/2024 Progress Notes Patient:?Rosetta ADAME Provider:?Baldev Victoria MD :1945???Age:78 Y???Sex:Female D ate:08/18/2024 Address: [address] [place], [place] Subjective: * Chief Complaints: * ???Breast cancerRecent [...] Pain Scale is 0.She was discharged from [facility] August 12, 2024.? She saw her [...] breast cancer, RT 2005pacemaker insertion, Dr. Rajan, [facility] 09/2018cataract surgery eft hip arthroplasty, [facility] 10/2022Hip replacements Lumpectomy left breast positive for [...] longer climb stairs. She was born in [place]. She has been for 37 years. A son Daphne, aged 43, is working for [employer]. * Medications:?TakingGabapenti n 300 mg Capsule TAKE [...] endocrine therapy.??? Plan: * Treatment: * Procedure Codes:?77523 TRANS CARE MGMT 7 DAY DISCH * [...] Provider:?Baldev Victoria MD Date:?07/30 Generated for Ronald clark/Mayra/eTcandissmitting on:?09/12/2024 09:32 AM EDT History and Physical Notes * HPI [...]
--- OUTSIDE RECORDS SUMMARY | 2024-09-12 09:32 | XMS_ITS ---
Author Organization Baldev Victoria III, MD Address [address] [place] [address] Care Team Providers Care Financial Accountant Name Role Phone Baldev Victoria Primary Care Provider REASON FOR VISIT Message Social History Sex Assigned At : Social History Observation Description Sex Assigned At Female Encounters Encounter Location Date Provider Diagnosis Baldev Victoria III, MD [address] [place] [address] [place] [address] 08/17/2024 Baldev Victoria Plan Of Treatment Next Appt Details Provider Name:Baldev Victoria, 09/29/2024 02:30:00 PM, [address] [place] [address] [place], [address], Progress Notes * Rosetta ADAMEDOB: [birth year] (78 yo F)Acc No.[id number]:08/17/2024 Patient:?Rosetta ADAME :1945???Age:78 Y???Sex:Female Address:[address] [place] [address] * true * Date:? Generated for Printi ng/Faaleciag/eTransmitting on:?09/12/2024 09:31 AM EDT
--- OUTSIDE RECORDS SUMMARY | 2024-09-12 09:32 | XMS_ITS | Continuity of Care Document ---
Author Organization [facility] Address [address] [place] [address]- Care Team Providers Care Pin Drafter Operator Name Role Phone Esme GREENFIELD, Baldev Vela Primary Care Physician [phone] Encounter [facility] [place](s): 08/07/24 - 09/06/24 [facility] [address] [place] [address]- Encounter Type: Triage Allergies, Adverse Reactions, Alerts [...] Team Personnel Name: Baldev Victoria MD Position: [facility] Physician - Oncology Member Role: PCP Address: [address] [place] [address] [address] Baldev Victoria III, [place] [address]- Telecom: Name: Yennifer Szymanski RN Position: S RN Member Role: Primary Care Nurse Name: Mandy Ayon RN Position: S RN Member Role: Primary Care Nurse Name: Debora Medrano RN Position: [facility] RN Member Role: Primary Care Nurse Name: Ngoc Day RN Position: S RN Member Role: Primary Care Nurse Care Team Related Persons Name: DAPHNE ADAME Insurance Providers Guarantor name: OMARI Health Plan Information #: 1 Payer: MEDICARE PART B OUTPT Member Number: OMARI Policy Number: OMARI Group Number: OMARI Health Plan Information #: 2 Payer: MEDEX Member Number: NA Policy Number: NA Group Number: NA Health Plan Information #: 3 Payer: I10 MEDICARE SUPPL 2NDRY Member Number: OMARI Policy Number: OMARI Group Number: NA
--- OUTSIDE RECORDS SUMMARY | 2024-09-12 09:32 | XMS_ITS | Patient Health Record ---
Author Organization [facility] Address [address] [place] [address] Care Team Providers Care Filling Separator Name Role Phone Baldev Victoria MD Primary Care Provider Unavailab Baldev Souza Unavailable [phone] Reason For Referral No Information Medications Medication SIG (Take, Route, Frequency, Duration) Notes Start Date End Date Status Gabapentin 300 MG TAKE 1 CAPSULE BY MO [facility] THREE TIMES DAILY Diagnosis Unavailable [...] Problem Status W/U Status Risk Notes Problem 770854366 Colon cancer screening (Z12.11) Active confirmed Problem Diverticular disease of colon (869263239) Diverticulosis of large intestine without perforation or abscess without bleeding (K57.30) Active confirmed Problem 247314765583720 Preprocedural examination (Z01.818) Active confirmed Problem 466370931 Anticoagulant long-term use (Z79.01) Active confirmed Plan Of Treatment Pending Test Test Name Order Date Pathology 04/14/2023 Future Test Test Name Order Date COLONOSCOPY 01/26/2023 Insurance Providers Payer Name Payer Address Payer Phone Subscriber Number Group Number Insured Name Patient Relationship to Insured Coverage Start Date Coverage End Date MED[place]ARE OF [place] [address] [place] [address] [id number] MELISA ADAME Self - patient is the insured MEDEX ATTN CLAIMS [address] [place] [address] [id number] 1 MELISA ADAME Self - patient is the insured Medical (General) History Medical History History ICD Code Invasive right breast cancer 2005 Osteoporosis Hyperlipidemia Pacemaker insertion for comp lete heart block in 2019. This was associated with a [place] Atrial fibrillation Denies DM,CVA,Lung disease,renal disease Surgical History Surgery Date(Month/Year) Exploratory laparotomy D&C 1991 Right hip replacement Lumpectomy with sentinel nod e excision for invasive right breast cancer 2005 Pacemaker insertion, Dr. Rajan, at [facility] Cataract surgery 05/2021 Left hip replacement 11/2022
== END 2024-09-12 09:47 | disposition home or self-care (01) ==
LOC: HO.HGS 08:58
PROVIDERS: PCP Internal Medicine Medical Oncology; Visit Provider Surgery
DX: Z90.13 Acquired absence of bilateral breasts and nipples (principal)
CPT/HCPCS: 99024

== ENCOUNTER → 2024-09-12 08:58 | Outpatient (BNVA) | payer MEDICARE, MEDICAID, SELFPAY | PROVIDERS: PCP Internal Medicine Medical Oncology; Visit Provider Surgery | DX: L76.82 Other postprocedural complications of skin and subcutaneous tissue (principal); Y83.8 Other surgical procedures as the cause of abnormal reaction of the patient, or of later complication, without mention of misadventure at the time of the procedure; Z90.13 Acquired absence of bilateral breasts and nipples | CPT/HCPCS: 10160; 32554; 99212 ==

== ENCOUNTER 2024-09-26 08:44 | Outpatient (AMB) | payer MEDICARE, MEDICAID, SELFPAY ==
--- NOTE | 2024-09-26 08:46 | MHC.OFFVIS ---
Vital Signs 09/26/24 08:47 Height 5 ft 2 in Weight 165 lb 5.547 oz BMI 30.2 BP 143/65 H Blood Pressure Location Lt brachial Position Sitting Pulse 64 Pulse Source Pulse Oximeter Pulse Oximetry (%) 100 Oxygen Delivery Method Room Air Intake Visit Reasons: 2 wk S/P bilat. MX w/Rt. SN bx Intake Note: Patient is seen in office for wound check post bilateral simple mastectomy. * on antbx* Allergies marijuana (cannabis) Allergy (Intermediate, Verified 09/26/24 08:50) Nausea and Vomiting Sulfa (Sulfonamide Antibiotics) Allergy (Intermediate, Verified 09/26/24 08:50) HIVES,ITCH Medication List - Last Reconciled 09/26/24 by Sammy Samano MD apixaban (Eliquis) 5 mg PO BID docusate sodium (Colace) 100 mg PO BID doxycycline hyclate 100 mg PO BID gabapentin 300 mg PO TID metoprolol succinate ER 25 mg PO DAILY HPI Comments Details: 78-year-old female patient presenting with a recent mammogram which revealed a cluster of calcifications in the right breast at the upper outer quadrant posterior depth. This was felt to be suspicious for malignancy in biopsy recommended. She underwent a stereotactic guided core biopsy at the [facility] on 05/02/2024. Pathology reveals a right breast invasive ductal carcinoma, grade 3, with ductal carcinoma in-situ, grade 3, estrogen receptor positive (95%) progesterone receptor low (5%), HER2 Domingo indeterminate, Ki-67 low (5-10%). She has a prior history of bilateral breast cancer including left breast infiltrating mammary carcinoma with both ductal and lobular features and DCIS, ER/IN positive, HER2 Domingo negative status post left breast lumpectomy with left axillary sentinel node biopsy on 05/03/[address] Leon. 0 of 1 sentinel lymph nodes were positive for metastatic disease. She later underwent a right breast lumpectomy on 10/15/2005 for DCIS. There was evidence of a possible venous invasion therefore she was subsequently underwent a wider excision and axillary sentinel node biopsy on 12/01/2005. The surgery was also performed by Dr. Leon. She underwent radiation therapy to both breasts. She is G 1 P 1, with 1 son living and did not breastfeed. 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 She discussed the pathology findings further with Dr. Victoria; She and her daughter have decided to proceed with a bilateral mastectomy which was subsequently performed on 08/09/2024. She tolerated the procedure well and was subsequently discharged to home on 08/12/2024 in stable condition. She returns today for a postop visit. She feels fluid on both sides. [facility] Medical History Hx of radiation therapy Cognitive decline HLD (hyperlipidemia) Osteoporosis Cardiac pacemaker (~2019) Age related osteoporosis Hx of myocardial infarction CHB (complete heart block) Pacemaker Afib VAIN I (vaginal intraepithelial neoplasia grade I) History of bilateral breast cancer Surgical History History of bilateral mastectomy (08/09/24) Hx of colonoscopy History of right hip replacement History of cataract surgery S/P hip replacement History of lumpectomy of both breasts Hx of abdominal hysterectomy H/O heart surgery Family History Mother Breast CA Social History Household Members: None Housing: House Housing Other:: mobile home Are you a primary resident care spec to a significant other at home: No Do you presently have visiting nurse or other home services: Yes Alcohol intake: current Alcohol intake frequency: a few times a month Patient Tobacco Use Status: Never used Tobacco Second Hand Smoke Exposure: No service: No Sexual orientation: Straight/Heterosexual Gender identity: Female Female Reproductive History Menstrual Age of Menarche: 15 Physical Exam Vital Signs: Last Vital Signs Pulse 64 09/26/24 08:47 BP 143/65 H 09/26/24 08:47 Pulse Ox 100 09/26/24 08:47 Oxygen Delivery Method Room Air 09/26/24 08:47 BMI result Body Mass Index 30.2 Const General: no acute distress Nutritional Appearance: well nourished Limitations: no limitations Chest Other: Left breast with small residual seroma. Right breast with no residual seroma noted. There is some inflammation of the skin flaps but no areas of necrosis or infection. Needle aspiration performed of the left breast with production of approximately 80 mL of serosanguineous fluid. The patient tolerated this procedure well. Skin Other: Warm, dry, no rashes Neuro Other: Mobility Assessment: 1. 3 meter assessment time (seconds) 7 2. Gait observations: Normal balance and gait Extrem Other: No lymphedema upper extremities Assessment & Plan Assessment & Plan (1) S/P mastectomy, bilateral: Code(s): Z90.13 - Acquired absence of bilateral breasts and nipples Category: Surgical (2) Invasive ductal carcinoma of right breast: Code(s): C50.911 - Malignant neoplasm of unspecified site of right female breast Category: Medical (3) Seroma of breast: Code(s): N64.89 - Other specified disorders of breast Category: Medical Plan 79-year-old female patient with right breast invasive ductal carcinoma status post bilateral mastectomy returning for wound check and drainage of seroma left chest wall. Her wounds are clean and intact. There is some residual inflammation in the left breast which should resolve over time. I recommended follow-up examination in 1 month. She will be seeing Dr. Victoria later this week. She is welcome to call sooner for any new concerns. Coding Level of Care Code Global (30542) Diagnoses S/P mastectomy, bilateral Z90.13 Invasive ductal carcinoma of right breast C50.911 Seroma of breast N64.89
[2024-09-26 08:47] VITALS: BP 143/65; PULSE 64; O2SAT 100; BMI 30.2
--- OUTSIDE RECORDS SUMMARY | 2024-09-26 09:07 | XMS_ITS ---
Author Organization Baldev Victoria III, MD Address [address] [place] [address] Care Team Providers Care Inclusion Manager Name Role Phone Baldev Victoria Primary Care Provider REASON FOR VISIT Message Social History Sex Assigned At : Social History Observation Description Sex Assigned At Female Encounters Encounter Location Date Provider Diagnosis Baldev Victoria III, MD [address] [place] [address] [place] [id number] 08/16/2024 Baldev Victoria Plan Of Treatment Next Appt Details Provider Name:Baldev Victoria, 09/29/2024 02:30:00 PM, [address] [place] [address] [facility] [place], [phone], Progress Notes * Rosetta ADAMEDOB: [birth year] (78 yo F)Acc No.[id number]:08/16/2024 Patient:?Rosetta ADAME :1945???Age:78 Y???Sex:Female Address:[address] [place] [address] * true * Date:? Generated for Printi ng/Faaleciag/eTransmitting on:?09/26/2024 09:07 AM EDT
--- OUTSIDE RECORDS SUMMARY | 2024-09-26 09:08 | XMS_ITS ---
Author Organization Baldev Victoria III, MD Address [address] [place] [address] Care Team Providers Care Manufacturing Team Leader Name Role Phone Baldev Victoria Primary Care [...] Problem Status W/U Status Risk Notes Problem 166619222 Status post bilateral mastectomy (Z90.13) Active confirmed Her wounds are healing well. Pain is minimal. All of the lymph nodes were negative.Mar gins were clear. She has a left breast cancer in 2005. This was a right breast cancer. She is doing well. Problem 906959163 Malignant neoplasm of unspecified site of right female breast (C50.911) Active confirmed This was a ductal carcinoma which is node negative. She is receptor positive. The referred to Medical oncology. Problem 254400725 Estrogen receptor positive status [ER+] (Z17.0) Active [...] Date Provider Diagnosis Baldev Victoria III, MD [address] [place] [address] [address] [place], [place] [address] 08/18/2024 Baldev Victoria Status post bilatera l [...] ov Provider Name:Baldev Victoria, 09/29/2024 02:30:00 PM, [address] [place] [address] [address] [place] [address], [place], [address], Progress Notes * Rosetta ADAMEDOB: [birth year] (78 yo F)Acc No.[id number]:08/18/2024 Progress Notes Patient:?Rosetta ADAME Provider:?Baldev Victoria MD :1945???Age:78 Y???Sex:Female D ate:08/18/2024 Address: [address], [id number] Subjective: * Chief Complaints: * ???Breast cancerRecent [...] Scale is 0.She was discharged from [facility] August 12, 2024.? She saw her [...] breast cancer, RT 2005pacemaker insertion, Dr. Rajan, [facility] 09/2018cataract surgery eft hip arthroplasty, [facility] 10/2022Hip replacements Lumpectomy left breast positive [...] longer climb stairs. She was born in [place]. She has been for 37 years. A son Daphne, aged 43, is working for [employer]. * Medications:?TakingGabapenti n 300 mg Capsule TAKE [...] endocrine therapy.??? Plan: * Treatment: * Procedure Codes:?01392 TRANS CARE MGMT 7 DAY DISCH * [...] Victoria MD Date:?07/30 Generated for Ronald clark/Mayra/eTcandissmitting on:?09/26/2024 09:08 AM EDT History and Physical Notes * [...]
--- OUTSIDE RECORDS SUMMARY | 2024-09-26 09:08 | XMS_ITS ---
Author Organization Baldev Victoria III, MD Address [address] [place] [address] Care Team Providers Care Nurse Practitioner Hospitalist Name Role Phone Baledv Victoria Primary Care Provider REASON FOR VISIT Message Social History Sex Assigned At : Social History Observation Description Sex Assigned At Female Encounters Encounter Location Date Provider Diagnosis Baldev Victoria III, MD [address] [place] [address] [place] [address] 08/17/2024 Baldev Victoria Plan Of Treatment Next Appt Details Provider Name:Baldev Victoria, 09/29/2024 02:30:00 PM, [address] [place] [address] [facility] [place] [place] [address], Progress Notes * Rosetta ADAMEDOB: [birth year] (78 yo F)Acc No.[id number]:08/17/2024 Patient:?Rosetta ADAME :1945???Age:78 Y???Sex:Female Address:[address] [place] [address] * true * Date:? Generated for Printi ng/Faaleciag/eTransmitting on:?09/26/2024 09:07 AM EDT
--- OUTSIDE RECORDS SUMMARY | 2024-09-26 09:08 | XMS_ITS | Patient Health Record ---
Author Organization [facility] Address [address] [place] [address] Care Team Providers Care Supply Analyst Name Role Phone Baldev Victoria MD Primary Care Provider Unavailab Baldev Souza Unavailable [phone] Reason For Referral No Information Medications Medication SIG (Take, Route, Frequency, Duration) Notes Start Date End Date Status Gabapentin 300 MG TAKE 1 CAPSULE BY [facility] THREE TIMES DAILY Diagnosis Unavailable Oral for [...] Problem Status W/U Status Risk Notes Problem 268583913 Colon cancer screening (Z12.11) Active confirmed Problem Diverticular disease of colon (573812850) Diverticulosis of large intestine without perforation or abscess without bleeding (K57.30) Active confirmed Problem 364019252195290 Preprocedural examination (Z01.818) Active confirmed Problem 109476510 Anticoagulant long-term use (Z79.01) Active confirmed Plan Of Treatment Pending Test Test Name Order Date Pathology 04/14/2023 Future Test Test Name Order Date COLONOSCOPY 01/26/2023 Insurance Providers Payer Name Payer Address Payer Phone Subscriber Number Group Number Insured Name Patient Relationship to Insured Coverage Start Date Coverage End Date MEDICARE OF [place] [address] [place] [id number] [phone] [id number] MELISA ADAME Self - patient is the insured MED[employer] ATTN CLAIMS [address] [place] [address] [phone] [id number] MELISA ADAME Self - patient is the insured Medical (General) History Medical History History ICD Code Invasive right breast cancer 2005 Osteoporosis Hyperlipidemia Pacemaker insertion for comp lete heart block in 2019. This was associated with a MT Atrial fibrillation Denies DM,CVA,Lung disease,renal disease Surgical History Surgery Date(Month/Year) Exploratory laparotomy D&C 1991 Right hip replacement Lumpectomy with sentinel nod e excision for invasive right breast cancer 2005 Pacemaker insertion, Dr. Rajan, at [facility] Cataract surgery 05/2021 Left hip replacement 11/2022
--- OUTSIDE RECORDS SUMMARY | 2024-09-26 09:08 | XMS_ITS ---
Author Organization [facility] Address [address] [place] [address] Care Team Providers Care Staff Editor Name Role Phone Baldev Victoria MD Primary Care Provider Unavailab Baldev Souza Unavailable [phone] REASON FOR VISIT screening Problems Problem Type SNOMED Code ICD Code Onset Dates Problem Status W/U Status Risk Notes Problem Diverticular disease of colon (121595467) Diverticulosis of large intestine without perforation or abscess without bleeding (K57.30) Active confirmed Encounters Encounter Location Date Provider Diagnosis [facility] Outpatient [address] [place] [phone] 04/14/2023 Baldev Hook Encounter for scre ening [...] * MELISA ADAMEDOB: [birth year] (79 yo F)Acc No.[id number]:04/14/2023 COLON WITH MAC Patient:?MELISA ADAME Provider:?Baldev Hook MD :1945???Age:77 Y???Sex:Female D ate:04/14/2023 Address:[address] [place] [address] , [facility] Pcp:Baldev Victoria MD Subjective: * Chief Complaints: * ???1. Screening. * Medical History:? Objective: * Vitals:? Assessment: * Assessment: 1.?Encounter for screening c olonoscopy - Z12.11 (Primary)???2.?Colon polyp - K63.5???3.?Rectal polyp - K62.1???4.?Diverticulosis of large intestine without perforation or abscess without bleeding - K57.30???5.?Other hemorrhoids - K64.8??? Plan: * Treatment: * Procedure Codes:?92604 LESIO N REMOVAL COLONOSCOPY, Modifiers: [place] , [address] COLONOSCOPY AND BIOPSY, Modifiers: 59 , PT, [...] Date:? 023 Generated for Ronald clark/Mayra/Victor Manuelsmitting on:?09/26/2024 09:07 AM EDT
== END 2024-09-26 09:15 | disposition home or self-care (01) ==
LOC: HO.HGS 08:45
PROVIDERS: PCP Internal Medicine Medical Oncology; Visit Provider Surgery
DX: Z90.13 Acquired absence of bilateral breasts and nipples (principal); C50.911 Malignant neoplasm of unspecified site of right female breast; N64.89 Other specified disorders of breast
CPT/HCPCS: 99024

== ENCOUNTER → 2024-09-26 08:44 | Outpatient (BNVA) | payer MEDICARE, MEDICAID, SELFPAY | PROVIDERS: PCP Internal Medicine Medical Oncology; Visit Provider Surgery | DX: C50.911 Malignant neoplasm of unspecified site of right female breast (principal); N64.89 Other specified disorders of breast; Z48.3 Aftercare following surgery for neoplasm; Z90.13 Acquired absence of bilateral breasts and nipples | CPT/HCPCS: 99212 ==

== ENCOUNTER 2024-10-25 09:50 | Outpatient (AMB) | payer MEDICARE, MEDICAID, SELFPAY ==
--- NOTE | 2024-10-25 10:01 | A.OFFVIS_ITS ---
Vital Signs 10/25/24 10:03 Height 5 ft 2 in Weight 168 lb BMI 30.7 Intake Visit Reasons: one month post bilateral mastectomy Intake Note: Pt states, I'm here for a check after my mastectomies. c/o seroma collection right side Utility Division Project Manager Required: No Allergies marijuana (cannabis) Allergy (Intermediate, Verified 09/26/24 08:50) Nausea and Vomiting Sulfa (Sulfonamide Antibiotics) Allergy (Intermediate, Verified 09/26/24 08:50) HIVES,ITCH Medication List - Last Reconciled 10/25/24 by Luke Christiansen, RN apixaban (Eliquis) 5 mg PO BID docusate sodium (Colace) 100 mg PO BID gabapentin 300 mg PO TID metoprolol succinate ER 25 mg PO DAILY HPI Comments Details: 78-year-old female patient presenting with a recent mammogram which revealed a cluster of calcifications in the right breast at the upper outer quadrant posterior depth. This was felt to be suspicious for malignancy in biopsy r ecommended. She underwent a stereotactic guided core biopsy at the [facility] on 05/02/2024. Pathology reveals a right breast invasive ductal carcinoma, grade 3, with ductal carcinoma in-situ, grade 3, estrogen receptor positive (95%) progesterone receptor low (5%), HER2 Domingo indeterminate, Ki-67 low (5-10%). She has a prior history of bilateral breast cancer including left breast infiltrating mammary carcinoma with both ductal and lobular features and DCIS, ER/NV positive, HER2 Domingo negative status post left breast lumpectomy with left axillary sentinel node biopsy on 05/03/[address] Leon. 0 of 1 sentinel lymph nodes were positive for metastatic disease. She later underwent a right breast lumpectomy on 10/15/2005 for DCIS. There was evidence of a possible venous invasion therefore she was subsequently underwent a wider excision and axillary sentinel node biopsy on 12/01/2005. The surgery was also performed by Dr. Leon. She underwent radiation therapy to both breasts. She is G 1 P 1, with 1 son living and did not breastfeed. 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 She underwent bilateral simple mastectomy, right axillary sentinel node biopsy 08/09/[address] Samano. She tolerated the procedure well and was subsequently discharged to home on 08/12/2024 in stable condition. She returns today for a follow up visit. She overall feels well but states she does not like the look of her right mastectomy site. She denies any pain. She does not feel as if any fluid has accumulated on either side. She sees Dr. Warner next week for follow up. [facility] Medical History Hx of radiation therapy Cognitive decline HLD (hyperlipidemia) Osteoporosis Cardiac pacemaker (~2019) Age related osteoporosis Hx of myocardial infarction CHB (complete heart block) Pacemaker Afib VAIN I (vaginal intraepithelial neoplasia grade I) History of bilateral breast cancer Surgical History History of bilateral mastectomy (08/09/24) Hx of colonoscopy History of right hip replacement History of cataract surgery S/P hip replacement History of lumpectomy of both breasts Hx of abdominal hysterectomy H/O heart surgery Family History Mother Breast CA Social History Household Members: None Housing: House Housing Other:: mobile home Are you a primary day care worker to a significant other at home: No Do you presently have visiting nurse or other home services: Yes Alcohol intake: current Alcohol intake frequency: a few times a month Patient Tobacco Use Status: Never used Tobacco Second Hand Smoke Exposure: No service: No Sexual orientation: Straight/Heterosexual Gender identity: Female Female Reproductive History Menstrual Age of Menarche: 15 Review of Systems Const Denies chills and Denies fever(s) Card Denies chest pain and Denies dyspnea Resp Denies dyspnea Skin/Breast Reports as per HPI and Denies rash Physical Exam Vital Signs: BMI result Body Mass Index 30.7 Const General: comfortable, no acute distress and alert Nutritional Appearance: well nourished Orientation/consciousness: patient oriented x3 Chest Other: right mastectomy site with some mild residual induration of central incision site, some puckering of the incision, medial MILAN drain site with some pale erythema, no drainage, no increased warmth left mastectomy site incision well healing, no erythema or edema Resp Effort & Inspection: normal respiratory effort and able to speak in complete sentences Skin General skin exam: no rashes or lesions noted Neuro General: patient oriented x3 Assessment & Plan Assessment & Plan (1) S/P mastectomy, bilateral: Code(s): Z90.13 - Acquired absence of bilateral breasts and nipples Category: Surgical (2) Invasive ductal carcinoma of right breast: Code(s): C50.911 - Malignant neoplasm of unspecified site of right female breast Category: Medical Plan 79-year-old female patient with right breast invasive ductal carcinoma status post bilateral mastectomy returning for wound check. Her wounds remain clean, no evidence of seroma. She has some residual induration in the right breast which should resolve over time. I recommended follow-up examination in 2 months or sooner if she has any concerns. She will be seeing Dr. Victoria next week. Coding Level of Care Code Est Pt Level 3 (61485) Diagnoses S/P mastectomy, bilateral Z90.13 Invasive ductal carcinoma of right breast C50.911
[2024-10-25 10:03] VITALS: BMI 30.7
== END 2024-10-25 10:38 | disposition home or self-care (01) ==
LOC: HO.HGS 09:51
PROVIDERS: PCP Internal Medicine Medical Oncology; Visit Provider Surgery
DX: Z90.13 Acquired absence of bilateral breasts and nipples (principal); C50.911 Malignant neoplasm of unspecified site of right female breast
CPT/HCPCS: 99024

== ENCOUNTER → 2024-10-25 09:50 | Outpatient (BNVA) | payer MEDICARE, MEDICAID, SELFPAY | PROVIDERS: PCP Internal Medicine Medical Oncology; Visit Provider Surgery | DX: Z48.3 Aftercare following surgery for neoplasm (principal); Z90.13 Acquired absence of bilateral breasts and nipples | CPT/HCPCS: 99212 ==

== ENCOUNTER 2024-11-10 09:12 | Outpatient (AMB) | payer MEDICARE, SELFPAY ==
--- NOTE | 2024-11-10 09:14 | MHC.OFFVIS ---
Vital Signs 11/10/24 09:20 Height 5 ft 2 in Weight 167 lb 8.821 oz BMI 30.6 Intake Visit Reasons: mammogram results Intake Note: Patient is seen in office for mammogram results and breast exam. Pt c/o: feels chest too thigh and is uncomfortable Compliance Review Officer Required: No Accompanied by: Self / Same As Patient Allergies marijuana (cannabis) Allergy (Intermediate, Verified 11/10/24 09:19) Nausea and Vomiting Sulfa (Sulfonamide Antibiotics) Allergy (Intermediate, Verified 11/10/24 09:19) HIVES,ITCH HPI Comments Details: 78-year-old female patient presenting with a recent mammogram which revealed a cluster of calcifications in the right breast at the upper outer quadrant posterior depth. This was felt to be suspicious for malignancy in biopsy recommended. She underwent a stereotactic guided core biopsy at the [facility] on 05/02/2024. Pathology reveals a right breast invasive ductal carcinoma, grade 3, with ductal carcinoma in-situ, grade 3, estrogen receptor positive (95%) progesterone receptor low (5%), HER2 Domingo indeterminate, Ki-67 low (5-10%). She has a prior history of bilateral breast cancer including left breast infiltrating mammary carcinoma with both ductal and lobular features and DCIS, ER/KS positive, HER2 Domingo negative status post left breast lumpectomy with left axillary sentinel node biopsy on 05/03/[address] Leon. 0 of 1 sentinel lymph nodes were positive for metastatic disease. She later underwent a right breast lumpectomy on 10/15/2005 for DCIS. There was evidence of a possible venous invasion therefore she was subsequently underwent a wider excision and axillary sentinel node biopsy on 12/01/2005. The surgery was also performed by Dr. Leon. She underwent radiation therapy to both breasts. She is G 1 P 1, with 1 son living and did not breastfeed. 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 She underwent bilateral simple mastectomy, right axillary sentinel node biopsy 08/09/[address] Samano. She tolerated the procedure well and was subsequently discharged to home on 08/12/2024 in stable condition. She returns today for a follow up visit. She denies any new symptoms in the either breast but does know thickening in the skin in the right side compared to the left side. [facility] Medical History Hx of radiation therapy Cognitive decline HLD (hyperlipidemia) Osteoporosis Cardiac pacemaker (~2019) Age related osteoporosis Hx of myocardial infarction CHB (complete heart block) Pacemaker Afib VAIN I (vaginal intraepithelial neoplasia grade I) History of bilateral breast cancer Surgical History History of bilateral mastectomy (08/09/24) Hx of colonoscopy History of right hip replacement History of cataract surgery S/P hip replacement History of lumpectomy of both breasts Hx of abdominal hysterectomy H/O heart surgery Family History Mother Breast CA Social History Household Members: None Housing: House Housing Other:: mobile home Are you a primary vehicle care specialist to a significant other at home: No Do you presently have visiting nurse or other home services: Yes Alcohol intake: current Alcohol intake frequency: a few times a month Patient Tobacco Use Status: Never used Tobacco Second Hand Smoke Exposure: No service: No Sexual orientation: Straight/Heterosexual Gender identity: Female Female Reproductive History Menstrual Age of Menarche: 15 Review of Systems Const Denies chills and Denies fever(s) Card Denies chest pain and Denies dyspnea Resp Denies dyspnea Skin/Breast Reports as per HPI and Denies rash Physical Exam Const General: comfortable, no acute distress and alert Nutritional Appearance: well nourished Orientation/consciousness: patient oriented x3 Chest Other: right mastectomy site with some mild residual induration of central incision site, some puckering of the incision, medial MILAN drain site with some pale erythema, no drainage, no increased warmth left mastectomy site incision well healing, no erythema or edema Resp Effort & Inspection: normal respiratory effort and able to speak in complete sentences Skin General skin exam: no rashes or lesions noted Neuro Other: Mobility Assessment: 1. 3 meter assessment time (seconds) 6 2. Gait observations: Normal balance and gait General: patient oriented x3 Assessment & Plan Assessment & Plan (1) S/P mastectomy, bilateral: Code(s): Z90.13 - Acquired absence of bilateral breasts and nipples Category: Surgical (2) Invasive ductal carcinoma of right breast: Code(s): C50.911 - Malignant neoplasm of unspecified site of right female breast Category: Medical Plan 79-year-old female patient with right breast invasive ductal carcinoma status post bilateral mastectomy returning for wound check. Her wounds remain clean, no evidence of seroma. She has some residual induration in the right breast which should resolve over time. I recommended follow-up examination in 3 months or sooner if she has any concerns. Coding Level of Care Code Global (12886) Diagnoses S/P mastectomy, bilateral Z90.13 Invasive ductal carcinoma of right breast C50.911
[2024-11-10 09:20] VITALS: BMI 30.6
--- OUTSIDE RECORDS SUMMARY | 2024-11-10 09:25 | XMS_ITS ---
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 Name Role Phone Baldev Victoria Primary Care Provider [phone] Allergies Allergen (clinical drug ingredient) Drug/Non Drug Allergy documented on EMR Reaction Allergy Type Onset Date Status sulfacetamide Sulfacetamide Unknown Drug Allergy Active Cannabis sativa whole extract Marijuana (Cannabis Sativa) Unknown Drug Allergy Active REASON FOR VISIT Annual Exam Medications Medication SIG (Take, Route, Frequency, Duration) Notes Start Date End Date Status Alendronate Sodium 70 MG 1 tablet 30 min utes before the first food, beverage or medicine of the day with plain water Orally Active Eliquis 5 mg TAKE 1 TABLET BY RUBÉN TH TWICE DAILY Active Gabapentin 300 MG TAKE 1 CAPSULE BY MO UTH THREE TIMES DAILY Oral Active Metoprolol Succinate ER 25 mg TAKE 1 TABLET BY MOUTH ONCE DAILY Active Gabapentin 300 mg TAKE 1 CAPSULE BY MO UTH THREE TIMES DAILY Active Social History Tobacco Use: Social History Observation Description Date Details (start date - stop date) Never Smoker NA - NA Sex Assigned At : Social History Observation Description Sex Assigned At Female Tobacco Control (Standard) Question Answer Notes Tobacco use: Nonsmoker Additional Findings: Tobacco non-user Aggressive nonsmoker AUDIT-C (Standard) Question Answer Notes Did you have a drink contain ing alcohol in the past year? Yes How often did you have six o r more drinks on one occasion in the past year? Less than monthly (1 point) How many drinks did you have on a typical day when you were drinking in the past year? 1 or 2 drinks (0 point) How often did you have a dri nk containing alcohol in the past year? Never (0 point) Points 1 Interpretation Negative Vital Signs Temperature 98.4 degrees Fahrenheit 09/30/19 25 Blood pressure systolic 135 mm Hg 09/30/19 25 Blood pressure diastolic 76 mm Hg 025 Heart Rate 62 /min 09/29/2024 Height 62 in 09/29/2024 Weight 168 lbs 09/29/2024 BMI 30.72 kg/m2 09/29/2024 Encounters Encounter Location Date Provider Diagnosis Baldev Victoria III, MD [address] [place] [address] [place] [address] 09/29/2024 Baldev Victoria History of breast cancer Z85.3 ; Third degree heart block I44.2 ; Atrial fibrillation, unspecified type I48.91 ; Other obesity due to excess calories E66.09 and Malignant neoplasm of unspecified site of right female breast C50.911 Assessments Encounter Date Diagnosis (ICD Code) Assessment Notes Treatment Notes Treatment Clinical Notes 09/29/2024 History of breast cancer (ICD-10 - Z85.3) A recent mammogram showed an abnormality in the right breast. A biopsy showed invasive ductal carcinoma. A mastectomy is being planned. She has a history of radiation to this persists already. 09/29/2024 Third degree heart block (ICD-10 - I44.2) Her pacemaker appears to be functioning normally. A recent device check was unremarkable. Her vital signs were stable. 09/29/2024 Atrial fibrillation, unspecified type (ICD-10 - I48.91) She was in a slightly irregular control rhythm today with no symptoms. No change in her medication was made. 09/29/2024 Other obesity due to excess calories (ICD-10 - E66.09) Her body mass index is 31. We discussed her diet and nutrition and made a plan to lose weight at a rate of one half of a pound per week. 09/29/2024 Malignant neoplasm of unspecified site of right female breast (ICD-10 - C50.911) She has a history of bilateral breast cancer and a previous right breast cancer. She is under the care of medical oncology for adjuvant endocrine therapy. She has had bilateral mastectomies and she is currently in remission. Plan Of Treatment Medication Medication Name Sig Start Date Stop Date Notes Alendronate Sodium 70 MG 1 tablet 30 min utes before the first food, beverage or medicine of the day with plain water Orally Eliquis 5 mg TAKE 1 TABLET BY TWICE DAILY Gabapentin 300 MG TAKE 1 CAPSULE BY [facility] THREE TIMES DAILY Oral Metoprolol Succinate ER 25 mg TAKE 1 TAB LET BY MOUTH ONCE DAILY Gabapentin 300 mg TAKE 1 CAPSULE BY [facility] THREE TIMES DAILY Next Appt Details Follow Up: 2 Months, Reason: OV Provider Name:Baldev Victoria, 12/20/2024 02:30:00 PM, [address] [place] [address] [address], [place], [id number], Provider Name:Baldev Victoria, 10/03/2025 02:30:00 PM, [address] [place] [address] [address], [place], [phone], Progress Notes * JOSEMELISSA BeatrizalvertoDOB: [birth year] (79 yo F)Acc No.[id number]:09/29/2024 Progress Notes Patient:?Annie ADAMEbeth Provider:?Baldev Victoria MD :1945???Age:79 Y???Sex:Female D ate:09/29/2024 [facility] [id number] Subjective: * Chief Complaints: * ???Annual Exam * HPI: ???Depression Screening:?they drained left, rifhte one is the problem,, memory wothout change,? at home by self? nsr, card is [place],? ? She comes to the office today at the age of 79 for her annual visit. Is feeling generally well he recently had bilateral mastectomies.? She has a history of bilateral breast cancer.? He has developed bilateral seromas which have been aspirated recently. Both ears have feels well however.? There is no sign of infection in the chest wall.He denies chest painOr difficulty breathing.? She is trying to lose weight.? He has been compliant with all of her medications.? She has a history of third-degree heart block and a pacemaker which is functioning well.? She is chronically anticoagulated without bleeding.She has a history of atrial fibrillation. ?PHQ-9?Little interest or pleasure in doing things?Not at all ?Feeling down, depressed, or hopeless?Not at all ?Trouble falling or staying asleep, or sleeping too much?Not at all ?Feeling tired or having little energy?Not at [...] yourself in some way?Not at all ?Total Score?0 ???COVID-19 Screening:?Questions?Have you had any new onset fever, chills, cough, congestion, sore throat, shortness of breath, muscle aches??No ???SDOH Questions:?SDOH Questions?In the past year have you been worried about losing your housing??No ?In the past year have you or any family members you live with been unable to get any of the following when it was really needed? Check all that apply:?Decline to answer * ROS:?General/Constitutional:?pain?chest wall, otherwise only normal aches and pains.?Chills?denies.?Fatigue?admits.?Fever?denies.?ENT:?Decreased hearing?mild.?Respiratory:?Cough?denies.?Cardiovascular:?Chest pain with exertion?denies.?Dyspnea on exertion?denies.?Shortness of breath?with exertion.?Gastrointestinal:?Constipation?occasional.?Decreased appetite?denies.?Diarrhea?denies.?Heartburn?occasional.?Nausea?denies.?Rectal bleeding?denies.?Vomiting?denies.?Hematology:?bruising?denies.?petechiae?denies.?Swollen glands?none have been noted.?Genitourinary:?Frequent urination?at night.?Musculoskeletal:?Muscle aches?denies.?Painful joints?denies.?Sciatica?denies.?Weakness?denies.?Skin:?Itching?denies.?Rash?denies.?Skin lesion(s)?denies.?Neurologic:?Difficulty speaking?denies.?Dizziness?denies.?Headache?denies.?Low back pain?denies.?Psychiatric:?Depressed mood?denies.? * Medical History:? * Surgical History:?D&C 1992la parotomy right hip replacement 07/2011lumpectomy with sentinel node excision for invasive right breast cancer, RT 2005pacemaker insertion, Dr. Rajan, [facility] 09/2018cataract surgery eft hip arthroplasty, [facility] 10/2022Hip replacements Lumpectomy left breast positive for infiltrating ductal and lobular carcinoma, RT 2002invasive ductal carcinoma right breast, lumpectomy, Bilateral mastectomy 2024Lumpectomy 2006Double Massectomy 06/2024 * Hospitalization/Major Diagno stic Procedure:?right hip replacement No history * Family History:?Father: dece ased, unkown.?Mother: 88 yrs, spinal stenosis, hip repalcement, pacemaker, artial fibrillation, breast cancer currently in remission 20 years,, diagnosed with Cancer. Children: alive, psoriasis.?Maternal Grand Mother: , cancer.?2 brother(s) . 1 son(s) - healthy. .? A brother diagnosed with bladder cancer. Mother had breast cancer. * Social History:?Tobacco Use:?Tobacco Control (Standard)?Tobacco use:?Nonsmoker ?Additional Findings: Tobacco non-user?Aggressive nonsmoker ???Drugs/Alcohol:?Drugs?Have you used drugs other than those for medical reasons in the past 12 months??No ???Drug/Alcohol:?AUDIT-C (Standard)?Did you have a drink containing alcohol in the past year??Yes ?How often did you have six or more drinks on one occasion in the past year??Less than monthly (1 point) ?How many drinks did you have on a typical day when you were drinking in the past year??1 or 2 drinks (0 point) ?How often did you have a drink containing alcohol in the past year??Never (0 point) ?Points?1 ?Interpretation?Negative ???She is not working now. 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 She was born in [place]. She has been for 37 years. A son Daphne, aged 43, is working for [employer]. * Medications:?TakingMetoprolo l Succinate ER 25 mg Tablet Extended Release 24 Hour TAKE 1 TABLET BY MOUTH ONCE DAILY Eliquis 5 mg Tablet TAKE 1 TABLET BY MOUTH TWICE DAILY Alendronate Sodium 70 MG Tablet 1 tablet 30 minutes before the first food, beverage or medicine of the day with plain water Orally Gabapentin 300 MG Capsule TAKE 1 CAPSULE BY MOUTH THREE TIMES DAILY Oral Taking Metoprolol Succinate ER 25 mg Tablet Extended Release 24 Hour TAKE 1 TABLET BY MOUTH ONCE DAILY Taking Eliquis 5 mg Tablet TAKE 1 TABLET BY MOUTH TWICE DAILY Taking Alendronate Sodium 70 MG Tablet 1 tablet 30 minutes before the first food, beverage or medicine of the day with plain water Orally Taking Gabapentin 300 MG Capsule TAKE 1 CAPSULE BY MOUTH THREE TIMES DAILY Oral DiscontinuedGabapentin 300 mg Capsule TAKE 1 CAPSULE BY MOUTH THREE TIMES DAILY Gabapentin 300 MG Capsule 1 capsule Orally Once a day Medication List reviewed and reconciled with the patientDiscontinued Gabapentin 300 mg Capsule TAKE 1 CAPSULE BY MOUTH THREE TIMES DAILY Discontinued Gabapentin 300 MG Capsule 1 capsule Orally Once a day Medication List reviewed and reconciled with the patient * Allergies:?SulfacetamidePreciousi mariely (Cannabis Sativa)no[Allergies Verified] Objective: * Vitals:?Ht: 62, Wt:168, BMI: 30.72, BP:135/76, HR:62, Temp:98.4, Wt-k.2. * ???Past Orders: Lab:Complete Blood Count Aut o Diff * Collection Date 08/11/2024 08/10/2024 07/26/2024 Collection Time 05:33 AM 05:28 AM 02:25 PM Order Date 08/11/2024 08/10/2024 07/26/2024 White Blood Count 9.1 (Ref Range: 4.8-10.8 X10*3/uL) 11.2?H (Ref Range: 4.8-10.8 X10*3/uL) 5.5 (Ref Range: 4.8-10.8 X10*3/uL) Red Blood Count 3.76?L (Ref Range: 4.20-5.50 X10*6/uL) 4.04?L (Ref Range: 4.20-5.50 X10*6/uL) 4.97 (Ref Range: 4.20-5.50 X10*6/uL) Hemoglobin 10.8?L (Ref Range: 12.0-16.0 g/dl) 11.8?L (Ref Range: 12.0-16.0 g/dl) 14.4 (Ref Range: 12.0-16.0 g/dl) Hematocrit 33.4?L (Ref Range: 37.0-47.0 %) 34.7?L (Ref Range: 37.0-47.0 %) 42.6 (Ref Range: 37.0-47.0 %) Mean Corpuscular Volume 88.8 (Ref Range: 80.0-98.0 fL) 85.9 (Ref Range: 80.0-98.0 fL) 85.7 (Ref Range: 80.0-98.0 fL) Mean Corpuscular Hemoglobin 28.7 (Ref Range: 27.0-33.0 pg) 29.2 (Ref Range: 27.0-33.0 pg) 29.0 (Ref Range: 27.0-33.0 pg) Mean Corpuscular HGB Conc 32.3 (Ref Range: 31.0-35.0 g/dl) 34.0 (Ref Range: 31.0-35.0 g/dl) 33.8 (Ref Range: 31.0-35.0 g/dl) Red Cell Distribution Width 14.4 (Ref Range: 11.0-16.0 %) 13.9 (Ref Range: 11.0-16.0 %) 13.8 (Ref Range: 11.0-16.0 %) Platelet Count 186 (Ref Range: 160-400 X10*3/uL) 224 (Ref Range: 160-400 X10*3/uL) 214 (Ref Range: 160-400 X10*3/uL) Mean Platelet Volume 11.8 (Ref Range: 9.4-12.3 fL) 11.3 (Ref Range: 9.4-12.3 fL) 11.3 (Ref Range: 9.4-12.3 fL) Neutrophils Percent Auto 65.1 (Ref Range: 45-73 %) 87.7?H (Ref Range: 45-73 %) 55.1 (Ref Range: 45-73 %) Imm Gran Pct Auto 0.4 (Ref Range: 0.0-0.4 %) 0.4 (Ref Range: 0.0-0.4 %) 0.4 (Ref Range: 0.0-0.4 %) Lymphocytes Percent Auto 25.6 (Ref Range: 20-40 %) 6.4?L (Ref Range: 20-40 %) 34.8 (Ref Range: 20-40 %) Monocytes Percent Auto 7.9 (Ref Range: 2-11 %) 5.3 (Ref Range: 2-11 %) 7.0 (Ref Range: 2-11 %) Eosinophils Percent Auto 0.5 (Ref Range: 0-4 %) 0.1 (Ref Range: 0-4 %) 1.8 (Ref Range: 0-4 %) Basophils Percent Auto 0.5 (Ref Range: 0-2 %) 0.1 (Ref Range: 0-2 %) 0.9 (Ref Range: 0-2 %) NRBC Pct Auto 0.0 (Ref Range: 0.0-0.2 /100WBC) 0.0 (Ref Range: 0.0-0.2 /100WBC) 0.0 (Ref Range: 0.0-0.2 /100WBC) Neutrophils Absolute Auto 5.9 (Ref Range: 2.0-8.3 x10*3/uL) 9.8?H (Ref Range: 2.0-8.3 x10*3/uL) 3.0 (Ref Range: 2.0-8.3 x10*3/uL) Imm Gran Abs Auto 0.04?H (Ref Range: 0.00-0.03 X10*3/uL) 0.05?H (Ref Range: 0.00-0.03 X10*3/uL) 0.02 (Ref Range: 0.00-0.03 X10*3/uL) Lymphocytes Absolute Auto 2.3 (Ref Range: 1.2-4.9 X10*3/uL) 0.7?L (Ref Range: 1.2-4.9 X10*3/uL) 1.9 (Ref Range: 1.2-4.9 X10*3/uL) Monocytes Absolute Auto 0.7 (Ref Range: 0.1-1.2 X10*3/uL) 0.6 (Ref Range: 0.1-1.2 X10*3/uL) 0.4 (Ref Range: 0.1-1.2 X10*3/uL) Eosinophils Absolute Auto 0.1 (Ref Range: 0.0-0.4 X10*3/uL) 0.0 (Ref Range: 0.0-0.4 X10*3/uL) 0.1 (Ref Range: 0.0-0.4 X10*3/uL) Basophils Absolute Auto 0.1 (Ref Range: 0.0-0.2 X10*3/uL) 0.0 (Ref Range: 0.0-0.2 X10*3/uL) 0.1 (Ref Range: 0.0-0.2 X10*3/uL) NRBC Abs Auto 0.000 (Ref Range: 0.0-0.012 X10*3/uL) 0.000 (Ref Range: 0.0-0.012 X10*3/uL) 0.000 (Ref Range: 0.0-0.012 X10*3/uL) ???Lab:Hold Green Gel (Order Date - 08/11/2024) (Collection Date & Time - 08/11/2024 05:33 AM)?ValueReference Range?Masood Mayco Liee Note- * Lab:Pathology * Collection Date 08/09/2024 06/01/2024 04/14/2023 Collection Time 02:36 PM 10:48 AM 12:51 PM Order Date 08/09/2024 06/01/2024 04/14/2023 ???Lab:Magnesium (Order Date - 07/26/2024) (Collection Date & Time - 07/26/2024 02:25 PM)?ValueReference Range?Magnesium2.11.6-2.6 - mg/dL ???Lab:B Type Natriuretic Peptide (Order Date - 07/26/2024) (Collection Date & Time - 07/26/2024 02:25 PM)?ValueReference Range?B Type Natriuretic Djqllcj101G<100 - pg/mL ???Lab:Vitamin B12 (Order Date - 07/26/2024) (Collection Date & Time - 07/26/2024 02:25 PM)?ValueReference Range?Vitamin [id number] - pg/mL ???Lab:TSH reflex Free T4 (Order Date - 07/26/2024) (Collection Date & Time - 07/26/2024 02:25 PM)?ValueReference Range?TSH reflex Free T41.04 0.32-4.0 - uIU/mL ???Lab:Type and Screen (Order Date - 07/26/2024) (Collection Date & Time - 07/26/2024 02:12 PM)?ValueReference Range?Blood TypeON- ?Antibody ScreenNEGATIVE- * Lab:Comprehensive Met. Panel * Collection Date 07/26/2024 08/15/2021 Collection Time 02:25 PM 07:47 AM Order Date 07/26/2024 08/15/2021 Sodium 141 (Ref Range: 135-145 mmol/L) 140 (Ref Range: 135-145 mmol/L) Bilirubin Total 0.7 (Ref Range: 0.0-1.0 mg/dL) 0.8 (Ref Range: 0.0-1.0 mg/dL) Aspartate Amino Transferase 25 (Ref Range: 5-31 U/L) 15 (Ref Range: 5-31 U/L) Alanine Aminotransferase 15 (Ref Range: 0-31 U/L) 10 (Ref Range: 0-31 U/L) Total Protein 7.2 (Ref Range: 6.5-8.0 g/dL) 6.5 (Ref Range: 6.5-8.0 g/dL) Albumin Level 4.0 (Ref Range: 3.5-5.0 g/dL) 3.9 (Ref Range: 3.5-5.0 g/dL) Alkaline Phosphatase 73 (Ref Range: 39-117 U/L) 64 (Ref Range: 39-117 U/L) Potassium 4.3 (Ref Range: 3.3-5.1 mmol/L) 4.5 (Ref Range: 3.3-5.1 mmol/L) Chloride 110?H (Ref Range: 96-108 mmol/L) 109?H (Ref Range: 96-108 mmol/L) Carbon Dioxide 24 (Ref Range: 22-29 mmol/L) 25 (Ref Range: 22-29 mmol/L) Anion Gap 11?L (Ref Range: 12-20) 11?L (Ref Range: 12-20) Blood Urea Nitrogen 9 (Ref Range: 9-16 mg/dL) 13 (Ref Range: 9-16 mg/dL) Creatinine 0.68 (Ref Range: 0.5-1.4 mg/dL) 0.78 (Ref Range: 0.5-1.4 mg/dL) Estimated Glomerular Filt Rate > 60 > 60 Glucose Random 82 (Ref Range: 60-115 mg/dL) 90 (Ref Range: 60-115 mg/dL) Calcium 9.9 (Ref Range: 8.4-10.2 mg/dL) 9.7 (Ref Range: 8.4-10.2 mg/dL) Creatinine Clr Calc Pharmacy 68.6 NR ???Imaging:NM sentinel node w imaging (Order Date - 08/09/2024) (Performed Date - 08/09/2024) * Examination: ???General Examination: ?GENERAL APPEARANCE:?pleasant, well nourished, well developed, in no acute distress, calm and relaxed, obese, woman.?HEAD:?atraumatic, normocephalic.?EYES:?eomi, perrla, anicteric, conjugate.?EARS:?normal.?NOSE:?septum intact.?ORAL CAVITY:?normal, unremarkable.?NECK/THYROID:?no jugular venous distention, no carotid bruit, thyroid normal.?LYMPH NODES:?no enlarged lymph nodes,spleen normal.?SKIN:?no suspicious lesions, anicteric.?HEART:?no clicks, gallops, murmurs, or rubs, regular rhythm, S1, S2 normal, no s3, or vascular bruits, Pacemaker present left chest wall.?LUNGS:?clear to auscultation .?BREASTS:?Recent healed bilateral mastectomy sites, moderate redundant tissue inferior lip right scar, no cutaneous nodules or lymph nodes, no sign of infection.?ABDOMEN:?bowel sounds normal, no ascites, no organomegaly, no [...] in the right breast. A biopsy showed invasive ductal carcinoma. A mastectomy is being planned. She has a history of radiation to this persists already.???2.?Third degree heart block - I44.2???Notes :Her pacemaker appears to be functioning normally. A recent device check was unremarkable. Her vital signs were stable.???3.?Atrial fibrillation, unspecified type - I48.91???Notes :She was in a slightly irregular control rhythm today with no symptoms. No change in her medication was made.???4.?Other obesity due to excess calories - E66.09???Notes :Her body mass index is 31. We discussed her diet and nutrition and made a plan to lose weight at a rate of one half of a pound per week.???5.?Malignant neoplasm of unspecified site of right female breast - C50.911???Notes :She has a history of bilateral breast cancer and a previous right breast cancer.? She is under the care of medical oncology for adjuvant endocrine therapy.? She has had bilateral mastectomies and she is currently in remission.??? Plan: * Treatment: 2.?Others? Continue Gabapentin Capsule, 300 mg, TAKE 1 CAPSULE BY MOUTH THREE TIMES DAILY;?Continue Metoprolol Succinate ER Tablet Extended Release 24 Hour, 25 mg, TAKE 1 TABLET BY MOUTH ONCE DAILY;?Continue Eliquis Tablet, 5 mg, TAKE 1 TABLET BY MOUTH TWICE DAILY;?Continue Alendronate Sodium Tablet, 70 MG, 1 tablet 30 minutes before the first food, beverage or medicine of the day with plain water, Orally.?? * Procedure Codes:? * Preventive Medicine:? ??Counseling:?Care [...] or Other reason not done * Follow Up:?2 Months (Reason: OV) * Images: * Sign off status: Completed true * Provider:?Baldev Victoria MD Date:?09/2024 Generated for Ronald clark/Mayra/eTransmitting on:?11/10/2024 09:25 AM EDT History and Physical Notes * HPI (History of Present Illness) Category Sub-Category Detail Notes Depression Screening PHQ-9 Little inte rest or pleasure in doing things: Not at all Feeling down, depressed, or hopeless: No t at all Trouble falling or staying asleep, or sl eeping too much: Not at all Feeling tired or having little energy: N [...] some way: Not at all Total Score: 0 COVID-19 Screening Questions Have you had any new onset fever, chills, cough, congestion, sore throat, shortness of breath, muscle aches?: No SDOH Questions SDOH Questions In the past year have you been worried about losing your housing?: No In the past year have you or any family members you live with been unable to get any of the following when it was really needed? Check all that apply:: Decline to answer Examination Category Sub-Category Detail Notes General Examination [...] S1, S2 normal, no s3, or vascular bruits, Pacemaker present left chest wall LUNGS: clear to auscultatio n ABDOMEN: bowel sounds normal, no ascites, no organomegaly, no mass, centripital obesity NEUROLOGIC: alert and oriented, cranial nerves 2-12 grossly intact, deep tendon reflexes 2+ symmetrical, motor strength normal upper and lower extremities, sensory exam intact SKIN: no suspicious lesion s, anicteric PERIPHERAL PULSES: normal BREASTS: Recent healed bilate ral mastectomy sites, moderate redundant tissue inferior lip right scar, no cutaneous nodules or lymph nodes, no sign of infection MUSCULOSKELETAL: extremities unremark able, no clubbing, cyanosis or edema LYMPH NODES: no enlarged lymph no kodi,spleen normal RECTAL EXAM: not examined PSYCH: alert, oriented ORAL CAVITY: normal, unremarkable
--- OUTSIDE RECORDS SUMMARY | 2024-11-10 09:26 | XMS_ITS ---
Author Organization Baldev Victoria III, MD Address [address] [place] [address] Care Team Providers Care T[employer] Cord Weaver Name Role Phone Baldev Victoria Primary Care Provider [phone] REASON FOR VISIT Med list update Medications Medication SIG (Take, Route, Frequency, Duration) Notes Start Date End Date Status Tylenol Extra Strength 500 MG 2 Tablets Orally every 6 hrs As needed for pain Active Metoprolol Succinate ER 25 mg 1 Tablet Orally Once a day Blood pressure Active Alendronate Sodium 70 MG ! Tablet Orally Every Wednesday Osteoporosis Active Eliquis 5 MG 1 tablet Orally Twice a day prevent blood clots Active Gabapentin 300 MG 1 capsule Orally Three times a day Neuropathy Active Social History Sex Assigned At : Social History Observation Description Sex Assigned At Female Encounters Encounter Location Date Provider Diagnosis Baldev Victoria III, MD [address] [place] [address] [place] [address] 10/09/2024 Baldev Victoria History of breast cancer Z85.3 Assessments Encounter Date Diagnosis (ICD Code) Assessment Notes Treatment Notes Treatment Clinical Notes 10/09/2024 History of breast cancer (ICD-10 - Z85.3) A recent mammogram showed an abnormality in the right breast. A biopsy showed Invasivve breast cancer. After a discussion of the issues she has chosen to have bilateral mastectomies. This wiill go forward. Plan Of Treatment Medication Medication Name Sig Start Date Stop Date Notes Tylenol Extra Strength 500 MG 2 Tablets Orally every 6 hrs Metoprolol Succinate ER 25 mg 1 Tablet Orally Once a day Alendronate Sodium 70 MG ! Tablet Orally Every Wednesday Eliquis 5 MG 1 tablet Orally Twice a day Gabapentin 300 MG 1 capsule [address] Thr ee times a day Next Appt Details Provider Name:Baldev Victoria, 12/20/2024 02:30:00 PM, [address] [place], [place], [id number], Provider Name:Baldev Victoria, 10/03/2025 02:30:00 PM, [address] [place] [address] [place], [place], [id number], Progress Notes * Rosetta ADAMEDOB: [birth year] (79 yo F)Acc No.[id number]:10/09/2024 Patient:?Rosetta ADAME :1945???Age:79 Y???Sex:Female Address: [facility] [place] [address] * Refills? Continue Tylenol Extra Strength Tablet, 500 MG, Orally, 2 Tablets, every 6 hrs Continue Eliquis Tablet, 5 MG, Orally, 1 tablet, Twice a day Continue Alendronate Sodium Tablet, 70 MG, Orally, ! Tablet, Every Wednesday Continue Gabapentin Capsule, 300 MG, Orally, 1 capsule, Three times a day Continue Metoprolol Succinate ER Tablet Extended Release 24 Hour, 25 mg, Orally, 1 Tablet, Once a day Subjective: * Chief Complaints: * ???Med list update * Medical History:? * Surgical History:? * Hospitalization/Major Diagno stic Procedure:? * Medications:?TakingTylenol E xtra Strength 500 MG Tablet 2 Tablets Orally every 6 hrs As needed for painMetoprolol Succinate ER 25 mg Tablet Extended Release 24 Hour 1 Tablet Orally Once a day Blood pressureEliquis 5 MG Tablet 1 tablet Orally Twice a day prevent blood clotsAlendronate Sodium 70 MG Tablet ! Tablet Orally Every Wednesday OsteoporosisGabapentin 300 MG Capsule 1 capsule Orally Three times a day NeuropathyTaking Tylenol Extra Strength 500 MG Tablet 2 Tablets Orally every 6 hrs As needed for painTaking Metoprolol Succinate ER 25 mg Tablet Extended Release 24 Hour 1 Tablet Orally Once a day Blood pressureTaking Eliquis 5 MG Tablet 1 tablet Orally Twice a day prevent blood clotsTaking Alendronate Sodium 70 MG Tablet ! Tablet Orally Every Wednesday OsteoporosisTaking Gabapentin 300 MG Capsule 1 capsule Orally Three times a day NeuropathyDiscontinuedGabapentin 300 mg Capsule TAKE 1 CAPSULE BY MOUTH THREE TIMES DAILY Medication List reviewed and reconciled with the patientDiscontinued Gabapentin 300 mg Capsule TAKE 1 CAPSULE BY MOUTH THREE TIMES DAILY Medication List reviewed and reconciled with the patient Objective: * Vitals:? * Physical Examination:? Assessment: * Assessment: 1.?History of breast cancer - Z85.3???Notes :A recent mammogram showed an abnormality in the right breast. A biopsy showed Invasivve breast cancer. After a discussion of the issues she has chosen to have bilateral mastectomies. This wiill go forward.??? Plan: * Treatment: 2.?Others? Continue Tylenol Extra Strength Tablet, 500 MG, 2 Tablets, Orally, every 6 hrs As needed for pain;?Continue Eliquis Tablet, 5 MG, 1 tablet, Orally, Twice a day prevent blood clots;?Continue Alendronate Sodium Tablet, 70 MG, ! Tablet, Orally, Every Wednesday Osteoporosis.?? * Procedure Codes:? * true * Date:? Generated for Ronald clark/Mayra/Bernardoitting on:?11/10/2024 09:25 AM EDT
--- OUTSIDE RECORDS SUMMARY | 2024-11-10 09:26 | XMS_ITS | Patient Health Record ---
Author Organization Baldev Victoria III, MD Address [address] [place] [place] [address] Care Team Providers Care Script Supervisor Name Role Phone Baldev Victoria Primary Care Provider [phone] Allergies Allergen (clinical drug ingredient) Drug/Non Drug Allergy documented on EMR Reaction Allergy Type Onset Date Status sulfacetamide Sulfacetamide Unknown Drug Allergy Active Cannabis sativa whole extract Marijuana (Cannabis Sativa) Unknown Drug Allergy Active Results Component Value Reference Range Notes Complete Blood Count Auto Di ff Reviewed date:04/07/2024 07:53:42 PM Interpretation: Performing Lab:[facility], [address] [place] [id number] Notes/Report: White Blood Count 4.6 4.8-10.8 X10*3/uL Red Blood Count 4.77 4.20-5.50 X10*6/uL Hemoglobin 13.9 12.0-16.0 g/dl Hematocrit 41.9 37.0-47.0 % Mean Corpuscular Volume 87.8 80.0-98.0 fL Mean Corpuscular Hemoglobin 29.1 27.0-33.0 pg Mean Corpuscular HGB Conc 33.2 31.0-35.0 g/dl Red Cell Distribution Width 13.3 11.0-16.0 % Platelet Count 220 160-400 X10*3/uL Mean Platelet Volume 11.1 9.4-12.3 fL Neutrophils Percent Auto 57.1 45-73 % Imm Gran Pct Auto 0.2 0.0-0.4 % Lymphocytes Percent Auto 30.3 20-40 % Monocytes Percent Auto 8.9 2-11 % Eosinophils Percent Auto 2.2 0-4 % Basophils Percent Auto 1.3 0-2 % NRBC Pct Auto 0.0 0.0-0.2 /100WBC Neutrophils Absolute Auto 2.6 2.0-8.3 x10*3/uL Imm Gran Abs Auto 0.01 0.00-0.03 X10*3/uL Lymphocytes Absolute Auto 1.4 1.2-4.9 X10*3/uL Monocytes Absolute Auto 0.4 0.1-1.2 X10*3/uL Eosinophils Absolute Auto 0.1 0.0-0.4 X10*3/uL Basophils Absolute Auto 0.1 0.0-0.2 X10*3/uL NRBC Abs Auto 0.000 0.0-0.012 X10*3/uL Comprehensive [employer] Panel Fa st Reviewed date:04/07/2024 07:53:42 PM Interpretation: Performing Lab:[address] [address] Notes/Report: Sodium 141 135-145 mmol/L Potassium 4.1 3.3-5.1 mmol/L Chloride 110 96-108 mmol/L Carbon Dioxide 23 22-29 mmol/L Anion Gap 12 12-20 Blood Urea Nitrogen 10 9-16 mg/dL Creatinine 0.72 0.5-1.4 mg/dL Estimated Glomerular Filt Rate > 60 NOTE: For -[place] individuals, multiply the result by 1.210. Chronic Kidney Disease: Estimated GFR < 60 mL/min/1.73m2 Severe Kidney Disease: Estimated GFR < 15 mL/min/1.73m2 Glucose Fasting 87 60-99 mg/dL Calcium 9.6 8.4-10.2 mg/dL Bilirubin Total 1.0 0.0-1.0 mg/dL Aspartate Amino Transferase 14 5-31 U/L Alanine Aminotransferase 9 0-31 U/L Total Protein 6.5 6.5-8.0 g/dL Albumin Level 3.8 3.5-5.0 g/dL Alkaline Phosphatase 66 39-117 U/L Lipid Panel Reviewed date:04/07/2024 07:53:42 PM Interpretation: Performing Lab:[address] [address] Notes/Report: Triglycerides 89 <150 mg/dL Desirable Triglyceride: less than 150 mg/dL Borderline High Triglyceride 150-199 mg/dL High Triglyceride: 200-499 mg/dL Very High Triglyceride: greater than or equal to 5OO mg/dL Cholesterol 199 <200 mg/dL Desirable Cholesterol: less than 200 mg/dL Borderline High Cholesterol: 200-239 mg/dL High Cholesterol: greater than 239 mg/dL LDL Cholesterol Calculated 131 <100 mg/dL Desirable LDL: less than 100 mg/dL Near Optimal/Above Optimal LDL: 110-129 mg/dL Borderline High LDL: 130-159 mg/dL High LDL: 160-189 mg/dL Very High LDL: greater than or equal to 190 mg/dL HDL Cholesterol 51 >40 mg/dL Desirable HDL: greater than 40 mg/dL Note: This HDL assay may give artificially low results in patients with liver disease. MM diagnostic mammo unilat R T Reviewed date:05/09/2024 08:47:12 AM Interpretation: Performing Lab: [facility]/Report: [facility] [address] [place] [address] Mammography Report Signed with Addenda Patient: Rosetta Adame MR#: [id number] : 1945 Acct:[id number] Age/Sex: 78 / F ADM Date: 04/26/24 Loc: HO.MAMMO Attending Dr: Baldev Victoria MD Ordering Physician: Baldev Victoria MD Results: 4Suspici ous Finding Date of Service: 04/26/24 Follow Up: Biopsy Recommend ed Procedure(s): MM diagnostic mammo unilat RT Accession Number(s): [id number] cc: Baldev Victoria MD ADDENDUM ADDENDUM #1 ADDENDUM: Due to a software issue related to the original report, this case has been reviewed again and the original findings and recommendations remain the same. OVERALL ASSESSMENT: BI-RADS 4 - Suspicious finding RECOMMENDATION: Biopsy recommended Electronically signed by: Alcira Pearson DO 04/28/2024 10:57 AM EDT Addendum Dictated By: Alcira Pearson DO Addendum Signed By: <Electronically signed by Alcira Pearson DO in OV> 04/28/24 1057 Addendum Cosigned By: DD/ TD/TT: 04/26/24 EXAMINATION: MM DIAGNOSTIC DIGITAL MAMMOGRAPHY, right breast CLINICAL INFORMATION: Follow-up for grouped calcifications in the upper outer right breast. History of bilateral breast cancer. COMPARISON: Mammography: Comparison is made with available prior exams. TECHNIQUE: Digital mammography is performed in craniocaudal and mediolateral oblique views along with computer-aided detection (CAD). FINDINGS: There are scattered areas of fibroglandular density (ACR BI-RADS breast composition Category b). Right: There are grouped linear and amorphous calcifications in the upper outer quadrant posterior depth which may be slightly increased from prior. No suspicious masses or other abnormal findings. Results are provided to the patient at time of visit by the technologist. MM/MM diagnostic mammo unilat RT IMPRESSION: Grouped linear amorphous calcifications in the upper outer quadrant posterior depth. Given patient's history of prior breast cancer recommend stereotactic core needle biopsy at this time. The findings and recommendations were discussed with the patient the patient prefers biopsy over follow-up at this time. The procedure will be scheduled. ASSESSMENT: BI-RADS BI-RADS 4 - Suspicious finding RECOMMENDATION: Biopsy recommended This patient's information was entered into a reminder system with a target due date for their next mammogram. Electronically signed by: Alcira Pearson DO 04/26/2024 10:51 AM EDT Dictated By: Alcira Pearson DO Signed By: <Electronically signed by Alcira Pearson DO in OV> 04/26/24 1051 DD/ 1000 TD/TT: 04/26/24 1035 Video Production Specialist: [facility] [address] [place] [address] [place] [address] Mammography Report Signed with Addenda Patient: Melba Adame MR#: [id number] : 1945 Acct:[id number] Age/Sex: 78 / F ADM Date: 04/26/24 Loc: HO.MAMMO Attending Dr: Baldev Victoria MD Ordering Physician: Baldev Victoria MD Results: 4Suspici ous Finding Date of Service: Follow Up: Biopsy Recommend ed Procedure(s): MM danilo gnostic mammo unilat RT Accession Number(s): [id number] cc: Baldev Victoria MD ADDENDUM ADDENDUM #1 ADDENDUM: Due to a software is emy related to the original report, this case has been reviewed again and the original findings and recommendations remain the same. OVERALL ASSESSMENT: BI-RADS 4 - Suspicio us finding RECOMMENDATION: Biopsy recommended Electronically cindy d by: Alcira Pearson DO 04/28/2024 10:57 AM EDT RP Addendum Dictated By : Alcira Pearson DO Addendum Signed By: <Electronically signed by Alcira Pearson DO in OV> 04/28/24 105 Addendum Cosigned By: DD/ TD/TT: 04/26/24 EXAMINATION: MM DIAGNOSTIC DIGITA L MAMMOGRAPHY, right breast CLINICAL INFORMATION: Follow-up for groupe d calcifications in the upper outer right breast. History of bilateral breast cancer. COMPARISON: Mammography: Compari son is made with available prior exams. TECHNIQUE: Digital mammography is performed in craniocaudal and mediolateral oblique views along with computer-aided detection (CAD). FINDINGS: There are scattered areas of fibroglandular density (ACR BI-RADS breast composition Category b). Right: There are grouped li near and amorphous calcifications in the upper outer quadrant poste rior depth which may be slightly increased from prior. No suspicious masses or other abnormal findings. Results are provided to the patient at time of visit by the technologist. M M/MM diagnostic mammo unilat RT IMPRESSION: Grouped linear amorp hous calcifications in the upper outer quadrant posterior depth. Giv en patient's history of prior breast cancer recommend stereotact ic core needle biopsy at this time. The findings and recommendations were discussed with the patient the patient prefers biopsy over follow-u p at this time. The procedure will b e scheduled. ASSESSMENT: BI-RADS BI-RADS 4 - Suspicious finding RECOMMENDATION: Biopsy recommended This patient's infor mation was entered into a reminder system with a target due date for their next mammogram. Electronically cindy d by: Alcira Pearson DO 04/26/2024 10:51 AM EDT RP Dictated By: Alcira Pearson DO Signed By: <Electron ically signed by Alcira Pearson DO in OV> 04/26/24 1051 DD/ 1000 TD/TT: 04/26/24 1035 Video Production Specialist: MARLEE peguero loc RT Reviewed date:05/09/2024 08:47:12 AM Interpretation: Performing Lab: Notes/Report: [facility] [place] [address] Mammography Report Signed Patient: Rosetta Adame MR#: [id number] : 1945 Acct:[id number] Age/Sex: 78 / F ADM Date: 05/02/24 Loc: [facility] Attending Dr: Sammy Samano MD Ordering Physician: Sammy Samano MD Results: Date of Service: 05/02/24 Follow Up: Procedure(s): MARLEE stereotactic biopsy RT Accession Number(s): [id number] cc: Baldev Victoria MD; Sammy Samano MD EXAMINATION: STEREOTACTIC TOMOSYNTHESIS-GUIDED VACUUM-ASSISTED BREAST BIOPSY, RIGHT CLINICAL INFORMATION: Biopsy of evolving suspicious upper outer quadrant right breast. Prior history left breast cancer in 2001, right breast cancer in 2005, both status post conservation therapy. Patient has pacemaker. Previously, biopsy of calcifications was deferred due to anticoagulation issues, and the patient preferred a 6 month follow-up, which I felt was a reasonable given the appearance at that time. At the 1.5 years surveillance, recommendation was made for sampling of these calcifications. COMPARISON: Mammography: 10/20/2023, 04/12/2023, 10/12/2022, 10/05/2022 (BI-RADS 0) and studies dating back to 05/05/2016. TECHNIQUE/PROCEDURE: Informed consent was obtained from the patient after discussion of the benefits, risks, and alternatives to biopsy today. Patient appeared to understand. Gave opportunity for questions. Patient signed consent form. Patient right breast was positioned lateral to medial approach, and 3-D tomographic view was obtained of the calcifications. The appearance of the calcifications is consistent with a vascular etiology, as is my review of the recent older imaging. A vessel can be clearly seen tracking to the calcifications, which have tram trak appearance. Due to the risk of bleeding, and benignity of the appearance, stereotactic biopsy was deferred at this time. The patient also had extreme difficulty with the prone positioning required for the procedure. Discussion was held with the patient, who is in understanding and agreement with the above findings. We will continue following these calcifications in 6 months in order to exercise extreme caution, and complete a two-year surveillance. MM/MM stereotactic biopsy RT IMPRESSION: -Digital tomosynthesis-guided core biopsy right breast was deferred, index calcifications in question are almost certainly vascular given appearance, contraindicating biopsy. Review of prior imaging suggested the same. -Recommend final six-month interval follow-up diagnostic magnification views right breast when the patient is due for bilateral screening in September 2024. BI-RADS 3; Probably Benign, short interval follow-up recommended. Electronically signed by: James Perez MD 05/02/2024 10:54 AM EST Dictated By: James Perez MD Signed By: <Electronically signed by James Perez MD in OV> 05/02/24 1054 DD/ 1000 TD/TT: 05/02/24 1030 Video Production Specialist: [place] [facility] [address] [place] [address] Mammography Report Signed Patient: Melba Adame MR#: [id number] : 1945 Acct:[id number] Age/Sex: 78 / F ADM Date: 05/02/24 Loc: HO.MAMMO Attending Dr: Sammy Samano MD Ordering Physician: Sammy Samano MD Results: Date of Service: 11/18 Follow Up: Procedure(s): MM stereotactic biopsy RT Accession Number(s): [id number] cc: Baldev Victoria MD; Sammy Samano MD EXAMINATION: STEREOTACTIC TOMOSYNTHESIS-GUIDED VACUUM-ASSISTED BREAST BIOPSY, RIGHT CLINICAL INFORMATION: Biopsy of evolving suspicious upper outer quadrant right breast. Prior history left breast cancer in 2001, right breast cancer in 2005, both status post conserva tion therapy. Patient has pacemaker. Previously, biopsy of calcificat ions was deferred due to anticoagulation issues, and the patient pref erred a 6 month follow-up, which I felt was a reasonable given the appearance at that time. At the 1.5 years surveillance, recommendation was made for sampling of these calcifications. COMPARISON: Mammography: 10/20/19, 04/12/2023, 10/12/2022, 10/05/2022 (BI-RADS 0) and studies dating b ack to 05/05/2016. TECHNIQUE/PROCEDURE: Informed consent was obtained from the patient after discussion of the benefits, risks, and alternatives to biopsy today. Patient appeared to understand. Gave opportunity for questions. Patient signed consent form. Patient right breast was positioned lateral to medial approach, and 3-D tomographic view was obtained of the calcifications. The appearance of the calcifications i s consistent with a vascular etiology, as is my review of the recent older imaging. A vessel can be clearly seen tracking to the calcifications, which have tram trak appearance. Due to the risk of bleed ing, and benignity of the appearance, stereotactic biopsy was deferred at this time. The patient also had extreme difficulty with the prone positioning required for the procedure. Discussion was held with the patient, who is in understanding and agreement with the kailee shaffer findings. We will continue following these calcifications in 6 months in order to exercise extreme caution, and complete a two-year surveillance. M M/MM stereotactic biopsy RT IMPRESSION: -Digital tomosynthesis-guided core biopsy right breast was deferred, index calcifications in question are almost certainly vascular given appearance, contraindicating biopsy. Review of prior imaging suggested the same. -Recommend final six -month interval follow-up diagnostic magnification views right breast w hen the patient is due for bilateral screening in September 2024. BI-RADS 3; Probably Benign, short interval follow-up recommended. Electronically cindy d by: James Perez MD 05/02/2024 10:[address] [facility] Dictated By: James Clark MD Signed By: <Elizabeth cortes signed by James Perez MD in OV> 05/02/24 1054 DD/ 1000 TD/TT: 05/02/24 1030 Video Production Specialist: Pathology Reviewed date:06/09/2024 08:37:38 AM Interpretation: Performing Lab:[facility], [address] [place] [id number] Notes/Report: ------- Name: Beatriz Adame Age/Sex: 78/F : 1945 Unit#: [id number] Attend Dr: Sammy Samano MD Re06/01/24 Status : DEP REF Location: .MAMMO Disch: ------- SPEC : [id number] RECD : 06/01/24-1153 STATUS: YAMILET DE SANTIAGO NUM: [id number] JARRED: 06/01/24-[address] [facility] [address]: Alcira Pearson DO ENTERED: 06/01/24-11 55 SP TYPE: Surgical OTHR DR: Baldev Victoria MD, John J MD ORDERED: HE Stain/3, Gross Micro L4/2, ER, WA, IHC, Add. immunos, IHC ER/WA/Her2N/4, Ki-67, p63, SMM, [id number] COMMENTS: As per the specimen requisition slip the specimen is collected at 1048 an d placed in formalin at 1051. Diagnosis Breast, right, biopsy: - Invasive ductal carcinoma, MSBR grade 3. - Ductal carcinoma i n situ, nuclear grade 3. See description. Estrogen receptor: P ositive (95% of tumor cells; strong intensity) - DCIS only Progesterone recepto r: Low (5% of tumor cells; weak intensity) HER2: Indeterminate (see comment) Proliferation index: Low (5-10% by Ki-67 immunostaining) Comment: A small foc us of tumor has increased HER2 immunoreactivity; however, it is uncertain whether th is focus is in-situ or invasive carcinoma. Additionally, the invasive component i s not definitively identified on the slide used for the ER immunostain. Recomme nd repeat testing for both ER and HER2 on the excision specimen. Breast Biopsy Data Synopsis Procedure: Core biopsy Specimen laterality: Right Histologic type: Ductal Histologic grade (Pablo/MSBR histologic score): 3 - Glandular/tubular differentiation: Score: 2 - Nuclear pleomorphi sm: Score: 3 - Mitotic rate: Score: 3 Tumor size: Largest linear diameter: 2 mm Ductal carcinoma in situ: Present Lymphovascular invas ion: Not identified Microcalcifications: Present Note: Some of the li sted elements may change with subsequent review of the entire lesion. Clinical History Right breast calcifications CONTINUED ON NEXT PAGE ------- Name: Beatriz Adame Age/Sex: 78/F : 1945 Unit#: [id number] Attend Dr: Sammy Samano MD Re06/01/24 Status : DEP [facility]: ------- SPEC : [id number] RECD : 06/01/241157 STATUS: YAMILET DE SANTIAGO NUM: [id number] JARRED: 06/01/24-[address] [facility] [address]: Alcira Pearson DO ENTERED: 06/01/24-11 55 SP TYPE: Surgical OTHR DR: Baldev Victoria MD,Sammy Orozco MD ORDERED: HE Stain/3, Gross Micro L4/2, ER, WA, IHC, Add. immunos, IHC ER/WA/Her2N/4, Ki-67, p63, SMM, [id number] COMMENTS: As per the specimen requisition slip the specimen is collected at 1048 an d placed in formalin at 1051. Microscopic Description Sections have cores of breast tissue infiltrated by a carcinoma comprised of large invasive ducts with calcifica tions and necrosis. The tumor cells are large, have moderate eosinophilic cytopla sm and oval nuclei with open chromatin. Immunostains for p63 and smooth muscle myosin are nonreactive in the invasive component. Material Received Right breast stereot actic bx with clip placement Gross Description Received in formalin labeled ?right breast stereo breast biopsy? isolated in a pink tissue cassette are four el ongate cylindrical portions of fibrofatty breast tissue ranging from 1.5-5.0 cm in length and from 0.1-0.3 cm in diameter and aggregating 3.0 x 1.3 x 0.4 cm, submitted toto in ca ssette A1. Also received wrapped in Telfa are multiple similar irregular shards and cylindrical portions of lobular fibrofatty breast tissue ranging from minute to 3.0 cm in greatest dimension and aggregating 3.0 x 2.8 x 0.45 cm, submitted in toto in cassette A2. CEDS Formalin-fixed paraffin-embedded tissue. Time tissue removed from patient: 1048 Time tissue placed i n fixative: 1051 Duration of fixation : between 6 and 24 hrs. Estrogen and Progest erone receptor immunohistochemistry performed in accordance with ASCO/CAP recommendat ions (2009). Estrogen receptor: Valerie guzman SP1; Dako Envision+ Dual Link System-HRP. Progesterone recepto r: Clone [id number]; Biocare Mach 4 detection system. Her-2/asaf immunohistochemistry performed in accordance with ASCO/CAP recommendations (2007) and update (2013). Hercep Test Detection system: Po lymer type Scoring criteria: For ER/WA and Her-2/ asaf: All internal (if present) and external controls react appropriately. CONTINUED ON NEXT PAGE ------- Name: Beatriz Adame Age/Sex: 78/F : 1945 Unit#: [id number] Attend Dr: Sammy Samano MD Re06/01/24 Status : DEP [facility]F [facility] Disch: ------- SPEC : [id number] RECD : 06/01/24 STATUS: YAMILET [facility] NUM: [id number] JARRED: 06/01/24-[address] [facility] [address]: Alcira Pearson DO ENTERED: 06/01/24-11 55 SP TYPE: Surgical OTHR DR: Baldev Victoria MD, John J MD ORDERED: HE Stain/3, Gross Micro L4/2, ER, WA, IHC, Add. immunos, IHC ER/WA/Her2N/4, Ki-67, p63, SMM, [id number] COMMENTS: As per the specimen requisition slip the specimen is collected at 1048 an d placed in formalin at 1051. Gross Description (Continued) ER and WA immunostai ns are scored as Positive (> 10% of tumor cell nuclei), Low Positive (1- 10% of tumor cell nu clei) or Negative (<1% of tumor cell nuclei) with associated staining intensity designatio n. The Negative category is further delineated by the presence or absence of internal positive control tissue. The HER2 immunostain assay is resulted as Positive (3+) with i ntense, complete membranous staining of more than 10% of the carcinoma or Negative (0) corresponding to negative or incomplete/weak membranous staining in <10% of cells. HER2 Low (1+) corresponding to incomplete/weak membranous staining in >10% of cells. The Equivocal (2+) designation reflects weak or non-uniform circumferential staining or dark (moderate) circumfer ential staining in less than 10% of the tumor cells. The Equivocal (2+) category includes a minor subset of patients that will show HER2 gene amplification, and therefore confirmato ry HER2 FISH testing will be performed on all Equivocal cases. The Ki-67 immunostain is score d, according to cut-offs established in the monarchE trial, as High (> or = 20% of tumor ce ll nuclei) or Low (< 20% of tumor cell nuclei). Tumor cell nuclear staining intensity o f 1+ or greater is positive. Bao AC, Alfonzo CARTER, et al. Human Epidermal Growth Factor Receptor 2 Testing in Breast Cancer: ASCO/CAP Cli nical Practice Guideline Focus Update. Arch of Pathol Lab Med, 142 2018: 5380-8680. Ivelisse RIVERA, Alfonzo CARTER, et al. Estrogen and Progesterone Receptor Testing in Breast Cancer: ASCO/CAP Guideline U pdate. Arch of Pathol Lab Med, 1442019: 545-563. Vitaliy N, Avni P , et al. Adjuvant abemaciclib combined with endocrine therapy for high- risk early breast ca ncer: updated efficacy and Ki-67 analysis from the monarchE study. Zoila Oncol. 2020;32(12):0213-4512. This case was review ed intradepartmentally; results were communicated to Dr. Samano via secure text on 06/07/2024. Special studies orde red and performed: Immunostains for p63, smooth muscle myosin, ER, WA, HER2, Ki 67 Copies To: Baldev Victoria MD [address] [place] [id number] CONTINUED ON NEXT PAGE ------- Name: Beatriz Adame Age/Sex: 78/F : 1945 Unit#: [id number] Attend Dr: Sammy Samano MD Re06/01/24 Status : DEP REF Location: [facility] Disch: ------- SPEC : [id number] RECD : 06/01/24 STATUS: YAMILET DE SANTIAGO NUM: [id number] JARRED: 06/01/24-[address] [facility] [address]: Alcira Pearson DO ENTERED: 06/01/24- 55 SP TYPE: Surgical OTHR DR: Baldev Victoria MD, John J MD ORDERED: HE Stain/3, Gross Micro L4/2, ER, WA, IHC, Add. immunos, IHC ER/WA/Her2N/4, Ki-67, p63, SMM, [id number] COMMENTS: As per the specimen requisition slip the specimen is collected at 1048 an d placed in formalin at 1051. Copies To: (Continued) Sammy Samano MD [facility] [address] [place] [address] Alcira Pearson DO [address] [place] [id number] ------- Signed (si gnature on file) aJn Jesus MD 06/07/24 1007 ------- END OF REPORT MM stereotactic loc RT Reviewed date:06/09/2024 08:37:39 AM Interpretation: Performing Lab: Notes/Report: [place] [facility] [address] [place], [place] [address] Mammography Report Signed with Addenda Patient: Rosetta Adame MR#: [id number] : 1945 Acct:[id number] Age/Sex: 78 / F ADM Date: 06/01/24 Loc: [facility] Attending Dr: Sammy Samano MD Ordering Physician: Sammy Samano MD Results: Date of Service: 06/01/24 Follow Up: Procedure(s): MM stereotactic biopsy RT Accession Number(s): [id number] cc: Baldev Victoria MD; Sammy Samano MD ADDENDUM ADDENDUM #1 Pathology from right breast stereotactic core needle biopsy upper outer breast demonstrates invasive ductal carcinoma and ductal carcinoma in situ. Results are malignant and concordant. Patient is under the care of a breast surgeon for excision and further management. Electronically signed by: Alcira Pearson DO 06/07/2024 10:[address] [facility] Addendum Dictated By: Alcira Pearson DO Addendum Signed By: <Electronically signed by Alcira Pearson DO in OV> 06/07/24 1058 Addendum Cosigned By: DD/ /18/999 TD/TT: 06/01/2411/18/1109 EXAMINATION: STEREOTACTICALLY-GUIDED RIGHT BREAST BIOPSY CLINICAL INFORMATION: History of bilateral breast cancer status post conservation therapy. Calcifications in the upper outer right breast posterior depth recommended for biopsy. COMPARISON: Comparison is made with available prior examinations. INFORMED CONSENT: After the details of the procedure, as well as the risks (including, but not limited to, bleeding, hematoma formation, and infection), benefits and alternatives (including doing nothing, short-interval follow up, and surgery) to the procedure were explained to the patient in detail and all of her questions were answered, informed written consent was obtained. TECHNIQUE/FINDINGS: A timeout was performed. The lesion intended for biopsy was identified stereotactically and targeted. The skin of the right breast was then cleansed with sterile solution. Using stereotactic guidance, aseptic technique, and 1% lidocaine with and without epinephrine for local anesthesia, a total of 9 cores were obtained through the targeted area with a 9-gauge vacuum-assisted Eviva core biopsy device from a superior approach. Specimen radiography reveals the targeted calcifications in the sampled tissue. At the completion of tissue sampling, a single top hat-shaped metallic clip was deposited at the biopsy site. Specimen radiograph demonstrates multiple calcifications within the specimen. Adequate sampling was achieved. The postprocedure 2-view direct digital mammogram reveals satisfactory positioning of the biopsy clip. The patient tolerated the procedure well and, after assuring adequate hemostasis, was discharged in good condition after reviewing postbiopsy breast care instructions. Final pathology results are pending. MM/MM stereotactic biopsy RT IMPRESSION: 1. Uncomplicated stereotactically-guided core biopsy of the right breast. The 2-view direct digital postprocedure mammogram reveals satisfactory positioning of the biopsy clip. 2. Final pathology results are pending. A separate report with final recommendations will be issued once these results are made available. Electronically signed by: Alcira Pearson DO 06/01/2024 12:[address] [facility] Dictated By: Alcira Pearson DO Signed By: <Electronically signed by Alcira Pearson DO in OV> 06/01/24 1212 DD/ 1000 TD/TT: 06/01/24 1110 Video Production Specialist: [facility] [address] [place] [address] Mammography Report Signed with John Patient: Melba Adame MR#: [id number] : 1945 Acct:[id number] Age/Sex: 78 / F ADM Date: 06/01/24 Loc: [facility] Attending Dr: Sammy Samano MD Ordering Physician: Sammy Samano MD Results: Date of Service: 11/18 Follow Up: Procedure(s): MM stereotactic biopsy RT Accession Number(s): [id number] cc: Baldev Victoria MD; Sammy Samano MD ADDENDUM ADDENDUM #1 Pathology from right breast stereotactic core needle biopsy upper outer breast demonstrates invasive ductal carcinoma and ductal carcinoma in situ. Results are malignan t and concordant. Patient is under the care of a breast surgeon for e xcision and further management. Electronically cindy d by: Alcira Pearson DO 06/07/2024 10:58 AM EST Addendum Dictated By : Alcira Pearson DO Addendum Signed By: <Electronically signed by Alcira Pearson DO in OV> 06/07/24 1058 Addendum Cosigned By: DD/ /18/999 TD/TT: 06/01/2411/18/1109 EXAMINATION: STEREOTACTICALLY-DARÍO DED RIGHT BREAST BIOPSY CLINICAL INFORMATION: History of bilateral breast cancer status post conservation therapy. Calcifications in th e upper outer right breast posterior depth recommended for biopsy. COMPARISON: Comparison is made w ith available prior examinations. INFORMED CONSENT: After the details of the procedure, as well as the risks (including, but not limited to, bleeding, hematoma formation, and infection), benefits and alterna tives (including doing nothing, short-interval follow up, and surge ry) to the procedure were explained to the patient in detail and all of her questions were answered, informed written consent was obtained. TECHNIQUE/FINDINGS: A timeout was perfor med. The lesion intended for biopsy was identified stereotactically and targeted. The skin of the right breast was then cleansed with steril e solution. Using stereotactic guidance, aseptic technique, and 1% li docaine with and without epinephrine for local anesthesia, a total of 9 cores were obtained through the targeted area with a 9-gauge vacuum-assisted Eviva core biopsy device from a superior approach. Specimen radiography reveals the targeted calcifications in the sampled tissue. At the completion of tissue sampling, a single top hat-shaped metallic clip was deposited at the biopsy site. Specimen radiograph demonstrates multiple calcifications within the specimen. Adequate sampling wa s achieved. The postprocedure 2- view direct digital mammogram reveals satisfactory positioning of the b iopsy clip. The patient tolerate d the procedure well and, after assuring adequate hemostasis, was disc harged in good condition after reviewing postbiopsy breast care instruct ions. Final pathology results are pending. M M/MM stereotactic biopsy RT IMPRESSION: 1. Uncomplicated stereotactically-guided core biopsy of the right breast. The 2-view d irect digital postprocedure mammogram reveals satisfactory positio julieth of the biopsy clip. 2. Final pathology r esults are pending. A separate report with final recommendations will be issued once these results are made available. Electronically cindy d by: Alcira Pearson DO 06/01/2024 12:[address] [facility] Dictated By: Alcira Pearson DO Signed By: <Electron ically signed by Alcira Pearson DO in OV> 06/01/24 1212 DD/ 1000 TD/TT: 06/01/24 1110 Video Production Specialist: Complete Blood Count Auto Di ff Reviewed date:07/30/2024 08:46:09 AM Interpretation: Performing Lab:[facility], [address] [place] [phone] Notes/Report: White Blood Count 5.5 4.8-10.8 X10*3/uL Red Blood Count 4.97 4.20-5.50 X10*6/uL Hemoglobin 14.4 12.0-16.0 g/dl Hematocrit 42.6 37.0-47.0 % Mean Corpuscular Volume 85.7 80.0-98.0 fL Mean Corpuscular Hemoglobin 29.0 27.0-33.0 pg Mean Corpuscular HGB Conc 33.8 31.0-35.0 g/dl Red Cell Distribution Width 13.8 11.0-16.0 % Platelet Count 214 160-400 X10*3/uL Mean Platelet Volume 11.3 9.4-12.3 fL Neutrophils Percent Auto 55.1 45-73 % Imm Gran Pct Auto 0.4 0.0-0.4 % Lymphocytes Percent Auto 34.8 20-40 % Monocytes Percent Auto 7.0 2-11 % Eosinophils Percent Auto 1.8 0-4 % Basophils Percent Auto 0.9 0-2 % NRBC Pct Auto 0.0 0.0-0.2 /100WBC Neutrophils Absolute Auto 3.0 2.0-8.3 x10*3/uL Imm Gran Abs Auto 0.02 0.00-0.03 X10*3/uL Lymphocytes Absolute Auto 1.9 1.2-4.9 X10*3/uL Monocytes Absolute Auto 0.4 0.1-1.2 X10*3/uL Eosinophils Absolute Auto 0.1 0.0-0.4 X10*3/uL Basophils Absolute Auto 0.1 0.0-0.2 X10*3/uL NRBC Abs Auto 0.000 0.0-0.012 X10*3/uL Comprehensive Met. Panel Reviewed date:07/30/2024 08:46:09 AM Interpretation: Performing Lab:[facility], [address] [place] [phone] Notes/Report: Sodium 141 135-145 mmol/L Potassium 4.3 3.3-5.1 mmol/L Chloride 110 96-108 mmol/L Carbon Dioxide 24 22-29 mmol/L Anion Gap 11 12-20 Blood Urea Nitrogen 9 9-16 mg/dL Creatinine 0.68 0.5-1.4 mg/dL Creatinine Clr Calc Pharmacy 68.6 Provided height and weight: 157.48 cm, 79.379 kg. eGFR (calculated from the MDRD study equation) and eCrCl (calculated from the Cockcroft-Gault equation) are based on different parameters and may not yield comparable results. If eCrCl result is absurd, please check patient's height/weight. Estimated Glomerular Filt Rate > 60 Chronic Kidney Disease: Estimated GFR < 60 mL/min/1.73m2 Severe Kidney Disease: Estimated GFR < 15 mL/min/1.73m2 Glucose Random 82 60-115 mg/dL Calcium 9.9 8.4-10.2 mg/dL Bilirubin Total 0.7 0.0-1.0 mg/dL Aspartate Amino Transferase 25 5-31 U/L Alanine Aminotransferase 15 0-31 U/L Total Protein 7.2 6.5-8.0 g/dL Albumin Level 4.0 3.5-5.0 g/dL Alkaline Phosphatase 73 39-117 U/L Magnesium Reviewed date:07/30/2024 08:46:09 AM Interpretation: Performing Lab:[facility], [address] [place] [phone] Notes/Report: Magnesium 2.1 1.6-2.6 mg/dL B Type Natriuretic Peptide Reviewed date:07/30/2024 08:46:09 AM Interpretation: Performing Lab:[facility], [address] [place] [phone] Notes/Report: B Type Natriuretic Peptide 281 <100 pg/mL For those patients who are being treated with Natrecor (nesiritide, recombinant BNP), BNP testing should be performed at least two hours post treatment in order to ensure that only endogenous levels of BNP are detected. Vitamin B12 Reviewed date:07/30/2024 08:46:09 AM Interpretation: Performing Lab:[facility], [address] [place] [phone] Notes/Report: Vitamin B12 215 200-900 pg/mL NORMAL 200-900 PG/ML INDETERMINATE 160-199 PG/ML DEFICIENT < 160 PG/ML TSH reflex Free T4 Reviewed date:07/30/2024 08:46:09 AM Interpretation: Performing Lab:[facility], [address] [place] [phone] Notes/Report: TSH reflex Free T4 1.04 0.32-4.0 uIU/mL Type and Screen Reviewed date:07/30/2024 08:46:09 AM Interpretation: Performing Lab:[facility], [address] [place] [phone] Notes/Report: witnessed by [facility] NURSING: Call Blood Bank (ext. [phone]) to band patient on admission. Type and Screen in effect until 2300 on 08-09-2024. 08/09/24 Blood Type ON Antibody Screen NEGATIVE Pathology Reviewed date:08/20/2024 09:10:02 AM Interpretation: Performing Lab:[facility], [address] [place] [phone] Notes/Report: ------- Name: Beatriz Adame Age/Sex: 78/F : 1945 Unit#: [id number] Attend Dr: Sammy Samano MD Re08/09/24 Status : DIS IN Location: [facility] 372-1 Disch: 08/12/24 ------- SPEC : [id number] RECD: 08/09/24 STATUS: YAMILET DE SANTIAGO NUM: [id number] JARRED: 08/09/24-[address] [facility] [address]: Sammy Samano MD ENTERED: 08/09/24 SP TYPE: Surgical OTHR DR: Baldev Victoria MD ORDERED: Gross Micro L3, Gross Micro L4, Gross Micro L5/2, IHC, Add. immunos, p63, SMM THIS IS A CORRECT ED REPORT 08/18/241546 This is a corrected report. Any previous version s are stored internally and are available if necessary. Diagnosis A. Breast, right, si mple mastectomy: - Ductal carcinoma i n situ, nuclear grade 2; margins negative. - Small focus suspic ious for residual invasive carcinoma; margins negative. - Biopsy site and treatment-related changes. - Benign skin and nipple. B. Soft tissue, righ t axillary fat pad, excision: One lymph node with fatty replacement; negativ e for metastatic carcinoma. C. Lymph node, right axilla, excision: One lymph node with fatty replacement; negative for metastatic carcinoma. D. Breast, left, sim ple mastectomy: Benign breast tissue with prior procedure and treatment-related ch anges; negative for carcinoma. Synoptic Data - Inva sive Breast Cancer (including [id number]) Procedure: Bilateral mastectomies, right axillary lymph nodes Laterality: Right Tumor size: 0.2 cm Tumor focality: Unifocal Extent of tumor Skin: Not identified Nipple: Not identified Skeletal muscle: Not identified DCIS: Present Nuclear grade: 2 Extent/EIC positive/negative: N/A EIC negative LCIS: Not identified Type of invasive car cinoma: Ductal Histologic grade (MSBR): 3 Tubule formation score: 3 Nuclear pleomorphism score: 2 Mitotic rate score: 3 LVI: Not identified Margin, inv tumor: Negative Closest margin: 1.5 cm to posterior Margin, DCIS: Negative Closest margin: 1.5 cm to posterior CONTINUED ON NEXT PAGE ------- Name: Beatriz Adame Age/Sex: 78/F : 1945 Unit#: [id number] Attend Dr: Sammy Samano MD Re08/09/24 Status : DIS IN Location: [facility] 372-1 Disch: 08/12/24 ------- SPEC : [id number] RECD: 08/09/24892 STATUS: YAMILTE DE SANTIAGO NUM: [id number] JARRED: 08/09/24-[address] [facility] [address]: Sammy Samano MD ENTERED: 08/09/24- 21 SP TYPE: Surgical OTHR DR: Baldev Victoria MD ORDERED: Gross Micro L3, Gross Micro L4, Gross Micro L5/2, IHC, Add. immunos, p63, SMM Diagnosis (Continued) Lymph nodes Number examined: 2 [place] nodes: 0 Axillary nodes: 2 Number involved: 0 With macrometastases: N/A With micrometastases: N/A With isolated tumor cells: N/A Extranodal extension: N/A Size of largest met. deposit: N/A Treatment effect Breast: Present Lymph nodes: Not identified TNM: pT1a N0 Ancillary studies: E R positive, WA low, HER2 indeterminate, low proliferation (see [id number]) - the PI a re not repeated on this specimen because definitive invasive carcinoma is not identified. Note: For tumors gre ater than 5 mm in size with negative lymph nodes, prognostic genetic testing may be appro priate to guide further management. Note: Corrected report not e (08/18/2024): Added stage to data synopsis. No other changes are made. Clinical History Pre-Op Dx: S/P bilat eral mastectomy Post-Op Dx: Right br [facility] cancer Microscopic Description A-D. Microscopic sec tions reviewed. Material Received A. Right breast B. Right axillary fat pad C. Right axillary ly mph node D. Left breast CONTINUED ON NEXT PAGE ------- Name: Beatriz Adame Age/Sex: 78/F : 1945 Unit#: [id number] Attend Dr: Sammy Samano MD Re08/09/24 Status : DIS IN Location: [facility] 372-1 Disch: 08/12/24 ------- SPEC : [id number] RECD: 08/09/24 STATUS: YAMILET DE SANTIAGO NUM: [id number] JARRED: 08/09/24-[address] [facility] [address]: Sammy Samano MD ENTERED: 08/09/24-15 21 SP TYPE: Surgical OTHR DR: Baldev Victoria MD ORDERED: Gross Micro L3, Gross Micro L4, Gross Micro L5/2, IHC, Add. immunos, p63, SMM Gross Description A. Received in forma romy without an accompanying radiograph is a 1,020 g, 24.5 cm (medial- lateral) x 19.5 cm (superior-inferior) x 5.0 cm (anterior-posterior ) intact simple mastectomy specimen with 2 attached sutures designated as follows:long-axilla and short- superior, consistent with right breast. The superficial aspect exhibits a 24.7 x 10.5 cm park-white skin ellip se exhibiting an eccentrically located everted nipple ( 1.2 x 1.1 x 1.0 cm ). There is a 5.1 cm well-healed linear scar located within the upper inner quadrant, 1.0 cm to the neares t anterosuperior margin. The margin of resection is inked as follows: anterosuperior -blue , anteroinferior -green and posterior-black. The specimen is serially sectioned from media l to lateral to reveal a 1.3 x 1.2 x 1.0 cm park-white, ill-defined, mildly indurated les ion, located within the upper outer quadrant exhibiting a hemorrhagic biopsy site. A radio graphic biopsy clip is not grossly identified. The lesion in relation to resection margins measures as follows: 1.5 cm-posterior, 2.2 cm-anterosuperior and 7.0 cm-anteroinferior. Located within the u pper inner quadrant, 7.5 cm from the previously described lesion is a 1.1 x 1.0 x 0.9 cm a marilin of park-white, marked fibrosis with surrounding calcifications, 3.5 cm from the previous ly described superficial skin lesion/anterosuperior margin. The area of fibrosis/calcificati on to remaining resection margins measures as follows: 1.5 cm-posterior and 6.5 cm anteroinf erior. The remaining breast parenchyma consists of approximately 90% park-yellow, lobulate d fibrofatty adipose tissue interspersed with park-white fibrotic tissue. Sectioning within th e remaining upper outer quadrant reveals no palpable or grossly identifiable lymph nodes. Crutch Maker secti ons are submitted as follows: A1. Nipple/subareola r soft tissue A2. Upper inner quad rant linear scar, to include anterosuperior margin A3- A5. Upper outer quadrant lesion, entirely submitted, no margin A6. Nearest posterio r margin A7. Nearest anterosu perior margin A8. Nearest anteroin ferior margin A9-10. Uninvolved parenchyma between upper outer quadrant lesion and upper inner quadrant area of calcificatio n, no margin A11-12. Area of fibrosis/calcification, upper inner quadrant, entirely submitted, no margin A13. Nearest posteri or margin A14. Uninvolved uppe r inner quadrant A15. Uninvolved lowe r inner quadrant A16. Uninvolved lowe r outer quadrant A17. Uninvolved uppe r outer quadrant. Collection time 2:36 p.m; time in formalin: presumed immediate; total time in formalin: 28- 36 hours B. Received in forma romy is a 2.7 x 2.0 x 1.5 cm aggregate of park-yellow, lobulated adipose tissue. Sectioning r eveals a 1.2 x 0.7 x 0.4 cm pink-yellow, intact possible lymph node. CONTINUED ON NEXT PAGE ------- Name: Beatriz Adame Age/Sex: 78/F [facility] 1945 [id number]#: [id number] Attend Dr: Sammy Samano MD Re08/09/24 Status : DIS IN Location: [facility] 372-1 Disch: 08/12/24 ------- SPEC : [id number] RECD: 08/09/24 STATUS: YAMILET DE SANTIAGO NUM: [id number] JARRED: 08/09/241436 SUBM DR: Sammy Samano MD ENTERED: 08/09/24 21 SP TYPE: Surgical OTHR DR: Baldev Victoria MD ORDERED: Gross Micro L3, Gross Micro L4, Gross Micro L5/2, IHC, Add. immunos, p63, SMM Gross Description (Continued) Sectioning reveals a yellow, homogeneous, glistening cut surface. The specimen is totally submitted as follows: B1. Single possible lymph node, quadrisected B2. Remainder of kevin pose tissue C. Received in forma romy is a 2.8 x 2.0 x 1.5 cm aggregate of park -yellow, lobulated adipose tissue. Sectioning r eveals a 2.1 x 1.5 x 1.2 cm park-pink, intact single lymph node. The lymph node is sectio tiffanie to reveal a pink, glistening, homogeneous cut surface. The lymph node is totally subm itted in cassettes C1-2. D. Received in forma romy without an accompanying radiograph is a 680 g, 21.2 cm (medial- lateral) x 14.8 cm (superior-inferior) x 4.7 cm (anterior-posterior) intact simple mastectomy specimen with 2 attached sutures designated as follows: long-axilla and short- superior, consistent with left breast. The superficial aspect exhibits a 24.7 x 10.5 cm park-white skin ellip se exhibiting an eccentrically located everted nipple (1.2 x 1.1 x 1.0 cm ). The margin of resection is inked as follows: anterosuperior -blue, anteroinferior - green and posterior- black. The specimen is serially sectioned from medial to lateral to reveal a 2.2 x 2.1 x 2.0 cm area of park-white, stellate fibrosis/previous lumpectomy bed, located within the u pper inner quadrant. A solid mass or lesion is not grossly palpated. The area of fibrosis to resection margins measures as follows: 4.5 cm-anterosuperior, 4.3 cm-posterior and 5.2 cm-anteroinferior. The remaining breast parenchyma consists of approximately 95% park-yellow, lobulated fibrofatty adipose tissue interspersed with park- white dense fibrotic tissue. Sectioning within the upper outer quadrant reveals no palpable or grossly identifia ble lymph nodes. Crutch Maker secti ons are submitted as follows: D1. Nipple/subareola r soft tissue D2 -D5. Area of fibrosis/previous lumpectomy bed, upper inner quadrant, no margin, software support representative D6. Nearest anterosu perior margin D7. Nearest anteroin ferior margin D8. Nearest posterio r margin D9. Uninvolved upper outer quadrant D10. Uninvolved lowe r outer quadrant D11. Uninvolved lowe r inner quadrant D12. Uninvolved uppe r inner quadrant. (RADHA) Collection time 2:36 p.m; time in formalin: presumed immediate; total time in formalin: 28-36 hours This case was review ed intradepartmentally. CONTINUED ON NEXT PAGE ------- Name: Beatriz Adame Age/Sex: 78/F : 1945 Unit#: [id number] Attend Dr: Sammy Samano MD Re08/09/24 Status : DIS IN Location: [facility] 372-1 Disch: 08/12/24 ------- SPEC : [id number] RECD: 08/09/24 STATUS: YAMILET DE SANTIAGO NUM: [id number] JARRED: 08/09/24-[address] [facility] [address]: Smamy Saamno MD ENTERED: 08/09/24- 21 SP TYPE: Surgical OTHR DR: Baldev Victoria MD ORDERED: Gross Micro L3, Gross Micro L4, Gross Micro L5/2, IHC, Add. immunos, p63, SMM Copies To: Baldev Victoria MD [address] [facility] [place], [place] [id number] Sammy Samano MD [facility] [address] [place] [address] ------- Signed (si gnature on file) Jan Jesus MD 08/18/24 1551 ------- END OF REPORT NM sentinel node w imaging Reviewed date:08/13/2024 09:55:00 AM Interpretation: Performing Lab: Notes/Report: [address] [address] Nuclear Medicine Report Signed Patient: Rsoetta Adame MR#: [id number] : 1945 Acct:[id number] Age/Sex: 78 / F ADM Date: 08/09/24 Loc: HO.SSSA SSSKailee-[address]: Sammy Samano MD Ordering Physician: Sammy Samano MD Date of Service: 08/09/24 Procedure(s): NM sentinel node w imaging Accession Number(s): [id number] cc: Baldev Victoria MD; Sammy Samano MD EXAMINATION: Nuclear medicine sentinel node imaging. CLINICAL INDICATION: Right breast invasive ductal cancer. COMPARISON: Right breast biopsy 06/01/2024. TECHNIQUE: Following explaining right breast sentinel node procedure, benefits and risk, a written consent was obtained. 4% lidocaine was applied on the right breast areola 30 minutes. The area was then cleaned and draped in usual sterile manner. 0.5 mCi of technetium tilmanocept In 4 equal doses was injected in 4 quadrants around the right breast Hoff and imaging obtained 30 minutes later. Patient tolerated procedure extremely well. FINDINGS/ NM/NM sentinel node w imaging IMPRESSION: There is isotope activity seen in the 4 quadrants around the right breast areola. At 30 minutes no extension of activity seen in the right axilla or the intramammary lymph nodes. Electronically signed by: Sukhwinder Molina MD 08/09/2024 02:[address] [facility] Dictated By: Sukhwinder Molina MD Signed By: <Electronically signed by Sukhwinder Molina MD in OV> 08/09/24 1415 DD/ 0750 TD/TT: 08/09/24 0945 Video Production Specialist: [place] [id number] Nuclear Medicine Report Signed Patient: Melba Adame MR#: [id number] : 1945 Acct:[id number] Age/Sex: 78 / F ADM Date: 08/09/24 Loc: HO.SSSA SSSA-[address]: Sammy Samano MD Ordering Physician: Sammy Samano MD Date of Service: 08/09/24 Procedure(s): NM sen tinel node w imaging Accession Number(s): [id number] cc: Baldev Victoria MD; Sammy Samano MD EXAMINATION: Nuclear medicine sentinel node imaging. CLINICAL INDICATION: Right breast invasive ductal cancer. COMPARISON: Right br east biopsy 06/01/2024. TECHNIQUE: Following explaining right breast sentinel node procedure, benefits and risk, a written consent was obtained. 4% lidocaine was applied on the right breast areola 30 minutes. The area was then cleaned and draped i n usual sterile manner. 0.5 mCi of technetium tilmanocept In 4 equal doses was injected in 4 quadrants around the right breast Hoff and imaging obtained 30 minutes later. Patient tolerated procedure extremely well. FINDINGS/ N M/NM sentinel node w imaging IMPRESSION: There is isotope activity seen in the 4 quadrants around the right breast are angi. At 30 minutes no extension of activity seen in the right axilla or the intramammary lymph nodes. Electronically cindy d by: Sukhwinder Molina MD 08/09/2024 02:[address] [facility] Dictated By: Mr jacky Molina MD Signed By: <Electron ically signed by Sukhwinder Molina MD in OV> 08/09/24 1415 DD/ 0750 TD/TT: 08/09/24 0945 Video Production Specialist: YUNIEL Complete Blood Count Auto Di ff Reviewed date:08/13/2024 09:54:59 AM Interpretation: Performing Lab:[facility], [address] [place] [phone] Notes/Report: White Blood Count 11.2 4.8-10.8 X10*3/uL Red Blood Count 4.04 4.20-5.50 X10*6/uL Hemoglobin 11.8 12.0-16.0 g/dl Hematocrit 34.7 37.0-47.0 % Mean Corpuscular Volume 85.9 80.0-98.0 fL Mean Corpuscular Hemoglobin 29.2 27.0-33.0 pg Mean Corpuscular HGB Conc 34.0 31.0-35.0 g/dl Red Cell Distribution Width 13.9 11.0-16.0 % Platelet Count 224 160-400 X10*3/uL Mean Platelet Volume 11.3 9.4-12.3 fL Neutrophils Percent Auto 87.7 45-73 % Imm Gran Pct Auto 0.4 0.0-0.4 % Lymphocytes Percent Auto 6.4 20-40 % Monocytes Percent Auto 5.3 2-11 % Eosinophils Percent Auto 0.1 0-4 % Basophils Percent Auto 0.1 0-2 % NRBC Pct Auto 0.0 0.0-0.2 /100WBC Neutrophils Absolute Auto 9.8 2.0-8.3 x10*3/uL Imm Gran Abs Auto 0.05 0.00-0.03 X10*3/uL Lymphocytes Absolute Auto 0.7 1.2-4.9 X10*3/uL Monocytes Absolute Auto 0.6 0.1-1.2 X10*3/uL Eosinophils Absolute Auto 0.0 0.0-0.4 X10*3/uL Basophils Absolute Auto 0.0 0.0-0.2 X10*3/uL NRBC Abs Auto 0.000 0.0-0.012 X10*3/uL Complete Blood Count Auto Di ff Reviewed date:08/13/2024 09:54:59 AM Interpretation: Performing Lab:[facility], [address] [place] [id number] Notes/Report: White Blood Count 9.1 4.8-10.8 X10*3/uL Red Blood Count 3.76 4.20-5.50 X10*6/uL Hemoglobin 10.8 12.0-16.0 g/dl Hematocrit 33.4 37.0-47.0 % Mean Corpuscular Volume 88.8 80.0-98.0 fL Mean Corpuscular Hemoglobin 28.7 27.0-33.0 pg Mean Corpuscular HGB Conc 32.3 31.0-35.0 g/dl Red Cell Distribution Width 14.4 11.0-16.0 % Platelet Count 186 160-400 X10*3/uL Mean Platelet Volume 11.8 9.4-12.3 fL Neutrophils Percent Auto 65.1 45-73 % Imm Gran Pct Auto 0.4 0.0-0.4 % Lymphocytes Percent Auto 25.6 20-40 % Monocytes Percent Auto 7.9 2-11 % Eosinophils Percent Auto 0.5 0-4 % Basophils Percent Auto 0.5 0-2 % NRBC Pct Auto 0.0 0.0-0.2 /100WBC Neutrophils Absolute Auto 5.9 2.0-8.3 x10*3/uL Imm Gran Abs Auto 0.04 0.00-0.03 X10*3/uL Lymphocytes Absolute Auto 2.3 1.2-4.9 X10*3/uL Monocytes Absolute Auto 0.7 0.1-1.2 X10*3/uL Eosinophils Absolute Auto 0.1 0.0-0.4 X10*3/uL Basophils Absolute Auto 0.1 0.0-0.2 X10*3/uL NRBC Abs Auto 0.000 0.0-0.012 X10*3/uL Hold Green Gel Reviewed date:08/13/2024 09:54:59 AM Interpretation: Performing Lab:[facility], [address] [place] [id number] Notes/Report: Hold Green Gel See Note Specimen held untested for 24 hours; Call to request Chemistry testing. Reason For Referral No Information Medications Medication SIG (Take, Route, Frequency, Duration) Notes Start Date End Date Status Tylenol Extra Strength 500 MG 2 Tablets Orally every 6 hrs As needed for pain Active Metoprolol Succinate ER 25 mg 1 Tablet Orally Once a day Blood pressure Active Gabapentin 300 MG 1 capsule Orally Three times a day Neuropathy Active Alendronate Sodium 70 MG ! Tablet Orally Every Wednesday Osteoporosis Active Eliquis 5 MG 1 tablet Orally Twice a day prevent blood clots Active Immunizations Vaccine Route Administration Date Status Comme nts COVID PFIZER Unknown 04/16/2021 Administered COVID PFIZER Unknown 09/08/2020 Administered COVID PFIZER Unknown 09/30/2020 Administered Social History Tobacco Use: Social History Observation [...] Never (0 point) Points 1 Interpretation Negative Problems Problem Type SNOMED Code ICD Code Onset Dates Problem Status W/U Status Risk Notes Problem 72645871 Hyperlipidemia (E78.5) Active confirmed Her lipids are currently stable with a cholesterol of 199. Was continued on current therapy and encouraged to continue her weight loss. Problem 763455150 Obesity (E66.9) Active confirmed She has lost 10 pounds through diet and exercise. Her body mass index is 31.46. She weighs 172 pounds. We reviewed her weight loss strategy. She will continue to lose weight at a rate of one half of a pound per week through a diet restricted in calories. Problem 831834830 Malignant neoplasm of unspecified site of right female breast (C50.911) Active confirmed She has a history of bilateral breast cancer and a previous right breast cancer. She is under the care of medical oncology for adjuvant endocrine therapy. She has had bilateral mastectomies and she is currently in remission. Problem 687014867 Other obesity du e to excess calories (E66.09) Active confirmed Her body m ass index is 31. We discussed her diet and nutrition and made a plan to lose weight at a rate of one half of a pound per week. 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 Problem 518641934 Chronic anticoagulation (Z79.01) Active confirmed She is compliant with the medication. Has had no bleeding. Problem Dementia (89096084) Dementia (F03.90) Active confirmed Problem 056758249 Osteoarthritis (M19.90) Active confirmed The left ankle and foot are now free of pain. She has had a left hip arthroplasty and is ambulating without difficulty. She continues to have mild discomfort in her hands and shoulders. Her knees are free of pain. Problem History of breas t cancer (Z85.3) Active confirmed A recent mammogram showed an abnormality in the right breast. A biopsy showed invasive ductal carcinoma. A mastectomy is being planned. She has a history of radiation to this persists already. Problem 855152824 Pedal edema (R60.0) Active confirmed There is no peripheral edema noted today. Problem 48167317 Atrial fibrillation, unspecified type (I48.91) Active confirmed She was in a slightly irregular control rhythm today with no symptoms. No change in her medication was made. Problem 37284719 Leucopenia (D72.819) Active confirmed Her white blood cell count today is slightly low at 4600 with a normal differential. She has had no infections. No change in her regimen was made. Problem 140750680149291 Ankle bone spur (M77.9) Active confirmed Problem 88516765 Third degree heart block (I44.2) Active confirmed Her pacemaker appears to be functioning normally. A recent device check was unremarkable. Her vital signs were stable. Problem 991893629 Body mass index [BMI] 30.0-30.9, adult (Z68.30) Active confirmed Problem 824765258 Status post bilateral mastectomy (Z90.13) Active confirmed Her wounds are healing well. Pain is minimal. All of the lymph nodes were negative.Roxann ins were clear. She has a left breast cancer in 2005. This was a right breast cancer. She is doing well. Vital Signs Heart Rate 62 /min 09/29/2024 Temperature 98.4 degrees Fahrenheit 09/29/2024 Blood pressure diastolic 76 mm Hg 09/29/2024 Height 62 in 09/29/2024 Blood pressure systolic 135 mm Hg 09/29/2024 Weight 168 lbs 09/29/2024 BMI 30.72 kg/m2 09/29/2024 Encounters Encounter Location Date Provider Diagnosis Baldev Victoria III, MD [address] [place] [address] [place] [phone] 04/05/2024 Baldev Victoria Osteoarthritis M19.9 0 ; Atrial fibrillation, unspecified type I48.91 ; Obesity E66.9 ; Hyperlipidemia E78.5 ; Leucopenia D72.819 ; Chronic anticoagulation Z79.01 and History of breast cancer Z85.3 Baldev Victoria III, MD [address] [place] [address] [place] [phone] 06/12/2024 Baldev Victoria Osteoarthritis M19.9 0 ; Atrial fibrillation, unspecified type I48.91 ; Obesity E66.9 ; Leucopenia D72.819 ; History of breast cancer Z85.3 ; Third degree heart block I44.2 and Chronic anticoagulation Z79.01 Baldev Victoria III, MD [address] [place] [address] [place] [id number] 06/15/2024 Baldev Victoria Genetic susceptibili ty to malignant neoplasm of breast Z15.01 ; History of breast cancer Z85.3 ; Leucopenia D72.819 and Other obesity due to excess calories E66.09 Baldev Victoria III, MD [address] [place] [address] [place] [id number] 07/17/2024 Baldev Victoria History of breast ca ncer Z85.3 ; Obesity E66.9 ; Hyperlipidemia E78.5 ; Leucopenia D72.819 ; Third degree heart block I44.2 ; Atrial fibrillation, unspecified type I48.91 and Pedal edema R60.0 Baldev Victoria III, MD [address] [place] [address] [place] [id number] 08/18/2024 Baldev Victoria Status post bilatera l mastectomy Z90.13 ; Obesity E66.9 ; Hyperlipidemia E78.5 ; Atrial fibrillation, unspecified type I48.91 ; Chronic anticoagulation Z79.01 ; Other obesity due to excess calories E66.09 ; Malignant neoplasm of unspecified site of right female breast C50.911 and Estrogen receptor positive status [ER+] Z17.0 Baldev Victoria III, MD [address] [place] [address] [place] [id number] 09/29/2024 Baldev Victoria History of breast ca ncer Z85.3 ; Third degree heart block I44.2 ; Atrial fibrillation, unspecified type I48.91 ; Other obesity due to excess calories E66.09 and Malignant neoplasm of unspecified site of right female breast C50.911 Baldev Victoria III, MD [address] [place] [address] [place] [id number] 06/26/2024 Baldev Victoria III, MD [address] [place] [address] [place] [id number] 07/19/2024 Baldev Victoria III, MD [address] [place] [address] [place] [id number] 08/16/2024 Baldev Victoria III, MD [address] [place] [address] [place] [id number] 08/17/2024 Baldev Victoria III, MD [address] [place] [address] [place] [id number] 10/09/2024 Baldev Neelyrne History of breast ca kser Z85.3 Assessments Encounter Date Diagnosis (ICD Code) Assessment Notes Treat ment Notes Treatment Clinical Notes 04/05/2024 Osteoarthritis (ICD- 10 - M19.90) The left ankle and foot are now free of pain. She has had a left hip arthroplasty and is ambulating without difficulty. She continues to have mild discomfort in her hands and shoulders. Her knees are free of pain. 04/05/2024 Atrial fibrillation, unspecified type (ICD-10 - I48.91) She was in a slightly irregular control rhythm today with no symptoms. No change in her medication was made. 06/12/2024 Osteoarthritis (ICD- 10 - M19.90) The left ankle and foot are now free of pain. She has had a left hip arthroplasty and is ambulating without difficulty. She continues to have mild discomfort in her hands and shoulders. Her knees are free of pain. 06/12/2024 Atrial fibrillation, unspecified type (ICD-10 - I48.91) She was in a slightly irregular control rhythm today with no symptoms. No change in her medication was made. 06/15/2024 Genetic susceptibili ty to malignant neoplasm of breast (ICD-10 - Z15.01) She underwent genetic testing today. The result will be communicated as soon as they're available. 06/15/2024 History of breast cancer (ICD-10 - Z85.3) A recent mammogram showed an abnormality in the right breast. A biopsy showed invasive ductal carcinoma. A mastectomy is being planned. She has a history of radiation to this persists already. 07/17/2024 Obesity (ICD-10 - E66.9) She has lost 10 pounds through diet and exercise. Her body mass index is 31.46. She weighs 172 pounds. We reviewed her weight loss strategy. She will continue to lose weight at a rate of one half of a pound per week through a diet restricted in calories. 07/17/2024 History of breast cancer (ICD-10 - Z85.3) A recent mammogram showed an abnormality in the right breast. A biopsy showed Invasivve breast cancer. After a discussion of the issues she has chosen to have bilateral mastectomies. This wiill go forward. 08/18/2024 Obesity (ICD-10 - E66.9) She has lost 4 pounds withh the surgery. Her body mass index is 30.. We reviewed her weight loss strategy. She will continue to lose weight at a rate of one half of a pound per week through a diet restricted in calories. 08/18/2024 Status post bilatera l mastectomy (ICD-10 - Z90.13) Her wounds are healing well. Pain is minimal. All of the lymph nodes were negative.Margins were clear. She has a left breast cancer in 2005. This was a right breast cancer. She is doing well. 09/29/2024 History of breast cancer (ICD-10 - [...] was unremarkable. Her vital signs were stable. 10/09/2024 History of breast cancer (ICD-10 - Z85.3) A recent mammogram showed an abnormality in the right breast. A biopsy showed Invasivve breast cancer. After a discussion of the issues she has chosen to have bilateral mastectomies. This wiill go forward. 04/05/2024 Obesity (ICD-10 - E66.9) She has lost 6 pounds through diet and exercise. We reviewed her weight loss strategy. She will continue to lose weight at a rate of one half of a pound per week through a diet restricted in calories. 06/12/2024 Obesity (ICD-10 - E66.9) She has lost 10 pounds through diet and exercise. Her body mass index is 31.46. She weighs 172 pounds. We reviewed her weight loss strategy. She will continue to lose weight at a rate of one half of a pound per week through a diet restricted in calories. 06/15/2024 Leucopenia (ICD-10 - D72.819) Her white blood cell count today is slightly low at 4600 with a normal differential. She has had no infections. No change in her regimen was made. 07/17/2024 Hyperlipidemia (ICD- 10 - E78.5) Her lipids are currently stable with a cholesterol of 199. Was continued on current therapy and encouraged to continue her weight loss. 08/18/2024 Hyperlipidemia (ICD- 10 - E78.5) Her lipids are currently stable with a cholesterol of 199. Was continued on current therapy and encouraged to continue her weight loss. 09/29/2024 Atrial fibrillation, unspecified type (ICD-10 - I48.91) She was in a slightly irregular control rhythm today with no symptoms. No change in her medication was made. 04/05/2024 Hyperlipidemia (ICD- 10 - E78.5) Her lipids are currently stable with a cholesterol of 199. Was continued on current therapy and encouraged to continue her weight loss. 06/12/2024 Leucopenia (ICD-10 - D72.819) Her white blood cell count today is slightly low at 4600 with a normal differential. She has had no infections. No change in her regimen was made. 06/15/2024 Other obesity due to excess calories (ICD-10 - E66.09) Her body mass index is 31. We discussed her diet and nutrition and made a plan to lose weight at a rate of one half of a pound per week. 07/17/2024 Leucopenia (ICD-10 - D72.819) Her white blood cell count today is slightly low at 4600 with a normal differential. She has had no infections. No change in her regimen was made. 08/18/2024 Atrial fibrillation, unspecified type (ICD-10 - [...] one half of a pound per week. 04/05/2024 Leucopenia (ICD-10 - D72.819) Her white blood cell count today is slightly low at 4600 with a normal differential. She has had no infections. No change in her regimen was made. 06/12/2024 History of breast cancer (ICD-10 - Z85.3) A recent mammogram showed an abnormality in the right breast. A biopsy showed invasive ductal carcinoma. A mastectomy is being planned. She has a history of radiation to this persists already. 07/17/2024 Third degree heart block (ICD-10 - I44.2) Her pacemaker appears to be functioning normally. A recent device check was unremarkable. Her vital signs were stable. 08/18/2024 Chronic anticoagulation (ICD-10 - Z79.01) She is compliant with the medication. Has had no bleeding. 09/29/2024 Malignant neoplasm o f unspecified site of right female breast (ICD-10 - C50.911) She has a history of bilateral breast cancer and a previous right breast cancer. She is under the care of medical oncology for adjuvant endocrine therapy. She has had bilateral mastectomies and she is currently in remission. 04/05/2024 Chronic anticoagulation (ICD-10 - Z79.01) She is compliant with the medication. Has had no bleeding. 06/12/2024 Third degree heart block (ICD-10 - I44.2) Her pacemaker appears to be functioning normally. A recent device check was unremarkable. Her vital signs were stable. 07/17/2024 Atrial fibrillation, unspecified type (ICD-10 - I48.91) She was in a slightly irregular control rhythm today with no symptoms. No change in her medication was made. 08/18/2024 Other obesity due to excess calories (ICD-10 - E66.09) Her body mass index is 31. We discussed her diet and nutrition and made a plan to lose weight at a rate of one half of a pound per week. 04/05/2024 History of breast cancer (ICD-10 - Z85.3) Her most recent mammogram was benign and there is no sign of recurrent disease today. Observation will continue. Her mammograms will be done on schedule. She will continue breast self examination. There was no sign of a new primary or recurrent disease today. 06/12/2024 Chronic anticoagulation (ICD-10 - Z79.01) She is compliant with the medication. Has had no bleeding. 07/17/2024 Pedal edema (ICD-10 - R60.0) There is no peripheral edema noted today. 08/18/2024 Malignant neoplasm o f unspecified site of right female breast (ICD-10 - C50.911) This was a ductal carcinoma which is node negative. She is receptor positive. The referred to Medical oncology. 08/18/2024 Estrogen receptor positive status [ER+] (ICD-10 - Z17.0) She is a candidate for adjuvant endocrine therapy. Plan Of Treatment Pending Test Test Name Order Date PROFILE, FASTING (COMPREHENSIVE METABOLI C) 07/24/2020 PROFILE, FASTING (COMPREHENSIVE METABOLI C) 05/18/2018 PROFILE, FASTING (COMPREHENSIVE METABOLI C) 02/03/2017 PROFILE, FASTING (COMPREHENSIVE METABOLI C) 04/05/2024 PROFILE, FASTING (COMPREHENSIVE METABOLI C) 09/23/2022 PROFILE, FASTING (COMPREHENSIVE METABOLI C) 02/16/2018 PROFILE, FASTING (COMPREHENSIVE METABOLI C) 03/25/2022 PROFILE, FASTING (COMPREHENSIVE METABOLI C) 11/17/2017 PROFILE, FASTING (COMPREHENSIVE METABOLI C) 07/17/2024 PROFILE, RANDOM (COMPREHENSIVE METABOLIC ) 08/30/2019 PROFILE, RANDOM (COMPREHENSIVE METABOLIC ) 05/14/2021 LIPID PANEL 11/17/2017 LIPID PANEL 07/24/2020 LIPID PANEL 05/18/2018 LIPID PANEL 08/30/2019 LIPID PANEL 02/03/2017 LIPID PANEL 09/23/2022 LIPID PANEL 02/16/2018 LIPID PANEL 03/25/2022 LIPID PANEL 05/14/2021 TSH (THYROID STIMULATING HORMONE) 2024 TSH (THYROID STIMULATING HORMONE) 2022 BRAIN NATRIURETIC PEPTIDE (BNP) 07/17/19 25 CBC w DIFF 09/23/2022 CBC w DIFF 03/25/2022 CBC w DIFF 05/14/2021 CBC w DIFF 11/17/2017 CBC w DIFF 06/04/2021 CBC w DIFF 07/24/2020 CBC w DIFF 05/18/2018 CBC w DIFF 04/05/2024 CBC w DIFF 08/30/2019 CBC w DIFF 02/03/2017 CBC w DIFF 02/16/2018 CA 27.29 11/17/2017 CA 27.29 05/18/2018 XR CHEST 2 VIEW PA & LAT 02/06/2019 XR HIP LT 09/01/2022 MAMMOGRAM DIGITAL BILATERAL SCREEN 09/23 MAMMOGRAM DIGITAL BILATERAL SCREEN 08/20 MAMMOGRAM DIGITAL BILATERAL SCREEN 03/06 Echocardiogram 09/14/2018 VITAMIN D 25-OH TOTAL 07/24/2020 PFT with DLCO 09/14/2018 CBC WITH AUTO DIFF 07/17/2024 Magnesium 07/17/2024 Lipid Panel 04/05/2024 Lipid Panel 07/17/2024 Vitamin B12 07/17/2024 Free T4 (Free Thyroxine) 07/17/2024 Next Appt Details Provider Name:Baldev Victoria, 12/20/2024 02:30:00 PM, [address] [place] [address] SU[address] CAPE[address], [place], [phone], Provider Name:Baldev Victoria, 10/03/2025 02:30:00 PM, [address] [place] [address] SUKHDEV CAP[place], [place], [id number], Insurance Providers Payer Name Payer Address Payer Phone Subscriber Number Group Number Insured Name Patient Relationship to Insured Coverage Start Date Coverage End Date MEDICARE [place] [address] [place] [address] [phone] [id number] Rosetta Adame Self - patient is the insured [facility] [address] [place], [place] [phone] [id number] Rosetta Adame Self - patient is the insured [place] [address] [place], [place] [id number] [phone] [id number] Rosetta Adame Self - patient is the insured Medical (General) History Medical History History ICD Code bone spurs both feet obesity [id number] mild anemia invasive right breast cancer 2006: lumpe ctomy, SN then RT osteoporosis hyperlipidemia last bilateral mammogram 02/2012 @ third-degree heart block Sep, septal infarct, pacemaker insertion, [facility], Dr. Rajan Persistent atrial fibrillation Chronic anticoagulation Dual-chamber [place] pacemaker September 2018, Dr. Rajan Early cognitive decline, November 2022 Breast cancer right breast node negative ductal July 2024 Surgical History Surgery Date(Month/Year) Double Massectomy 06/2024 Lumpectomy 2005 invasive ductal carcinoma ri ght breast, lumpectomy, Bilateral mastectomy 2024 Lumpectomy left breast posit richie for infiltrating ductal and lobular carcinoma, RT 2001 Hip replacements Left hip arthroplasty, [facility] 10/2022 cataract surgery 05/2021 pacemaker insertion, Dr. Rajan, [facility] 09/2018 lumpectomy with sentinel nod e excision for invasive right breast cancer, RT 2006 right hip replacement 07/2011 laparotomy D&C 1991 Hospitalization History Reason Date(Month/Year) No history right hip replacement
--- OUTSIDE RECORDS SUMMARY | 2024-11-10 09:26 | XMS_ITS ---
Author Organization Baldev Victoria III, MD Address [address] [address] Care Team Providers Care Air Defense Specialist Name Role Phone Baldev Victoria Primary Care Provider [phone] Allergies Allergen (clinical drug ingredient) Drug/Non Drug [...] Problem Status W/U Status Risk Notes Problem 388783764 Status post bilateral mastectomy (Z90.13) Active confirmed Her wounds are healing well. Pain is minimal. All of the lymph nodes were negative.Margin s were clear. She has a left breast cancer in 2005. This was a right breast cancer. She is doing well. Problem 080680392 Malignant neoplasm of unspecified site of right female breast (C50.911) Active confirmed She has a history of bilateral breast cancer and a previous right breast cancer. She is under the care of medical oncology for adjuvant endocrine therapy. She has had bilateral mastectomies and she is currently in remission. Problem 018179936 Estrogen receptor positive status [ER+] (Z17.0) Active [...] Date Provider Diagnosis Baldev Victoria III, MD [address] [place] [address] [place] [address] 08/18/2024 Baldev Victoria Status post bilatera l [...] 4 Weeks, Reason: ov Provider Name:Baldev Victoria, 12/20/2024 02:30:00 PM, [address] [place] [address] [address], [place], [phone], Provider Name:Baldev Victoria, 10/03/2025 02:30:00 PM, [address] [place] [address] SUKHDEV CAPELLAN, [place], [phone], Progress Notes * Rosetta ADAMEDOB: [birth year] (78 yo F)Acc No.[id number]:08/18/2024 Progress Notes Patient:?Rosetta ADAME Provider:?Baldev Victoria MD :1945???Age:78 Y???Sex:Female D ate:08/18/2024 [facility] [id number] Subjective: * Chief Complaints: * ???Breast cancerRecent [...] Pain Scale is 0.She was discharged from [facility] August 12, 2024.? She saw her [...] breast cancer, RT 2005pacemaker insertion, Dr. Rajan, [facility] 09/2018cataract surgery eft hip arthroplasty, [facility] 10/2022Hip replacements Lumpectomy left breast positive [...] longer climb stairs. She was born in [place]. She has been for 37 years. A son Daphne, aged 43, is working for [employer]. * Medications:?TakingGabapenti n 300 mg Capsule TAKE [...] endocrine therapy.??? Plan: * Treatment: * Procedure Codes:?02111 TRANS CARE MGMT 7 DAY DISCH * [...] Victoria MD Date:?07/30 Generated for Ronald clark/Mayra/eTransmitting on:?11/10/2024 09:25 AM [...]
--- OUTSIDE RECORDS SUMMARY | 2024-11-10 09:26 | XMS_ITS | Patient Health Record ---
Author Organization [facility] Address [address] [place] [address] Care Team Providers Care Back Seam Stitcher Name Role Phone Baldev Victoria MD Primary Care Provider Unavailab Baldev Souza Unavailable [phone] Reason For Referral No Information Medications Medication SIG (Take, Route, Frequency, Duration) Notes Start Date End Date Status Gabapentin 300 MG TAKE 1 CAPSULE BY MO [facility] THREE TIMES DAILY Diagnosis Unavailable Oral [...] Problem Status W/U Status Risk Notes Problem 804205814 Colon cancer screening (Z12.11) Active confirmed Problem Diverticulosis o f large intestine without perforation or abscess without bleeding (K57.30) Active confirmed Problem 159048711998634 Preprocedural examination (Z01.818) Active confirmed Problem 751783857 Anticoagulant long-term use (Z79.01) Active confirmed Plan Of Treatment Pending Test Test Name Order Date Pathology 04/14/2023 Future Test Test Name Order Date COLONOSCOPY 01/26/2023 Insurance Providers Payer Name Payer Address Payer Phone Subscriber Number Group Number Insured Name Patient Relationship to Insured Coverage Start Date Coverage End Date MEDICARE OF [place] [address] [place] [id number] MELISA ADAME Self - patient is the insured [employer] [address] [place] [phone] [id number] MELISA ADAME Self - patient is the insured Medical (General) History Medical History History ICD Code Invasive right breast cancer 2005 Osteoporosis Hyperlipidemia Pacemaker insertion for comp lete heart block in 2019. This was associated with a MS Atrial fibrillation Denies DM,CVA,Lung disease,renal disease Surgical History Surgery Date(Month/Year) Exploratory laparotomy D&C 1991 Right hip replacement Lumpectomy with sentinel nod e excision for invasive right breast cancer 2005 Pacemaker insertion, Dr. Rajan, at [facility] Cataract surgery 05/2021 Left hip replacement 11/2022
== END 2024-11-10 09:30 | disposition home or self-care (01) ==
LOC: HO.HGS 09:12
PROVIDERS: PCP Internal Medicine Medical Oncology; Visit Provider Surgery
DX: C50.911 Malignant neoplasm of unspecified site of right female breast (principal); Z90.13 Acquired absence of bilateral breasts and nipples
CPT/HCPCS: 99212

== ENCOUNTER → 2024-11-10 09:12 | Outpatient (BNVA) | payer MEDICARE, SELFPAY | PROVIDERS: PCP Internal Medicine Medical Oncology; Visit Provider Surgery | DX: C50.411 Malignant neoplasm of upper-outer quadrant of right female breast (principal); Z17.0 Estrogen receptor positive status [ER+]; Z90.13 Acquired absence of bilateral breasts and nipples | CPT/HCPCS: 99212 ==

== ENCOUNTER 2024-12-20 14:56 | Outpatient (REF) | payer MEDICARE, SELFPAY ==
--- NOTE | ~2024-12-20 | XR_ITS ---
EXAMINATION: XR ANKLE, LEFT CLINICAL INFORMATION: PAIN COMPARISON: None available. TECHNIQUE: AP, lateral, and mortise views of the left ankle. FINDINGS: No fracture, dislocation, or suspicious bone lesion. Normal alignment. Mortise is intact. The talar dome is normal. There are mild to moderate degenerative changes of the left ankle joint and subtalar joints. There is a moderate-sized plantar calcaneal spur. There is diffuse circumferential soft tissue swelling. XR/XR ankle LT min 3V IMPRESSION: 1. No acute bony abnormalities. 2. Circumferential soft tissue swelling. Electronically signed by: James Perez MD 12/20/2024 03:53 PM EDT
--- NOTE | ~2024-12-20 | XR_ITS ---
EXAMINATION: XR FOOT, LEFT CLINICAL INFORMATION: Injured 3 weeks ago with persistent pain COMPARISON: None available. TECHNIQUE: AP, lateral, and oblique views of the left foot. FINDINGS: No fracture is demonstrated. There is a large dorsal and lateral osteophyte involving the distal calcaneal articulation. However, the joint spaces preserved There is hallux valgus deformity. Moderate plantar calcaneal spur is present. No fracture is visualized. XR/XR foot LT min 3V IMPRESSION: Hallux valgus deformity. Plantar calcaneal spur. Distal calcaneal marginal osteophytes. Electronically signed by: Ermias Young MD 12/20/2024 03:38 PM EDT
--- OUTSIDE RECORDS SUMMARY | 2024-12-20 10:30 | XMS_ITS ---
Author Organization Baldev Victoria III, MD Address [address] [place] [address] [place] [address] Care Team Providers Care Office Technology Instructor Name Role Phone Baldev Victoria Primary Care Provider Allergies Allergen (clinical drug ingredient) Drug/Non Drug Allergy documented on EMR Reaction Allergy Type Onset Date Status sulfacetamide Sulfacetamide Unknown Drug Allergy Active Cannabis sativa whole extract Marijuana (Cannabis Sativa) Unknown Drug Allergy Active Results Component Value Reference Range Notes XR ankle LT min 3V (Not yet reviewed by provider) Interpretation: Performing Lab: Notes/Report: [address] [address] XRay Report Signed Patient: Rosetta Adame MR#: [id number] : 1945 Acct:[id number] Age/Sex: 79 / F ADM Date: 12/20/24 Loc: HO.XRAY Attending Dr: Baldev Victoria MD Ordering Physician: Baldev Victoria MD Date of Service: 12/20/24 Procedure(s): XR ankle LT min 3V Accession Number(s): [id number] cc: Baldev Victoria MD EXAMINATION: XR ANKLE, LEFT CLINICAL INFORMATION: PAIN COMPARISON: None available. TECHNIQUE: AP, lateral, and mortise views of the left ankle. FINDINGS: No fracture, dislocation, or suspicious bone lesion. Normal alignment. Mortise is intact. The talar dome is normal. There are mild to moderate degenerative changes of the left ankle joint and subtalar joints. There is a moderate-sized plantar calcaneal spur. There is diffuse circumferential soft tissue swelling. XR/XR ankle LT min 3V IMPRESSION: 1. No acute bony abnormalities. 2. Circumferential soft tissue swelling. Electronically signed by: James Perez MD 12/20/2024 03:53 PM EDT RP Dictated By: James Perez MD Signed By: <Electronically signed by James Perez MD in OV> 12/20/24 155 DD/ 1520 TD/TT: 12/20/24 152 Manager Of Recruiting: [address] [address] XRay Report Signed Patient: Melba Adame MR#: [id number] : 1945 Acct:[id number] Age/Sex: 79 / F ADM Date: 12/20/24 Loc: HO.XRAY Attending Dr: Baldev Victoria MD Ordering Physician: Baldev Victoria MD Date of Service: 12/20/24 Procedure(s): XR ank le LT min 3V Accession Number(s): [id number] cc: Baldev Victoria MD EXAMINATION: XR ANKLE, LEFT CLINICAL INFORMATION: PAIN COMPARISON: None available. TECHNIQUE: AP, lateral, and mor tise views of the left ankle. FINDINGS: No fracture, disloca tion, or suspicious bone lesion. Normal alignment. Mortise is intact. T he talar dome is normal. There are mild to moderate degenerative changes of the left ankle joint and subtalar joints. There is a moderate-sized plantar calcaneal spur. There is diffuse circumferential soft tissue swelling. X R/XR ankle LT min 3V IMPRESSION: 1. No acute bony abnormalities. 2. Circumferential s oft tissue swelling. Electronically cindy d by: James Perez MD 12/20/2024 03:53 PM EDT RP Dictated By: Jaems Perez MD Signed By: <Electron icasuzanna signed by James Perez MD in OV> 12/20/24 155 DD/ 1520 TD/TT: 12/20/24 152 Manager Of Recruiting: XR foot LT min 3V (Not yet r eviewed by provider) Interpretation: Performing Lab: Notes/Report: [address] [address] XRay Report Signed Patient: Rosetta Adame MR#: [id number] : 1945 Acct:[id number] Age/Sex: 79 / F ADM Date: 12/20/24 Loc: HO.XRAY Attending Dr: Baldev Victoria MD Ordering Physician: Baldev Victoria MD Date of Service: 12/20/24 Procedure(s): XR foot LT min 3V Accession Number(s): [id number] cc: Baldev Victoria MD EXAMINATION: XR FOOT, LEFT CLINICAL INFORMATION: Injured 3 weeks ago with persistent pain COMPARISON: None available. TECHNIQUE: AP, lateral, and oblique views of the left foot. FINDINGS: No fracture is demonstrated. There is a large dorsal and lateral osteophyte involving the distal calcaneal articulation. However, the joint spaces preserved There is hallux valgus deformity. Moderate plantar calcaneal spur is present. No fracture is visualized. XR/XR foot LT min 3V IMPRESSION: Hallux valgus deformity. Plantar calcaneal spur. Distal calcaneal marginal osteophytes. Electronically signed by: Ermias Young MD 12/20/2024 03:38 PM EDT Dictated By: Ermias Young MD Signed By: <Electronically signed by Ermias Young MD in OV> 12/20/24 1538 DD/ 1520 TD/TT: 12/20/24 1525 Manager Of Recruiting: [address] [address] XRay Report Signed Patient: Melba Adame MR#: [id number] : 1945 Acct:[id number] Age/Sex: 79 / F ADM Date: 12/20/24 Loc: HO.XRAY Attending Dr: Baldev Victoria MD Ordering Physician: Baldev Victoria MD Date of Service: 12/20/24 Procedure(s): XR foot LT min 3V Accession Number(s): [id number] cc: Baldev Victoria MD EXAMINATION: XR FOOT, LEFT CLINICAL INFORMATION: Injured 3 weeks ago with persistent pain COMPARISON: None available. TECHNIQUE: AP, lateral, and obl ique views of the left foot. FINDINGS: No fracture is demonstrated. There is a large georgette marvin and lateral osteophyte involving the distal calcaneal articulati on. However, the joint spaces preserved There is hallux valg us deformity. Moderate plantar julia caneal spur is present. No fracture is visualized. X R/XR foot LT min 3V IMPRESSION: Hallux valgus deformity. Plantar calcaneal spur. Distal calcaneal mar ginal osteophytes. Electronically cindy d by: Ermias Young MD 12/20/2024 03:38 PM EDT RP Dictated By: Ermias Young MD Signed By: <Elizabeth cortes signed by Ermias Young MD in OV> 12/20/24 1538 DD/ 1520 TD/TT: 12/20/24 1525 Manager Of Recruiting: REASON FOR VISIT Follow up, Left foot injury x 3 weeks ago Medications Medication SIG (Take, Route, Frequency, Duration) Notes Start Date End Date Status Eliquis 5 MG 1 tablet Orally Twice a day prevent blood clots Active Alendronate Sodium 70 MG ! Tablet Orally Every Wednesday Osteoporosis Active Tylenol Extra Strength 500 MG 2 Tablets Orally every 6 hrs As needed for pain Active Metoprolol Succinate ER 25 mg 1 Tablet Orally Once a day Blood pressure Active Gabapentin 300 MG 1 capsule Orally Three times a day Neuropathy Active Social History Tobacco Use: Social History Observation Description Date Details (start date - stop date) Never Smoker NA - NA Sex Assigned At : Social History Observation Description Sex Assigned At Female Tobacco Control (Standard) Question Answer Notes Tobacco use: Nonsmoker Additional Findings: Tobacco non-user Aggressive nonsmoker Vital Signs Temperature 97.5 degrees Fahrenheit 12/21/19 25 Blood pressure systolic 149 mm Hg 12/21/19 Blood pressure diastolic 88 mm Hg 025 Heart Rate 66 /min 12/20/2024 Height 62 in 12/20/2024 Weight 171 lbs 12/20/2024 BMI 31.27 kg/m2 12/20/2024 Encounters Encounter Location Date Provider Diagnosis Baldev Victoria III, MD [address] [place] [address] [address] [place] [id number] 12/20/2024 Baldev Victoria History of breast cancer Z85.3 ; Right ankle pain M25.571 and Right foot pain M79.671 Assessments Encounter Date Diagnosis (ICD Code) Assessment Notes Treatment Notes Treatment Clinical Notes 12/20/2024 History of breast cancer (ICD-10 - Z85.3) A recent mammogram showed an abnormality in the right breast. A biopsy showed Invasivve breast cancer. After a discussion of the issues she has chosen to have bilateral mastectomies. This wiill go forward. 12/20/2024 Right ankle pain (ICD-10 - M25.571) 12/20/2024 Right foot pain (ICD-10 - M79.671) Plan Of Treatment Medication Medication Name Sig Start Date Stop Date Notes Eliquis 5 MG 1 tablet Orally Twice a day Alendronate Sodium 70 MG ! Tablet Orally Every Wednesday Tylenol Extra Strength 500 MG 2 Tablets Orally every 6 hrs Metoprolol Succinate ER 25 mg 1 Tablet Orally Once a day Gabapentin 300 MG 1 capsule Orally Thr ee times a day Pending Test Test Name Order Date XR ankle LT min 3V 12/20/2024 XR foot LT min 3V 12/20/2024 Next Appt Details Follow Up: 2 Months, Reason: OV Provider Name:Baldev Victoria, 02/19/2025 11:00:00 AM, [address] [place] [address] [place] [place], [place], [phone], Provider Name:Baldev Victoria, 10/03/2025 02:30:00 PM, [address] [place] [address] [place] [place], [place], [phone], Progress Notes * Rosetta ADAMEDOB: [birth year] (79 yo F)Acc No.[id number]:12/20/2024 Progress Notes Patient: Beatriz CHAWLAth Provider: Alejandro Victoria MD :1945 A ge:79 Y S ex:Female Date:12/20/2024 [facility] [id number] Subjective: * Chief Complaints: * 1 . Follow up. 2. Left foot injury x 3 weeks ago. * HPI: C OVID-19 Screening: hurt left foiot in parking lot getting better, 3 weeks ago. Questions H ave you had any new onset fever, chills, cough, congestion, sore throat, shortness of breath, muscle aches? N o * ROS: G eneral/Constitutional: pain o nly normal aches and pains. C hills d enies.?Fatigue a dmits. F ever d enies. E NT: Decreased hearing d enies. R espiratory: Cough d enies. C ardiovascular: Chest pain with exertion d enies. D yspnea on exertion?denies. S hortness of breath d enies. G astrointestinal: Constipation d enies. D ecreased appetite d enies.?Diarrhea d enies. H eartburn d enies. N ausea d enies. R ectal bleeding?denies. V omiting d enies. H ematology: bruising d enies. p etechiae d enies. S wollen glands n one have been noted. G enitourinary: Frequent urination d enies. M usculoskeletal: Muscle aches d enies. P ainful joints d enies. S ciatica d enies. W eakness d enies. S kin: Itching d enies. R venus d enies. S kin lesion(s)?denies. N eurologic: Difficulty speaking d enies. D izziness d enies.?Headache d enies. L ow back pain d enies. P sychiatric: Depressed mood d enies. * Medical History: B one spurs both feet, Obesity, W5C5Po8, Mild anemia, invasive right breast cancer 2006: lumpectomy, SN then RT, Osteoporosis, Hyperlipidemia, last bilateral mammogram 02/2012 @ , third-degree heart block September 2018, septal infarct, pacemaker insertion, [facility], Dr. Rajan, Persistent atrial fibrillation, Chronic anticoagulation, Dual-chamber [place] pacemaker September 2018, Dr. Rajan, Early cognitive decline, November 2022, Breast cancer right breast node negative ductal July 2024. * Surgical History: D &C 1991, laparotomy , right hip replacement 07/2011, lumpectomy with sentinel node excision for invasive right breast cancer, RT 2005, pacemaker insertion, Dr. Rajan, [facility] 09/2018, cataract surgery 05/2021, Left hip arthroplasty, [facility] 10/2022, Hip replacements , Lumpectomy left breast positive for infiltrating ductal and lobular carcinoma, RT 2001, invasive ductal carcinoma right breast, lumpectomy, Bilateral mastectomy 2024, Lumpectomy 2005, Double Massectomy 06/2024. * Hospitalization/Major Diagno stic Procedure: r ight hip replacement , No history . * Family History: F ather: , unkown. M other: 88 yrs, spinal stenosis, hip repalcement, pacemaker, artial fibrillation, breast cancer currently in remission 20 years,, diagnosed with Cancer. Children: alive, psoriasis. M aternal Grand Mother: , cancer. 2 brother(s) . 1 son(s) - healthy. . A brother diagnosed with bladder cancer. Mother had breast cancer. * Social History: T obacco Use: T obacco Control (Standard) T obacco use: N onsmoker A dditional Findings: Tobacco non-user A ggressive nonsmoker S he is not working now. 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 She was born in [place]. She has been for 37 years. A son Daphne, aged 43, is working for [employer]. * Medications: T aking Tylenol Extra Strength 500 MG Tablet 2 Tablets Orally every 6 hrs As needed for pain, Taking Eliquis 5 MG Tablet 1 tablet Orally Twice a day prevent blood clots, Taking Alendronate Sodium 70 MG Tablet ! Tablet Orally Every Wednesday Osteoporosis, Taking Gabapentin 300 MG Capsule 1 capsule Orally Three times a day Neuropathy, Taking Metoprolol Succinate ER 25 mg Tablet Extended Release 24 Hour 1 Tablet Orally Once a day Blood pressure, Medication List reviewed and reconciled with the patient * Allergies: S ulfacetamide, Marijuana (Cannabis Sativa). Objective: * Vitals: H t: 62, Wt:171, BMI:31.27, BP:149/88, HR:66, Temp:97.5, Wt-k.56. * Examination: G eneral Examination: GENERAL APPEARANCE: p leasant, well nourished, well developed, in no acute distress, calm and relaxed. HEAD: a traumatic, normocephalic. EYES: e fabio, perrla, anicteric, conjugate. EARS: n ormal. NOSE: s eptum intact. ORAL CAVITY: n ormal, unremarkable. NECK/THYROID: n o jugular venous distention, no carotid bruit, thyroid normal. LYMPH NODES: n o enlarged lymph nodes,spleen normal. SKIN: n o suspicious lesions, anicteric. HEART: n o clicks, gallops, murmurs, or rubs, regular rhythm, S1, S2 normal, no s3, or vascular bruits. LUNGS: c lear to auscultation . BREASTS: no masses palpable bilaterally. ABDOMEN: b owel sounds normal, no ascites, no organomegaly, no mass. RECTAL EXAM: n ot examined. MUSCULOSKELETAL: e xtremities unremarkable, no clubbing, cyanosis or edema. PERIPHERAL PULSES: n ormal. NEUROLOGIC: a lert and oriented, cranial nerves 2-12 grossly intact, deep tendon reflexes 2+ symmetrical, motor strength normal upper and lower extremities, sensory exam intact. PSYCH: a lert, oriented. Assessment: * Assessment: 1. H istory of breast cancer - Z85.3 N otes :A recent mammogram showed an abnormality in the right breast. A biopsy showed Invasivve breast cancer. After a discussion of the issues she has chosen to have bilateral mastectomies. This wiill go forward. 2 . R ight ankle pain - M25.571 3 . R ight foot pain - M79.671 Plan: * Treatment: 2. R ight ankle pain I maging: XR ankle LT min 3V (Performed Date - 12/20/2024) I maging: XR foot LT min 3V (Performed Date - 12/20/2024) 3. R ight foot pain I maging: XR ankle LT min 3V (Performed Date - 12/20/2024) I maging: XR foot LT min 3V (Performed Date - 12/20/2024) 4. O thers Continue Tylenol Extra Strength Tablet, 500 MG, 2 Tablets, Orally, every 6 hrs As needed for pain;?Continue Eliquis Tablet, 5 MG, 1 tablet, Orally, Twice a day prevent blood clots; C ontinue Alendronate Sodium Tablet, 70 MG, ! Tablet, Orally, Every Wednesday Osteoporosis. * Preventive Medicine: Counseling: C are goal follow-up plan: Counseling for abnormal BMI given Y es Above Normal BMI Follow-up D ietary management education, guidance, and counseling, Dietary needs education, Exercise promotion: strength training, Exercise promotion: stretching, Feeding regime, Giving encouragement to exercise, Lifestyle education regarding diet, Nutrition / feeding management, Nutrition therapy, Prescribed activity/exercise education, Prescribed diet education, Prescribed dietary intake, Special diet education, Weight monitoring , Intervention, Order not done: Medical or Other reason not done * Follow Up: 2 Months (Reason: OV) * Images: * The named appointment provid er may or may not be the originator of this progress note, and it is not deemed complete until electronically signed by the appointment provider. Sign off status: Pending * Provider: Alejandro Victoria MD Date: 12/20/2024 Generated for Margiei amber/Mayra/Charuransmitting on: 12/20/2024 05:51 PM EDT History and Physical Notes * [...]
== END 2024-12-20 14:57 | disposition home or self-care (01) ==
LOC: HO.XRAY 14:56
PROVIDERS: PCP Internal Medicine Medical Oncology; Visit Provider Internal Medicine Medical Oncology
DX: M25.571 Pain in right ankle and joints of right foot (principal); M79.671 Pain in right foot
CPT/HCPCS: 73610; 73630

== ENCOUNTER → 2024-12-20 15:20 | Outpatient (BNV) | payer MEDICARE, SELFPAY | PROVIDERS: PCP Internal Medicine Medical Oncology; Visit Provider Radiology Diagnostic Radiology | DX: M25.572 Pain in left ankle and joints of left foot (principal); M25.775 Osteophyte, left foot | CPT/HCPCS: 73610 ==

== ENCOUNTER 2025-01-30 09:21 | Outpatient (AMB) | payer MEDICARE, SELFPAY ==
--- OUTSIDE RECORDS SUMMARY | 2024-12-20 10:30 | XMS_ITS ---
Author Organization Baldev Victoria III, MD Address [address] [place] [address] Care Team Providers Care Cloth Desizing Range Tender Name Role Phone Baldev Victoria Primary Care Provider Allergies Allergen (clinical drug ingredient) Drug/Non Drug Allergy documented on EMR Reaction Allergy Type Onset Date Status sulfacetamide Sulfacetamide Unknown Drug Allergy Active Cannabis sativa whole extract Marijuana (Cannabis Sativa) Unknown Drug Allergy Active Results Component Value Reference Range Notes XR ankle LT min 3V Reviewed date:01/27/2025 07:50:14 PM Interpretation: Performing Lab: Notes/Report: [address] [address] XRay Report Signed Patient: Rosetta Adame MR#: [id number] : 1945 Acct:[id number] Age/Sex: 79 / F ADM Date: 12/20/24 Loc: HO.XRAY Attending Dr: Baldev Victoria MD Ordering Physician: Baldev Victoria MD Date of Service: 12/20/24 Procedure(s): XR ankle LT min 3V Accession Number(s): [id number] cc: Baldev Victoria MD EXAMINATION: XR ANKLE, [...] 12/20/24 155 DD/ 1520 TD/TT: 12/20/24 152 Quantitative Manager: [place] [address] XRay Report Signed Patient: Melba Adame MR#: [id number] : 1945 Acct:[id number] Age/Sex: 79 / F ADM Date: 12/20/24 Loc: HO.XRAY Attending Dr: Baldev Victoria MD Ordering Physician: Baldev Victoria MD Date of Service: 12/20/24 Procedure(s): XR ank le LT min 3V Accession Number(s): [id number] cc: Baldev Victoria MD EXAMINATION: XR ANKLE, [...] Dictated By: James Perez MD Signed By: <Electron sebastian signed by James Perez MD in OV> 12/20/24 155 DD/ 1520 TD/TT: 12/20/24 152 Quantitative Manager: XR foot LT min 3V Reviewed date:01/27/2025 07:50:14 PM Interpretation: Performing Lab: Notes/Report: [address] [address] XRay Report Signed Patient: Rosetta Adame MR#: [id number] : 1945 Acct:[id number] Age/Sex: 79 / F ADM Date: 12/20/24 Loc: HO.XRAY Attending Dr: Baldev Victoria MD Ordering Physician: Baldev Victoria MD Date of Service: 12/20/24 Procedure(s): XR foot LT min 3V Accession Number(s): [id number] cc: Baldev Victoria MD EXAMINATION: XR FOOT, [...] 12/20/24 1538 DD/ 1520 TD/TT: 12/20/24 1525 Quantitative Manager: [address] [address] XRay Report Signed Patient: Melba Adame MR#: [id number] : 1945 Acct:[id number] Age/Sex: 79 / F ADM Date: 12/20/24 Loc: HO.XRAY Attending Dr: Baldev Victroia MD Ordering Physician: Baldev Victoria MD Date of Service: 12/20/24 Procedure(s): XR foot LT min 3V Accession Number(s): [id number] cc: Baldev Victoria MD EXAMINATION: XR FOOT, [...] By: Ermias Young MD Signed By: <Elizabeth icallkanu signed by Ermias Young MD in OV> 12/20/24 1538 DD/ 1520 TD/TT: 12/20/24 1525 Quantitative Manager: REASON FOR VISIT Left ankle sprain 21 days ago, Carcinoma of the right breast, Mild dementia, Obesity, Atrial fibrillation, Anticoagulation Medications Medication SIG (Take, Route, Frequency, Duration) [...] Vital Signs Temperature 97.5 degrees Fahrenheit 12/21/19 Blood pressure systolic 139 mm Hg 12/21/19 Blood pressure diastolic 78 mm Hg 025 Heart Rate 66 /min 12/20/2024 Height 62 in 12/20/2024 Weight 171 lbs 12/20/2024 BMI 31.27 kg/m2 12/20/2024 Encounters Encounter Location Date Provider Diagnosis Baldev Victoria III, MD [address] [place] [address] DR [place], [place] [address] 12/20/2024 Baldev Victoria History of breast ca ncer Z85.3 ; Right ankle pain M25.571 ; Hyperlipidemia E78.5 ; Obesity E66.9 ; Leucopenia D72.819 ; Third degree heart block I44.2 ; Atrial fibrillation, unspecified type I48.91 ; Other obesity due to excess calories E66.09 ; Dementia F03.90 and Status post bilateral mastectomy Z90.13 Assessments Encounter Date Diagnosis (ICD Code) Assessment Notes Treat ment Notes Treatment Clinical Notes 12/20/2024 History of breast cancer (ICD-10 - Z85.3) A recent mammogram showed an abnormality in the right breast. A biopsy showed Invasivve breast cancer. After a discussion of the issues she has chosen to have bilateral mastectomies. This wiill go forward. 12/20/2024 Right ankle pain (ICD-10 - M25.571) She has a referral to orthopedics and a requisition for x-rays of the ankle and foot. 12/20/2024 Hyperlipidemia (ICD-10 - E78.5) Her lipids are currently stable with a cholesterol of 199. Was continued on current therapy and encouraged to continue her weight loss. 12/20/2024 Obesity (ICD-10 - E66.9) She has lost 10 pounds through diet and exercise. Her body mass index is 31.46. She weighs 172 pounds. We reviewed her weight loss strategy. She will continue to lose weight at a rate of one half of a pound per week through a diet restricted in calories. 12/20/2024 Leucopenia (ICD-10 - D72.819) Her white blood cell count today is slightly low at 4600 with a normal differential. She has had no infections. No change in her regimen was made. 12/20/2024 Third degree heart block (ICD-10 - I44.2) Her pacemaker appears to be functioning normally. A recent device check was unremarkable. Her vital signs were stable. 12/20/2024 Atrial fibrillation, unspecified type (ICD-10 - I48.91) She was in a slightly irregular control rhythm today with no symptoms. No change in her medication was made. 12/20/2024 Other obesity due to excess calories (ICD-10 - E66.09) Her body mass index is 31. We discussed her diet and nutrition and made a plan to lose weight at a rate of one half of a pound per week. 12/20/2024 Dementia (ICD-10 - F03.90) 12/20/2024 Status post bilatera l mastectomy (ICD-10 - Z90.13) Her wounds are healing well. Pain is minimal. All of the lymph nodes were negative.Margins were clear. She has a left breast cancer in 2005. This was a right breast cancer. She is doing well. Plan Of Treatment Medication Medication Name Sig [...] ee times a day Next Appt Details Follow Up: 2 Months, Reason: OV Provider Name:Baldev Victoria, 02/19/2025 11:00:00 AM, [address] [place] [address] [place] [place], [place], [address], Provider Name:Baldev Victoria, 10/03/2025 02:30:00 PM, [address] [place] [address] SU[address] CAPELLAN, [place], [address], Progress Notes * Rosetta ADAMEDOB: [birth year] (79 yo F)Acc No.[id number]:12/20/2024 Progress Notes Patient: Beatriz CHAWLAth Provider: Alejandro Victoria MD :1945 A ge:79 Y S ex:Female Date:12/20/2024 Address: [id number] Subjective: * Chief Complaints: * L eft ankle sprain 21 days agoCarcinoma of the right breastMild dementiaObesityAtrial fibrillationAnticoagulation * HPI: C OVID-19 Screenin weeks ago. She twisted her left ankle 21 days ago and since that time it has been swollen and painful. It is difficult to walk and bear weight. She is still limping. On examination the ankle was swollen. I have ordered an x-ray to make sure there is no fracture and referred her to orthopedic surgery to consider a boat. She reports that the pain and swelling in her ankle have not begun to improve. Questions H ave you had any new onset fever, chills, cough, congestion, sore throat, shortness of breath, muscle aches? N o * ROS: G eneral/Constitutional: pain L eft ankle. C hills d enies. F atigue?admits. F ever d enies. E NT: Decreased [...] Muscle aches d enies. P ainful joints L eft ankle.?Sciatica d enies. W eakness d enies. S kin: Itching d enies. R venus d enies. S kin lesion(s)?denies. N eurologic: Difficulty speaking d enies. D izziness d enies.?Headache d enies. L ow back pain d enies. P sychiatric: Depressed mood d enies. * Medical History: * Surgical History: D &C 1991laparotomy right hip replacement 07/2011lumpectomy with sentinel node excision for invasive right breast cancer, RT 2005pacemaker justin, Dr. Rajan, [facility] 09/2018cataract surgery eft hip arthroplasty, [facility] 10/2022Hip replacements Lumpectomy left breast positive for infiltrating ductal and lobular carcinoma, RT 2001invasive ductal carcinoma right breast, lumpectomy, Bilateral mastectomy 2024Lumpectomy 2005Double Massectomy 06/2024 * Hospitalization/Major Diagno stic Procedure: r ight hip replacement No history * Family History: F ather: , unkown. [...] longer climb stairs. She was born in [place]. She has been for 37 years. A son Daphne, aged 43, is working for [employer]. * Medications: T akingTylenol Extra Strength 500 MG Tablet 2 Tablets Orally every 6 hrs As needed for painEliquis 5 MG Tablet 1 tablet Orally Twice a day prevent blood clotsAlendronate Sodium 70 MG Tablet ! Tablet Orally Every Wednesday OsteoporosisGabapentin 300 MG Capsule 1 capsule Orally Three times a day NeuropathyMetoprolol Succinate ER 25 mg Tablet Extended Release 24 Hour 1 Tablet Orally Once a day Blood pressureMedication List reviewed and reconciled with the patientTaking Tylenol Extra Strength 500 MG Tablet 2 Tablets Orally every 6 hrs As needed for painTaking Eliquis 5 MG Tablet 1 tablet Orally Twice a day prevent blood clotsTaking Alendronate Sodium 70 MG Tablet ! Tablet Orally Every Wednesday OsteoporosisTaking Gabapentin 300 MG Capsule 1 capsule Orally Three times a day NeuropathyTaking Metoprolol Succinate ER 25 mg Tablet Extended Release 24 Hour 1 Tablet Orally Once a day Blood pressureMedication List reviewed and reconciled with the patient * Allergies: S ulfacetamideMarijuana (Cannabis Sativa)no[Allergies Verified] Objective: * Vitals: H t: 62, Wt:171, BMI:31.27, BP:139/78, HR:66, Temp:97.5, Wt-k.56. * Examination: G eneral Examination: GENERAL APPEARANCE: p leasant, well nourished, well developed, in no acute distress, calm and relaxed, obese, woman. HEAD: a traumatic, normocephalic. EYES: e fabio, [...] normal, no s3, or vascular bruits, Pacemaker left upper chest wall. LUNGS: c lear to auscultation . BREASTS: B ilateral mastectomies, no sign of recurrent breast cancer. ABDOMEN: b owel sounds normal, no ascites, no organomegaly, no mass. RECTAL EXAM: n ot examined. MUSCULOSKELETAL: L eft ankle is painful to range of motion and quite edematous, skin intact. PERIPHERAL PULSES: n ormal. NEUROLOGIC: a lert and oriented, cranial nerves 2-12 grossly intact, deep tendon reflexes 2+ symmetrical, motor strength normal upper and lower extremities, sensory exam intact, Speech fluent and clear, mild defection member. PSYCH: a lert, oriented with mild memory defects. ? Assessment: * Assessment: 1. R ight ankle pain - M25.571 (Primary) N otes :She has a referral to orthopedics and a requisition for x-rays of the ankle and foot. 2 . H istory of breast cancer - Z85.3 N otes :A recent mammogram showed an abnormality in the right breast. A biopsy showed Invasivve breast cancer. After a discussion of the issues she has chosen to have bilateral mastectomies. This wiill go forward. 3 . H yperlipidemia - E78.5 N otes :Her lipids are currently stable with a cholesterol of 199. Was continued on current therapy and encouraged to continue her weight loss. 4 . O besity - E66.9 N otes :She has lost 10 pounds through diet and exercise. Her body mass index is 31.46. She weighs 172 pounds. We reviewed her weight loss strategy. She will continue to lose weight at a rate of one half of a pound per week through a diet restricted in calories. 5 . L eucopenia - D72.819 N otes :Her white blood cell count today is slightly low at 4600 with a normal differential. She has had no infections. No change in her regimen was made. 6 . T hird degree heart block - I44.2 N otes :Her pacemaker appears to be functioning normally. A recent device check was unremarkable. Her vital signs were stable. 7 . A trial fibrillation, unspecified type - I48.91 N otes :She was in a slightly irregular control rhythm today with no symptoms. No change in her medication was made. 8 . O ther obesity due to excess calories - E66.09 N otes :Her body mass index is 31. We discussed her diet and nutrition and made a plan to lose weight at a rate of one half of a pound per week. 9 . D ementia - F03.90 1 0. S tatus post bilateral mastectomy - Z90.13 N otes :Her wounds are healing well. Pain is minimal. All of the lymph nodes were negative.Margins were clear. She has a left breast cancer in 2005. This was a right breast cancer. She is doing well. Plan: * Treatment: 2. H istory of breast cancer Continue Gabapentin Capsule, 300 MG, 1 capsule, Orally, Three times a day Neuropathy; C ontinue Metoprolol Succinate ER Tablet Extended Release 24 Hour, 25 mg, 1 Tablet, Orally, Once a day Blood pressure. 3. O thers Continue Tylenol Extra Strength Tablet, 500 MG, 2 Tablets, Orally, every 6 hrs As needed for pain;?Continue Eliquis Tablet, 5 MG, 1 tablet, Orally, Twice a day prevent blood clots; C ontinue Alendronate Sodium Tablet, 70 MG, ! Tablet, Orally, Every Wednesday Osteoporosis. * Procedure Codes: * Preventive Medicine: Counseling: C are goal [...] 2 Months (Reason: OV) * Images: * Sign off status: Completed true * Provider: Alejandro Victoria MD Date: 0 12/20/2024 Generated for Printi ng/Faaleciag/eTransmitting on: 0 01/30/2025 09:44 AM EDT History and Physical Notes * [...] normal, no s3, or vascular bruits, Pacemaker left upper chest wall LUNGS: clear to auscultatio n ABDOMEN: bowel sounds normal, no ascites, no organomegaly, no mass NEUROLOGIC: alert and oriented, cranial nerves 2-12 grossly intact, deep tendon reflexes 2+ symmetrical, motor strength normal upper and lower extremities, sensory exam intact, Speech fluent and clear, mild defection member SKIN: no suspicious lesion s, anicteric PERIPHERAL PULSES: normal BREASTS: Bilateral mastectomi es, no sign of recurrent breast cancer MUSCULOSKELETAL: Left ankle is painfu l to range of motion and quite edematous, skin intact LYMPH NODES: no enlarged lymph no kodi,spleen normal RECTAL EXAM: not examined PSYCH: alert, oriented with mild memory defects ORAL CAVITY: normal, unremarkable
--- NOTE | 2025-01-30 09:26 | A.OFFVIS_ITS ---
Vital Signs 01/30/25 09:37 Height 5 ft 2 in Weight 168 lb BMI 30.7 BP 145/70 H Blood Pressure Location Lt brachial Position Sitting Pulse 61 Intake Visit Reasons: follow up breast exam Intake Note: Patient is seen in office for 3 month follow up visit, breast exam. Pt c/o:no concerns mm: 04/26/24 (Due Soon) Pumping Station Supervisor Required: No Ballet Teacher: Ballet Teacher Present Accompanied by: Self / Same As Patient Allergies marijuana (cannabis) Allergy (Intermediate, Verified 01/30/25 09:27) Nausea and Vomiting Sulfa (Sulfonamide Antibiotics) Allergy (Intermediate, Verified 01/30/25 09:27) HIVES,ITCH Medication List - Last Reconciled 01/30/25 by Sammy Samano MD apixaban (Eliquis) 5 mg PO BID docusate sodium (Colace) 100 mg PO BID gabapentin 300 mg PO TID metoprolol succinate ER 25 mg PO DAILY HPI Comments Details: 79-year-old female patient presenting with a recent mammogram which revealed a cluster of calcifications in the right breast at the upper outer quadrant posterior depth. This was felt to be suspicious for malignancy in biopsy recommended. She underwent a stereotactic guided core [facility] at [facility] on 05/02[facility]2024. Pathology reveals a right breast invasive ductal carcinoma, grade 3, with ductal carcinoma in-situ, grade 3, estrogen receptor positive (95%) progesterone receptor low (5%), HER2 Domingo indeterminate, Ki-67 low (5-10%). She has a prior history of bilateral breast cancer including left breast infiltrating mammary carcinoma with both ductal and lobular features and DCIS, ER/NC positive, HER2 Domingo negative status post left breast lumpectomy with left axillary sentinel node biopsy on 05/03/[address] Leon. 0 of 1 sentinel lymph nodes were positive for metastatic disease. She later underwent a right breast lumpectomy on 10/15/2005 for DCIS. There was evidence of a possible venous invasion therefore she was subsequently underwent a wider excision and axillary sentinel node biopsy on 12/01/2005. The surgery was also performed by Dr. Leon. She underwent radiation therapy to both breasts. She is G 1 P 1, with 1 son living and did not breastfeed. 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 She underwent bilateral simple mastectomy, right axillary sentinel node biopsy 08/09/2024. She tolerated the procedure well and was subsequently discharged to home on 08/12/2024 in stable condition. She returns today for a follow up visit. She mainly complains of tightness in the skin following the surgery. She recently fell resulting in a fracture of the left foot. She is currently wearing a boot. [facility] Medical History Hx of radiation therapy Cognitive decline HLD (hyperlipidemia) Osteoporosis Cardiac pacemaker (~2019) Age related osteoporosis Hx of myocardial infarction CHB (complete heart block) Pacemaker Afib VAIN I (vaginal intraepithelial neoplasia grade I) History of bilateral breast cancer Surgical History History of bilateral mastectomy (08/09/24) Hx of colonoscopy History of right hip replacement History of cataract surgery S/P hip replacement History of lumpectomy of both breasts Hx of abdominal hysterectomy H/O heart surgery Family History Mother Breast CA Social History Household Members: None Housing: House Housing Other:: mobile home Are you a primary daytime caregiver to a significant other at home: No Do you presently have visiting nurse or other home services: Yes Alcohol intake: current Alcohol intake frequency: a few times a month Patient Tobacco Use Status: Never used Tobacco Second Hand Smoke Exposure: No service: No Sexual orientation: Straight/Heterosexual Gender identity: Female Female Reproductive History Menstrual Age of Menarche: 15 Review of Systems Const Denies chills and Denies fever(s) Card Denies chest pain and Denies dyspnea Resp Denies dyspnea Skin/Breast Reports as per HPI and Denies rash Physical Exam Const General: comfortable, no acute distress and alert Nutritional Appearance: well nourished Orientation/consciousness: patient oriented x3 Chest Other: right mastectomy site with some mild residual skin thickening and scar formation but no palpable fluid in the subcutaneous tissue. No palpable nodules or enlarged lymph nodes are appreciated. Left breast with some redundant skin laterally but no subcutaneous mass or enlarged lymph nodes appreciated. No seroma palpable. Resp Effort & Inspection: normal respiratory effort and able to speak in complete sentences Skin General skin exam: no rashes or lesions noted Neuro Other: Mobility Assessment: 1. 3 meter assessment time (seconds) 6 2. Gait observations: Normal balance and gait General: patient oriented x3 Extrem General: Yes no clubbing, cyanosis or edema Assessment & Plan Assessment & Plan (1) S/P mastectomy, bilateral: Code(s): Z90.13 - Acquired absence of bilateral breasts and nipples Category: Surgical (2) Invasive ductal carcinoma of right breast: Code(s): C50.911 - Malignant neoplasm of unspecified site of right female breast Category: Medical Plan 79-year-old female patient returning following bilateral mastectomies. Her wounds are clean and intact with no evidence of local recurrence. I recommended follow-up examination in 6 months. She is welcome to call sooner for any new concerns. She will continue her follow-up with Dr. Victoria as well. Coding Level of Care Code Est Pt Level 3 (02945) Complex EM visit Add On G2211 Diagnoses S/P mastectomy, bilateral Z90.13 Invasive ductal carcinoma of right breast C50.911
[2025-01-30 09:37] VITALS: BP 145/70; PULSE 61; BMI 30.7
--- OUTSIDE RECORDS SUMMARY | 2025-01-30 09:45 | XMS_ITS | Patient Health Record ---
Author Organization [facility] Address [address] [place] [address] Care Team Providers Care Attendant [facility] Name Role Phone Baldev Victoria MD Primary Care Provider Unavailab Baldev Souza Unavailable [phone] Reason For Referral No Information Medications Medication SIG (Take, Route, Frequency, Duration) Notes Start Date End Date Status Gabapentin 300 MG TAKE 1 CAPSULE BY [facility] THREE TIMES DAILY Diagnosis Unavailable Oral [...] Problem Status W/U Status Risk Notes Problem 222203628 Colon cancer screening (Z12.11) Active confirmed Problem Diverticular disease of colon (218199165) Diverticulosis of large intestine without perforation or abscess without bleeding (K57.30) Active confirmed Problem 822895583854852 Preprocedural examination (Z01.818) Active confirmed Problem 833194701 Anticoagulant long-term use (Z79.01) Active confirmed Plan Of Treatment Pending Test Test Name Order Date Pathology 04/14/2023 Future Test Test Name Order Date COLONOSCOPY 01/26/2023 Insurance Providers Payer Name Payer Address Payer Phone Subscriber Number Group Number Insured Name Patient Relationship to Insured Coverage Start Date Coverage End Date MEDICARE OF [place] [address] [place] [id number] [phone] [id number] MELISA ADAME Self - patient is the insured MED[employer] ATTN CLAIMS [address] [place] [address] [phone] [id number] MELISA ADAME Self - patient is the insured Medical (General) History Medical History History ICD Code Invasive right breast cancer 2005 Osteoporosis Hyperlipidemia Pacemaker insertion for comp lete heart block in 2019. This was associated with a [facility] Atrial fibrillation Denies DM,CVA,Lung disease,renal disease Surgical History Surgery Date(Month/Year) Exploratory laparotomy D&C 1991 Right hip replacement Lumpectomy with sentinel nod e excision for invasive right breast cancer 2005 Pacemaker insertion, Dr. Rajan, at [facility] Cataract surgery 05/2021 Left hip replacement 11/2022
== END 2025-01-30 09:55 | disposition home or self-care (01) ==
LOC: HO.HGS 09:22
PROVIDERS: PCP Internal Medicine Medical Oncology; Visit Provider Surgery
DX: Z90.13 Acquired absence of bilateral breasts and nipples (principal); C50.911 Malignant neoplasm of unspecified site of right female breast
CPT/HCPCS: 99213; G2211

== ENCOUNTER → 2025-01-30 09:21 | Outpatient (BNVA) | payer MEDICARE, SELFPAY | PROVIDERS: PCP Internal Medicine Medical Oncology; Visit Provider Surgery | DX: C50.411 Malignant neoplasm of upper-outer quadrant of right female breast (principal); Z17.0 Estrogen receptor positive status [ER+]; Z90.13 Acquired absence of bilateral breasts and nipples | CPT/HCPCS: 99212 ==